=== PATIENT | male | born 1960 | race Caucasian/White ===

== ENCOUNTER → 2020-02-28 09:33 | Outpatient (BNVA) | payer OTHER, SELFPAY | PROVIDERS: PCP Nurse Practitioner Family; Referring Provider Nurse Practitioner Family; Visit Provider Hospitalist | DX: Z76.89 Persons encountering health services in other specified circumstances (principal) ==

== ENCOUNTER → 2020-03-17 10:08 | Outpatient (BNVA) | payer OTHER, SELFPAY | PROVIDERS: PCP Nurse Practitioner Family; Visit Provider Urology | DX: Z76.89 Persons encountering health services in other specified circumstances (principal) ==

== ENCOUNTER 2020-04-01 07:03 | Outpatient (REF) | payer OTHER, SELFPAY ==
[2020-04-01 07:52] LABS: Cholesterol 190 mg/dL; HDL Cholesterol 53 mg/dL; LDL Cholesterol Calculated 114 mg/dl; Triglycerides 117 mg/dL
== END 2020-04-01 07:04 | disposition home or self-care (01) ==
LOC: HO.LAB 07:03
PROVIDERS: PCP Nurse Practitioner Family; Visit Provider Nurse Practitioner Family
DX: E78.5 Hyperlipidemia, unspecified (principal)
CPT/HCPCS: 80061

== ENCOUNTER 2020-09-04 07:46 | Outpatient (REF) | payer OTHER, SELFPAY | END 2020-09-04 07:47 | disposition home or self-care (01) | LOC: HO.HMGCLDS 07:46 | PROVIDERS: PCP Nurse Practitioner Family; Visit Provider Urology | DX: R97.20 Elevated prostate specific antigen [PSA] (principal); N40.1 Benign prostatic hyperplasia with lower urinary tract symptoms; N13.8 Other obstructive and reflux uropathy; Z12.5 Encounter for screening for malignant neoplasm of prostate | CPT/HCPCS: 36415; 84153 ==

== ENCOUNTER → 2020-09-15 10:23 | Outpatient (BNVA) | payer OTHER, SELFPAY | PROVIDERS: PCP Nurse Practitioner Family; Visit Provider Urology | DX: Z13.9 Encounter for screening, unspecified (principal); N32.81 Overactive bladder ==

== ENCOUNTER 2021-01-27 06:33 | Outpatient (REF) | payer OTHER, SELFPAY ==
[2021-01-27 11:20] LABS: Appearance Urine CLEAR; Color Urine YELLOW; Glucose Urine UA NEG (NEG); Leukocyte Esterase Urine NEG (NEG); Nitrite Urine NEG (NEG); Urine Blood NEG (NEG); Urine Ketones NEG (NEG); Urine Protein NEG (NEG-TRACE)
[2021-01-27 11:34] LABS: Alanine Aminotransferase 100 U/L (0-40); Albumin Level 4.2 g/dL (3.5-5.0); Alkaline Phosphatase 101 U/L (39-117); Anion Gap 11 (12-20); Aspartate Amino Transferase 61 U/L (5-37); Bilirubin Total 0.4 mg/dL (0.0-1.0); Blood Urea Nitrogen 23 mg/dL (9-16); Carbon Dioxide 25 mmol/L (22-29); Chloride 108 mmol/L (96-108); Cholesterol 192 mg/dL; Estimated Glomerular Filt Rate > 60; Glucose Fasting 94 mg/dL (60-99); HDL Cholesterol 57 mg/dL; LDL Cholesterol Calculated 122 mg/dl; Potassium 4.3 mmol/L (3.3-5.1); Sodium 140 mmol/L (135-145); Total Protein 6.8 g/dL (6.5-8.0); Triglycerides 65 mg/dL
[2021-01-27 11:56] LABS: TSH reflex Free T4 2.53 uIU/mL (0.32-4.0)
== END 2021-01-27 06:34 | disposition home or self-care (01) ==
LOC: HO.HMGCLDS 06:33
PROVIDERS: PCP Nurse Practitioner Family; Visit Provider Nurse Practitioner Family
DX: Z00.00 Encounter for general adult medical examination without abnormal findings (principal)
CPT/HCPCS: 36415; 80053; 80061; 81003; 84443

== ENCOUNTER 2021-02-03 06:37 | Outpatient (REF) | payer OTHER, SELFPAY ==
[2021-02-05 04:27] LABS: HBS Num1 3.25 mIU/mL (0-7.99); HBc Num1 0.06 S/CO (0.00-0.79); Hepatitis B Core Antibody Nonreactive (Nonreactive); ~HepC Num1 0.21 S/CO (0.00-0.79); ~Hepatitis B Surface Antibody NONREACTIVE (Nonreactive); ~Hepatitis C Antibody Nonreactive (Nonreactive)
[2021-02-05 04:30] LABS: Hepatitis B Surface Antigen Negative (Negative)
[2021-02-07 07:48] LABS: HBsAGNum1 0.18 S/CO (0.00-0.99)
[2021-02-07 09:18] LABS: Hepatitis A Antibody IgM 0.11 Index (0-0.79); ~Hepatitis A Antibody IgM Nonreactive (Nonreactive)
== END 2021-02-03 06:38 | disposition home or self-care (01) ==
LOC: HO.HMGCLDS 06:37
PROVIDERS: PCP Nurse Practitioner Family; Visit Provider Nurse Practitioner Family
DX: R74.8 Abnormal levels of other serum enzymes (principal)
CPT/HCPCS: 36415; 86704; 86706; 86709; 86803; 87340

== ENCOUNTER 2021-02-09 08:12 | Outpatient (REF) | payer OTHER, SELFPAY ==
--- NOTE | ~2021-02-09 | US_ITS ---
EXAMINATION: US ABDOMEN COMPLETE CLINICAL INFORMATION: Abnormal levels of other serum enzymes. COMPARISON: Ultrasound abdomen complete 12/15/2015 and 09/02/2014. TECHNIQUE: Real-time imaging of the abdominal viscera. FINDINGS: PANCREAS: The partially visualized body of the pancreas has homogeneous echotexture. The rest of the pancreas is obscured by overlying gas and not well visualized. ABDOMINAL AORTA: The abdominal aorta is normal caliber. INFERIOR VENA CAVA: Visualized portions are normal. LIVER: The liver is normal in size. The liver contour is normal. Parenchymal echogenicity is normal. There are 3 anechoic cysts seen. 1. 0.8 x 0.5 x 0.9 cm 2. 0.6 x 0.4 x 0.5 cm 3. 0.4 x 0.3 x 0.4 cm There is no intrahepatic biliary duct dilatation seen. GALLBLADDER: Surgically absent. COMMON BILE DUCT: Normal in caliber measuring 0.3 cm in diameter. RIGHT KIDNEY: Normal. No hydronephrosis. No renal calculi or focal parenchymal lesions. The kidney measures 12.3 cm in maximum dimension. LEFT KIDNEY: There are scattered vascular calcifications within. No hydronephrosis. No renal calculi or focal parenchymal lesions. The kidney measures 12.6 cm in maximum dimension. SPLEEN: Normal. The spleen measures 10.4 cm in maximum dimension. FREE FLUID: None. US/US abdomen complete IMPRESSION: Multiple hepatic liver cysts. The rest of the abdominal ultrasound is unremarkable.
== END 2021-02-09 08:13 | disposition home or self-care (01) ==
LOC: HO.HMGCX 08:12
PROVIDERS: PCP Nurse Practitioner Family; Visit Provider Nurse Practitioner Family
DX: R74.8 Abnormal levels of other serum enzymes (principal)
CPT/HCPCS: 76700

== ENCOUNTER → 2021-03-22 08:43 | Outpatient (BNVA) | payer OTHER, SELFPAY | PROVIDERS: PCP Nurse Practitioner Family; Visit Provider Urology | DX: N32.81 Overactive bladder (principal); R97.20 Elevated prostate specific antigen [PSA]; R35.1 Nocturia | CPT/HCPCS: 51798 ==

== ENCOUNTER 2021-09-20 07:32 | Outpatient (REF) | payer OTHER, SELFPAY ==
[2021-09-20 12:10] LABS: Prostate Specific Antigen 3.67 ng/mL (<0.05-4.0)
== END 2021-09-20 07:33 | disposition home or self-care (01) ==
LOC: HO.HMGCLDS 07:32
PROVIDERS: PCP Nurse Practitioner Family; Visit Provider Urology
DX: Z12.5 Encounter for screening for malignant neoplasm of prostate (principal); R97.20 Elevated prostate specific antigen [PSA]
CPT/HCPCS: 36415; 84153

== ENCOUNTER 2021-09-24 09:06 | Outpatient (REF) | payer OTHER, SELFPAY ==
[2021-09-24 11:17] LABS: Appearance Urine CLEAR; Color Urine DK YELLOW; Glucose Urine UA NEG (NEG); Leukocyte Esterase Urine NEG (NEG); Nitrite Urine NEG (NEG); Specific Gravity - Urine 1.015 (1.005-1.025); Urine Blood NEG (NEG); Urine Ketones NEG (NEG); Urine Protein TRACE MG/DL (NEG-TRACE)
[2021-09-24 11:46] LABS: Amorphous Sediment Urine 3+ /LPF; RBC Urine 0 /HPF (0); WBC Urine 0 /HPF (0-4)
== END 2021-09-24 09:07 | disposition home or self-care (01) ==
LOC: HO.HMGCLDS 09:06
PROVIDERS: Visit Provider Nurse Practitioner Family
DX: R30.0 Dysuria (principal)
CPT/HCPCS: 81001; 87086

== ENCOUNTER → 2021-10-02 08:21 | Outpatient (BNVA) | payer OTHER, SELFPAY | PROVIDERS: PCP Nurse Practitioner Family; Visit Provider Urology | DX: N32.81 Overactive bladder (principal); R39.12 Poor urinary stream; R35.1 Nocturia; R97.20 Elevated prostate specific antigen [PSA] | CPT/HCPCS: 51798 ==

== ENCOUNTER 2022-01-19 07:04 | Outpatient (REF) | payer OTHER, SELFPAY ==
[2022-01-19 07:10] LABS: MANUAL DIFF FLAG NO
[2022-01-19 07:45] LABS: Basophils Percent Auto 0.8 % (0-2); Eosinophils Absolute Auto 0.1 X10*3/uL (0.0-0.4); Hematocrit 43.2 % (42.0-52.0); Hemoglobin 14.4 g/dl (14.0-18.0); Lymphocytes Absolute Auto 1.2 X10*3/uL (1.2-4.9); Lymphocytes Percent Auto 32.4 % (20-40); Mean Corpuscular HGB Conc 33.3 g/dl (31.0-36.0); Mean Corpuscular Hemoglobin 31.5 pg (27.0-33.0); Mean Corpuscular Volume 94.5 fL (80.0-98.0); Mean Platelet Volume 10.3 fL (9.4-12.4); Monocytes Absolute Auto 0.5 X10*3/uL (0.1-1.2); Monocytes Percent Auto 13.2 % (2-11); Neutrophils Absolute Auto 1.8 x10*3/uL (2.0-8.3); Neutrophils Percent Auto 51.6 % (45-73); Platelet Count 195 X10*3/uL (160-400); Red Blood Count 4.57 X10*6/uL (4.60-5.80); Red Cell Distribution Width 12.3 % (11.0-16.0); White Blood Count 3.6 X10*3/uL (4.8-10.8)
[2022-01-19 08:27] LABS: Alanine Aminotransferase 55 U/L (0-40); Albumin Level 4.3 g/dL (3.5-5.0); Alkaline Phosphatase 109 U/L (39-117); Anion Gap 14 (12-20); Aspartate Amino Transferase 39 U/L (5-37); Bilirubin Total 0.6 mg/dL (0.0-1.0); Blood Urea Nitrogen 19 mg/dL (9-16); Carbon Dioxide 27 mmol/L (22-29); Chloride 106 mmol/L (96-108); Cholesterol 171 mg/dL; Estimated Glomerular Filt Rate > 60; Glucose Fasting 95 mg/dL (60-99); HDL Cholesterol 56 mg/dL; LDL Cholesterol Calculated 108 mg/dl; Potassium 4.5 mmol/L (3.3-5.1); Sodium 142 mmol/L (135-145); Total Protein 6.9 g/dL (6.5-8.0); Triglycerides 38 mg/dL
[2022-01-19 08:50] LABS: TSH reflex Free T4 1.52 uIU/mL (0.32-4.0)
== END 2022-01-19 07:05 | disposition home or self-care (01) ==
LOC: HO.LAB 07:04
PROVIDERS: PCP Nurse Practitioner Family; Visit Provider Nurse Practitioner Family
DX: I10 Essential (primary) hypertension (principal); I42.2 Other hypertrophic cardiomyopathy; I48.91 Unspecified atrial fibrillation; Z95.810 Presence of automatic (implantable) cardiac defibrillator
CPT/HCPCS: 36415; 80053; 80061; 84443; 85025

== ENCOUNTER 2022-03-01 10:14 | Outpatient (REF) | payer OTHER, SELFPAY ==
--- NOTE | ~2022-03-01 | US_ITS ---
EXAMINATION: US ABDOMEN LIMITED CLINICAL INFORMATION: Other specified diseases of liver. Kidney cysts. COMPARISON: Ultrasound abdomen complete 02/09/2021. TECHNIQUE: Real-time imaging of the right upper quadrant abdominal viscera. FINDINGS: PANCREAS: Normal. LIVER: The liver is normal in size. The liver contour is normal. There is increased parenchymal echogenicity. There is no intrahepatic biliary duct dilatation seen. Redemonstration of 2 liver cysts, largest of which demonstrates a 3 mm hyperechoic internal focus, possibly a calcification, though no posterior shadowing is noted. This complicated cyst measures 1 x 0.6 x 0.9 cm, previously 0.8 x 0.5 x 0.9 cm. GALLBLADDER: Surgically absent. COMMON BILE DUCT: Normal in caliber measuring 0.74 cm in diameter. RIGHT KIDNEY: Normal. No hydronephrosis. No renal calculi or focal parenchymal lesions. The kidney measures 12.3 cm in maximum dimension. FREE FLUID: None. US/US abdomen limited IMPRESSION: 1. Redemonstration of 2 liver cysts, one of which demonstrates a 3 mm hyperechoic internal focus, possibly a calcification, though no posterior shadowing is noted, similar to minimally increased in size when compared to 02/09/2021. A follow-up ultrasound in 6-12 months is recommended. 2. Increased hepatic parenchymal echogenicity is nonspecific and could be seen in the setting of hepatic steatosis or hepatocellular disease. 3. Status post cholecystectomy.
[2022-03-01 11:19] LABS: MANUAL DIFF FLAG NO
[2022-03-01 11:35] LABS: Basophils Percent Auto 1.1 % (0-2); Eosinophils Absolute Auto 0.1 X10*3/uL (0.0-0.4); Eosinophils Percent Auto 2.8 % (0-4); Hemoglobin 14.7 g/dl (14.0-18.0); Lymphocytes Absolute Auto 1.4 X10*3/uL (1.2-4.9); Lymphocytes Percent Auto 39.1 % (20-40); Mean Corpuscular HGB Conc 33.4 g/dl (31.0-36.0); Mean Corpuscular Hemoglobin 31.3 pg (27.0-33.0); Mean Corpuscular Volume 93.6 fL (80.0-98.0); Mean Platelet Volume 10.7 fL (9.4-12.4); Monocytes Absolute Auto 0.4 X10*3/uL (0.1-1.2); Monocytes Percent Auto 10.8 % (2-11); Neutrophils Absolute Auto 1.7 x10*3/uL (2.0-8.3); Neutrophils Percent Auto 46.2 % (45-73); Platelet Count 188 X10*3/uL (160-400); White Blood Count 3.6 X10*3/uL (4.8-10.8)
[2022-03-01 11:51] LABS: Alanine Aminotransferase 60 U/L (0-40); Albumin Level 4.3 g/dL (3.5-5.0); Alkaline Phosphatase 114 U/L (39-117); Anion Gap 12 (12-20); Aspartate Amino Transferase 39 U/L (5-37); Bilirubin Total 0.5 mg/dL (0.0-1.0); Blood Urea Nitrogen 19 mg/dL (9-16); Carbon Dioxide 27 mmol/L (22-29); Chloride 109 mmol/L (96-108); Estimated Glomerular Filt Rate > 60; Glucose Random 95 mg/dL (60-115); Potassium 4.1 mmol/L (3.3-5.1); Sodium 144 mmol/L (135-145); Total Protein 6.8 g/dL (6.5-8.0)
== END 2022-03-01 10:15 | disposition home or self-care (01) ==
LOC: HO.HMGCX 10:14
PROVIDERS: PCP Nurse Practitioner Family; Visit Provider Nurse Practitioner Family
DX: K76.89 Other specified diseases of liver (principal); R74.8 Abnormal levels of other serum enzymes
CPT/HCPCS: 36415; 76705; 80053; 85025

== ENCOUNTER → 2022-06-21 14:23 | Outpatient (BNVA) | payer OTHER, SELFPAY | PROVIDERS: PCP Nurse Practitioner Family; Visit Provider Urology | DX: R97.20 Elevated prostate specific antigen [PSA] (principal); R35.0 Frequency of micturition; R39.12 Poor urinary stream | CPT/HCPCS: 51798 ==

== ENCOUNTER 2022-08-03 06:31 | Outpatient (REF) | payer OTHER, SELFPAY ==
[2022-08-03 12:16] LABS: MANUAL DIFF FLAG NO
[2022-08-03 12:25] LABS: Eosinophils Absolute Auto 0.1 X10*3/uL (0.0-0.4); Eosinophils Percent Auto 3.3 % (0-4); Hematocrit 43.7 % (42.0-52.0); Hemoglobin 14.5 g/dl (14.0-18.0); Lymphocytes Absolute Auto 1.1 X10*3/uL (1.2-4.9); Lymphocytes Percent Auto 36.4 % (20-40); Mean Corpuscular HGB Conc 33.2 g/dl (31.0-36.0); Mean Corpuscular Hemoglobin 31.1 pg (27.0-33.0); Mean Corpuscular Volume 93.8 fL (80.0-98.0); Mean Platelet Volume 11.1 fL (9.4-12.4); Monocytes Absolute Auto 0.4 X10*3/uL (0.1-1.2); Monocytes Percent Auto 13.9 % (2-11); Neutrophils Absolute Auto 1.4 x10*3/uL (2.0-8.3); Neutrophils Percent Auto 45.4 % (45-73); Platelet Count 180 X10*3/uL (160-400); Red Blood Count 4.66 X10*6/uL (4.60-5.80); Red Cell Distribution Width 12.7 % (11.0-16.0)
[2022-08-03 12:32] LABS: Appearance Urine Clear; Color Urine Yellow; Glucose Urine UA Negative (Negative); Leukocyte Esterase Urine Small (1+) (Negative); Nitrite Urine Negative (Negative); PH 6.5 (5.0-9.0); UMIC TRIGGER UACC YES; Urine Blood Negative (Negative); Urine Ketones Negative (Negative); Urine Protein Negative (Neg-Trace)
[2022-08-03 12:41] LABS: Alanine Aminotransferase 79 U/L (0-40); Albumin Level 3.9 g/dL (3.5-5.0); Alkaline Phosphatase 100 U/L (39-117); Anion Gap 11 (12-20); Aspartate Amino Transferase 48 U/L (5-37); Bilirubin Total 0.7 mg/dL (0.0-1.0); Blood Urea Nitrogen 18 mg/dL (9-16); Carbon Dioxide 25 mmol/L (22-29); Chloride 108 mmol/L (96-108); Cholesterol 164 mg/dL; Estimated Glomerular Filt Rate > 60; Glucose Fasting 87 mg/dL (60-99); HDL Cholesterol 51 mg/dL; LDL Cholesterol Calculated 101 mg/dl; Potassium 4.4 mmol/L (3.3-5.1); Sodium 140 mmol/L (135-145); Total Protein 6.3 g/dL (6.5-8.0); Triglycerides 63 mg/dL
[2022-08-03 12:59] LABS: TSH reflex Free T4 2.97 uIU/mL (0.32-4.0)
[2022-08-03 13:00] LABS: Bacteria Urine None Seen (None Seen); Hyaline Casts Urine 0-2 /LPF (0-2); RBC Urine 0-2 /HPF (0-2); Squamous Epithelial Cell Urine 0-2 /HPF (0-2); UACC Culture Trigger YES; WBC Urine 0-5 /HPF (0-5)
== END 2022-08-03 06:32 | disposition home or self-care (01) ==
LOC: HO.HMGCLDS 06:31
PROVIDERS: PCP Nurse Practitioner Family; Visit Provider Nurse Practitioner Family
DX: K76.89 Other specified diseases of liver (principal); K76.0 Fatty (change of) liver, not elsewhere classified; R82.90 Unspecified abnormal findings in urine; I48.91 Unspecified atrial fibrillation; I42.2 Other hypertrophic cardiomyopathy
CPT/HCPCS: 36415; 80053; 80061; 81001; 84443; 85025; 87086

== ENCOUNTER → 2022-08-30 10:19 | Outpatient (BNV) | payer OTHER, SELFPAY | PROVIDERS: Visit Provider Internal Medicine | DX: D72.819 Decreased white blood cell count, unspecified (principal) | CPT/HCPCS: 99204; 99212; 99214 ==

== ENCOUNTER 2022-11-04 08:15 | Outpatient (REF) | payer OTHER, SELFPAY | END 2022-11-04 08:16 | disposition home or self-care (01) | LOC: HO.HMGCX 08:15 | PROVIDERS: PCP Nurse Practitioner Family; Visit Provider Nurse Practitioner Family | DX: K76.89 Other specified diseases of liver (principal) | CPT/HCPCS: 76705 ==

== ENCOUNTER 2022-12-03 08:36 | Outpatient (AMB) | payer OTHER, SELFPAY ==
[2022-12-03 08:45] VITALS: BP 136/80; PULSE 69; O2SAT 97; BMI 29.5
--- NOTE | 2022-12-03 08:45 | MHC.PC.OV ---
Vital Signs 12/03/22 08:45 Height 6 ft Weight 217 lb 8 oz BMI 29.5 BP 136/80 Blood Pressure Location Lt brachial Position Sitting Pulse 69 Pulse Source Pulse Oximeter Pulse Oximetry (%) 97 Oxygen Delivery Method Room Air Intake Visit Reasons: Annual PE Allergies aripiprazole [From Abilify] Adverse Reaction (Intermediate, Verified 12/03/22 08:57) Increased agitation and depression Penicillins Adverse Reaction (Intermediate, Verified 12/03/22 08:57) Nausea and Vomiting propranolol [Propranolol] Adverse Reaction (Intermediate, Verified 12/03/22 08:57) Nausea and Vomiting shellfish derived Adverse Reaction (Intermediate, Verified 12/03/22 08:57) Vomiting duloxetine [From CYMBALTA] Adverse Reaction (Mild, Verified 12/03/22 08:57) Increased agitation mirtazapine [MIRTAZAPINE] Adverse Reaction (Mild, Verified 12/03/22 08:57) Manic symptoms prednisone Adverse Reaction (Mild, Verified 12/03/22 08:57) Anger issues risperidone [From RISPERDAL] Adverse Reaction (Mild, Verified 12/03/22 08:57) Previous bad reaction and drug interaction with Wellbutrin Medication List - Last Reconciled 12/03/22 by REEMA Ly- aspirin 81 mg PO DAILY atorvastatin 40 mg PO DAILY [cbd oil 0.5 mL PO 2XD] cholecalciferol (vitamin D3) 50 mcg PO DAILY diclofenac sodium 75 mg PO BID PRN 30 days diphenhydramine HCl (Benadryl) 25 mg PO QID PRN gabapentin 300 mg PO TID lorazepam 0.5 mg PO BID metoprolol tartrate 25 mg PO BID mirabegron ER (Myrbetriq) 50 mg PO DAILY 90 days multivitamin 1 tab PO DAILY primidone 250 mg PO TID sertraline 0 mg PO DAILY terazosin 5 mg PO BEDTIME 90 days vitamin B complex 1 tab PO DAILY Tobacco use date assessed: 12/03/22 Fall risk assessment: No Falls in past year Last assessed Fall Risk: 12/03/22 Dental Screening Dental Screen Date: 12/03/22 Did you have a dental visit in the last 12 months?: Yes Did you have a dental problem in the last 6 months where you did not have access to dental care?: No Was dental information given to patient?: Patient has dentist HPI Annual PE HPI Details Pt is here for a PE. Will order labs. Colon screen is up to date. Pt follows up with urology and cardiology. [facility], [facility] Medical History Asthma Atrial fibrillation Bladder outlet obstruction Coarse tremor Dyspnea HTN (hypertension) Hypertrophic cardiomyopathy Hypogonadism in male Burrows's neuroma of right foot [place] (nonalcoholic steatohepatitis) PAYAL on CPAP Overactive bladder Peyronie's disease PTSD (post-traumatic stress disorder) Weak urinary stream Surgical History History of appendectomy History of colonoscopy History of neck surgery Family History Father Lung disease Substance use disorder Mother Type 2 diabetes mellitus Brother Substance use disorder Other Cancer Diabetes mellitus Mental health disorder Social History Household Members: Spouse Housing: House Patient Tobacco Use Status: Never used Tobacco e-Cigarette/Vaping Use: Never Used Second Hand Smoke Exposure: No service: No Current occupational status: employed Current occupation: [employer], [place] Current occupational exposures/hazards: Yes Cognitive needs: No Hearing needs: No Vision needs: No Questionnaire Thrive Questionnaire Date Thrive assessed: 08/01/22 STU-7 AMB Questionnaire STU-7 Date STU - 7 assessed: 08/01/22 Source: Developed by Drs. Roque Schroeder, Rose Mary Hess, Nikolas Dale and colleagues, with an educational mohit from [employer]. Review of Systems Const Denies chills and Denies fever(s) Eyes Denies blurry vision ENT Denies vertigo, Denies dizziness and Denies sore throat Card Denies chest pain at rest, Denies chest pain with activity, Denies diaphoresis, Denies dyspnea and Denies dyspnea on exertion Resp Denies cough, Denies dyspnea, Denies dyspnea on exertion and Denies wheezing GI Denies abdominal pain, Denies melena, Denies hematochezia, Denies constipation, Denies diarrhea and Denies loose stools Denies hematuria Musc Denies numbness and Denies tingling Skin/Breast Denies lesions Neuro Denies vertigo, Denies dizziness, Denies numbness and Denies tingling Psych Denies anxiety, Denies depression, Denies homicidal ideation, Denies suicidal ideation and Denies other (substance abuse) Aller/Immun Denies wheezing Physical exam (Primary Care) Vital Signs: Last Vital Signs Pulse 69 12/03/22 08:45 BP 136/80 12/03/22 08:45 Pulse Ox 97 12/03/22 08:45 Oxygen Delivery Method Room Air 12/03/22 08:45 BMI result Body Mass Index 29.5 Tobacco/Smoking Status: Tobacco use Status Tobacco use date assessed 12/03/22 12/03/22 08:54 Patient Tobacco Use Status Never used Tobacco 12/03/22 08:54 e-Cigarette/Vaping Use Never Used 12/03/22 08:54 Thrive Assessment: Date of Thrive Assessment Date Thrive assessed 08/01/22 12/03/22 08:54 Const General: cooperative Nutritional Appearance: well nourished Orientation/consciousness: patient oriented x3 HENMT Head: Yes normal to inspection, Yes normocephalic and Yes atraumatic Ears: TM's normal bilaterally Eyes General: appearance normal, both eyes and all related structures Alignment and Position: alignment normal and position normal Neck Neck: Yes normal visual inspection and Yes no lymphadenopathy Thyroid: Thyroid normal Resp Effort & Inspection: normal respiratory effort Auscultation: clear to auscultation bilaterally Cardio Rate: regular rate Rhythm: regular rhythm Heart sounds: S1 normal heart sound present, S2 normal heart sound present and no murmurs GI Palpation (GI): Soft to palpation and nontender Auscultation: normal bowel sounds Male General Exam: Yes normal external exam Penis: normal penis Scrotum: scrotum normal, testes descended bilaterally and no inguinal hernias Testes: no testicular mass Skin Rashes: no rashes Neuro General: patient oriented x3, moves all extremities, no focal motor deficits and deep tendon reflexes 2+ bilaterally Romberg Test: Negative Psych Appearance: grossly normal Mental Status: mental status grossly normal Speech and movement: Normal speech and movement present Affect: normal affect Attitude: cooperative Thought process: Normal thought process present Thought content: Normal thought content present Insight: Good insight present (Psych) Judgement: Good judgement present (Psych) Assessment and Plan Assessment & Plan (1) Physical exam: Code(s): Z00.00 - Encounter for general adult medical examination without abnormal findings Plan: Labs ordered Plan The patient agreed to the use of a medical device sales for this encounter. Scribed for NATI Dejesus by [employer] Arriola medical device sales, on 12/03/2022 at 08:55 EST. Orders: Orders Comprehensive [place]. Panel Fast Today Z00.00 - Encounter for general adult medical examination without abnormal findings Lipid Panel Today Z00.00 - Encounter for general adult medical examination without abnormal findings TSH reflex Free T4 Today Z00.00 - Encounter for general adult medical examination without abnormal findings Complete Blood Count Auto Diff Today Z00.00 - Encounter for general adult medical examination without abnormal findings UA CC w/rflx Micro + Cult Today Z00.00 - Encounter for general adult medical examination without abnormal findings Coding Level of Care Code Est Pt Prev Care 40-64y(56747) Diagnoses Physical exam Z00.00
== END 2022-12-03 09:11 | disposition home or self-care (01) ==
PROVIDERS: Visit Provider Nurse Practitioner Family
DX: Z00.00 Encounter for general adult medical examination without abnormal findings (principal)
CPT/HCPCS: 99396

== ENCOUNTER 2022-12-24 08:19 | Outpatient (AMB) | payer OTHER, SELFPAY ==
--- NOTE | 2022-12-24 08:20 | MHC.OFFVIS ---
Intake Intake Visit Reasons: 6m follow up Intake Note: Patient is present for Telephone Follow Up Urology Med: Terazosin, Myrbetriq Antibiotic Allergy: Penicillins Blood Thinner: Aspirin Pharmacy: [facility] Allergies aripiprazole [From Abilify] Adverse Reaction (Intermediate, Verified 12/24/22 08:21) Increased agitation and depression Penicillins Adverse Reaction (Intermediate, Verified 12/24/22 08:21) Nausea and Vomiting propranolol [Propranolol] Adverse Reaction (Intermediate, Verified 12/24/22 08:21) Nausea and Vomiting shellfish derived Adverse Reaction (Intermediate, Verified 12/24/22 08:21) Vomiting duloxetine [From CYMBALTA] Adverse Reaction (Mild, Verified 12/24/22 08:21) Increased agitation mirtazapine [MIRTAZAPINE] Adverse Reaction (Mild, Verified 12/24/22 08:21) Manic symptoms prednisone Adverse Reaction (Mild, Verified 12/24/22 08:21) Anger issues risperidone [From RISPERDAL] Adverse Reaction (Mild, Verified 12/24/22 08:21) Previous bad reaction and drug interaction with Wellbutrin Medication List - Last Reconciled 12/24/22 by Anil Villareal MD aspirin 81 mg PO DAILY atorvastatin 40 mg PO DAILY [cbd oil 0.5 mL PO 2XD] cholecalciferol (vitamin D3) 50 mcg PO DAILY diclofenac sodium 75 mg PO BID PRN 30 days diphenhydramine HCl (Benadryl) 25 mg PO QID PRN gabapentin 300 mg PO TID lorazepam 0.5 mg PO BID metoprolol tartrate 25 mg PO BID mirabegron ER (Myrbetriq) 50 mg PO DAILY 90 days multivitamin 1 tab PO DAILY primidone 250 mg PO TID sertraline 50 mg PO QPM terazosin 5 mg PO BEDTIME 90 days vitamin B complex 1 tab PO DAILY HPI HPI Comments History of Present Illness Details Damian is a pleasant male. He is a patient Dr. Krueger. 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 Current treatment includes medication, alpha rajni - terazosin 5mg, Myrbetriq Prior treatments include 08/20 terazosin 5mg 02/20 oxybutynin with dry mouth - has memory issues baseline. Prostate Symptom Score 02/18 Moderate (9-19), Bother 3 4./ , Moderate (9-19), Bother 3. Symptoms include 02/18 incomplete emptying, urgency, weak stream 08/20 , intermittency, urgency, weak stream, nocturia (>2), and are progressing. Results from testing include cystoscopy no abnormality seen 09/19, 03/23 - filled 300cc mild trabeculation Prior Prostate Score mild. PSA 08/20 3.5 - 01/22 6.1 - 09/22 3.9, 09/23 3.7 Testing at next visit will include bladder scan. Treatment plan combination therapy. Peyronie's Disease: The patient presents for followup up evaluation for penile disorder. Primary complaint is penile curvature, Peyronie's disease. At this time he experiences partial erections sufficient for penetrative intercourse. [place] has is unaffected. Prior management includes 03/22 oral medication, vacuum protocol. Associated conditions history of penile trauma No CAD No diabetes No erectile dysfunction No hypertension No peripheral vascular disease No Natural history of Peyronie's COUNTS INCLUDE 234 BEDS AT THE [facility] Medical History Asthma Atrial fibrillation Bladder outlet obstruction Coarse tremor Dyspnea HTN (hypertension) Hypertrophic cardiomyopathy Hypogonadism in male Burrows's neuroma of right foot [place] (nonalcoholic steatohepatitis) PAYAL on CPAP Overactive bladder Peyronie's disease PTSD (post-traumatic stress disorder) Weak urinary stream Surgical History History of appendectomy History of colonoscopy History of neck surgery Family History Father Lung disease Substance use disorder Mother Type 2 diabetes mellitus Brother Substance use disorder Other Cancer Diabetes mellitus Mental health disorder Social History Household Members: Spouse Housing: House Patient Tobacco Use Status: Never used Tobacco e-Cigarette/Vaping Use: Never Used Second Hand Smoke Exposure: No service: No Current occupational status: employed Current occupation: [employer] Current occupational exposures/hazards: Yes Cognitive needs: No Hearing needs: No Vision needs: No Review of Systems Const All systems reviewed & are unremarkable except as noted in HPI and below Reports no additional complaints Resp Reports no additional complaints GI Reports no additional complaints Reports as per HPI Musc Reports no additional complaints Physical Exam Telemedicine evaluation Appropriate responses Regular breathing rate and rhythm HEENT Head: Yes normal to inspection Ears: hearing grossly normal bilaterally Eyes General: appearance normal, both eyes and all related structures Neck Neck: Yes normal visual inspection Chest Chest palpation & inspection: normal inspection of the chest Resp Effort & Inspection: normal respiratory effort and able to speak in complete sentences Assessment & Plan Assessment & Plan (1) Nocturia more than twice per night: Code(s): R35.1 - Nocturia (2) Overactive bladder: Comment: Myrbetriq Code(s): N32.81 - Overactive bladder (3) Urinary frequency: Code(s): R35.0 - Frequency of micturition Plan Six month follow-up Orders: Orders Prostate Specific Antigen 6 Months R97.20 - Elevated prostate specific antigen [PSA] Medications: Refilled terazosin 5 mg PO BEDTIME 90 caps 1RF 90 days N40.1 - Benign prostatic hyperplasia with lower urinary tract symptoms, R35.0 - Frequency of micturition mirabegron ER (Myrbetriq) 50 mg PO DAILY 90 tabs 2RF 90 days Patient Instructions: Imaging studies, laboratory and physical exam results were discussed and reviewed in detail. No major barriers to patient understanding were identified. An opportunity to ask questions regarding the treatment plan was provided. All questions were answered. The patient expressed understanding and agreement with the above treatment plan. The patient is aware they should contact our office by phone for worsening of their current condition or the appearance of new urologic symptoms. Compliance is encouraged with any medications and followup testing that is ordered. It is a privilege to participate in the urologic care of your patient. If you have any questions or concerns regarding treatment for the above conditions, or other urologic issues, please do not hesitate to contact me. The office telephone contact is [phone]. This note is constructed using voice recognition software. While every effort has been made to ensure accuracy director of investigations errors may have been included. Yours sincerely, Dr Anil Villareal MD, [facility] - Urology Providers of Expert, Compassionate Care for the Genitourinary System Telehealth Telehealth Location of provider rendering services: practice address Location of patient: address on file Patient Identification confirmed using: Name, : Yes Telehealth method: video Patient verbally consented to treatment: Yes Patient verbally consented to billing insurance company: Yes Patient informed of any privacy concerns related to visit: Yes Coding Level of Care Code Tele Est Pt Level 3 (28543) Diagnoses Nocturia more than twice per night R35.1 Overactive bladder N32.81 Urinary frequency R35.0
== END 2022-12-24 11:16 | disposition home or self-care (01) ==
LOC: HO.HUSH 08:19
PROVIDERS: PCP Nurse Practitioner Family; Visit Provider Urology
DX: R35.1 Nocturia (principal); N32.81 Overactive bladder; R35.0 Frequency of micturition
CPT/HCPCS: 99213

== ENCOUNTER → 2022-12-24 08:19 | Outpatient (BNVA) | payer OTHER, SELFPAY | PROVIDERS: PCP Nurse Practitioner Family; Visit Provider Urology ==

== ENCOUNTER 2023-05-24 06:36 | Outpatient (REF) | payer OTHER, SELFPAY ==
[2023-05-24 11:29] LABS: MANUAL DIFF FLAG NO
[2023-05-24 11:35] LABS: Appearance Urine Clear; Color Urine Dark Yellow; Glucose Urine UA Negative (Negative); Leukocyte Esterase Urine Trace (Negative); Nitrite Urine Negative (Negative); PH 6.5 (5.0-9.0); Specific Gravity - Urine 1.025 (1.005-1.025); UMIC TRIGGER UACC YES; Urine Blood Negative (Negative); Urine Ketones Negative (Negative); Urine Protein Negative (Neg-Trace)
[2023-05-24 11:38] LABS: Basophils Percent Auto 0.9 % (0-2); Eosinophils Absolute Auto 0.1 X10*3/uL (0.0-0.4); Eosinophils Percent Auto 2.8 % (0-4); Hemoglobin 13.8 g/dl (14.0-18.0); Lymphocytes Absolute Auto 1.1 X10*3/uL (1.2-4.9); Lymphocytes Percent Auto 32.9 % (20-40); Mean Corpuscular HGB Conc 33.7 g/dl (31.0-36.0); Mean Corpuscular Hemoglobin 31.5 pg (27.0-33.0); Mean Corpuscular Volume 93.6 fL (80.0-98.0); Mean Platelet Volume 10.7 fL (9.4-12.4); Monocytes Absolute Auto 0.5 X10*3/uL (0.1-1.2); Monocytes Percent Auto 15.7 % (2-11); Neutrophils Absolute Auto 1.6 x10*3/uL (2.0-8.3); Neutrophils Percent Auto 47.7 % (45-73); Platelet Count 176 X10*3/uL (160-400); Red Blood Count 4.38 X10*6/uL (4.60-5.80); Red Cell Distribution Width 12.9 % (11.0-16.0); White Blood Count 3.3 X10*3/uL (4.8-10.8)
[2023-05-24 11:40] LABS: Bacteria Urine None Seen (None Seen); Hyaline Casts Urine 0-2 /LPF (0-2); RBC Urine 0-2 /HPF (0-2); Squamous Epithelial Cell Urine 0-2 /HPF (0-2); WBC Urine 0-5 /HPF (0-5)
[2023-05-24 12:02] LABS: Alanine Aminotransferase 46 U/L (0-40); Albumin Level 3.9 g/dL (3.5-5.0); Alkaline Phosphatase 97 U/L (39-117); Anion Gap 11 (12-20); Aspartate Amino Transferase 39 U/L (5-37); Bilirubin Total 0.5 mg/dL (0.0-1.0); Blood Urea Nitrogen 19 mg/dL (9-16); Calcium 8.9 mg/dL (8.4-10.2); Carbon Dioxide 26 mmol/L (22-29); Chloride 109 mmol/L (96-108); Cholesterol 147 mg/dL (<200); Estimated Glomerular Filt Rate > 60; Glucose Fasting 91 mg/dL (60-99); HDL Cholesterol 57 mg/dL (>40); LDL Cholesterol Calculated 81 mg/dL (<100); Sodium 142 mmol/L (135-145); Total Protein 6.6 g/dL (6.5-8.0); Triglycerides 49 mg/dL (<150)
[2023-05-24 12:06] LABS: TSH reflex Free T4 1.78 uIU/mL (0.32-4.0)
== END 2023-05-24 06:37 | disposition home or self-care (01) ==
LOC: HO.HMGCLDS 06:36
PROVIDERS: PCP Nurse Practitioner Family; Visit Provider Nurse Practitioner Family
DX: Z00.00 Encounter for general adult medical examination without abnormal findings (principal)
CPT/HCPCS: 36415; 80053; 80061; 81001; 84443; 85025

== ENCOUNTER 2023-06-05 08:27 | Outpatient (AMB) | payer OTHER, SELFPAY ==
[2023-06-05 08:38] VITALS: BP 110/70; PULSE 64; O2SAT 97; BMI 29.9
--- NOTE | 2023-06-05 08:38 | MHC.PC.OV ---
Vital Signs 06/05/23 08:38 Height 6 ft Weight 220 lb 6 oz BMI 29.9 BP 110/70 Blood Pressure Location Lt brachial Position Sitting Pulse 64 Pulse Source Pulse Oximeter Pulse Oximetry (%) 97 Oxygen Delivery Method Room Air Intake Visit Reasons: 6 month follow up Allergies aripiprazole [From Abilify] Adverse Reaction (Intermediate, Verified 06/05/23 08:42) Increased agitation and depression Penicillins Adverse Reaction (Intermediate, Verified 06/05/23 08:42) Nausea and Vomiting propranolol [Propranolol] Adverse Reaction (Intermediate, Verified 06/05/23 08:42) Nausea and Vomiting shellfish derived Adverse Reaction (Intermediate, Verified 06/05/23 08:42) Vomiting duloxetine [From CYMBALTA] Adverse Reaction (Mild, Verified 06/05/23 08:42) Increased agitation mirtazapine [MIRTAZAPINE] Adverse Reaction (Mild, Verified 06/05/23 08:42) Manic symptoms prednisone Adverse Reaction (Mild, Verified 06/05/23 08:42) Anger issues risperidone [From RISPERDAL] Adverse Reaction (Mild, Verified 06/05/23 08:42) Previous bad reaction and drug interaction with Wellbutrin Medication List - Last Reconciled 06/05/23 by REEMA Ly-FABRICIO aspirin 81 mg PO DAILY atorvastatin 40 mg PO DAILY [cbd oil 0.5 mL PO 2XD] cholecalciferol (vitamin D3) 50 mcg PO DAILY diclofenac sodium 75 mg PO BID PRN diphenhydramine HCl (Benadryl) 25 mg PO QID PRN gabapentin 300 mg PO TID lorazepam 0.5 mg PO BID metoprolol tartrate 25 mg PO BID mirabegron ER (Myrbetriq) 50 mg PO DAILY 90 days multivitamin 1 tab PO DAILY primidone 250 mg PO TID sertraline 100 mg PO DAILY sertraline 50 mg PO QPM terazosin 5 mg PO BEDTIME 90 days vitamin B complex 1 tab PO DAILY Tobacco use date assessed: 06/05/23 Dental Screening Dental Screen Date: 06/05/23 Did you have a dental visit in the last 12 months?: Yes Did you have a dental problem in the last 6 months where you did not have access to dental care?: No Was dental information given to patient?: Patient has dentist HPI 6 month follow up HPI Details Pt had an abdominal US on 11/04/22 which showed mild hepatic steatosis. Again seen are 2 liver cysts, one of which demonstrates a 3 mm hyperechoic internal focus, possibly calcification, though no posterior shadowing is noted. This is similar to minimally increased in size compared to the study of 03/01/2022. A follow-up ultrasound in 6-12 months is recommended. Repeat US is scheduled for next Friday. Pt is following up with cardiology. He is going for a pacer adjustment in the near future. Gallop noted today,though paced beats noted on EKG. 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 Pt knows to go to the ER with any worsening symptoms. Dyslipidemia: On atorvastatin 40mg. Last cholesterol panel was stable. HTN: Blood pressure is stable, managed with metoprolol 25mg bid. Denies chest pain, shortness of breath, headache, blurred vision, and dizziness. [facility] Medical History Overactive bladder Bladder outlet obstruction Weak urinary stream Hypogonadism in male Hypertrophic cardiomyopathy Coarse tremor HTN (hypertension) OH (nonalcoholic steatohepatitis) Burrows's neuroma of right foot PTSD (post-traumatic stress disorder) Peyronie's disease Atrial fibrillation Asthma PAYAL on CPAP Dyspnea Surgical History History of colonoscopy History of neck surgery History of appendectomy Family History Father Lung disease Substance use disorder Mother Type 2 diabetes mellitus Brother Substance use disorder Other Cancer Diabetes mellitus Mental health disorder Social History Household Members: Spouse Housing: House Patient Tobacco Use Status: Never used Tobacco e-Cigarette/Vaping Use: Never Used Second Hand Smoke Exposure: No service: No Current occupational status: employed Current occupation: [employer] Current occupational exposures/hazards: Yes Cognitive needs: No Hearing needs: No Vision needs: No Questionnaire PHQ-9 Over the last 2 weeks, how often have you been bothered by any of the following problems? 1. Little interest or pleasure in doing things: not at all 2. Feeling down, depressed, or hopeless: not at all 3. Trouble falling or staying asleep, or sleeping too much: not at all 4. Feeling tired or having little energy: several days 5. Poor appetite or overeating: not at all 6. Feeling bad about yourself - or that you are a failure or have let yourself or your family down: several days 7. Trouble concentrating on things, such as reading the newspaper or watching television: not at all 8. Moving or speaking so slowly that other people could have noticed. Or the opposite - being so fidgety or restless that you have been moving around a lot more than usual: not at all 9. Thoughts that you would be better off or of hurting yourself in some way: not at all Total score: 2 Source: Developed by Drs. Roque Schroeder, Rose Mary Hess, Nikolas Dale and colleagues, with an educational mohit from [employer]. Thrive Questionnaire Date Thrive assessed: 06/05/23 I am a: Patient What is your living situation today?: I have a steady place to live Within the past 12 months, did the food you bought not last and you didn't have the money to get more?: Never true Within the past 12 months, did you worry whether your food would run out before you got money to buy more?: Never true Do you have trouble paying for medicines?: No Do you have trouble getting transportation to medical appointments?: No Do you have trouble paying your heating and electricity bill?: No Do you have trouble taking care of your child, family member or friend?: No Do you have trouble with day-to-day activities such as bathing, preparing meals, shopping, managing finances, etc.?: No Are you currently unemployed and looking for a job?: No Are you interested in more education?: No THRIVE Score: 0 AUDIT C Alcohol Use Questionnaire (AUDIT-C) 1. How often do you have a drink containing alcohol?: Never Total Score: 0 STU-7 AMB Questionnaire STU-7 Date STU - 7 assessed: 06/05/23 Feeling nervous, anxious, or on edge: 1 = Several days Not being able to stop or control worryin = Several days Worrying too much about different things: 1 = Several days Trouble relaxin = Several days Being so restless that it is hard to sit still: 1 = Several days Becoming easily annoyed or irritable: 0 = Not at all Feeling afraid as if something awful might happen: 0 = Not at all Total STU-7 score (0-4 normal; 5-9 mild; 10-14 moderate; 15-21 severe): 5 Source: Developed by Drs. Roque Schroeder, Rose Mary Hess, Nioklas Dale and colleagues, with an educational mohit from [employer]. Review of Systems Const Reports as per HPI Physical exam (Primary Care) Vital Signs: Last Vital Signs Pulse 64 06/05/23 08:38 BP 110/70 06/05/23 08:38 Pulse Ox 97 06/05/23 08:38 Oxygen Delivery Method Room Air 06/05/23 08:38 BMI result Body Mass Index 29.9 Tobacco/Smoking Status: Tobacco use Status Tobacco use date assessed 06/05/23 06/05/23 08:47 Patient Tobacco Use Status Never used Tobacco 06/05/23 08:38 e-Cigarette/Vaping Use Never Used 06/05/23 08:38 PHQ-9: PHQ-9 Score PHQ-9: Total score 2 06/05/23 08:52 Thrive Assessment: Date of Thrive Assessment Date Thrive assessed 06/05/23 06/05/23 08:49 Const General: cooperative Orientation/consciousness: patient oriented x3 Resp Effort & Inspection: normal respiratory effort Auscultation: clear to auscultation bilaterally Cardio Heart sounds: Gallop heart sound present and no murmurs Neuro General: patient oriented x3 Extrem Right lower extremity: no edema Left lower extremity: no edema Psych Appearance: grossly normal Mental Status: mental status grossly normal Speech and movement: Normal speech and movement present Affect: normal affect Attitude: cooperative Thought process: Normal thought process present Thought content: Normal thought content present Insight: Good insight present (Psych) Judgement: Good judgement present (Psych) Assessment and Plan Assessment & Plan (1) Liver cyst: Code(s): K76.89 - Other specified diseases of liver Plan: US is scheduled (2) Cardiac pacemaker: Code(s): Z95.0 - Presence of cardiac pacemaker Plan: Following up with cardiology (3) Cardiac defibrillator in place: Code(s): Z95.810 - Presence of automatic (implantable) cardiac defibrillator Plan: Following up with cardiology (4) HTN (hypertension): Code(s): I10 - Essential (primary) hypertension Plan: Stable Plan The patient agreed to the use of a remote medical coder for this encounter. Scribed for NATI Dejesus by Dali Arriola remote medical coder, on 06/05/2023 at 08:50 EST. Coding Level of Care Code Est Pt Level 3 (46669) Diagnoses Liver cyst K76.89 Cardiac pacemaker Z95.[address] Z95.810 HTN (hypertension) I10
== END 2023-06-05 10:46 | disposition home or self-care (01) ==
PROVIDERS: PCP Nurse Practitioner Family; Visit Provider Nurse Practitioner Family
DX: K76.89 Other specified diseases of liver (principal); Z95.0 Presence of cardiac pacemaker; Z95.810 Presence of automatic (implantable) cardiac defibrillator; I10 Essential (primary) hypertension
CPT/HCPCS: 99213

== ENCOUNTER 2023-06-13 08:16 | Outpatient (REF) | payer OTHER, SELFPAY ==
--- NOTE | ~2023-06-13 | US_ITS ---
EXAMINATION: US ABDOMEN LIMITED CLINICAL INFORMATION: Other specified diseases of liver. Liver cysts. COMPARISON: Ultrasound abdomen limited 11/04/2022. TECHNIQUE: Real-time imaging of the right upper quadrant abdominal viscera. FINDINGS: PANCREAS: Normal. LIVER: The liver is normal in size. The liver contour is normal. Parenchymal echogenicity is normal. Again noted left hepatic lobe cysts, one of which demonstrates a 3 mm hyperechoic focus, possibly a calcification. This complicated cyst measures 1.1 x 1.1 x 1.1 cm, previously 0.9 x 0.8 x 1.2 cm on 11/04/2022 and 1 x 0.6 x 0.9 cm on 03/01/2022. There is no intrahepatic biliary duct dilatation seen. GALLBLADDER: Surgically absent. COMMON BILE DUCT: Normal in caliber measuring 0.5 cm in diameter. RIGHT KIDNEY: Normal. No hydronephrosis. No renal calculi or focal parenchymal lesions. The kidney measures 13.1 cm in maximum dimension. FREE FLUID: None. US/US abdomen limited IMPRESSION: Slightly complicated left hepatic lobe cyst with a 3 mm internal hyperechoic focus, possibly a calcification is similar to minimally increased compared to 11/04/2022 and increased compared to 03/01/2022. Recommend a follow-up ultrasound in one year.
== END 2023-06-13 08:17 | disposition home or self-care (01) ==
LOC: HO.HMGCX 08:16
PROVIDERS: PCP Nurse Practitioner Family; Visit Provider Nurse Practitioner Family
DX: K76.89 Other specified diseases of liver (principal)
CPT/HCPCS: 76705

== ENCOUNTER 2023-08-09 06:31 | Outpatient (REF) | payer OTHER, SELFPAY ==
[2023-08-09 11:54] LABS: Prostate Specific Antigen 5.08 ng/mL (<0.05-4.0)
== END 2023-08-09 06:32 | disposition home or self-care (01) ==
LOC: HO.HMGCLDS 06:31
PROVIDERS: PCP Nurse Practitioner Family; Visit Provider Urology
DX: Z12.5 Encounter for screening for malignant neoplasm of prostate (principal); R97.20 Elevated prostate specific antigen [PSA]
CPT/HCPCS: 36415; 84153

== ENCOUNTER 2023-08-15 10:49 | Outpatient (AMB) | payer OTHER, SELFPAY ==
--- NOTE | 2023-08-15 11:17 | MHC.OFFVIS ---
Intake Intake Visit Reasons: 6M PSA(set)Confirmed Intake Note: Patient is Present for Follow Up Urology Medication: Myrbetriq,Terazosin Antibiotic Allergies: Penicillins Blood Thinners: Aspirin PVR: 0 Patient states that myrbetriq is currently to expensive Patient would like to try an alternative Offered Gemtesa 30 day free trail Patient would like to try advised with Dr Villareal and is okay with trial Allergies aripiprazole [From Abilify] Adverse Reaction (Intermediate, Verified 08/15/23 11:30) Increased agitation and depression Penicillins Adverse Reaction (Intermediate, Verified 08/15/23 11:30) Nausea and Vomiting propranolol [Propranolol] Adverse Reaction (Intermediate, Verified 08/15/23 11:30) Nausea and Vomiting shellfish derived Adverse Reaction (Intermediate, Verified 08/15/23 11:30) Vomiting duloxetine [From CYMBALTA] Adverse Reaction (Mild, Verified 08/15/23 11:30) Increased agitation mirtazapine [MIRTAZAPINE] Adverse Reaction (Mild, Verified 08/15/23 11:30) Manic symptoms prednisone Adverse Reaction (Mild, Verified 08/15/23 11:30) Anger issues risperidone [From RISPERDAL] Adverse Reaction (Mild, Verified 08/15/23 11:30) Previous bad reaction and drug interaction with Wellbutrin Medication List - Last Reconciled 08/15/23 by Anil Villareal MD aspirin 81 mg PO DAILY atorvastatin 40 mg PO DAILY [cbd oil 0.5 mL PO 2XD] cholecalciferol (vitamin D3) 50 mcg PO DAILY diclofenac sodium 75 mg PO BID PRN diphenhydramine HCl (Benadryl) 25 mg PO QID PRN gabapentin 300 mg PO TID lorazepam 0.5 mg PO BID metoprolol tartrate 25 mg PO BID multivitamin 1 tab PO DAILY primidone 250 mg PO TID sertraline 100 mg PO DAILY sertraline 50 mg PO QPM terazosin 5 mg PO BEDTIME 90 days vibegron 75 mg PO DAILY 30 days vitamin B complex 1 tab PO DAILY HPI HPI Comments History of Present Illness Details Damian is a pleasant male. He is a patient Dr. Krueger. He is seen for the following urologic conditions - lower urinary tract symptoms - urgency and weak stream - Peyronie's disease Combination Myrbetriq and terazosin working Urge control during the day Has insurance issues with Myrbetriq Will switch to gym Ashwini Nocturia x1 Primary issue with nocturia is inability to fall back to sleep - works third shift 2 month follow-up tele PAYAL with CPAP Lower Urinary Tract Symptoms: Continued good response to urge frequency with combination Myrbetriq and terazosin Current visit is for further evaluation of, lower urinary tract symptoms, predominate irritative symptoms. Current treatment includes medication, alpha rajni - terazosin 5mg, Myrbetriq Prior treatments include 08/20 terazosin 5mg 02/20 oxybutynin with dry mouth - has memory issues baseline. Prostate Symptom Score 02/18 Moderate (9-19), Bother 3 4./ , Moderate (9-), Bother 3. Symptoms include 02/18 incomplete emptying, urgency, weak stream 08/20 , intermittency, urgency, weak stream, nocturia (>2), and are progressing. Results from testing include cystoscopy no abnormality seen 09/19, 03/23 - filled 300cc mild trabeculation Prior Prostate Score mild. PSA 08/20 3.5 - 01/22 6.1 - 09/22 3.9, 09/23 3.7, 08/25 5.1 Testing at next visit will include bladder scan. Treatment plan combination therapy. Peyronie's Disease: The patient presents for followup up evaluation for penile disorder. Primary complaint is penile curvature, Peyronie's disease. At this time he experiences partial erections sufficient for penetrative intercourse. Maud has is unaffected. Prior management includes 03/22 oral medication, vacuum protocol. Associated conditions history of penile trauma No CAD No diabetes No erectile dysfunction No hypertension No peripheral vascular disease No Natural history of Peyronie's [facility] Medical History Overactive bladder Bladder outlet obstruction Weak urinary stream Hypogonadism in male Hypertrophic cardiomyopathy Coarse tremor HTN (hypertension) [place] (nonalcoholic steatohepatitis) Burrows's neuroma of right foot PTSD (post-traumatic stress disorder) Peyronie's disease Atrial fibrillation Asthma PAYAL on CPAP Dyspnea Surgical History History of colonoscopy History of neck surgery History of appendectomy Family History Father Lung disease Substance use disorder Mother Type 2 diabetes mellitus Brother Substance use disorder Other Cancer Diabetes mellitus Mental health disorder Social History Household Members: Spouse Housing: House Patient Tobacco Use Status: Never used Tobacco e-Cigarette/Vaping Use: Never Used Second Hand Smoke Exposure: No service: No Current occupational status: employed Current occupation: [employer] Current occupational exposures/hazards: Yes Cognitive needs: No Hearing needs: No Vision needs: No Review of Systems Const Denies chills and Denies fever(s) Card Reports no additional complaints and Denies syncope Resp Denies cough GI Denies abdominal pain and Denies heartburn Reports as per HPI and Denies change in libido Neuro Denies syncope Psych Denies change in libido Endo Denies change in libido Physical Exam Const General: cooperative, healthy appearing, comfortable and no acute distress Orientation/consciousness: patient oriented x3 HEENT Face and sinus: Yes normal facial exam Mouth: moist mucous membranes Neck Neck: Yes normal visual inspection, Yes full ROM and Yes trachea midline Chest Chest palpation & inspection: normal inspection of the chest Resp Effort & Inspection: normal respiratory effort, able to speak in complete sentences and no respiratory distress GI Inspection: Yes normal to inspection Back/Spine/Pelvis Cervical Spine: normal cervical lordosis Thoracic/Lumbar Spine: thoracic and lumbar spine normal to inspection Skin General skin exam: no rashes or lesions noted Neuro General: patient oriented x3, gait normal, tone normal and moves all extremities Extrem General: Yes normal to inspection and Yes capillary refill normal Office Procedures Post Void Residual Post Residual Void Post Void Residual (PVR): 30 [id number] Void Residual by ultrasound Assessment & Plan Assessment & Plan (1) Overactive bladder: Comment: Myrbetriq Code(s): N32.81 - Overactive bladder (2) Urinary frequency: Code(s): R35.0 - Frequency of micturition (3) Elevated PSA: Code(s): R97.20 - Elevated prostate specific antigen [PSA] Plan Two month follow-up tele Orders: Orders AMB Post Void Residual by ultrasound Today N32.81 - Overactive bladder Medications: Changed From mirabegron ER (Myrbetriq) 50 mg PO DAILY 90 days 90 tabs 2RF To vibegron 75 mg PO DAILY 30 days 30 tabs 1RF Refilled vibegron 75 mg PO DAILY 30 days 30 tabs 1RF vibegron 75 mg PO DAILY 30 days 30 tabs 1RF Patient Instructions: Imaging studies, laboratory and physical exam results were discussed and reviewed in detail. No major barriers to patient understanding were identified. An opportunity to ask questions regarding the treatment plan was provided. All questions were answered. The patient expressed understanding and agreement with the above treatment plan. The patient is aware they should contact our office by phone for worsening of their current condition or the appearance of new urologic symptoms. Compliance is encouraged with any medications and followup testing that is ordered. It is a privilege to participate in the urologic care of your patient. If you have any questions or concerns regarding treatment for the above conditions, or other urologic issues, please do not hesitate to contact me. The office telephone contact is [phone]. This note is constructed using voice recognition software. While every effort has been made to ensure accuracy weatherization technician errors may have been included. Yours sincerely, Dr Anil Villareal MD, [facility] - Urology Providers of Expert, Compassionate Care for the Genitourinary System Coding Level of Care Code Est Pt Level 4 (06841) Diagnoses Overactive bladder N32.81 Urinary frequency R35.0 Elevated PSA R97.20 CPT Codes Post Residual Void - PVR CPT Code: 12784-Zbgp Void Residual by ultrasound ([id number])
== END 2023-08-15 11:50 | disposition home or self-care (01) ==
PROVIDERS: PCP Nurse Practitioner Family; Visit Provider Urology
DX: N32.81 Overactive bladder (principal); R35.0 Frequency of micturition; R97.20 Elevated prostate specific antigen [PSA]
CPT/HCPCS: 99214

== ENCOUNTER → 2023-08-15 10:49 | Outpatient (BNVA) | payer OTHER, SELFPAY | PROVIDERS: PCP Nurse Practitioner Family; Visit Provider Urology | DX: N32.81 Overactive bladder (principal); R35.0 Frequency of micturition; R97.20 Elevated prostate specific antigen [PSA]; Z79.899 Other long term (current) drug therapy | CPT/HCPCS: 51798 ==

== ENCOUNTER 2023-08-21 09:35 | Outpatient (AMB) | payer OTHER, SELFPAY ==
--- NOTE | 2023-11-27 09:51 | MHC.OFFVISPS ---
Intake Intake Visit Reasons: depression Certified Hyperbaric Technologist Required: No Allergies aripiprazole [From Abilify] Adverse Reaction (Intermediate, Verified 10/16/23 08:35) Increased agitation and depression Penicillins Adverse Reaction (Intermediate, Verified 10/16/23 08:35) Nausea and Vomiting propranolol [Propranolol] Adverse Reaction (Intermediate, Verified 10/16/23 08:35) Nausea and Vomiting shellfish derived Adverse Reaction (Intermediate, Verified 10/16/23 08:35) Vomiting duloxetine [From CYMBALTA] Adverse Reaction (Mild, Verified 10/16/23 08:35) Increased agitation mirtazapine [MIRTAZAPINE] Adverse Reaction (Mild, Verified 10/16/23 08:35) Manic symptoms prednisone Adverse Reaction (Mild, Verified 10/16/23 08:35) Anger issues risperidone [From RISPERDAL] Adverse Reaction (Mild, Verified 10/16/23 08:35) Previous bad reaction and drug interaction with Wellbutrin Medication List - Last Reconciled 11/27/23 by Otilia Campbell APRN aspirin 81 mg PO DAILY atorvastatin 40 mg PO DAILY [cbd oil 0.5 mL PO 2XD] cholecalciferol (vitamin D3) 50 mcg PO DAILY diclofenac sodium 75 mg PO BID PRN diphenhydramine HCl (Benadryl) 25 mg PO BEDTIME PRN gabapentin 300 mg PO TID lorazepam 0.5 mg PO DAILY metoprolol tartrate 25 mg PO BID multivitamin 1 tab PO DAILY primidone 250 mg PO TID sertraline 100 mg PO DAILY sertraline 50 mg PO QPM terazosin 5 mg PO BEDTIME 90 days vibegron 75 mg PO DAILY 90 days vitamin B complex 1 tab PO DAILY HPI- Psychiatric Chief Complaint: depression Assessment and Plan Counseling and coordination of Care Details: I spent [] minutes reviewing the record, seeing the patient and documenting in the medical record. Counseling provided to the patient/caregiver as outlined below. Addressed patient/caregiver concerns regarding current medication regime including effective adherence. Addressed patient/caregiver concerns regarding diagnosis and prognosis including accuracy of diagnosis, prognosis over time, impact of diagnosis. Addressed patient/caregiver concerns regarding impact of recent stressors. [facility] Medical History Overactive bladder Bladder outlet obstruction Weak urinary stream Hypogonadism in male Hypertrophic cardiomyopathy Coarse tremor HTN (hypertension) [place] (nonalcoholic steatohepatitis) Burrows's neuroma of right foot PTSD (post-traumatic stress disorder) Peyronie's disease Atrial fibrillation Asthma PAYAL on CPAP Dyspnea Surgical History History of colonoscopy History of neck surgery History of appendectomy Family History Father Lung disease Substance use disorder Mother Type 2 diabetes mellitus Brother Substance use disorder Other Cancer Diabetes mellitus Mental health disorder Social History Household Members: Spouse Housing: House Patient Tobacco Use Status: Never used Tobacco e-Cigarette/Vaping Use: Never Used Second Hand Smoke Exposure: No service: No Current occupational status: employed Current occupation: [employer] Current occupational exposures/hazards: Yes Cognitive needs: No Hearing needs: No Vision needs: No Coding
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
== END 2023-08-21 10:03 | disposition home or self-care (01) ==
LOC: HO.HOP 09:35
PROVIDERS: PCP Nurse Practitioner Family; Visit Provider Clinical Nurse Specialist Psychiatric/Mental Health
DX: F43.10 Post-traumatic stress disorder, unspecified (principal); F33.42 Major depressive disorder, recurrent, in full remission
CPT/HCPCS: 99214

== ENCOUNTER → 2023-08-21 09:35 | Outpatient (BNVA) | payer OTHER, SELFPAY | PROVIDERS: PCP Nurse Practitioner Family; Visit Provider Clinical Nurse Specialist Psychiatric/Mental Health | DX: F43.10 Post-traumatic stress disorder, unspecified (principal); F33.42 Major depressive disorder, recurrent, in full remission; Z79.899 Other long term (current) drug therapy | CPT/HCPCS: 99212 ==

== ENCOUNTER 2023-08-28 10:12 | Outpatient (REF) | payer OTHER, SELFPAY ==
[2023-08-28 13:35] LABS: Appearance Urine Clear; Color Urine Yellow; Glucose Urine UA Negative (Negative); Leukocyte Esterase Urine Negative (Negative); Nitrite Urine Negative (Negative); PH 6.5 (5.0-9.0); Urine Blood Negative (Negative); Urine Ketones Negative (Negative); Urine Protein Negative (Neg-Trace)
[2023-08-28 13:38] LABS: Bacteria Urine None Seen (None Seen); RBC Urine 0-2 /HPF (0-2); Squamous Epithelial Cell Urine 0-2 /HPF (0-2); WBC Urine 0-5 /HPF (0-5)
== END 2023-08-28 10:13 | disposition home or self-care (01) ==
LOC: HO.HMGCLDS 10:12
PROVIDERS: PCP Nurse Practitioner Family; Visit Provider Urology
DX: R30.0 Dysuria (principal)
CPT/HCPCS: 81001; 87086

== ENCOUNTER 2023-10-16 08:29 | Outpatient (AMB) | payer OTHER, SELFPAY ==
--- NOTE | 2023-10-16 08:29 | MHC.OFFVIS ---
Intake Visit Reasons: 2M Med Review(Gemtesa) Intake Note: Patient is Present for tele visit Follow Up Medication Review, patient would like refill on [facility] Medication: Gemtesa, Terazosin Antibiotic Allergies: Penicillins Blood Thinners: Aspirin Allergies aripiprazole [From Abilify] Adverse Reaction (Intermediate, Verified 10/16/23 08:35) Increased agitation and depression Penicillins Adverse Reaction (Intermediate, Verified 10/16/23 08:35) Nausea and Vomiting propranolol [Propranolol] Adverse Reaction (Intermediate, Verified 10/16/23 08:35) Nausea and Vomiting shellfish derived Adverse Reaction (Intermediate, Verified 10/16/23 08:35) Vomiting duloxetine [From CYMBALTA] Adverse Reaction (Mild, Verified 10/16/23 08:35) Increased agitation mirtazapine [MIRTAZAPINE] Adverse Reaction (Mild, Verified 10/16/23 08:35) Manic symptoms prednisone Adverse Reaction (Mild, Verified 10/16/23 08:35) Anger issues risperidone [From RISPERDAL] Adverse Reaction (Mild, Verified 10/16/23 08:35) Previous bad reaction and drug interaction with Wellbutrin Medication List - Last Reconciled 10/16/23 by Anil Villareal MD aspirin 81 mg PO DAILY atorvastatin 40 mg PO DAILY [cbd oil 0.5 mL PO 2XD] cholecalciferol (vitamin D3) 50 mcg PO DAILY diclofenac sodium 75 mg PO BID PRN diphenhydramine HCl (Benadryl) 25 mg PO QID PRN gabapentin 300 mg PO TID lorazepam 0.5 mg PO BID metoprolol tartrate 25 mg PO BID multivitamin 1 tab PO DAILY primidone 250 mg PO TID sertraline 100 mg PO DAILY sertraline 50 mg PO QPM terazosin 5 mg PO BEDTIME 90 days vibegron 75 mg PO DAILY 30 days vitamin B complex 1 tab PO DAILY HPI Comments Details: Damian is a pleasant male. He is a patient Dr. Krueger. He is seen for the following urologic conditions - lower urinary tract symptoms - urgency and weak stream - Peyronie's disease Telemedicine Evaluation 15 min Consultation [facility] Carolyn Video attempted Urge control during the day remains stable Gemtessa stable Nocturia x1 Primary issue with nocturia is inability to fall back to sleep - works third shift PAYAL with CPAP 6m f/u office Lower Urinary Tract Symptoms: Continued good response to urge frequency with combination Myrbetriq and terazosin Current visit is for further evaluation of, lower urinary tract symptoms, predominate irritative symptoms. Current treatment includes medication, alpha rajni - terazosin 5mg, Myrbetriq Prior treatments include 08/20 terazosin 5mg 02/20 oxybutynin with dry mouth - has memory issues baseline. Prostate Symptom Score 02/18 Moderate (9-19), Bother 3 4./ , Moderate (9-), Bother 3. Symptoms include 02/18 incomplete emptying, urgency, weak stream 08/20 , intermittency, urgency, weak stream, nocturia (>2), and are progressing. Results from testing include cystoscopy no abnormality seen 09/19, 03/23 - filled 300cc mild trabeculation Prior Prostate Score mild. PSA 08/20 3.5 - 01/22 6.1 - 09/22 3.9, 09/23 3.7, 08/25 5.1 Testing at next visit will include bladder scan. Treatment plan combination therapy. Peyronie's Disease: The patient presents for followup up evaluation for penile disorder. Primary complaint is penile curvature, Peyronie's disease. At this time he experiences partial erections sufficient for penetrative intercourse. [place] has is unaffected. Prior management includes 03/22 oral medication, vacuum protocol. Associated conditions history of penile trauma No CAD No diabetes No erectile dysfunction No hypertension No peripheral vascular disease No Natural history of Peyronie's [facility] Medical History Overactive bladder Bladder outlet obstruction Weak urinary stream Hypogonadism in male Hypertrophic cardiomyopathy Coarse tremor HTN (hypertension) [place] (nonalcoholic steatohepatitis) Burrows's neuroma of right foot PTSD (post-traumatic stress disorder) Peyronie's disease Atrial fibrillation Asthma PAYAL on CPAP Dyspnea Surgical History History of colonoscopy History of neck surgery History of appendectomy Family History Father Lung disease Substance use disorder Mother Type 2 diabetes mellitus Brother Substance use disorder Other Cancer Diabetes mellitus Mental health disorder Social History Household Members: Spouse Housing: House Patient Tobacco Use Status: Never used Tobacco e-Cigarette/Vaping Use: Never Used Second Hand Smoke Exposure: No service: No Current occupational status: employed Current occupation: [employer] Current occupational exposures/hazards: Yes Cognitive needs: No Hearing needs: No Vision needs: No Review of Systems Const All systems reviewed & are unremarkable except as noted in HPI and below Reports no additional complaints Resp Reports no additional complaints GI Reports no additional complaints Reports as per HPI Musc Reports no additional complaints Physical Exam Telemedicine evaluation Appropriate responses Regular breathing rate and rhythm HEENT Head: Yes normal to inspection Ears: hearing grossly normal bilaterally Eyes General: appearance normal, both eyes and all related structures Neck Neck: Yes normal visual inspection Chest Chest palpation & inspection: normal inspection of the chest Resp Effort & Inspection: normal respiratory effort and able to speak in complete sentences Telehealth Telehealth Telehealth Platform: [employer] Location of provider rendering services: practice address Location of patient: address on file Patient Identification confirmed using: Name, : Yes Telehealth method: voice only Patient verbally consented to treatment: Yes Patient verbally consented to billing insurance company: Yes Patient informed of any privacy concerns related to visit: Yes Minutes spent on Phone/Video with Pt.: 15 Assessment & Plan Assessment & Plan (1) Weak urinary stream: Code(s): R39.12 - Poor urinary stream Category: Medical (2) Nocturia more than twice per night: Code(s): R35.1 - Nocturia Category: Medical Plan Six-month follow-up Continue Gemtessa Medications: Refilled vibegron 75 mg PO DAILY 30 days 30 tabs 1RF Patient Instructions: Imaging studies, laboratory and physical exam results were discussed and reviewed in detail. No major barriers to patient understanding were identified. An opportunity to ask questions regarding the treatment plan was provided. All questions were answered. The patient expressed understanding and agreement with the above treatment plan. The patient is aware they should contact our office by phone for worsening of their current condition or the appearance of new urologic symptoms. Compliance is encouraged with any medications and followup testing that is ordered. It is a privilege to participate in the urologic care of your patient. If you have any questions or concerns regarding treatment for the above conditions, or other urologic issues, please do not hesitate to contact me. The office telephone contact is [phone]. This note is constructed using voice recognition software. While every effort has been made to ensure accuracy meeting/event planner errors may have been included. Yours sincerely, Dr Anil Villareal MD, [facility] - Urology Providers of Expert, Compassionate Care for the Genitourinary System Coding Level of Care Code Tele Est Pt Level 3 (69874) Diagnoses Weak urinary stream R39.12 Nocturia more than twice per night R35.1
== END 2023-10-16 09:13 | disposition home or self-care (01) ==
LOC: HO.HUSH 08:29
PROVIDERS: PCP Nurse Practitioner Family; Visit Provider Urology
DX: R39.12 Poor urinary stream (principal); R35.1 Nocturia
CPT/HCPCS: 99442

== ENCOUNTER → 2023-10-16 08:29 | Outpatient (BNVA) | payer OTHER, SELFPAY | PROVIDERS: PCP Nurse Practitioner Family; Visit Provider Urology ==

== ENCOUNTER 2023-11-27 09:09 | Outpatient (AMB) | payer OTHER, SELFPAY ==
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
== END 2023-11-27 09:41 | disposition home or self-care (01) ==
LOC: HO.HOP 09:09
PROVIDERS: PCP Nurse Practitioner Family; Visit Provider Clinical Nurse Specialist Psychiatric/Mental Health
DX: F33.42 Major depressive disorder, recurrent, in full remission (principal); F43.10 Post-traumatic stress disorder, unspecified
CPT/HCPCS: 99214

== ENCOUNTER → 2023-11-27 09:09 | Outpatient (BNVA) | payer OTHER, SELFPAY | PROVIDERS: PCP Nurse Practitioner Family; Visit Provider Clinical Nurse Specialist Psychiatric/Mental Health | DX: F33.42 Major depressive disorder, recurrent, in full remission (principal); F43.10 Post-traumatic stress disorder, unspecified | CPT/HCPCS: 99212 ==

== ENCOUNTER 2024-02-07 06:30 | Outpatient (REF) | payer OTHER, SELFPAY ==
[2024-02-07 11:48] LABS: Appearance Urine Clear; Color Urine Dark Yellow; Glucose Urine UA Negative (Negative); Leukocyte Esterase Urine Negative (Negative); Nitrite Urine Negative (Negative); PH 5.5 (5.0-9.0); Specific Gravity - Urine >= 1.030 (1.005-1.025); Urine Blood Negative (Negative); Urine Ketones Negative (Negative); Urine Protein Negative (Neg-Trace)
== END 2024-02-07 06:31 | disposition home or self-care (01) ==
LOC: HO.HMGCLDS 06:30
PROVIDERS: PCP Nurse Practitioner Family; Visit Provider Nurse Practitioner Family
DX: Z00.00 Encounter for general adult medical examination without abnormal findings (principal)
CPT/HCPCS: 81003

== ENCOUNTER 2024-02-14 06:57 | Outpatient (REF) | payer OTHER, SELFPAY ==
[2024-02-14 11:08] LABS: MANUAL DIFF FLAG NO
[2024-02-14 11:11] LABS: Basophils Percent Auto 0.7 % (0-2); Eosinophils Absolute Auto 0.1 X10*3/uL (0.0-0.4); Hematocrit 42.1 % (42.0-52.0); Hemoglobin 14.1 g/dl (14.0-18.0); Imm Gran Abs Auto 0.01 X10*3/uL (0.00-0.03); Imm Gran Pct Auto 0.3 % (0.0-0.4); Lymphocytes Absolute Auto 1.2 X10*3/uL (1.2-4.9); Lymphocytes Percent Auto 39.7 % (20-40); Mean Corpuscular HGB Conc 33.5 g/dl (31.0-36.0); Mean Corpuscular Hemoglobin 31.5 pg (27.0-33.0); Mean Corpuscular Volume 94.2 fL (80.0-98.0); Mean Platelet Volume 10.6 fL (9.4-12.4); Monocytes Absolute Auto 0.4 X10*3/uL (0.1-1.2); Monocytes Percent Auto 14.3 % (2-11); Neutrophils Absolute Auto 1.3 x10*3/uL (2.0-8.3); Platelet Count 198 X10*3/uL (160-400); Red Blood Count 4.47 X10*6/uL (4.60-5.80); Red Cell Distribution Width 12.5 % (11.0-16.0); White Blood Count 3.1 X10*3/uL (4.8-10.8)
[2024-02-14 11:49] LABS: TSH reflex Free T4 1.46 uIU/mL (0.32-4.0); Vitamin D 25-OH Total 64.5 ng/mL (>30)
[2024-02-14 12:43] LABS: Alanine Aminotransferase 50 U/L (0-40); Albumin Level 4.2 g/dL (3.5-5.0); Alkaline Phosphatase 110 U/L (39-117); Anion Gap 9 (12-20); Aspartate Amino Transferase 37 U/L (5-37); Bilirubin Total 0.5 mg/dL (0.0-1.0); Blood Urea Nitrogen 23 mg/dL (9-16); Calcium 9.3 mg/dL (8.4-10.2); Carbon Dioxide 28 mmol/L (22-29); Chloride 108 mmol/L (96-108); Cholesterol 162 mg/dL (<200); Estimated Glomerular Filt Rate > 60; Glucose Fasting 100 mg/dL (60-99); HDL Cholesterol 63 mg/dL (>40); LDL Cholesterol Calculated 90 mg/dL (<100); Potassium 4.1 mmol/L (3.3-5.1); Sodium 141 mmol/L (135-145); Total Protein 6.7 g/dL (6.5-8.0); Triglycerides 46 mg/dL (<150)
== END 2024-02-14 06:58 | disposition home or self-care (01) ==
LOC: HO.HMGCLDS 06:57
PROVIDERS: PCP Nurse Practitioner Family; Visit Provider Nurse Practitioner Family
DX: I10 Essential (primary) hypertension (principal); E55.9 Vitamin D deficiency, unspecified
CPT/HCPCS: 36415; 80053; 80061; 82306; 84443; 85025

== ENCOUNTER 2024-02-18 08:09 | Outpatient (AMB) | payer OTHER, SELFPAY ==
[2024-02-18 08:14] VITALS: BP 118/64; PULSE 68; O2SAT 98; BMI 29.6
--- NOTE | 2024-02-18 08:14 | A.OFFPC_ITS ---
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 Accompanied by: Self / Same As Patient Allergies aripiprazole [From Abilify] Adverse Reaction (Intermediate, Verified 02/18/24 08:56) Increased agitation and depression Penicillins Adverse Reaction (Intermediate, Verified 02/18/24 08:56) Nausea and Vomiting propranolol [Propranolol] Adverse Reaction (Intermediate, Verified 02/18/24 08:56) Nausea and Vomiting shellfish derived Adverse Reaction (Intermediate, Verified 02/18/24 08:56) Vomiting duloxetine [From CYMBALTA] Adverse Reaction (Mild, Verified 02/18/24 08:56) Increased agitation mirtazapine [MIRTAZAPINE] Adverse Reaction (Mild, Verified 02/18/24 08:56) Manic symptoms prednisone Adverse Reaction (Mild, Verified 02/18/24 08:56) Anger issues risperidone [From RISPERDAL] Adverse Reaction (Mild, Verified 02/18/24 08:56) Previous bad reaction and drug interaction with Wellbutrin Medication List - Last Reconciled 02/18/24 by NATI Ly aspirin 81 mg PO DAILY atorvastatin 40 mg PO DAILY [cbd oil 0.5 mL PO 2XD] cholecalciferol (vitamin D3) 50 mcg PO DAILY diclofenac sodium 75 mg PO BID PRN diphenhydramine HCl (Benadryl) 25 mg PO BEDTIME PRN gabapentin 300 mg PO TID 90 days lorazepam 0.5 mg PO DAILY metoprolol tartrate 25 mg PO BID multivitamin 1 tab PO DAILY primidone 250 mg PO TID sertraline 100 mg PO DAILY sertraline 50 mg PO QPM terazosin 5 mg PO BEDTIME 90 days vibegron 75 mg PO DAILY 90 days vitamin B complex 1 tab PO DAILY Tobacco use date assessed: 06/05/23 Fall risk assessment: No Falls in past year Last assessed Fall Risk: 02/18/24 Dental Screening Dental Screen Date: 06/05/23 HPI Annual PE w/ LABS HPI Details Pt is here for a PE. Labs were already performed. Colon screen is up to date. PSA is up to date. Denies dribbling with urination, weak stream, and frequent nocturia. Pt follows up with neurology, cardiology, urology, and psychiatry. [facility] Medical History Overactive bladder Bladder outlet obstruction Weak urinary stream Hypogonadism in male Hypertrophic cardiomyopathy Coarse tremor HTN (hypertension) [place] (nonalcoholic steatohepatitis) Burrows's neuroma of right foot PTSD (post-traumatic stress disorder) Peyronie's disease Atrial fibrillation Asthma PAYAL on CPAP Dyspnea Surgical History History of colonoscopy History of neck surgery History of appendectomy Family History Father Lung disease Substance use disorder Mother Type 2 diabetes mellitus Brother Substance use disorder Other Cancer Diabetes mellitus Mental health disorder Social History Household Members: Spouse Housing: House Patient Tobacco Use Status: Never used Tobacco e-Cigarette/Vaping Use: Never Used Second Hand Smoke Exposure: No service: No Current occupational status: employed Current occupation: [employer], [place] [employer] Current occupational exposures/hazards: Yes Cognitive needs: No Hearing needs: No Vision needs: No Questionnaire PHQ-9 Over the last 2 weeks, how often have you been bothered by any of the following problems? 1. Little interest or pleasure in doing things: not at all 2. Feeling down, depressed, or hopeless: not at all 3. Trouble falling or staying asleep, or sleeping too much: not at all 4. Feeling tired or having little energy: not at all 5. Poor appetite or overeating: not at all 6. Feeling bad about yourself - or that you are a failure or have let yourself or your family down: not at all 7. Trouble concentrating on things, such as reading the newspaper or watching television: not at all 8. Moving or speaking so slowly that other people could have noticed. Or the opposite - being so fidgety or restless that you have been moving around a lot more than usual: not at all 9. Thoughts that you would be better off or of hurting yourself in some way: not at all Total score: 0 Depression Screening Interpretation: Negative Depression Screening Done: Yes 42425 - PHQ-9 Billing: Yes Source: Developed by Drs. Roque Schroeder, Rose Mary Hess, Nikolas Dale and colleagues, with an educational mohit from [employer]. Thrive Questionnaire Date Thrive assessed: 02/18/24 I am a: Patient What is your living situation today?: I have a steady place to live Within the past 12 months, did the food you bought not last and you didn't have the money to get more?: Never true Within the past 12 months, did you worry whether your food would run out before you got money to buy more?: Never true Do you have trouble paying for medicines?: No Do you have trouble getting transportation to medical appointments?: No Do you have trouble paying your heating and electricity bill?: No Do you have trouble taking care of your child, family member or friend?: No Do you have trouble with day-to-day activities such as bathing, preparing meals, shopping, managing finances, etc.?: No Are you interested in more education?: No Please select the resources that you would like help with: None Currently or been in a relationship where the following occur: No concerns reported THRIVE Score: 0 AUDIT C Alcohol Use Questionnaire (AUDIT-C) 1. How often do you have a drink containing alcohol?: Never 3. How often do you have six or more drinks on one occasion?: Never Total Score: 0 Score Reviewed/Action Taken: Yes STU-7 AMB Questionnaire STU-7 Date STU - 7 assessed: 02/18/24 Feeling nervous, anxious, or on edge: 3 = Nearly every day Not being able to stop or control worryin = More than half the days Worrying too much about different things: 2 = More than half the days Trouble relaxin = Not at all Being so restless that it is hard to sit still: 0 = Not at all Becoming easily annoyed or irritable: 0 = Not at all Feeling afraid as if something awful might happen: 0 = Not at all Total STU-7 score (0-4 normal; 5-9 mild; 10-14 moderate; 15-21 severe): 7 Source: Developed by Drs. Roque Schroeder, Rose Mary Hess, Nikolas Dale and colleagues, with an educational mohit from [employer]. STU-7 Assessment Billing STU-7 Assessment Tool: STU-7 Assessment 04908 Review of Systems Const Denies chills and Denies fever(s) Eyes Denies blurry vision ENT Denies vertigo, Denies dizziness and Denies sore throat Card Denies chest pain at rest, Denies chest pain with activity, Denies diaphoresis, Denies dyspnea and Denies dyspnea on exertion Resp Denies cough, Denies dyspnea, Denies dyspnea on exertion and Denies wheezing GI Denies abdominal pain, Denies melena, Denies hematochezia, Denies constipation, Denies diarrhea and Denies loose stools Denies hematuria Musc Denies numbness and Denies tingling Skin/Breast Denies lesions Neuro Denies vertigo, Denies dizziness, Denies numbness and Denies tingling Psych Denies anxiety, Denies depression, Denies homicidal ideation, Denies suicidal ideation and Denies other (substance abuse) Aller/Immun Denies wheezing Physical exam (Primary Care) Vital Signs: Last Vital Signs Pulse 68 02/18/24 08:14 BP 118/64 02/18/24 08:14 Pulse Ox 98 02/18/24 08:14 Oxygen Delivery Method Room Air 02/18/24 08:14 BMI result Body Mass Index 29.6 Tobacco/Smoking Status: Tobacco use Status Tobacco use date assessed 06/05/23 02/18/24 08:16 Patient Tobacco Use Status Never used Tobacco 02/18/24 08:16 e-Cigarette/Vaping Use Never Used 02/18/24 08:16 PHQ-9: PHQ-9 Score PHQ-9: Total score 0 02/18/24 08:22 Depression Screening Interpretation: Negative Thrive Assessment: Date of Thrive Assessment Date Thrive assessed 02/18/24 02/18/24 08:22 Currently or been in a relationship where the following occur: No concerns reported Const General: cooperative Nutritional Appearance: well nourished and obese Orientation/consciousness: patient oriented x3 HENMT Head: Yes normal to inspection, Yes normocephalic and Yes atraumatic Ears: TM's normal bilaterally Eyes General: appearance normal, both eyes and all related structures Alignment and Position: alignment normal and position normal Neck Neck: Yes normal visual inspection, Yes no lymphadenopathy and Yes supple Resp Effort & Inspection: normal respiratory effort Auscultation: clear to auscultation bilaterally Cardio Rate: regular rate Rhythm: regular rhythm Heart sounds: S1 normal heart sound present and S2 normal heart sound present GI Palpation (GI): Soft to palpation and nontender Auscultation: normal bowel sounds Male General Exam: Yes normal external exam Penis: normal penis Scrotum: scrotum normal, testes descended bilaterally and no inguinal hernias Testes: no testicular mass Skin Rashes: no rashes Neuro Other: tremors noted to BUE General: patient oriented x3, moves all extremities, no focal motor deficits and deep tendon reflexes 2+ bilaterally Romberg Test: Negative Psych Appearance: grossly normal Mental Status: mental status grossly normal Speech and movement: Normal speech and movement present Affect: normal affect Attitude: cooperative Thought process: Normal thought process present Thought content: Normal thought content present Insight: Good insight present (Psych) Judgement: Good judgement present (Psych) Coding Level of Care Code Est Pt Prev Care >65y(58273) Diagnoses Physical exam Z00.00 Additional Codes STU-7 Assessment Billing - STU-7 Assessment Tool: STU-7 Assessment 61291 ([id number]) Assessment & Plan Assessment & Plan (1) Physical exam: Code(s): Z00.00 - Encounter for general adult medical examination without abnormal findings Category: Medical Plan: Labs already performed Plan The patient agreed to the use of a electromedical service engineer for this encounter. Scribed for NATI Dejesus by mele Presley scribe, on 02/18/2024 at 08:35 EST.
== END 2024-02-18 08:50 | disposition home or self-care (01) ==
PROVIDERS: PCP Nurse Practitioner Family; Visit Provider Nurse Practitioner Family
DX: Z00.00 Encounter for general adult medical examination without abnormal findings (principal)

== ENCOUNTER → 2024-02-18 08:09 | Outpatient (BNVA) | payer OTHER, SELFPAY | PROVIDERS: PCP Nurse Practitioner Family; Visit Provider Nurse Practitioner Family | DX: Z00.00 Encounter for general adult medical examination without abnormal findings (principal) | CPT/HCPCS: 96127 ==

== ENCOUNTER 2024-02-19 09:01 | Outpatient (AMB) | payer OTHER, SELFPAY ==
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
== END 2024-02-19 09:28 | disposition home or self-care (01) ==
LOC: HO.HOP 09:01
PROVIDERS: PCP Nurse Practitioner Family; Visit Provider Clinical Nurse Specialist Psychiatric/Mental Health
DX: F43.10 Post-traumatic stress disorder, unspecified (principal); F33.42 Major depressive disorder, recurrent, in full remission
CPT/HCPCS: 99214

== ENCOUNTER → 2024-02-19 09:01 | Outpatient (BNVA) | payer OTHER, SELFPAY | PROVIDERS: PCP Nurse Practitioner Family; Visit Provider Clinical Nurse Specialist Psychiatric/Mental Health | DX: F43.10 Post-traumatic stress disorder, unspecified (principal); F33.42 Major depressive disorder, recurrent, in full remission | CPT/HCPCS: 99212 ==

== ENCOUNTER 2024-04-09 08:17 | Outpatient (AMB) | payer OTHER, SELFPAY ==
--- NOTE | 2024-04-09 08:35 | MHC.OFFVIS ---
Intake Visit Reasons: 6m follow up Intake Note: Patient is present for 6m F/U Urology Medication:TERAZOSIN,VIBEGRON,VITAMIN B1 Antibiotic Allergy:PENICILLIN, Blood Thinner:ASPIRIN Pile Trimmer Required: No Allergies aripiprazole [From Abilify] Adverse Reaction (Intermediate, Verified 04/09/24 08:37) Increased agitation and depression Penicillins Adverse Reaction (Intermediate, Verified 04/09/24 08:37) Nausea and Vomiting propranolol [Propranolol] Adverse Reaction (Intermediate, Verified 04/09/24 08:37) Nausea and Vomiting shellfish derived Adverse Reaction (Intermediate, Verified 04/09/24 08:37) Vomiting duloxetine [From CYMBALTA] Adverse Reaction (Mild, Verified 04/09/24 08:37) Increased agitation mirtazapine [MIRTAZAPINE] Adverse Reaction (Mild, Verified 04/09/24 08:37) Manic symptoms prednisone Adverse Reaction (Mild, Verified 04/09/24 08:37) Anger issues risperidone [From RISPERDAL] Adverse Reaction (Mild, Verified 04/09/24 08:37) Previous bad reaction and drug interaction with Wellbutrin HPI Comments Details: Damian is a pleasant male. He is a patient Dr. Krueger. He is seen for the following urologic conditions - lower urinary tract symptoms - urgency and weak stream - Peyronie's disease Six-month follow-up Urge control during the day remains stable - Gemtessa stable Discussed Botox Nocturia x1 Primary issue with nocturia is inability to fall back to sleep - works third shift PAYAL with CPAP Lower Urinary Tract Symptoms: Continued good response to urge frequency with combination Gemtessa and terazosin Current visit is for further evaluation of, lower urinary tract symptoms, predominate irritative symptoms. Current treatment includes medication, alpha rajni - terazosin 5mg, Myrbetriq Prior treatments include 08/20 terazosin 5mg 02/20 oxybutynin with dry mouth - has memory issues baseline. Prostate Symptom Score 02/18 Moderate (9-19), Bother 3 4. , Moderate (9-), Bother 3. Symptoms include 02/18 incomplete emptying, urgency, weak stream 08/20 , intermittency, urgency, weak stream, nocturia (>2), and are progressing. Results from testing include cystoscopy no abnormality seen 09/19, 03/23 - filled 300cc mild trabeculation Prior Prostate Score mild. PSA 08/20 3.5 - 01/22 6.1 - 09/22 3.9, 09/23 3.7, 08/25 5.1 Testing at next visit will include bladder scan. Treatment plan combination therapy. Peyronie's Disease: The patient presents for followup up evaluation for penile disorder. Primary complaint is penile curvature, Peyronie's disease. At this time he experiences partial erections sufficient for penetrative intercourse. [place] has is unaffected. Prior management includes 03/22 oral medication, vacuum protocol. Associated conditions history of penile trauma No CAD No diabetes No erectile dysfunction No hypertension No peripheral vascular disease No Natural history of Peyronie's [facility] Medical History Overactive bladder Bladder outlet obstruction Weak urinary stream Hypogonadism in male Hypertrophic cardiomyopathy Coarse tremor HTN (hypertension) [place] (nonalcoholic steatohepatitis) Burrows's neuroma of right foot PTSD (post-traumatic stress disorder) Peyronie's disease Atrial fibrillation Asthma PAYAL on CPAP Dyspnea Surgical History History of colonoscopy History of neck surgery History of appendectomy Family History Father Lung disease Substance use disorder Mother Type 2 diabetes mellitus Brother Substance use disorder Other Cancer Diabetes mellitus Mental health disorder Social History Household Members: Spouse Housing: House Patient Tobacco Use Status: Never used Tobacco e-Cigarette/Vaping Use: Never Used Second Hand Smoke Exposure: No service: No Current occupational status: employed Current occupation: [employer] Current occupational exposures/hazards: Yes Cognitive needs: No Hearing needs: No Vision needs: No Review of Systems Const Denies chills and Denies fever(s) Card Reports no additional complaints and Denies syncope Resp Denies cough GI Denies abdominal pain and Denies heartburn Reports as per HPI and Denies change in libido Neuro Denies syncope Psych Denies change in libido Endo Denies change in libido Physical Exam Const General: cooperative, healthy appearing, comfortable and no acute distress Orientation/consciousness: patient oriented x3 HEENT Face and sinus: Yes normal facial exam Mouth: moist mucous membranes Neck Neck: Yes normal visual inspection, Yes full ROM and Yes trachea midline Chest Chest palpation & inspection: normal inspection of the chest Resp Effort & Inspection: normal respiratory effort, able to speak in complete sentences and no respiratory distress GI Inspection: Yes normal to inspection Back/Spine/Pelvis Cervical Spine: normal cervical lordosis Thoracic/Lumbar Spine: thoracic and lumbar spine normal to inspection Skin General skin exam: no rashes or lesions noted Neuro General: patient oriented x3, gait normal, tone normal and moves all extremities Extrem General: Yes normal to inspection and Yes capillary refill normal Results AMB Urinalysis, Automated UA Leukoctes 0 Litzy/uL Last Edit by MANISHA Pinzon on 04/09/24 09:08 UA Nitrite Negative Last Edit by MANISHA Pinzon on 04/09/24 09:08 UA Urobilinogen 0.2 mg/dL Last Edit by MANISHA Pinzon on 04/09/24 09:08 UA Protein 0 mg/dL Last Edit by MANISHA Pinzon on 04/09/24 09:08 UA pH 5.5 Last Edit by MANISHA Pinzon on 04/09/24 09:08 UA Blood 0 Jeremi/uL Last Edit by MANISHA Pinzon on 04/09/24 09:08 UA Specific [place] 1.025 Last Edit by MANISHA Pinzon on 04/09/24 09:08 UA Ketone Negative Last Edit by MANISHA Pinzon on 04/09/24 09:08 UA Bilirubin 0 mg/dL Last Edit by MANISHA Pinzon on 04/09/24 09:08 UA Glucose 0 mg/dL Last Edit by MANISHA Pinzon on 04/09/24 09:08 Assessment & Plan Assessment & Plan (1) Elevated PSA: Code(s): R97.20 - Elevated prostate specific antigen [PSA] Category: Medical (2) Overactive bladder: Comment: Marcial Code(s): N32.81 - Overactive bladder Category: Medical Plan Six-month follow-up Orders: Orders AMB Urinalysis Automated Today Z13.9 - Encounter for screening, unspecified Patient Instructions: Imaging studies, laboratory and physical exam results were discussed and reviewed in detail. No major barriers to patient understanding were identified. An opportunity to ask questions regarding the treatment plan was provided. All questions were answered. The patient expressed understanding and agreement with the above treatment plan. The patient is aware they should contact our office by phone for worsening of their current condition or the appearance of new urologic symptoms. Compliance is encouraged with any medications and followup testing that is ordered. It is a privilege to participate in the urologic care of your patient. If you have any questions or concerns regarding treatment for the above conditions, or other urologic issues, please do not hesitate to contact me. The office telephone contact is [phone]. This note is constructed using voice recognition software. While every effort has been made to ensure accuracy transmission system operator errors may have been included. Yours sincerely, Dr Anil Villareal MD, [facility] Urology Providers of Expert, Compassionate Care for the Genitourinary System Coding Level of Care Code Est Pt Level 3 (17385) Diagnoses Elevated PSA R97.20 Overactive bladder N32.81
--- OUTSIDE RECORDS SUMMARY | 2024-04-14 05:24 | XMS_ITS ---
Author Organization [facility] Centersheryl Jamisonley Address [address] [facility] [place] [address] Care Team Providers Care Pmo Lead Name Role Phone Anuj Turner Primary Care Provider Unav ailNika Kaufman Unavailable [phone] Allergies Allergen (clinical drug ingredient) Drug/Non Drug Allergy documented on EMR Reaction Allergy Type Onset Date Status aripiprazole ARIPiprazole Dark Thoughts Drug Allergy Active shrimp allergenic extract Shrimp (Diagnostic) Projectile Vomiting Drug Allergy Active Penicillin Rash Diarhea Drug Allergy Act alberto propranolol Propranolol Dark Thoughts Drug Allergy Active REASON FOR VISIT PCP - 12/2022, Heel pain Medications Medication SIG (Take, Route, Frequency, Duration) Notes Start Date End Date Status Aspirin 81 MG 1 tablet Orally Once a day for 30 day(s) 11/21/2022 Active Multivitamin 11/21/2022 Active B Complex - as directed Orally 11/21/2022 Active Vitamin D 11/21/2022 Active Probiotic 11/21/2022 Active Terazosin HCl 5 MG TAKE 1 CAPSULE BY [facility] AT BEDTIME FOR 90 DAYS Oral for 90 Days Active Atorvastatin Calcium 40 MG 1 tablet Oral ly Once a day for 30 day(s) 11/21/2022 Active Zoloft 50 MG 1 tablet Orally Once a day for 30 day(s) 11/21/2022 Active Gabapentin 300 MG TAKE 1 CAPSULE BY MO [facility] 3 TIMES A DAY Oral for 30 Days Active Primidone 250 [facility] Oral for 90 Days Active Metoprolol Tartrate 25 MG TAKE 1 TABLET BY MOUTH TWICE A DAY Oral for 90 Days Active Myrbetriq 50 MG TAKE 1 TABLET BY KP TH EVERY DAY FOR 90 DAYS Oral for 90 Days Active Social History Tobacco Use: Social History Observation Description Date Details (start date - stop date) Never Smoker NA - NA Tobacco Use/Smoking Question Answer Notes Are you a: nonsmoker Additional Findings: Tobacco Non-User Current no n-smoker Alcohol Screen Question Answer Notes Did you have a drink containing alcohol in the p ast year? No Points 0 Interpretation Negative Tobacco use other than smoking: Question Answer Notes Are you an other tobacco user? No Vital Signs Height 6 ft 0 in in 01/03/2023 Weight 215 lbs 01/03/2023 BMI 29.16 kg/m2 01/03/2023 Encounters Encounter Location Date Provider Diagnosis [facility] [address] [place] [address] 01/03/2023 Nika Rodas Achilles tendinitis of left lower extremity M76.62 ; Calcaneal spur of left foot M77.32 ; Calcaneal spur of right foot M77.31 ; Pain in right ankle and joints of right foot M25.571 and Dystrophic nail L60.3 Assessments Encounter Date Diagnosis (ICD Code) Assessment Notes Treatment Notes Treatment Clinical Notes Section Notes 01/03/2023 Achilles tendinitis of left lower extremity (ICD-10 - M76.62) Patient Educated with: HEEL CORD STRETCHES.pdf (HEEL CORD STRETCHES.pdf) Patient Educated with: RICE THERAPY.pdf (RICE THERAPY.pdf) 01/03/2023 Calcaneal spur of left foot (ICD-10 - M77.32) 01/03/2023 Calcaneal spur of right foot (ICD-10 - M77.31) 01/03/2023 Pain in right ankle and joints of right foot (ICD-10 - M25.571) 01/03/2023 Dystrophic nail (ICD-10 - L60.3) Plan Of Treatment Treatment Notes Assessment Notes Achilles tendinitis of left lower extrem ity Patient Educated with: HEEL CORD STRETCHES.pdf (HEEL CORD STRETCHES.pdf) Patient Educated with: RICE THERAPY.pdf (RICE THERAPY.pdf) Pending Test Test Name Order Date X ray : Foot, left 3V 01/03/2023 X ray : Foot, right 3V 01/03/2023 Next Appt Details Follow Up: prn, Reason: Progress Notes * Damian AGUILERA:[birth year] (62 yo M)Acc No.[id number]:01/03/2023 Progress Notes Patient:?Damian Aguilera Provider:?Nika Rodas DPM :1960???Age:62 Y???Sex:Male William e:01/03/2023 Address:[address] [place], [place] [id number] Pcp:BANDAR Dejesus Subjective: * Chief Complaints: * ???PCP - 12/2022Heel pain * HPI: ???Heel pain:?Nature:?swelling tenderness.?Location:?Back of heel, LEFT.?Duration:?more than six months .?Course:?worse.?Aggrevated:?standing, walking, walking first thing in the morning/after rest.?Treatments:?rest change in shoes.? * ROS:?General/Constitutional:?Nausea?denies.?Vomiting?denies.?Hunger Thirst?denies.?Loss appetite?denies.?Chills?denies.?Fatigue?denies.?Fever?denies.?Night Sweats?denies.?Unexplained weight loss?denies.?Unexplained weight gain?denies.?HEENTM:?Dentures?denies.?Dizziness?denies.?Glasses/contacts?admits.?Retinopathy?de nies.?Blurred/double vision?denies.?TMJ?denies.?Discharge/drainage?denies.?Implants?denies.?Sore throat?denies.?Dental implants?denies.?Hard of hearing ?admits.?Difficulty chewing/swallowing/speaking?denies.?Nose bleeds?denies.?Sore mouth?denies.?Respiratory:?On Oxygen?denies.?Pneumonia/pleurisy?denies.?Bronchitis?denies.?Emphysema?denies.?C oughing?denies.?Cough blood?denies.?Shortness of breath?denies.?Wheezing?denies.?Cardiovascular:?Pacemaker?admits.?MVP?denies.?WPW?denies.?CHF?denies.?Heart attack?denies.?Septal defect?denies.?Rapid beat?denies.?Chest pain ?denies.?Atrial Fib.?admits.?Murmur/Palpitations?denies.?Gastrointestinal:?Hemorrhoids?denies.?Stomach/Abdominal pain?denies.?Dark blood stool?denies.?Irritable bowel ?denies.?Constipation?admits.?Diarrhea?admits.?Hematology:?Swelling?denies.?Clots?denies.?Varicose Veins?denies.?Bruising?denies.?Bleeding problem?denies.?Genitourinary:?Blood urine?denies.?Frequent/Painfu/urination/bladder control?admits.?Kidney stones?denies.?Infection (UTI)?denies.?Nephropathy?denies.?sex trans dis (STD)?denies.?Prostate?admits.?Musculoskeletal:?Hammertoes?denies.?Bunions?denies.?Back Pain?denies.?Muscle Cramps/ Resting?denies.?Muscle cramps / walking?denies.?Generalized aches and pains?admits.?Weakness?denies.?Integ.:?Root?denies.?Scars?denies.?Corns/calluses?denies.?Ingrown nails?denies.?Painful nails?denies.?Open Sores?denies.?Rashes?denies.?Neurologic:?Difficulty sleeping?admits.?Brain disorder?denies.?Numbness?denies.?Balance trouble?denies.?Confusion?denies.?Fainting/blackouts?denies.?Tingling?denies.?Tr emors?admits.? * Medical History:? * Surgical History:?gall bladd er appendectomy Defibrillator 2017[place] 1975 * Hospitalization/Major Diagno stic Procedure:?Denies Past Hospitalization * Family History:?Mother: dece ased, poor circulation, diagnosed with Family history of arthritis, Diabetic - NIDDM.?Father: , diagnosed with Other malignant neoplasm of unspecified site.?Siblings: diagnosed with Other malignant neoplasm of unspecified site.? * Social History:?Tobacco Use:?Tobacco Use/Smoking?Are you a:?nonsmoker ?Additional Findings: Tobacco Non-User?Current non-smoker ?Tobacco use other than smoking?Are you an other tobacco user??No ???Drugs/Alcohol:?Drugs?Have you used drugs other than those for medical reasons in the past 12 months??No ?Alcohol Screen?Did you have a drink containing alcohol in the past year??No ?Points?0 ?Interpretation?Negative ???Miscellaneous:?Caffeine: yes, 1-2 cups per day Half cafe. ?Children: yes, 2. ?no Exercise. ?Marital status: . 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 * Medications:?TakingMetoprolo l Tartrate 25 MG Tablet TAKE 1 TABLET BY MOUTH TWICE A DAY Oral Myrbetriq 50 MG Tablet Extended Release 24 Hour TAKE 1 TABLET BY MOUTH EVERY DAY FOR 90 DAYS Oral Gabapentin 300 MG Capsule TAKE 1 CAPSULE BY MOUTH 3 TIMES A DAY Oral Primidone 250 MG Tablet TAKE 1 TABLET BY MOUTH THREE TIMES A DAY Oral Atorvastatin Calcium 40 MG Tablet 1 tablet Orally Once a dayZoloft 50 MG Tablet 1 tablet Orally Once a dayTerazosin HCl 5 MG Capsule TAKE 1 CAPSULE BY MOUTH AT BEDTIME FOR 90 DAYS Oral Aspirin 81 MG Tablet Chewable 1 tablet Orally Once a dayVitamin D Multivitamin B Complex - Capsule as directed Orally Probiotic Medication List reviewed and reconciled with the patientTaking Metoprolol Tartrate 25 MG Tablet TAKE 1 TABLET BY MOUTH TWICE A DAY Oral Taking Myrbetriq 50 MG Tablet Extended Release 24 Hour TAKE 1 TABLET BY MOUTH EVERY DAY FOR 90 DAYS Oral Taking Gabapentin 300 MG Capsule TAKE 1 CAPSULE BY MOUTH 3 TIMES A DAY Oral Taking Primidone 250 MG Tablet TAKE 1 TABLET BY MOUTH THREE TIMES A DAY Oral Taking Atorvastatin Calcium 40 MG Tablet 1 tablet Orally Once a dayTaking Zoloft 50 MG Tablet 1 tablet Orally Once a dayTaking Terazosin HCl 5 MG Capsule TAKE 1 CAPSULE BY MOUTH AT BEDTIME FOR 90 DAYS Oral Taking Aspirin 81 MG Tablet Chewable 1 tablet Orally Once a dayTaking Vitamin D Taking Multivitamin Taking B Complex - Capsule as directed Orally Taking Probiotic Medication List reviewed and reconciled with the patient * Allergies:?Penicillin: Rash DiarheaShrimp (Diagnostic): Projectile VomitingPropranolol: Dark ThoughtsARIPiprazole: Dark Thoughtsyes[Allergies Verified] Objective: * Vitals:?Ht:6 ft 0 in, Wt:215 , BMI:29.16, Shoe size:11.5, Ht-cm: 182.88 cm, Wt- k.52 kg. * Examination: ???General Examination: ?GENERAL APPEARANCE:?Reveals a pleasant, alert, well-nourished, well- developed, well hydrated individual, who demonstrates proper attention to hygiene/body habitus, and is in no acute distress, Pt serves as own?historian for office visit today.?ORIENTED:?person, place, and time.?Neurological: ?SENSORY:?Neurological exam reveals intact sensorium, pain sensation normal, vibration sensation intact, pinprick sensation is normal in the lower extremities, Pt denies, anesthesia, burning, paresthesia, tingling, B/L.?DEEP TENDON REFLEXES:?Achilles, 2/4, B/L , Deferred on symptomatic extremity due to discomfort.?Vascular: ?DP PULSES:?3/4, B/L.?PT PULSES:?3/4, B/L.?CAPILLARY FILL TIME:?immediate, all digits, B/L.?SKIN TEMPERTURE GRADIENT OF THE LOWER EXTERMITIES:?warm to cool, proximal to distal, B/L.?HAIR GROWTH/TEXTURE/ELASTICITY/TURGOR:?normal, B/L.?PIGMENTATION:?normal, B/L.?EDEMA:?absent, B/L.?Dermatologic: ?SKIN FINDINGS:?Skin exam reveals normal texture, elasticity, and turgor. There are no masses. The interspaces are clear.?Orthopedic: ?MUSCLE STRENGTH:?5/5 all groups in a symmetrical fashion , B/L.?FOOT MORPHOLOGY:? Decreased Ankle joint dorsiflexion ROM, knee extended.?BUNION:? Medially prominent 1st MPJ (+) Pain on palpation RIGHT ROM 1st MPJ full,and without pain, or crepitus.?Heel Pain: ?INSPECTION:? Pain on palpation to Posterior Superior Aspect Calcaneus,Pain on palpation to Achilles tendon/bursa with inflammation and swelling present,Prominent posterior and posterior/superior heel present, LEFT foot,Neg Junior.?X-Rays: ?Views:? 3 views of Foot, LAT, LO AP B/L.?Findings:?normal bone and soft tissue density consistent for patients age and sex, increase in soft tissue contour and density at the symptomatic site, navicular/cuneiform plantar subluxation with anterior cyma line, positive retrocalcaneal exostosis, no coalitions identified positive infra-calcaneal exostosis.?Fracture:?Negative fractures identified.?Nails: ?NAILS are:? Elongated, overgrown, dystrophic, lytic, greater than 3mm thick, discolored and friable with crumbly malodorous subungual debris, with pain on palpation TA.? 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 Plan: * Treatment: 2.?Pain in right ankle and j oints of right foot?Imaging: X ray : Foot, right 3V * Imaging:? * ?Imaging: X ray : Foot, left 3V * Procedure Codes:?60381 X-RAY EXAM OF LEFT FOOT 3V, Modifiers: 26 , AC95003 X-RAY EXAM OF RIGHT FOOT 3V, Modifiers: 26 , RT * Preventive Medicine:? ??Counseling:?Discussion:?-04: Office or other outpatient visit for the evaluation and management of a new patient, which required a medically appropriate history and/or examination and MODERATE level of DECISION MAKING for: 1 OR MORE CHRONIC PROBLEM(S) THATS WORSENING, 2 STABLE CHRONIC PROBLEMS, A NEWLY DIAGNOSED PROBLEM WITH UNCERTAIN PROGNOSIS, AN ACUTE COMPLICATED INJURY WITH MULTIPLE TREATMENT OPTIONS, OR AN ACUTE PROBLEM WITH ACCOMPANYING SYSTEMIC SYMPTOMS, THAT POSE(S) A MODERATE RISK OF MORBIDITY. THIS CONDITION MAY ALSO INCLUDE RX DRUG MANAGEMENT, OR A DECISON FOR MINOR SURGERY. The visit on the day of the encounter encompassed interpreting the data and educating the patient as to the nature of their condition, treatment options available according to their individual PMH, meds, allergies, and overall health/living conditions, as well as any potential risks or complications that may occur from a failure to adhere to, and participate in, the recommended course of therapy. The discussion included a complete verbal, and/or written explanation of the examination results, any x-rays taken, the proposed diagnosis, and outline of the treatment plan. A schedule for future care needs was also explained. The patient verbalized an understanding of the instructions at this time and agreed to be an active participant in their treatment. If the patient should think of any questions or concerns after the visit, I have encouraged the patient to call the office.?Heel pain:?ACHILLES: I explained to the patient the possible etiologies of Achilles Tendonitis including foot type/shoegear/activity level/exercise routine and the risks/benefits of all the different treatment options for pain including: No treatment at all, Rest, Ice, NSAIDs(only if well tolerated after meals), New/supportive Shoegear, Strappings and Tapings, Stretching exercises, Deep Tissue Massage, Heel cups/cushions, Arch support/shoe inserts, Custom orthoses, Topical analgesics including Aspercream/Voltaren gel, Night splint/AFO Bracing for stiffness, Cast boot with crutches/cane/or walker for assisted ambulation, Physical Therapy, EPAT/ESWT, Interfil injection therapy, as well as surgical Farwell/Calcanectomy- tendon debridement surgical procedures if needed. Recommendations were made to limit barefoot walking, eliminate wearing nonsupportive shoegear (i.e. flip-flops or sandals, or a shoe with an easily bendable, foldable, or twistable sole) and wear shoegear with a good solid sole, a supportive arch, and plenty of room for an insert/orthotic if necessary. If wearing sandals was required by the patient, we recommended orthopedic sandals such as Orthoheel or Birkenstock even while in the home. If the patient wore heels in the past, we recommended they continue, but eliminate the use of flats. The advantages and disadvantages of each option were discussed and the patients' questions re: shoegear, custom vs prefabricated inserts, activity level, PO vs Topical medications (and their respective potential complications/drug interactions/side effects), and consistency in home treatment regimens for optimal success were answered to their verbally confirmed satisfaction. Literature detailing Achilles Tendonitis and the various treatment options were dispensed and reviewed.?Orthotics:?I explained to the patient the benefits of OT use. I explained that orthoses are medically necessary to decrease the foot pain through proper mechanical control, support of their foot.?P.R.I.C.E.:?The patient was counseled on the use of P.R.I.C.E. and NSAIDS (if well tolerated) to aid in the recovery from their painful condition.?Podiatric Surgery Counseling:?Surgical procedures such as Farwell vs Exostectomy with Partial calcanectomy and Achilles debridement with use of tendon reanchoring systems were discussed with the patient, including the risks and advantages as well as disadvantages to either not having, or having surgery, the potential surgical outcomes, possible complications unlimited to no improvement of syptoms/infection/excessive scaring/chronic weakness/failure of procedure/chronic pain, the use of IV/Local vs General anesthesia, and the usual post-op course which includes prolongued recuperation consisting of 2-3 months of casting non-partial weightbearing followed by extensive PT. Total return to normal activity may take a year or more. No guarentees were given. Patient questions re: how each procedure is different, different outcomes, and post-op recuperation were reviewed and the patient verbalized that all answers were clearly understood.?Stretching Exercises:?Stretching and deep tissue massage exercises for the patients injury/diagnosis were discussed and demonstrated, Handouts were also given.?X-rays:?Discussed and reviewed the X-rays with the patient. We discussed how the findings relate to the patients symptoms/complaints. Answered any and all questions..? * Follow Up:?prn * Images: * Sign off status: Completed true * Provider:?Nika Rodas DPM Date:?05/2022 Generated for Bhanu richardson/Donald/Desiree on:?04/14/2024 05:24 AM EST History and Physical Notes * HPI (History of Present Illness) Category Sub-Category Detail Notes Category Not es Heel pain Duration: more than six months Nature: swelling tenderness Location: Back of heel, LEFT Aggravated: standing, walking, w alking first thing in the morning/after rest Course: worse Treatments: rest change in shoes Examination Category Sub-Category Detail Notes Category Not es Neurological SENSORY: Neurological exa m reveals intact sensorium, pain sensation normal, vibration sensation intact, pinprick sensation is normal in the lower extremities, Pt denies, anesthesia, burning, paresthesia, tingling, B/L DEEP TENDON REFLEXES: Achilles, 2/4, B/L , Deferred on symptomatic extremity due to discomfort Dermatologic SKIN FINDINGS: Skin exam reveal s normal texture, elasticity, and turgor. There are no masses. The interspaces are clear Orthopedic FOOT MORPHOLOGY: Decreased Ankle joint dorsiflexion ROM, knee extended BUNION: Medially prominent 1 st MPJ (+) Pain on palpation RIGHT ROM 1st MPJ full,and without pain, or crepitus MUSCLE STRENGTH: 5/5 all groups in a symmetrical fashion , B/L General Examination GENERAL APPEARANCE: Reveals a pleasant, alert, well- nourished, well-developed, well hydrated individual, who demonstrates proper attention to hygiene/body habitus, and is in no acute distress, Pt serves as own historian for office visit today ORIENTED: person, place, and t tod Vascular DP PULSES(B): 3/4, B/L PT PULSES(B): 3/4, B/L CAPILLARY FILL TIME: immediate, all digi ts, B/L TEMPERTURE GRADIENT(C): warm to cool, pr oximal to distal, B/L TROPHIC CONDITION-TEXTURE/ELASTICITY/TURGOR/HAIR GROWTH(B): normal, B/L EDEMA(C): absent, B/L PIGMENTATION: normal, B/L Nails NAILS are: Elongated, overg rown, dystrophic, lytic, greater than 3mm thick, discolored and friable with crumbly malodorous subungual debris, with pain on palpation TA X-Rays - IMAGING REPORT Findings: normal b one and soft tissue density consistent for patients age and sex, increase in soft tissue contour and density at the symptomatic site, navicular/cuneiform plantar subluxation with anterior cyma line, positive retrocalcaneal exostosis, no coalitions identified positive infra-calcaneal exostosis Fracture: Negative fractures i dentified Views: 3 views of Foot, LAT , LO AP B/L Heel Pain INSPECTION: Pain on palpatio n to Posterior Superior Aspect Calcaneus, Pain on palpation to Achilles tendon/bursa with inflammation and swelling present, Prominent posterior and posterior/superior heel present, LEFT foot, Neg Junior
--- OUTSIDE RECORDS SUMMARY | 2024-04-14 05:24 | XMS_ITS ---
Author Organization [facility] Address [address] [place] [address] Care Team Providers Care Comparison Shopper Name Role Phone Anuj Turner Primary Care Provider Unav ailable Nika Rodas [phone] REASON FOR VISIT Pedag Sport Red #45 Encounters Encounter Location Date Provider Diagnosis [facility] [address] [place] [address] 01/03/2023 Nika Rodas Plan Of Treatment No Information Progress Notes * Damian AGUILERADOB:[birth year] (62 yo M)Acc No.[id number]:01/03/2023 Patient:?Damian Aguilera :1960???Age:62 Y???Sex:Male Address:[address] [place] [address] * true * Date:? Generated for Printi dylan/Donald/eTransmitting on:?04/14/2024 05:24 AM EST
--- OUTSIDE RECORDS SUMMARY | 2024-04-14 05:25 | XMS_ITS | Patient Health Record ---
Author Organization [facility] Address [address] [facility] [place] [address] Care Team Providers Care Bi Solutions Architect Name Role Phone Anuj Turner Primary Care Provider Unav Nika Thomas Unavailable [phone] Allergies Allergen (clinical drug ingredient) Drug/Non Drug Allergy documented on EMR Reaction Allergy Type Onset Date Status aripiprazole ARIPiprazole Dark Thoughts Drug Allergy Active shrimp allergenic extract Shrimp (Diagnostic) Projectile Vomiting Drug Allergy Active Penicillin Rash Diarhea Drug Allergy Act alberto propranolol Propranolol Dark Thoughts Drug Allergy Active Reason For Referral No Information Medications Medication SIG (Take, Route, Frequency, Duration) Notes Start Date End Date Status Terazosin HCl 5 MG TAKE 1 CAPSULE BY MO [facility] AT BEDTIME FOR 90 DAYS Oral for 90 Days Active Aspirin 81 MG 1 tablet Orally Once a day for 30 day(s) 11/21/2022 Active Atorvastatin Calcium 40 MG 1 tablet Oral ly Once a day for 30 day(s) 11/21/2022 Active Zoloft 50 MG 1 tablet Orally Once a day for 30 day(s) 11/21/2022 Active Multivitamin 11/21/2022 Active B Complex - as directed Orally 11/21/2022 Active Vitamin D 11/21/2022 Active Gabapentin 300 MG TAKE 1 CAPSULE BY MO [facility] 3 TIMES A DAY Oral for 30 Days Active Primidone 250 MG TAKE 1 TABLET BY KP [facility] THREE TIMES A DAY Oral for 90 Days Active Metoprolol Tartrate 25 MG TAKE 1 TABLET BY MOUTH TWICE A DAY Oral for 90 Days Active Probiotic 11/21/2022 Active Myrbetriq 50 MG TAKE 1 TABLET [...] Are you an other tobacco user? No Plan Of Treatment Pending Test Test Name Order Date X ray : Foot, left 3V 01/03/2023 X ray : Foot, right 3V 01/03/2023 Insurance Providers Payer Name Payer Address Payer Phone Subscriber Number Group Number Insured Name Patient Relationship to Insured Coverage Start Date Coverage End Date [facility] ([facility] [address] [place] [address] [phone] [id number] Damian Aguilera Self - patient is the insured Medical (General) History Medical History History ICD Code Anxiety Arthritis Back,Hip,and Knee pain Broken bones CAD (Cholesterol) covid-19 Depression Gall bladder problems Heart disease Sciatica chronic sinusitis Joint implants/screws Hypertrophic Cardiomyopathy Surgical History Surgery Date(Month/Year) gall bladder appendectomy Defibrillator 2017 [place] 1975
--- OUTSIDE RECORDS SUMMARY | 2024-04-14 05:25 | XMS_ITS ---
Author Organization [facility] Address [address] [place] [address] Care Team Providers Care Line Appliance Assembler Name Role Phone Anuj Turner Primary Care Provider Unav ailNika Kaufman Unavailable [phone] Allergies Allergen (clinical drug ingredient) Drug/Non Drug Allergy documented on EMR Reaction Allergy Type Onset Date Status aripiprazole ARIPiprazole Dark Thoughts Drug Allergy Active shrimp allergenic extract Shrimp (Diagnostic) Projectile Vomiting Drug Allergy Active Penicillin Rash Diarhea Drug Allergy Act alberto propranolol Propranolol Dark Thoughts Drug Allergy Active REASON FOR VISIT Dr Rodney Medications Medication SIG (Take, Route, Frequency, Duration) Notes Start Date End Date Status Myrbetriq 50 MG TAKE 1 TABLET BY KP TH EVERY DAY FOR 90 DAYS Oral for 90 Days Active Gabapentin 300 MG TAKE 1 CAPSULE BY MO [facility] 3 TIMES A DAY Oral for 30 Days Active Primidone 250 MG TAKE 1 TABLET BY KP TH THREE TIMES A DAY Oral for 90 Days Active Atorvastatin Calcium 40 MG 1 tablet Oral ly Once a day for 30 day(s) 11/21/2022 Active Metoprolol Tartrate 25 MG TAKE 1 TABLET BY MOUTH TWICE A DAY Oral for 90 Days Active Aspirin 81 MG 1 tablet Orally Once a day for 30 day(s) 11/21/2022 Active Vitamin D 11/21/2022 Active B Complex - as directed Orally 11/21/2022 Active Probiotic 11/21/2022 Active Multivitamin 11/21/2022 Active Zoloft 50 MG 1 tablet Orally Once a day for 30 day(s) 11/21/2022 Active Terazosin HCl 5 MG TAKE 1 CAPSULE BY MO [facility] AT BEDTIME FOR 90 DAYS Oral [...] ast year? No Points 0 Interpretation Negative Vital Signs Height 6'0 in 12/27/2022 Weight 212 lbs 12/27/2022 BMI 28.75 kg/m2 12/27/2022 Encounters Encounter Location Date [facility] [address] [place] [address] 12/27/2022 Nika Rodas Plan Of Treatment No Information Progress Notes * Damian AGUILERADOB:[birth year] (63 yo M)Acc No.[id number]:12/27/2022 Progress Notes Patient:?Damian AGUILERA Provider:?Nika Rodas DPM :1960???Age:62 Y???Sex:Male William e:12/27/2022 Address:[address] [place] [address] Pcp:BANDAR Dejesus Subjective: * Chief Complaints: * ???1. Dr Rodney. * ROS:?General/Constitutional:?Nausea?denies.?Vomiting?denies.?Hunger Thirst?denies.?Loss appetite?denies.?Chills?denies.?Fatigue?denies.?Fever?denies.?Night Sweats?denies.?Unexplained weight loss?denies.?Unexplained weight gain?denies.?HEENTM:?Dentures?denies.?Dizziness?denies.?Glasses/contacts?admits.?Retinopathy?de nies.?Blurred/double vision?denies.?TMJ?denies.?Discharge/drainage?denies.?Implants?denies.?Sore throat?denies.?Dental implants?denies.?Hard of hearing ?admits.?Difficulty chewing/swallowing/speaking?denies.?Nose bleeds?denies.?Sore mouth?denies.?Respiratory:?On Oxygen?denies.?Pneumonia/pleurisy?denies.?Bronchitis?denies.?Emphysema?denies.?C oughing?denies.?Cough blood?denies.?Shortness of breath?denies.?Wheezing?denies.?Cardiovascular:?Pacemaker?admits.?MVP?denies.?WPW?denies.?CHF?denies.?Heart attack?denies.?Septal defect?denies.?Rapid beat?denies.?Chest pain ?denies.?Atrial Fib.?admits.?Murmur/Palpitations?denies.?Gastrointestinal:?Hemorrhoids?denies.?Stomach/Abdominal pain?denies.?Dark blood stool?denies.?Irritable bowel ?denies.?Constipation?admits.?Diarrhea?admits.?Hematology:?Swelling?denies.?Clots?denies.?Varicose Veins?denies.?Bruising?denies.?Bleeding problem?denies.?Genitourinary:?Blood urine?denies.?Frequent/Painfu/urination/bladder control?admits.?Kidney stones?denies.?Infection (UTI)?denies.?Nephropathy?denies.?sex trans dis (STD)?denies.?Prostate?admits.?Musculoskeletal:?Hammertoes?denies.?Bunions?denies.?Back Pain?denies.?Muscle Cramps/ Resting?denies.?Muscle cramps / walking?denies.?Generalized aches and pains?admits.?Weakness?denies.?Integ.:?Root?denies.?Scars?denies.?Corns/calluses?denies.?Ingrown nails?denies.?Painful nails?denies.?Open Sores?denies.?Rashes?denies.?Neurologic:?Difficulty sleeping?admits.?Brain disorder?denies.?Numbness?denies.?Balance trouble?denies.?Confusion?denies.?Fainting/blackouts?denies.?Tingling?denies.?Tr emors?admits.? * Medical History:?Anxiety, Ar thritis, Back,Hip,and Knee pain, Broken bones, CAD (Cholesterol), Covid-19, Depression, Gall bladder problems, Heart disease, Sciatica, Chronic sinusitis, Joint implants/screws, Hypertrophic Cardiomyopathy. * Surgical History:?gall bladd er , appendectomy , Defibrillator 2016, Broken Neck 1974. * Family History:?Mother: dece ased, poor circulation, diagnosed with Family history of arthritis, Diabetic - NIDDM.?Father: , diagnosed with Other malignant neoplasm of unspecified site.?Siblings: diagnosed with Other malignant neoplasm of unspecified site.? * Social History:?Tobacco Use:?Tobacco Use/Smoking?Are you a:?nonsmoker ?Additional Findings: Tobacco Non-User?Current non-smoker ???Drugs/Alcohol:?Drugs?Have you used drugs other than those for medical reasons in the past 12 months??No ?Alcohol Screen?Did you have a drink containing alcohol in the past year??No ?Points?0 ?Interpretation?Negative ???Miscellaneous:?Caffeine: yes, 1-2 cups per day. ?Marital status: . 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 * Medications:?Taking Metoprol ol Tartrate 25 MG Tablet TAKE 1 TABLET BY MOUTH TWICE A DAY Oral , Taking Myrbetriq 50 MG Tablet Extended Release 24 Hour TAKE 1 TABLET BY MOUTH EVERY DAY FOR 90 DAYS Oral , Taking Gabapentin 300 MG Capsule TAKE 1 CAPSULE BY MOUTH 3 TIMES A DAY Oral , Taking Primidone 250 MG Tablet TAKE 1 TABLET BY MOUTH THREE TIMES A DAY Oral , Taking Atorvastatin Calcium 40 MG Tablet 1 tablet Orally Once a day , Taking Zoloft 50 MG Tablet 1 tablet Orally Once a day , Taking Terazosin HCl 5 MG Capsule TAKE 1 CAPSULE BY MOUTH AT BEDTIME FOR 90 DAYS Oral , Taking Aspirin 81 MG Tablet Chewable 1 tablet Orally Once a day , Taking Vitamin D , Taking Multivitamin , Taking B Complex - Capsule as directed Orally , Taking Probiotic * Allergies:?Penicillin: Rash Diarhea, Shrimp (Diagnostic): Projectile Vomiting, Propranolol: Dark Thoughts, ARIPiprazole: Dark Thoughts. Objective: * Vitals:?Ht:6'0 , Wt:212, BMI :28.75, Shoe size:11.5, Ht-cm: 182.88 cm, Wt-k.16 kg. Assessment: Plan: * Treatment: * Images: * The named appointment provid er may or may not be the originator of this progress note, and it is not deemed complete until electronically signed by the appointment provider. Sign off status: Pending * Provider:?Nika Rodas DPM Date:? Generated for Bhanu richardson/Donald/Desiree on:?04/14/2024 05:24 AM EST
== END 2024-04-09 09:22 | disposition home or self-care (01) ==
PROVIDERS: PCP Nurse Practitioner Family; Visit Provider Urology
DX: R97.20 Elevated prostate specific antigen [PSA] (principal); N32.81 Overactive bladder; Z13.9 Encounter for screening, unspecified
CPT/HCPCS: 99213

== ENCOUNTER → 2024-04-09 08:17 | Outpatient (BNVA) | payer OTHER, SELFPAY | PROVIDERS: PCP Nurse Practitioner Family; Visit Provider Urology | DX: N48.6 Induration penis plastica (principal); R39.12 Poor urinary stream; R97.20 Elevated prostate specific antigen [PSA]; N32.81 Overactive bladder; Z79.899 Other long term (current) drug therapy | CPT/HCPCS: 81003 ==

== ENCOUNTER 2024-06-11 07:59 | Outpatient (REF) | payer OTHER, SELFPAY ==
--- NOTE | ~2024-06-11 | US_ITS ---
CLINICAL HISTORY: K76.89 - Other specified diseases of liver US abdomen limited Comparison: None Findings: The visualized pancreas is normal. The aorta and inferior vena cava are normal caliber. The liver is normal in size and echotexture. In the left lobe is a circumscribed heterogeneous hypoechoic 0.6 x 0.5 x 0.4 cm lesion, possible hemangioma with peripheral echogenic areas. Are circumscribed hypoechoic left lobe 0.8 x 0.7 x 0.6 cm and right lobe 0.7 x 0.5 x 0.4 cm benign cysts, possibly incidental. There is no intrahepatic bile duct dilatation. The common duct is mm in diameter. The gallbladder is normal. There is no sonographic Younger sign. The main portal vein is antegrade. The right kidney is cm in length. No ascites. IMPRESSION: 1. No acute findings. This document has been electronically signed by: Yoandy Lemus MD on 06/12/2024 09:07:42
--- OUTSIDE RECORDS SUMMARY | 2024-06-11 08:03 | XMS_ITS | Encounter Summary ---
Author Organization [facility] Address [address] [place] [address] Care Team Providers Care Medical Record Specialist Name Role Phone MikaylalaurieAnuj cherry DOGMAN/WOMAN Primary Care Provider Encounter Details Date Type Department Care Team (Late st Contact Info) Description 05/25/2024 9:50 AM EST Ancillary Procedure [facility] Cardiology [facility] [address] [facility] [address] [place] [address] Social History Tobacco Use Types Packs/Day Years Used Date Smoking Tobacco: Never Smokeless Tobacco: Never Alcohol Use Standard Drinks/Week Comments Not Currently 0 (1 standard drink = 0.6 oz pur e alcohol) Sex and Gender Information Value Date Recorded Sex Assigned at Not on file Gender Identity Not on file Sexual Orientation Not on file documented as of this encounter Plan of Treatment Upcoming Encounters Date Type Department Care Team (Late st Contact Info) Description 08/09/2024 8:30 AM EDT Ancillary Procedure [facility] [address] [facility] [address] [place] [address] documented as of this encounter Procedures Procedure Name Priority Date/Time Associated Diagnosis Comments CARDIAC DEVICE CHECK- REMOTE- MURJ Routine 05/25/2024 9:46 AM EST documented in this encounter Results * Cardiac device check - Remote- MURJ (05/25/2024 9:46 AM EST) Date Time Interrogation Session [id number] CV DEVICE CHECK Type Interrogation Session Remote CV DEVICE CHECK Implantable Pulse Generator Electronics Technology Department Chair MDT CV DEVICE CHECK Implantable Pulse Generator Type ICD CV DEVICE CHECK Implantable Pulse Generator Model [id number] CV DEVICE CHECK Implantable Pulse Generator Serial Number [id number] CV DEVICE CHECK Implantable Pulse Generator Implant Date 20230718 CV DEVICE CHECK Battery Remaining Longevity 84.0 CV DEVICE CHECK Battery Voltage 2.970 CV D EVICE CHECK Battery FIRE PREVENTION RESEARCH ENGINEER Trigger 2.800 CV DEVICE CHECK Capacitor Charge Time 3.800 CV DEVICE CHECK Zion Statistic RV Percent Paced 99.24 CV DEVICE CHECK Atrial Tachy Statistic AT/AF Harmony Percent 0.02 CV DEVICE CHECK Lead Channel Sensing Intrinsic Amplitude 0.600 CV DEVICE CHECK Lead Channel Setting Sensing Sensitivity 0.60 CV DEVICE CHECK Lead Channel Impedance Value 342 CV DEVICE CHECK Lead Channel Pacing Threshold Amplitude 0.625 CV DEVICE CHECK Lead Channel Pacing Threshold Pulse Width 0.4 CV DEVICE CHECK Lead Channel RA Pacing Threshold Date 2024-05-14 CV DEVICE CHECK Lead Channel Setting Pacing Amplitude 1.500 CV DEVICE CHECK Lead Channel Setting Pacing Pulse Width 0.4 CV DEVICE CHECK Lead Channel Sensing Intrinsic Amplitude 7.900 CV DEVICE CHECK Lead Channel Setting Sensing Sensitivity 0.60 CV DEVICE CHECK Lead Channel Impedance Value 513 CV DEVICE CHECK Lead Channel Pacing Threshold Amplitude 2.375 CV DEVICE CHECK Lead Channel Pacing Threshold Pulse Width 0.4 CV DEVICE CHECK Lead Channel RV Pacing Threshold Date 2024-05-15 CV DEVICE CHECK Lead Channel Setting Pacing Amplitude 3.500 CV DEVICE CHECK Lead Channel Setting Pacing Pulse Width 0.4 CV DEVICE CHECK Zion Setting Mode (NBG Code) DDDR CV DEVICE CHECK Zion Setting Lower Rate Limit 60 CV DEVICE CHECK Zion Setting AT Mode Switch Rate 171 CV DEVICE CHECK Zion Setting Maximum Tracking Rate 130 CV DEVICE CHECK Zion Setting Maximum Sensor Rate 115 CV DEVICE CHECK Zion Setting PAV Delay 150 CV DEVICE CHECK Zion Setting KRISTAN Delay 130 CV DEVICE CHECK Therapy Statistic Recent Shocks Delivered 0 CV DEVICE CHECK Therapy Statistic Recent Shocks Aborted 0 CV DEVICE CHECK Therapy Statistic Recent ATP Delivered 0 CV DEVICE CHECK SVC Measured Impedance 43 CV DEVICE CHECK Zone Setting Type Category AT/AF CV DEVICE CHECK Rate 171 CV DEVICE CHECK Therapies All Rx Off CV DEVICE CHECK Zone Setting Status Monitor CV DEVICE CHECK Zone ID 2 CV DEVICE CHECK Zone Setting Type Category VF CV DEVICE CHECK Rate 200 CV DEVICE CHECK Therapies ATP During Charging, 40.0Jx6 CV DEVICE CHECK Zone Setting Status On CV DEVICE CHECK Zone ID 3 CV DEVICE CHECK Zone Setting Type Category VT CV DEVICE CHECK Zone Setting Status Off CV DEVICE CHECK Zone ID 4 CV DEVICE CHECK Zone Setting Type Category VT CV DEVICE CHECK Zone Setting Status Off CV DEVICE CHECK Zone ID 5 CV DEVICE CHECK Zone Setting Type Category VT CV DEVICE CHECK Rate 162 CV DEVICE CHECK Rate 167 CV DEVICE CHECK Zone Setting Status ENABLED CV DEVICE CHECK Zone ID 6 CV DEVICE CHECK Date of Service 2024-05-27 CV DEVICE CHECK Anatomical Region Laterality Modality Device Interroga tion 05/15/2024 12:4 0 AM EST Impressions 05/25/2024 9:43 AM EST Normal Remote: No Events * Normal Device Function * Alerts or events: None * Battery: , 7.00 yrs * Sensing, impedance and thresholds reviewed * Programmed parameters reviewed * Presenting rhythm reviewed * Heart Rate Histograms reviewed * No significant changes noted Heart Failure Diagnostic: Stable * Heart failure diagnostics assessed through the device * Status: Stable * No overt HF present Narrative Procedure Note Anuj Morgan MD - 05/25/2024 IMPRESSION: Normal Remote: No Events * Normal Device Function * Alerts or events: None * Battery: , 7.00 yrs * Sensing, impedance and thresholds reviewed * Programmed parameters reviewed * Presenting rhythm reviewed * Heart Rate Histograms reviewed * No significant changes noted Heart Failure Diagnostic: Stable * Heart failure diagnostics assessed through the device * Status: Stable * No overt HF present Anuj Morgan MD CV IMPLANTABLE CARDI AC DEVICE PROCEDURES documented in this encounter Visit Diagnoses Not on filedocumented in this encounter Care Teams Medical Record Specialist Relationship Specialty Start Date End Date Anuj Quinteros NP [address] [facility] [place] [facility] - General 09/25/21 documented as of this encounter
--- OUTSIDE RECORDS SUMMARY | 2024-06-11 08:03 | XMS_ITS ---
Author Organization [facility] Address [address] [place] [address] Care Team Providers Care Bottom Liquor Attendant Name Role Phone Anuj Turner Primary Care Provider Unav ailable Nika Rodas [phone] REASON FOR VISIT Pedag Sport Red #45 Encounters Encounter Location Date Provider Diagnosis [facility] [address] [place] [address] 01/03/2023 Nika Rodas Plan Of Treatment No Information Progress Notes * Damian AGUILERADOB:[birth year] (62 yo M)Acc No.[id number]:01/03/2023 Patient:?Damian Aguilera :1960???Age:62 Y???Sex:Male Address:[address] [place] [address] * true * Date:? Generated for Rhiannai dylan/Donald/eTransmitting on:?06/11/2024 08:02 AM EST
--- OUTSIDE RECORDS SUMMARY | 2024-06-11 08:03 | XMS_ITS ---
Author Organization [facility] Address [address] [facility] [place] [address] Care Team Providers Care Warehouse Worker 2Nd Shift Name Role Phone Anuj Turner Primary Care Provider Unav ailable Nika Rodas Unavailable [phone] Allergies Allergen (clinical drug ingredient) Drug/Non Drug Allergy documented on EMR Reaction Allergy Type Onset Date Status ARIPiprazole Dark Thoughts Drug Allergy Active Shrimp (Diagnostic) Projectile Vomiting Drug Allergy Active [...] MG TAKE 1 CAPSULE BY MO [facility] 3 TIMES A DAY Oral for [...] 5 MG TAKE 1 CAPSULE BY MO [facility] AT BEDTIME FOR 90 DAYS Oral [...] 12/27/2022 Encounters Encounter Location Date [facility] [address] [place] [address] 12/27/2022 Nika Rodas Plan Of Treatment No Information Progress Notes * Damian AGUILERADOB:[birth year] (63 yo M)Acc No.[id number]:12/27/2022 Progress Notes Patient:?Damian AGUILERA Provider:?Nika Rodas DPM :1960???Age:62 Y???Sex:Male William e:12/27/2022 Address:[address] [place], [place] [id number] Pcp:BANDAR Dejesus Subjective: * Chief Complaints: * [...] per day. ?Marital status: . 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 * Medications:?Taking Metoprol ol Tartrate 25 [...] Rodas DPM Date:? Generated for Bhanu richardson/Donald/Desiree on:?06/11/2024 08:02 AM EST
--- OUTSIDE RECORDS SUMMARY | 2024-06-11 08:03 | XMS_ITS | Patient Health Record ---
Author Organization [facility] Address [address] [facility] [place] [address] Care Team Providers Care Art Glass Setter Name Role Phone Anuj Turner Primary Care Provider Unav Nika Thomas Unavailable [phone] Allergies Allergen (clinical drug ingredient) Drug/Non Drug [...] Insured Coverage Start Date Coverage End Date [facility] ([facility]) [address] [place] [id number] [phone] [id number] Damian Aguilera Self - patient is the insured Medical (General) History Medical History History ICD Code Anxiety Arthritis Back,Hip,and Knee pain Broken bones CAD (Cholesterol) covid-19 Depression Gall bladder problems Heart disease Sciatica chronic sinusitis Joint implants/screws Hypertrophic Cardiomyopathy Surgical History Surgery Date(Month/Year) gall bladder appendectomy Defibrillator 2017 [place] 1975
--- OUTSIDE RECORDS SUMMARY | 2024-06-11 08:03 | XMS_ITS | Data Portability ---
Author Organization GARRETT Wright [employer], [address] Address [address] [place] [address] Care Team Providers Care Manager Of Organizational Development Name Role Phone [facility] Primary Care Provider Assessment No assessment recorded. Plan of Treatment Reminders Order Date Submit Date Provider Last Modified By Organization Details Last Modified Time Details Appointments None recorded. Lab None recorded. Referral None recorded. Procedures None recorded. Surgeries None recorded. Imaging XR, hand, 3 or more view 2022 023 [facility], [address] [place] [address], [address], 09:47:52 Medication Orders cephalexin 500 mg capsule 2022 023 [email or web address] [facility] #[id number], [address] [facility] , [place], [address], 19:44:33 Patient TargetsNo targets recorded. Patient Instructions Encounter Date Encounter Id Patient Instructions Last Modified By Organization Details Last Modified Time 07/18/2022 [id number] KEEP AREA CLEAN AND DRY. MAY APPLY SMALL AMOUNT OF TRIPLE ANTIBIOTIC OINTMENT TO AREA DAILY. LET AREA AIR DRY MUCH POSSIBLE. COVER AREA IF OUT IN PUBLIC. NO ANIMIALS AROUND WOUND. MAY WASH AREA WITH GENTLE ANTIBACTERIAL SOAP OR BABY SHAMPOO. SUTURES OUT INSTRUCTED. KEEP EXTREMITY ELEVATED AVOID DISHWATER, BATH TUB WATER, POOL OR CHRISTOPHER WATER. MONITOR FOR SIGNS OF INFECTION: FEVER, REDNESS, SWELLING, YELLOW DRAINAGE, RED STREAKING, INCREASED PAIN OR DECREASED MOVEMENT OF EXTREMITY. GO TO ER IMMEDIATELY. IF PRESCRIBED ANTIBIOTIC: TAKE ALL OF ANTIBIOTIC DIRECTED. MAY CHANGE DRESSING DAILY NEEDED. MAY RETURN IN 2 TO 3 DAYS FOR WOUND RECHECK NEEDED. [email or web address] Not available 07/18/2022 08:45:07 Reason for Referral None Reported. Results Created Date Observation Date Name Description Value Unit Range Abnormal Flag Note LastModifiedBy Organization Detail LastModifiedTime 07/19/19 23 07/18/2022 XR, hand, 3 or more view No observ ation record ed. [email or web address] [facility] [address] [place], [address], 07/18/2022 10:40:43 07/19/19 23 XR, hand, 3 or more view No observ ation record ed. [email or web address] [facility] [address] [place], [address], 07/18/2022 11:04:17 07/19/19 23 imagi ng/di agnos tic resul t No observ ation record ed. [email or web address] Not Available 2022 14:30:58 Result Notes None recorded. Problems Name Problem SNOMED Code Status Onset Date Resolution Date Notes Provider Name and Address Organization Details Recorded Time Hypercholestero lemia 68408165 Active 2022 VINAY LUPICA null, PA - [facility] 3 08:23:04 Hypertensive disorder 80860498 Active 2022 VINAY LUPICA null, PA - [facility] 3 08:23:30 Heart disease 50413696 Active 2022 VINAY LUPICA null, PA - [facility] 3 08:23:48 Depressive disorder 09712663 Active 2022 VINAY LUPICA null, PA - [facility] 3 08:24:50 Anxiety 42264181 Active 2022 VINAY LUPICA null, PA - [facility] 3 08:24:57 Problem Notes None recorded. Procedures Surgical History Date Name Laterality Status Provider Name and Address Organization Details Recorded Time 07/19/19 Wound Dressing completed VINAY TRINH PA - [facility] 07/18/2022 09:05:27 Pacemaker monitr digital/vis completed VINAY TRINH PA - [facility] 07/18/2022 08:24:10 colonoscopy completed VINAY TRINH PA - [facility] 07/18/2022 08:25:54 cholecystectomy completed VINAY TRINH PA - [facility] 07/18/2022 08:26:12 Appendectomy completed VINAY TRINH PA - [facility] 07/18/2022 08:26:18 operation on neck completed VINAY TRINH PA - [facility] 07/18/2022 08:26:51 Imaging Results Imaging Date Name Status LastModified by [facility] Details LastModified Time 07/18/2022 XR, hand, 3 or more view completed [email or web address] [facility] [address] [place], [address], 07/18/2022 10:40:43 07/18/2022 XR, hand, 3 or more view completed [email or web address] [facility] [address] [place], [address], 07/18/2022 11:04:17 07/18/2022 imaging/diag nostic result completed [email or web address] Information not available 07/18/2022 14:30:58 Procedure Notes None recorded. Medical Equipment None Reported. Allergies Allergen ID Allergen Name Allergen Category Reaction Reaction Severity Criticality Documentation Date Start Date Code Code System Note Provider Name and Address Organization Details Recorded Time 786631 Product containin g penicilli n and antibioti c (product) medicatio n Not available Not available Not available 07/18/2022 73662 05 SNOMED VINAY TRINH null, PA - [facility] 3 08:18:36 478335 Abilify medicatio n Not available Not available Not available 07/18/2022 29271 3 RxNorm VINAY TRINH null, PA - [facility] 3 08:18:56 509719 prednison e medicatio n Not available Not available Not available 07/18/2022 8640 RxNorm VINAY SHAWICA null, PA - [facility] 3 08:19:10 405592 Inderal medicatio n Not available Not available Not available 07/18/2022 33368 0 RxNorm GARRETT Banerjee - [facility] 3 08:20:28 Medications Name Sig Start Date Stop Date Status Note LastModified by Organization Details LastModified Time terazosin 5 mg capsule TAKE 1 CAPSULE BY MOUTH AT BEDTIME FOR 90 DAYS active Not Available Not Available No t Available atorvastati n 40 mg tablet TAKE 1 TABLET BY MOUTH EVERY DAY active Not Available Not Available No t Available azithromyci n 250 mg tablet TAKE 2 TABLETS BY MOUTH ONCE DAILY FOR 1 DAY, THEN TAKE 1 TABLET ONCE DAILY FOR 4 DAYS FOR INFECTION 07/18 completed Not Available Not Available Not Available sertraline 100 mg tablet TAKE ONE TABLET BY MOUTH DAILY IN THE MORNING (IN ADDITION TO 50 MG AT NIGHT) active Not Available Not Available No t Available primidone 250 mg tablet TAKE 1 TABLET BY MOUTH THREE TIMES A DAY active Not Available Not Available No t Available lorazepam 0.5 mg tablet TAKE 1/2 -1 TAB UP TO 3 TIMES DAILY NEEDED active Not Available Not Available No t Available cephalexin 500 mg capsule Take 1 capsule every 8 hours by oral route with meals for 7 days. 2022 active Not Available Not Available Not Avai lable gabapentin 300 mg capsule TAKE 1 CAPSULE BY MOUTH THREE TIMES A DAY active Not Available Not Available No t Available sertraline 50 mg tablet TAKE ONE TABLET IN EVENING DAILY BY MOUTH active Not Available Not Available No t Available ipratropium bromide 21 mcg (0.03 %) nasal spray INHALE 2 SPRAY NASL THREE TIMES A DAY DIRECTED active Not Available Not Available No t Available metoprolol tartrate 25 mg tablet TAKE 1 TABLET BY MOUTH TWICE A DAY active Not Available Not Available No t Available nitrofurant oin monohydrate /macrocryst als 100 mg capsule TAKE 1 CAPSULE BY MOUTH TWICE A DAY FOR 7 DAYS 07/18 completed Not Available Not Available Not Available trospium ER 60 mg capsule,ext ended release 24 hr PLEASE SEE ATTACHED FOR DETAILED DIRECTION S active Not Available Not Available No t Available Myrbetriq 50 mg tablet,exte nded release TAKE 1 TABLET BY MOUTH EVERY DAY FOR 90 DAYS active Not Available Not Available No t Available Flowflex COVID-19 Antigen Home Test kit FOLLOW INSTRUCTI ONS INCLUDED WITH THE PACKAGE. 07/18 completed Not Available Not Available Not Available Lagevrio 200 mg capsule (EUA) TAKE 4 CAPSULES BY MOUTH EVERY 12 HOURS FOR 5 DAYS, WITH OR WITHOUT FOOD 07/18 completed Not Available Not Available Not Available Vitals Date Recorded Body height Body mass index (BMI) Body weight Body temperature Oxygen saturation Oxygen saturation in Arterial blood by Pulse oximetry Heart rate Respiratory rate Systolic blood pressure Diastolic blood pressure Provider Name and Address Organization Details Last Updated DateTime 3 182.88 cm 29.7 kg/m2 02440.7 3 g 97 [degF] 96 % 96 % 61 /min 16 /min 113 mm[Hg] 66 mm[Hg] VINAY TRINH PA - [facility] 3 08:28:42 Social History Question Answer Notes LastModified by Organizat ion Details LastModified Time Tobacco Smoking Status Never Smoker VINAY myrick PA - [facility] 07/18/2022 08:25:40 What Is Your Level Of Alcohol Consumption? None [email or web address] Information not available 07/18/2022 Do You Use Any Illicit Or Recreational Drugs? No Information not available 07/18/2022 Have You Recently Traveled Abroad? No [email or web address] Information not available 07/18/2022 Do You Or Have You Ever Used Any Other Forms Of Tobacco Or Nicotine? No [email or web address] Information not available 07/18/2022 Sex: Unknown Functional Status None recorded. Mental Status None recorded. Family History Relationship Description Onset Age of this Age Resolved Age Notes LastModified by Organization Details LastModified Time Father No current problems or disability [email or web address] Not available 07/18 08:25:25 Mother No current problems or disability [email or web address] Not available 07/18 08:25:25 Medical History No medical history recorded. Immunizations Vaccine Type Date Status Note Provider Nam e and Address Organization Details Recorded Time Tdap 07/18/2022 completed Jose Saenz NP [address] [place], [address], [place] - [facility] 07/18/2022 19:44:34 Past Encounters Encounter ID Performer Location Encounter Start Date Encounter Closed Date Diagnosis/Indication Diagnosis SNOMED-CT Code Diagnosis ICD10 Code Diagnosis Note [id number] [address] [facility] [place] [address] 05/19/2018 08:07:53 05/19/2018 08:38:27 [id number] [address] [place] [address] 04/20/2017 09:19:32 04/20/2017 10:26:52 [id number] [address] [facility] [place] [address] 03/20/2022 08:41:47 03/20/2022 11:05:46 [id number] [address] [facility] [place] [address] 03/14/2019 10:47:12 03/14/2019 12:05:09 [id number] [address] [facility] [place] [address] 07/12/2016 16:42:45 07/12/2016 17:07:10 [id number] [address] [place] [address] 05/12/2018 11:46:30 05/12/2018 12:29:09 [id number] [address] [place] [address] 07/27/2021 09:05:35 07/27/2021 10:42:59 [id number] [address] [facility] [place] [address] 06/27/2018 08:06:18 06/27/2018 08:44:07 [id number] [address] [place] [address] 03/22/2018 08:06:37 03/22/2018 08:34:58 [id number] [address] [facility] [place] [address] 09/21/2021 17:53:37 09/21/2021 18:07:14 [id number] [address] [place] [address] 07/05/2016 14:08:47 07/05/2016 14:42:37 [id number] [address] [place] [address] 07/09/2021 08:10:06 07/09/2021 09:16:33 [id number] Jose Saenz NP [address] [place] [address] 07/18/2022 08:02:48 07/18/2022 09:07:41 Laceration of palm of hand 886324926 S61.421A Administra tion of tetanus vaccine 915819642 Z23 Health Concerns Section Related Observation LastModified by Organization Detai ls LastModified Time None Recorded Concern Status LastModified by Organization Details LastModified Time None Recorded Advance Directives Directive None Recorded Payers Encounter Date Sequence Insurance Name Policy Number Policy Blanco Covered Member ID Blanco Member ID Guarantor Name 07/09/2021 1 [facility] (PPO[facility] [id number] 1 Damian Aguilera [id number] Damian Aguilera 07/27/2021 1 [facility] (PPO) [id number] 1 Damian Aguilera [id number] Damian Aguilera 09/21/2021 1 [facility] (PPO) [id number] 1 Damian Aguilera [id number] Damian Aguilera 03/20/2022 1 [facility] (PP[facility]) [id number] 1 Damian Aguilera [id number] Damian Aguilera 07/18/2022 1 [facility] ([facility]) [id number] 1 Damian Aguilera [id number] Damian Aguilera Notes Date Note Type Note Provider Name and Address Organization Details Recorded Time 07/18/2022 text/html Wrist/Hand Injur y UCReported bypatient.source of patient informationPatient arrived at Urgent Care ambulatory Location:left; hand Associated Symptoms:no ecchymosis; no fever;pain;swelling;red ness;warmth Severity:mild Duration:07/16/2022 days Context:laceration Hand Dominance:left Aggravating Factors:gripping Previous InjuryNo prior injury to affected body part Previous Treatmentnone Prior Imaging:none Jose Saenz NP [address] [place], [address], PA - [facility] 07/18/2022 19:45:02
--- OUTSIDE RECORDS SUMMARY | 2024-06-11 08:03 | XMS_ITS ---
Author Organization [facility] Dickson Address [address] [facility] [place] [address] Care Team Providers Care Machine Adjuster Leader Case Trim Name Role Phone Anuj Turner Primary Care Provider Unav ailNika Kaufman Unavailable [phone] Allergies Allergen (clinical drug ingredient) Drug/Non Drug [...] HCl 5 MG TAKE 1 CAPSULE BY [facility] AT BEDTIME FOR 90 DAYS Oral for 90 Days Active Atorvastatin Calcium 40 MG 1 tablet Oral ly Once a day for 30 day(s) 11/21/2022 Active Zoloft 50 MG 1 tablet Orally Once a day for 30 day(s) 11/21/2022 Active Gabapentin 300 MG TAKE 1 CAPSULE BY [facility] 3 TIMES A DAY Oral for 30 Days Active Primidone 250 MG [facility] Oral [...] 01/03/2023 Encounters Encounter Location Date Provider Diagnosis [facility] [address] [place] [address] 01/03/2023 Nika Rodas Achilles tendinitis of left [...] Notes * Damian AGUILERA:[birth year] (62 yo M)Acc No.[id number]:01/03/2023 Progress Notes Patient:?Damian Aguilera Provider:?Nika Rodas DPM :1960???Age:62 Y???Sex:Male William e:01/03/2023 Address:[address] [place], [place] [id number] Pcp:BANDAR Dejesus Subjective: * Chief Complaints: * [...] ?no Exercise. ?Marital status: . 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 * Medications:?TakingMetoprolo l Tartrate 25 MG [...] posterior and posterior/superior heel present, LEFT foot,Neg Barco.?X-Rays: ?Views:? 3 views of Foot, LAT, LO [...] ray : Foot, left 3V * Procedure Codes:?08053 X-RAY EXAM OF LEFT FOOT 3V, Modifiers: 26 , [id number] X-RAY EXAM OF RIGHT FOOT 3V, Modifiers: [...] Interfil injection therapy, as well as surgical Diboll/Calcanectomy- tendon debridement surgical procedures if needed. Recommendations [...] painful condition.?Podiatric Surgery Counseling:?Surgical procedures such as Diboll vs Exostectomy with Partial calcanectomy and Achilles [...] Rodas DPM Date:?05/2022 Generated for Bhanu richardson/Donald/Desiree on:?06/11/2024 08:03 AM EST History and Physical Notes * [...] person, place, and t tod Vascular DP PULSES (B): 3/4, B/L PT PULSES (B): 3/4, B/L CAPILLARY FILL TIME: immediate, all digi ts, B/L TEMPERTURE GRADIENT (C): warm to cool, p roximal to distal, B/L TROPHIC CONDITION-TEXTURE/ELASTICITY/TURGOR/HAIR GROWTH (B): normal, B/L EDEMA (C): absent, B/L PIGMENTATION: normal, B/L Nails NAILS [...] and posterior/superior heel present, LEFT foot, Neg Barco
--- OUTSIDE RECORDS SUMMARY | 2024-06-11 08:03 | XMS_ITS | Clinical Summary ---
Author Organization [facility] Address [address] [place] [address] Care Team Providers Care Retort Pre Cooker Name Role Phone Anuj Quinteros NP Primary Care Provider Allergies Active Allergy Reactions Criticality Noted Date Comments Aripiprazole Medium 11/20/2021 Agitation and depression Duloxetine Medium 11/20/2021 Increased agitation Mirtazapine Medium 11/20/2021 Manic episodes Penicillins Nausea And Vomiting Medium 11/20/2021 Prednisone Medium 11/20/2021 Anger issues Propranolol Nausea And Vomiting Medium 11/20/2021 Risperidone Medium 11/20/2021 Shellfish Containing Products Nausea And Vomiting Medium 11/20/2021 Medications Medication Sig Dispensed Refills Start Date End Date Status diphenhydrAMINE (BENADRYL) 25 mg tablet Take 1 Tablet by mouth at bedtime. Active terazosin (HYTRIN) 5 mg capsule Take 1 Capsule by mouth at bedtime. Active aspirin 81 mg EC tablet Take 81 mg by mouth daily. Active atorvastatin (LIPITOR) 40 mg tablet Take 40 mg by mouth daily. Active cholecalciferol (VITAMIN D-3) 50 mcg (2,000 unit) tablet Take 1 Tablet by mouth daily. Active gabapentin (NEURONTIN) 300 mg capsule Take 300 mg by mouth 3 times daily. Active LORazepam (ATIVAN) 0.5 mg tablet Take 0.5 mg by mouth every 6 hours as needed. Active mirabegron (MYRBETRIQ) 50 mg tablet extended release 24 hr 24 hr tablet Take 1 Tablet by mouth daily. Active primidone (MYSOLINE) 250 mg tablet Take 250 mg by mouth 3 times daily. Active VITAMIN B COMPLEX ORAL Take 1 Capsule by mouth daily. Active sertraline (ZOLOFT) 50 mg tablet Take by mouth. 2 tabs in the morning & 1 tab in the evening Active UNABLE TO FIND MISC NATURAL PRODUCTS (T-RELIEF CBD+13) SL TAB Oil - 3 times daily Active metoprolol tartrate (LOPRESSOR) 25 mg tablet TAKE 1 TABLET BY MOUTH TWICE A DAY 180 tablet 06/03/2024 Active metoprolol tartrate (LOPRESSOR) 25 mg tablet TAKE 1 TABLET BY MOUTH TWICE A DAY 12/02/2023 06/03/2024 Discontinued Active Problems Problem Noted Date Diagnosed Date Arm swelling 11/23/2021 Overview (04/14/2024): Last Assessment & Plan: His arm swelling has been stable. He did have a upper extremity ultrasound done which showed no evidence of thrombosis or obstruction. We will continue to monitor. Shortness of breath 11/23/2021 Overview (04/14/2024): Last Assessment & Plan: He states that his breathing has improved. He is not bothered by it at this time. He will continue to monitor and will let us know if this worsens. If it does we will do a stress test. We did discuss that his echocardiogram showed normal function. He has had no arrhythmias on his device interrogation to explain this either. Again will monitor and if this worsens he will call let us know and we will do a stress test. This will be a chemical stress test due to his pacing. Atrial fibrillation 11/20/2021 Overview (04/14/2024): Last Assessment & Plan: Patient has not had any further issues with atrial fibrillation documented on device monitoring. His [id number] score is 1 for hypertension. He continues on aspirin only. We will continue to monitor atrial fibrillation burden via his ICD monitoring. Given that he has turned 63 today if he were to have any increased atrial fibrillation burden we may consider increasing his anticoagulation as his [id number] score will be increasing with age. He has not had any episodes of documented atrial fibrillation we will hold off on this at this time. Cardiac pacemaker 11/20/2021 Overview (04/14/2024): Last Assessment & Plan: His pacemaker has been stable. We will continue to monitor this remotely and in our office. He has had no ICD firings. HTN (hypertension) 11/20/2021 Overview (04/14/2024): Last Assessment & Plan: Patient's blood pressure today 120/78. This is adequately controlled and he will continue on his present dose of metoprolol as prescribed. Hypertrophic cardiomyopathy 11/20/2021 Overview (04/14/2024): Last Assessment & Plan: Patient has history of hypertrophic cardiomyopathy. Last echocardiogram from 03/2023 outlined in detailed above. LVEF 50 to 55%. Patient denies any clinical symptoms of heart failure and he appears euvolemic on physical examination. He has no episodes of syncope, presyncope, shortness of breath or exertional dyspnea. I will make no changes to his medical therapies at this time. Continue with metoprolol 25 mg twice daily. Encounters Date Type Department Care Team Description 05/25/2024 9:50 AM EST Ancillary Procedure [facility] [address] [facility] [address] [place] [address] from Last 3 Months Surgical History Surgery Date Site/Laterality Comments APPENDECTOMY PROCEDURE: HISTORICAL APPENDECTOMY COLONOSCOPY PROCEDURE: HISTORICAL COLONOSCOPY NECK SURGERY PROCEDURE: HISTORICAL NECK SURGERY Medical History Medical History Date Comments Asthma DX:Asthma Bladder outlet obstruction DX:Bl adder outlet obstruction Coarse tremor DX:Coarse tremor Dyspnea DX:Dyspnea Hypogonadism in male DX:Hypogona dism in male Burrows's neuroma of right foot D X:Burrows's neuroma of right foot OH (nonalcoholic steatohepatitis) DX:OH (nonalcoholic steatohepatitis) PAYAL on CPAP DX:PAYAL on CPAP Overactive bladder DX:Overactive bladder Peyronie's disease DX:Peyronie's disease PTSD (post-traumatic stress disorder) DX:PTSD (post-traumatic stress disorder) Weak urinary stream DX:Weak urin chauncey stream Burning with urination DX:Burnin g with urination Family History Medical History Relation Name Comments Other: substance use disorder Brother Lung disease Father Other: Substance use disorder Father Diabetes Mother mellitus type 2 Diabetes Other Mental illness Other Other cancer Other Relation Name Status Comments Brother Father Mother Other Social History Tobacco Use Types Packs/Day Years Used Date Smoking Tobacco: Never Smokeless Tobacco: Never Alcohol Use Standard Drinks/Week Comments Not Currently 0 (1 standard drink = 0.6 oz pur e alcohol) Sex and Gender Information Value Date Recorded Sex Assigned at Not on file Gender Identity Not on file Sexual Orientation Not on file Obstetrics History Last Filed Vital Signs Vital Sign Reading Time Taken Comments Blood Pressure 120/78 2023 8:54 AM EST Sit ting R Arm Pulse 72 2023 8:54 AM EST Temperature - - Respiratory Rate - - Oxygen Saturation - - Inhaled Oxygen Concentration - - Weight 98 kg (216 lb) 2023 8:54 AM EST Height 182.9 cm (6') 2023 8:54 AM EST Body Mass Index 29.29 2023 8:54 AM EST Plan of Treatment Upcoming Encounters Date Type Department Care Team (Late st Contact Info) Description 08/09/2024 8:30 AM EDT Ancillary Procedure [facility] [address] [facility] [address] [place] [address] Health Maintenance Due Date Last Done Comments Zoster Vaccines (1 of 2) 2008 Cholesterol Screening (Lipid Panel) 04/14/2022 Colorectal Cancer Screening: Colonoscopy 04/14/2022 Depression Screening 04/14/2022 Hepatitis C Screening 04/14/2022 Hypertension/CHF/CAD Annual BMP Blood Test 04/14/2022 Social Influencers of Health Screening 04/14/2022 Falls Risk Assessment 2023 DTaP,Tdap,and Td Vaccines (2 - Td or Tdap) 07/18/2032 07/18/2022 Pneumococcal Vaccine: 65+ Years Completed 01/29/2022, 03/29/2019 Pneumococcal Vaccine: Pediatrics (0 to 5 Years) and At-Risk Patients (6 to 64 Years) Aged Out 01/29/2022, 03/29/2019 No longer eligibl e based on patient's age to complete this topic COVID-19 Vaccine Completed 01/16/2024, , 02/22/2022, Additional history exists Influenza Vaccine Completed 01/16/2024, , 01/29/2022, Additional history exists RSV Immunization Patients 60+ Years Old Completed 02/20/2024 HIB Vaccines Aged Out No longer eligi ble based on patient's age to complete this topic HPV Vaccines Aged Out No longer eligi ble based on patient's age to complete this topic Hepatitis A Vaccines Aged Out No long er eligible based on patient's age to complete this topic Hepatitis B Vaccines Aged Out No long er eligible based on patient's age to complete this topic IPV Vaccines Aged Out No longer eligi ble based on patient's age to complete this topic MMR Vaccines Aged Out No longer eligi ble based on patient's age to complete this topic Meningococcal ACWY Vaccine Aged Out N o longer eligible based on patient's age to complete this topic RSV Immunization Patients Under 20 months Aged Out No longer eligible based on patient's age to complete this topic Varicella Vaccines Aged Out No longer eligible based on patient's age to complete this topic Medical Devices Implanted Type Area Inventory Assistant Device Identifier Shelf Expiration Date Model / Serial / Lot Medt-Card [id number] Implanted:07/03 (Quantity not on file) Cardiac ICD [employer] - CARDIAC RHYTH-CRDM [id number] / [id number] / Procedures Procedure Name Priority Date/Time Associated Diagnosis Comments CARDIAC DEVICE CHECK- REMOTE- MURJ Routine 05/25/2024 9:46 AM EST from Last 3 Months Results * Cardiac device check - Remote- MURJ (05/25/2024 9:46 AM EST) Date Time Interrogation Session [id number] CV DEVICE CHECK Type Interrogation Session Remote CV DEVICE CHECK Implantable Pulse Generator Inventory Assistant MDT CV DEVICE CHECK Implantable Pulse Generator Type ICD CV DEVICE CHECK Implantable Pulse Generator Model [id number] CV DEVICE CHECK Implantable Pulse Generator Serial Number [id number] CV DEVICE CHECK Implantable Pulse Generator Implant Date 20230718 CV DEVICE CHECK Battery Remaining Longevity 84.0 CV DEVICE CHECK Battery Voltage 2.970 CV D EVICE CHECK Battery CORRECTION WORKER Trigger 2.800 CV DEVICE CHECK Capacitor Charge Time 3.800 CV DEVICE CHECK Zion Statistic RV Percent Paced 99.24 CV DEVICE CHECK Atrial Tachy Statistic AT/AF [place] Percent 0.02 CV DEVICE CHECK Lead Channel [...] MD CV IMPLANTABLE CARDI AC DEVICE PROCEDURES from Last 3 Months Care Teams Retort Pre Cooker Relationship Specialty Start Date End Date Anuj Quinteros, DEVIN [address] [place] PCP - General 09/25/21
== END 2024-06-11 08:00 | disposition home or self-care (01) ==
LOC: HO.HMGCX 07:59
PROVIDERS: PCP Nurse Practitioner Family; Visit Provider Nurse Practitioner Family
DX: K76.89 Other specified diseases of liver (principal)
CPT/HCPCS: 76705

== ENCOUNTER → 2024-06-11 08:12 | Outpatient (BNV) | payer OTHER, SELFPAY | PROVIDERS: PCP Nurse Practitioner Family; Visit Provider Specialist | DX: K76.89 Other specified diseases of liver (principal) | CPT/HCPCS: 76705 ==

== ENCOUNTER 2024-06-17 09:54 | Outpatient (AMB) | payer OTHER, SELFPAY ==
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
--- OUTSIDE RECORDS SUMMARY | 2024-06-17 10:31 | XMS_ITS ---
Author Organization [facility] Address [address] [place] [address] Care Team Providers Care Special Education Superintendent Name Role Phone Anuj Turner Primary Care Provider Unav ailNika Kaufman Unavailable [phone] Allergies Allergen (clinical drug ingredient) Drug/Non Drug [...] 300 MG TAKE 1 CAPSULE BY MO [facility] 3 TIMES A DAY Oral for 30 [...] 5 MG TAKE 1 CAPSULE BY MO [facility] AT BEDTIME FOR 90 DAYS Oral for [...] 12/27/2022 Encounters Encounter Location Date [facility] [address] [place] [address] 12/27/2022 Nika Rodas Plan Of Treatment No Information Progress Notes * Dmaian AGUILERADOB:[birth year] (63 yo M)Acc No.[id number]:12/27/2022 Progress Notes Patient:?Damian AGUILERA Provider:?Nika Rodas DPM :1960???Age:62 Y???Sex:Male William e:12/27/2022 Address:[address] [place] [address] Pcp:BANDAR Dejesus Subjective: * Chief Complaints: * [...] per day. ?Marital status: . 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 * Medications:?Taking Metoprol ol Tartrate 25 [...] Rodas DPM Date:? Generated for Bhanu richardson/Donald/Desiree on:?06/17/2024 10:30 AM EST
--- OUTSIDE RECORDS SUMMARY | 2024-06-17 10:32 | XMS_ITS | Patient Health Record ---
Author Organization [facility] Address [address] [facility] [place] [address] Care Team Providers Care Pot Sander Name Role Phone Anuj Turner Primary Care Provider Unav Nika Thomas Unavailable [phone] Allergies Allergen (clinical drug ingredient) Drug/Non Drug [...] Insured Coverage Start Date Coverage End Date [facility] [address] [place] [id number] Damian Aguilera Self - patient is the insured Medical (General) History Medical History History ICD Code Anxiety Arthritis Back,Hip,and Knee pain Broken bones CAD (Cholesterol) covid-19 Depression Gall bladder problems Heart disease Sciatica chronic sinusitis Joint implants/screws Hypertrophic Cardiomyopathy Surgical History Surgery Date(Month/Year) gall bladder appendectomy Defibrillator 2017 [place] 1975
--- OUTSIDE RECORDS SUMMARY | 2024-06-17 10:32 | XMS_ITS ---
Author Organization [facility] Address [address] [place] [address] Care Team Providers Care Heading Matcher And Assembler Name Role Phone Anuj Turner Primary Care Provider Unav ailable Nika Rodas [phone] REASON FOR VISIT Pedag Sport Red #45 Encounters Encounter Location Date Provider Diagnosis [facility] [address] [place] [address] 01/03/2023 Nika Rodas Plan Of Treatment No Information Progress Notes * Damian AGUILERADOB:[birth year] (62 yo M)Acc No.[id number]:01/03/2023 Patient:?Damian Aguilera :1960???Age:62 Y???Sex:Male Address:[address] [place] [id number] * true * Date:? Generated for Printi dylan/Donald/eTransmitting on:?06/17/2024 10:32 AM EST
--- OUTSIDE RECORDS SUMMARY | 2024-06-17 10:32 | XMS_ITS | Clinical Summary ---
Author Organization [facility] Address [address] [place] [address] Care Team Providers Care Form Drafter Name Role Phone Anuj Quinteros NP Primary Care Provider Allergies Active Allergy Reactions Criticality Noted Date Comments Aripiprazole Medium 11/20/2021 Agitation and depression Duloxetine Medium 11/20/2021 Increased agitation Mirtazapine Medium 11/20/2021 Manic episodes Penicillins Nausea And Vomiting Medium 11/20/2021 Prednisone Medium 11/20/2021 Anger issues Propranolol Nausea And Vomiting Medium 11/20/2021 Risperidone Medium 11/20/2021 Shellfish Containing Products Nausea And Vomiting Medium 11/20/2021 Medications diphenhydrAMIN E (BENADRYL) 25 mg tablet Take 1 Tablet by mouth at bedtime. Active terazosin (HYTRIN) 5 mg capsule Take 1 Capsule by mouth at bedtime. Active aspirin 81 mg EC tablet Take 81 mg by mouth daily. Active atorvastatin (LIPITOR) 40 mg tablet Take 40 mg by mouth daily. Active cholecalcifero l (VITAMIN D-3) 50 mcg (2,000 unit) tablet [...] BY MOUTH TWICE A DAY 180 tablet 5 Active metoprolol tartrate (LOPRESSOR) 25 mg tablet TAKE 1 TABLET BY MOUTH TWICE A DAY 4 025 Discontinued Active Problems Problem Noted Date Diagnosed [...] atrial fibrillation documented on device monitoring. His [id number] score is 1 for hypertension. He continues on aspirin only. We will continue to monitor atrial fibrillation burden via his ICD monitoring. Given that he has turned 63 today if he were to have any increased atrial fibrillation burden we may consider increasing his anticoagulation as his [id number] score will be increasing with age. He [...] Description 05/25/2024 9:50 AM EST Ancillary Procedure [facility] [address] [facility] [address] [place] [address] from Last 3 Months Surgical History Surgery [...] Recorded Sex Assigned at Not on file Legal Sex Male 2:01 PM EST Gender Identity Not on file Sexual Orientation [...] Description 08/09/2024 8:30 AM EDT Ancillary Procedure [facility] [address] [facility] [address] [place] [address] Health Maintenance Due Date Last Done Comments Zoster Vaccines (1 of 2) 2008 Cholesterol Screening (Lipid Panel) 04/14/2022 Colorectal Cancer Screening: Colonoscopy 04/14/2022 Depression Screening 04/14/2022 Hepatitis C Screening 04/14/2022 Hypertension/CHF/CAD Annual BMP Blood Test 04/14/2022 Social Influencers of Health Screening 04/14/2022 Falls Risk Assessment 2023 DTaP,Tdap,and Td Vaccines (2 - Td or Tdap) 07/18/2032 07/18/2022 Pneumococcal Vaccine: 50+ Years Completed 01/29/2022, 03/29/2019 Pneumococcal Vaccine: Pediatrics [...] patient's age to complete this topic Meningococcal B Vacine Aged Out No lo nger eligible based on patient's age to complete this topic RSV Immunization Patients Under 20 months Aged Out No longer eligible based on patient's age to complete this topic Varicella Vaccines Aged Out No longer eligible based on patient's age to complete this topic Medical Devices Implanted Type Area Sole Cementer Device Identifier Shelf Expiration Date Model / Serial / Lot Medt-Card [id number] Implanted:07/03 (Quantity not on file) Cardiac ICD MED[employer] - CARDIAC RHYTH-CRDM [id number] / [id number] / Procedures Procedure Name Priority Date/Time Associated Diagnosis Comments CARDIAC DEVICE CHECK- REMOTE- MURJ Routine 05/25/2024 9:46 AM EST from Last 3 Months Results * Cardiac device check - Remote- MURJ (05/25/2024 9:46 AM EST) Date Time Interrogation Session [id number] CV DEVICE CHECK Type Interrogation Session Remote CV DEVICE CHECK Implantable Pulse Generator Sole Cementer MDT CV DEVICE CHECK Implantable Pulse Generator Type ICD CV DEVICE CHECK Implantable Pulse Generator Model [id number] CV DEVICE CHECK Implantable Pulse Generator Serial Number [id number] CV DEVICE CHECK Implantable Pulse Generator Implant Date 20230718 CV DEVICE CHECK Battery Remaining Longevity 84.0 CV DEVICE CHECK Battery Voltage 2.970 CV D EVICE CHECK Battery VETERINARY BACTERIOLOGIST Trigger 2.800 CV DEVICE CHECK Capacitor Charge Time 3.800 CV DEVICE CHECK Zion Statistic RV Percent Paced 99.24 CV DEVICE CHECK Atrial Tachy Statistic AT/AF [place] Percent 0.02 CV DEVICE CHECK Lead Channel [...] HF present Anuj Morgan MD CV IMPLANTABLE CARDIAC DEVICE PROCEDURES Final Result from Last 3 Months Insurance MEDICARE [facility] Care Teams Form Drafter Relationship Specialty Start Date End Date Anuj Quinteros NP [address] [place], [place] PCP - General 09/25/21
--- OUTSIDE RECORDS SUMMARY | 2024-06-17 10:32 | XMS_ITS ---
Author Organization [facility] Address [address] [place] [address] Care Team Providers Care Meal Attendant Name Role Phone Anuj Turner Primary Care Provider Unav ailNika Kaufman Unavailable [phone] Allergies Allergen (clinical drug ingredient) Drug/Non Drug [...] HCl 5 MG TAKE 1 CAPSULE BY [facility] AT BEDTIME FOR 90 DAYS Oral for 90 Days Active Atorvastatin Calcium 40 MG 1 tablet Oral ly Once a day for 30 day(s) 11/21/2022 Active Zoloft 50 MG 1 tablet Orally Once a day for 30 day(s) 11/21/2022 Active Gabapentin 300 MG TAKE 1 CAPSULE BY [facility] 3 TIMES A DAY Oral for 30 Days Active Primidone 250 MG [facility] Oral for 90 [...] 01/03/2023 Encounters Encounter Location Date Provider Diagnosis [facility] [address] [place] [address] 01/03/2023 Nika Rodas Achilles tendinitis of left [...] Notes * Damian AGUILERA:[birth year] (62 yo M)Acc No.[id number]:01/03/2023 Progress Notes Patient:?Damian Aguilera Provider:?Nika Rodas DPM :1960???Age:62 Y???Sex:Male William e:01/03/2023 Address:[address] [place], [place] [id number] Pcp:BANDAR Dejesus Subjective: * Chief Complaints: * [...] ?no Exercise. ?Marital status: . 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 * Medications:?TakingMetoprolo l Tartrate 25 MG [...] posterior and posterior/superior heel present, LEFT foot,Neg [place].?X-Rays: ?Views:? 3 views of Foot, LAT, LO [...] ray : Foot, left 3V * Procedure Codes:?58475 X-RAY EXAM OF LEFT FOOT 3V, Modifiers: 26 , [id number] X-RAY EXAM OF RIGHT FOOT 3V, Modifiers: [...] Interfil injection therapy, as well as surgical [place]/Calcanectomy- tendon debridement surgical procedures if needed. Recommendations [...] painful condition.?Podiatric Surgery Counseling:?Surgical procedures such as [place] vs Exostectomy with Partial calcanectomy and Achilles [...] Rodas DPM Date:?05/2022 Generated for Bhanu richardson/Donald/Desiree on:?06/17/2024 10:32 AM EST History and Physical Notes * [...] and posterior/superior heel present, LEFT foot, Neg [place]
--- OUTSIDE RECORDS SUMMARY | 2024-06-17 10:32 | XMS_ITS | Encounter Summary ---
Author Organization [facility] Address [address] [place] [address] Care Team Providers Care Controller Operations And Hr Manager Name Role Phone MikaylalaurieAnuj cherry PLANER TAILER Primary Care Provider Encounter Details Date Type Department Care Team (Late st Contact Info) Description 05/25/2024 9:50 AM EST Ancillary Procedure [facility] [address] [facility] [address] [place] [address] Social History Tobacco Use Types Packs/Day Years [...] Description 08/09/2024 8:30 AM EDT Ancillary Procedure [facility] [address] [facility] [address] [place] [address] documented as of this encounter Procedures Procedure Name Priority Date/Time Associated Diagnosis Comments CARDIAC DEVICE CHECK- REMOTE- MURJ Routine 05/25/2024 9:46 AM EST documented in this encounter Results * Cardiac device check - Remote- MURJ (05/25/2024 9:46 AM EST) Date Time Interrogation Session [id number] CV DEVICE CHECK Type Interrogation Session Remote CV DEVICE CHECK Implantable Pulse Generator Electronic Organ Technician MDT CV DEVICE CHECK Implantable Pulse Generator Type ICD CV DEVICE CHECK Implantable Pulse Generator Model [id number] CV DEVICE CHECK Implantable Pulse Generator Serial Number [id number] CV DEVICE CHECK Implantable Pulse Generator Implant Date 20230718 CV DEVICE CHECK Battery Remaining Longevity 84.0 CV DEVICE CHECK Battery Voltage 2.970 CV D EVICE CHECK Battery AGRICULTURAL SALES REPRESENTATIVE Trigger 2.800 CV DEVICE CHECK Capacitor Charge Time 3.800 CV DEVICE CHECK [place] Statistic RV Percent Paced 99.24 CV DEVICE CHECK Atrial Tachy Statistic AT/AF [place] Percent 0.02 CV DEVICE CHECK Lead Channel [...] CV IMPLANTABLE CARDIAC DEVICE PROCEDURES Final Result documented in this encounter Visit Diagnoses Not on filedocumented in this encounter Care Teams Controller Operations And Hr Manager Relationship Specialty Start Date End Date Anuj Quinteros NP [address] [facility] PCP - General 09/25/21 documented as of this encounter
== END 2024-06-17 09:56 | disposition home or self-care (01) ==
LOC: HO.HOP 09:54
PROVIDERS: PCP Nurse Practitioner Family; Visit Provider Clinical Nurse Specialist Psychiatric/Mental Health
DX: F33.42 Major depressive disorder, recurrent, in full remission (principal); F43.11 Post-traumatic stress disorder, acute; F41.1 Generalized anxiety disorder; F41.0 Panic disorder [episodic paroxysmal anxiety]
CPT/HCPCS: 98013

== ENCOUNTER → 2024-06-17 09:54 | Outpatient (BNVA) | payer OTHER, SELFPAY | PROVIDERS: PCP Nurse Practitioner Family; Visit Provider Clinical Nurse Specialist Psychiatric/Mental Health ==

== ENCOUNTER 2024-08-19 09:26 | Outpatient (AMB) | payer OTHER, SELFPAY ==
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
--- OUTSIDE RECORDS SUMMARY | 2024-08-19 10:44 | XMS_ITS | Data Portability ---
Author Organization [facility] [employer], [address] Address [address] [place] [address] Care Team Providers Care Ambulette Driver Name Role Phone [facility] Primary Care Provider Assessment No assessment recorded. Plan of Treatment Reminders Order Date Submit Date Provider Last Modified By Organization Details Last Modified Time Details Appointments None recorded. Lab None recorded. Referral None recorded. Procedures None recorded. Surgeries None recorded. Imaging XR, hand, 3 or more view 2022 023 [facility], [address] [place] [address], [address], 09:47:52 Medication Orders cephalexin 500 mg capsule 2022 023 [email or web address] [facility][id number], [address] [facility] , [place], [address], 19:44:33 Patient TargetsNo targets recorded. Patient Instructions Encounter Date Encounter Id Patient Instructions Last Modified By Organization Details Last Modified Time 07/18/2022 [id number] KEEP AREA CLEAN AND DRY. MAY APPLY [...] ed. [email or web address] [facility] [address] [place], [address], 07/18/2022 10:40:43 07/19/19 23 XR, hand, 3 or more view No observ ation record ed. [email or web address] [facility] [address] [place], [address], 07/18/2022 11:04:17 07/19/19 23 imagi ng/di agnos tic resul t No observ ation record ed. [email or web address] Not Available 2022 14:30:58 Result Notes None recorded. Problems Name Problem SNOMED Code Status Onset Date Resolution Date Notes Provider Name and Address Organization Details Recorded Time Hypercholestero lemia 28185453 Active 2022 VINAY LUPICA null, [place] - [facility] 3 08:23:04 Hypertensive disorder 98907782 Active 2022 VINAY LUPICA null, PA - [facility] 3 08:23:30 Heart disease 03369028 Active 2022 VINAY LUPICA null, PA - [facility] 3 08:23:48 Depressive disorder 13351107 Active 2022 VINAY LUPICA null, PA - [facility] 3 08:24:50 Anxiety 94346145 Active 2022 VINAY LUPICA null, PA - [...] Imaging Date Name Status LastModified by Organ [facility] Details LastModified Time 07/18/2022 XR, hand, 3 or more view completed [email or web address] [facility] [address] [place], [address], 07/18/2022 10:40:43 07/18/2022 XR, hand, 3 or more view completed [email or web address] [facility] [address] [place], [address], 07/18/2022 11:04:17 07/18/2022 imaging/diag nostic result completed [email or web address] Information not available 07/18/2022 14:30:58 Procedure Notes None recorded. Medical Equipment None Reported. Allergies Allergen ID Allergen Name Allergen Category Reaction Reaction Severity Criticality Documentation Date Start Date Code Code System Note Provider Name and Address Organization Details Recorded Time 552722 Product containin g penicilli n (product) medicatio n Not available Not available Not available 07/18/2022 40650 8001 SNOMED VINAY SHAWICA null, PA - [facility] 3 08:18:36 346417 Abilify medicatio n Not available Not available Not available 07/18/2022 37051 3 RxNorm VINAY LUPICA null, PA - [facility] 3 08:18:56 493300 prednison e medicatio n Not available Not available Not available 07/18/2022 8640 RxNorm VINAY LUPICA null, PA - [facility] 3 08:19:10 399310 Inderal medicatio n Not available Not available Not available 07/18/2022 43042 0 RxNorm GARRETT Banerjee - [facility] [...] Updated DateTime 3 182.88 cm 29.7 kg/m2 62185.7 3 g 97 [degF] 96 % 96 % 61 /min 16 /min 113 mm[Hg] 66 mm[Hg] VINAY TRINH PA - [facility] 08:28:42 Social History Question Answer Notes LastModified by Organizat ion Details LastModified Time Tobacco Smoking Status Never Smoker VINAY myrick PA - [facility] 07/18/2022 08:25:40 What Is Your Level Of Alcohol Consumption? None [email or web address] Information not available 07/18/2022 Do You Use Any Illicit Or Recreational Drugs? No [email or web address] Information not available 07/18/2022 Have You Recently Traveled Abroad? No Information not available 07/18/2022 Do You Or Have You Ever Used Any Other Forms Of Tobacco Or Nicotine? No [email or web address] Information not available 07/18/2022 Sex: Unknown Functional Status None recorded. Mental Status None recorded. Family History Relationship Description Onset Age of this Age Resolved Age Notes LastModified by Organization Details LastModified Time Father No current problems or disability Not available 07/18 08:25:25 Mother No current problems or disability [email or web address] Not available 07/18 08:25:25 Medical History No medical history recorded. Immunizations Vaccine Type Date Status Note Provider Nam e and Address Organization Details Recorded Time Tdap 07/18/2022 completed Jsoe Saenz NP [address] [place], [address], [place] - [facility] 07/18/2022 19:44:34 Past Encounters Encounter ID Performer Location Encounter Start Date Encounter Closed Date Diagnosis/Indication Diagnosis SNOMED-CT Code Diagnosis ICD10 Code Diagnosis Note [id number] [address] [place] [address] 05/19/2018 08:07:53 05/19/2018 08:38:27 [id number] [address] [place] [address] 04/20/2017 09:19:32 04/20/2017 10:26:52 [id number] [address] [facility] [place] [address] 03/20/2022 08:41:47 03/20/2022 11:05:46 [id number] [address] [facility] [place] [address] 03/14/2019 10:47:12 03/14/2019 12:05:09 [id number] [address] [facility] [place] [address] 07/12/2016 16:42:45 07/12/2016 17:07:10 [id number] [address] [facility] [place] [address] 05/12/2018 11:46:30 05/12/2018 12:29:09 [id number] [address] [facility] [place] [address] 07/27/2021 09:05:35 07/27/2021 10:42:59 [id number] [address] [facility] [place] [address] 06/27/2018 08:06:18 06/27/2018 08:44:07 [id number] [address] [facility] [place] [address] 03/22/2018 08:06:37 03/22/2018 08:34:58 [id number] [address] [facility] [place] [address] 09/21/2021 17:53:37 09/21/2021 18:07:14 [id number] [address] [place] [address] 07/05/2016 14:08:47 07/05/2016 14:42:37 [id number] [address] [place] [address] 07/09/2021 08:10:06 07/09/2021 09:16:33 [id number] Jose Saenz NP [address] [place] [address] 07/18/2022 08:02:48 07/18/2022 09:07:41 Laceration of palm of hand 157408013 S61.421A Administra tion of tetanus vaccine 637900591 Z23 Health Concerns Section Related Observation LastModified by Organization Detai ls LastModified Time None Recorded Concern Status LastModified by Organization Details LastModified Time None Recorded Advance Directives Directive None Recorded Payers Encounter Date Sequence Insurance Name Policy Number Policy Blanco Covered Member ID Blanco Member ID Guarantor Name 07/09/2021 1 [facility] [id number] 1 Damian Aguilera [id number] Damian Aguilera 07/27/2021 1 REPLACED BY [facility] (PPO) [id number] 1 Damian Aguilera [id number] Damian Aguilera 09/21/2021 1 [facility]PPO[facility] [id number] 1 Damian Aguilera [id number] Damian Aguilera 03/20/2022 1 REPLACED BY [facility] (PPO) [id number] 1 Damian Aguilera [id number] Damian Aguilera 07/18/2022 1 REPLACED BY [facility] (PPO) [id number] 1 Damian Aguilera [id number] Damian Aguilera Notes Date Note Type Note [...] Saenz NP [address] [place], [address], [place] - [facility] 07/18/2022 19:45:02
--- OUTSIDE RECORDS SUMMARY | 2024-08-19 10:44 | XMS_ITS | Encounter Summary ---
Author Organization [facility] Address [address] [place] [address] Care Team Providers Care Retail Cosmetics Sales Counter Manager Name Role Phone Anuj Quinteros INORGANIC CHEMISTRY TEACHER Primary Care Provider Encounter Details Date Type Department Care Team (Late st Contact Info) Description 08/17/2024 2:30 PM EDT Ancillary Procedure [facility] [address] [place] [phone] Arrived Social History Tobacco Use Types Packs/Day Years [...] Encounters Date Type Department Care Team (Late Contact Info) Description 01/28/2025 8:40 AM EDT Office Visit [facility] [address] [place] [address] Tari Engel NP [address] [place] [address] 08/09/2025 8:30 AM EDT Ancillary Procedure [facility] [address] [place] [address] documented as of this encounter Procedures Procedure Name Priority Date/Time Associated Diagnosis Comments CARDIAC DEVICE CHECK- REMOTE- MURJ Routine 08/17/2024 2:25 PM EDT documented in this encounter Results * Cardiac device check - Remote- MURJ (08/17/2024 2:25 PM EDT) Date Time Interrogation Session [id number] CV DEVICE CHECK Type Interrogation Session Remote CV DEVICE CHECK Implantable Pulse Generator Power Mule Operator MDT CV DEVICE CHECK Implantable Pulse Generator Type ICD CV DEVICE CHECK Implantable Pulse Generator Model [id number] CV DEVICE CHECK Implantable Pulse Generator Serial Number [id number] CV DEVICE CHECK Implantable Pulse Generator Implant Date 20230718 CV DEVICE CHECK Battery Remaining Longevity 31.0 CV DEVICE CHECK Battery Voltage 2.950 CV D EVICE CHECK Battery INSPECTING MACHINE ADJUSTER Trigger 2.800 CV DEVICE CHECK Capacitor Charge Time 3.800 CV DEVICE CHECK Zion Statistic RA Percent Paced 98.45 CV DEVICE CHECK Zion Statistic RV Percent Paced 99.18 CV DEVICE CHECK Atrial Tachy Statistic AT/AF [place] Percent 0.01 CV DEVICE CHECK Lead Channel Sensing Intrinsic Amplitude 1.800 CV DEVICE CHECK Lead Channel Setting Sensing Sensitivity 0.60 CV DEVICE CHECK Lead Channel Impedance Value 342 CV DEVICE CHECK Lead Channel Pacing Threshold Amplitude 0.625 CV DEVICE CHECK Lead Channel Pacing Threshold Pulse Width 0.4 CV DEVICE CHECK Lead Channel RA Pacing Threshold Date 2024-08-13 CV DEVICE CHECK Lead Channel Setting Pacing Amplitude 1.500 CV DEVICE CHECK Lead Channel Setting Pacing Pulse Width 0.4 CV DEVICE CHECK Lead Channel Sensing Intrinsic Amplitude 7.100 CV DEVICE CHECK Lead Channel Setting Sensing Sensitivity 0.60 CV DEVICE CHECK Lead Channel Impedance Value 475 CV DEVICE CHECK Lead Channel Pacing Threshold Amplitude 2.500 CV DEVICE CHECK Lead Channel Pacing Threshold Pulse Width 0.4 CV DEVICE CHECK Lead Channel RV Pacing Threshold Date 2024-08-12 CV DEVICE CHECK Lead Channel Setting Pacing Amplitude 5.000 CV DEVICE CHECK Lead Channel Setting Pacing Pulse Width 1.0 CV DEVICE CHECK Zion Setting Mode (NBG [...] 0 CV DEVICE CHECK SVC Measured Impedance 44 CV DEVICE CHECK Zone Setting Type Category [...] 6 CV DEVICE CHECK Date of Service 2024-08-26 CV DEVICE CHECK Anatomical Region Laterality Modality Device Interroga tion 08/13/2024 11:5 7 PM EDT Impressions 08/17/2024 10:44 AM EDT Normal Remote: No Events * Normal Device Function * Alerts or events: None * Battery: , 2.58 yrs * Sensing, impedance and thresholds reviewed * Programmed parameters reviewed * Presenting rhythm reviewed * Heart Rate Histograms reviewed * No significant changes noted Heart Failure Diagnostic: Stable * Heart failure diagnostics assessed through the device * Status: Stable * No overt HF present Narrative Procedure Note Anuj Morgan MD - 08/17/2024 IMPRESSION: Normal Remote: No Events * Normal Device Function * Alerts or events: None * Battery: , 2.58 yrs * Sensing, impedance and thresholds reviewed [...] on filedocumented in this encounter Care Teams Retail Cosmetics Sales Counter Manager Relationship Specialty Start Date End Date Anuj Quinteros NP [address] [facility] [place] PCP - General 09/25/21 documented as of this encounter
--- OUTSIDE RECORDS SUMMARY | 2024-08-19 10:44 | XMS_ITS | Patient Health Record ---
Author Organization [facility] Address [address] [facility] [place] [address] Care Team Providers Care Bench Lay Out Technician Name Role Phone Anuj Turner Primary Care Provider Unav Nika Thomas Unavailable [phone] Allergies Allergen (clinical drug ingredient) Drug/Non Drug [...] Insured Coverage Start Date Coverage End Date [facility]) [address] [place] [id number] [phone] [id number] Damian Aguilera Self - patient is the insured Medical (General) History Medical History History ICD Code Anxiety Arthritis Back,Hip,and Knee pain Broken bones CAD (Cholesterol) covid-19 Depression Gall bladder problems Heart disease Sciatica chronic sinusitis Joint implants/screws Hypertrophic Cardiomyopathy Surgical History Surgery Date(Month/Year) gall bladder appendectomy Defibrillator 2017 [place] 1975
--- OUTSIDE RECORDS SUMMARY | 2024-08-19 10:44 | XMS_ITS | Clinical Summary ---
Author Organization [address] [place] [address] [place] [phone] Phone Care Team Providers Care Windows Support Engineer Name Role Phone Anuj Quinteros NP Primary Care Provider Allergies Active Allergy Reactions Criticality Noted Date Comments Aripiprazole Medium 11/20/2021 Agitation and depression Duloxetine Medium 11/20/2021 Increased agitation Mirtazapine Medium 11/20/2021 Manic episodes Penicillins Nausea And Vomiting Medium 11/20/2021 Prednisone Medium 11/20/2021 Anger issues Propranolol Nausea And Vomiting Medium 11/20/2021 Risperidone Medium 11/20/2021 Shellfish Containing Products Nausea And Vomiting Medium 11/20/2021 Medications diphenhydrAMINE (BENADRYL) 25 mg tablet Take 1 [...] TWICE A DAY 180 tablet 06/03/2024 Active Active Problems Problem Noted Date Diagnosed Date [...] test due to his pacing. Atrial fibrillation (CMS/HCC V24, CMS/HCC V28) 0 11/20/2021 Overview (04/14/2024): Last Assessment & Plan: Patient has not had any further issues with atrial fibrillation documented on device monitoring. His [id number]-OQGj score is 1 for hypertension. He continues on aspirin only. We will continue to monitor atrial fibrillation burden via his ICD monitoring. Given that he has turned 63 today if he were to have any increased atrial fibrillation burden we may consider increasing his anticoagulation as his ZIR4ZG1-THYx score will be increasing with age. He [...] dose of metoprolol as prescribed. Hypertrophic cardiomyopathy (CMS/HCC V24, CMS/HC C V28) 11/20/2021 Overview (04/14/2024): Last Assessment & Plan: [...] Encounters Date Type Department Care Team Description 08/17/2024 2:30 PM EDT Ancillary Procedure [facility] Cardiology [facility] [address] [place] [address] Arrived 08/09/2024 8:30 AM EDT Ancillary Procedure [facility] [address] [place] [address] Encounter for adjustment or management of cardiac device 08/06/2024 4:45 PM EDT Ancillary Procedure [facility] [address] [place] [address] 05/25/2024 9:50 AM EST Ancillary Procedure [facility] [address] [place] [address] from Last 3 Months Surgical History Surgery Date Site/Laterality Comments APPENDECTOMY PROCEDURE: HISTORICAL APPENDECTOMY COLONOSCOPY PROCEDURE: HISTORICAL COLONOSCOPY NECK SURGERY PROCEDURE: HISTORICAL NECK SURGERY Medical History Medical History Date Comments Asthma DX:Asthma Bladder outlet obstruction DX:Bl adder outlet obstruction Coarse tremor DX:Coarse tremor Dyspnea DX:Dyspnea Hypogonadism in male DX:Hypogona dism in male Burrows's neuroma of right foot D X:Brurows's neuroma of right foot [place] (nonalcoholic steatohepatitis) [...] Care Team (Late st Contact Info) Description 01/28/2025 8:40 AM EDT Office Visit [facility] [address] [place] [address] Tari Engel NP [address] [place] [address] [address] [place] [address] 08/09/2025 8:30 AM EDT Ancillary Procedure [facility] [address] [facility] [address] [place] [address] Health Maintenance Due Date Last Done Comments Zoster Vaccines (1 of 2) 2008 Abdominal Aortic Aneurysm (AAA) Screen 04/14/2022 Cholesterol Screening (Lipid Panel) 04/14/2022 Colorectal Cancer Screening: Colonoscopy 04/14/2022 Depression Screening 04/14/2022 Hepatitis C Screening 04/14/2022 Hypertension/CHF/CAD Annual BMP Blood Test 04/14/2022 Social Influencers of Health Screening 04/14/2022 Falls Risk Assessment 2023 COVID-19 Vaccine ( season) 2024 01/16/2024, 01/24/2023, 02/22/2022, Additional history exists DTaP,Tdap,and Td Vaccines (2 - Td or Tdap) 07/18/2032 07/18/2022 Pneumococcal Vaccine: 50+ Years Completed 01/29/2022, 03/29/2019 Influenza Vaccine Completed 01/16/2024, , 01/29/2022, Additional history exists RSV Immunization Adult Patients Completed 02/20/2024 HIB Vaccines Aged Out No [...] age to complete this topic Meningococcal B Vaccine Aged Out No l onger eligible based on patient's age to complete this topic RSV Immunization Patients Under 20 months Aged Out No longer eligible based on patient's age to complete this topic Varicella Vaccines Aged Out No longer eligible based on patient's age to complete this topic Medical Devices Implanted Type Area Director Of Dietary Device Identifier Shelf Expiration Date Model / Serial / Lot Medt-Card [id number] Implanted:07/03 (Quantity not on file) Cardiac ICD [employer] - CARDIAC RHYTH-CRDM [id number] / [id number] / Medt-Card [place] Xt [id number] Implanted:07/03 (Quantity not on file) Cardiac ICD [employer] - CARDIAC RHYTH-CRDM [place] XT [id number] / [id number] / Procedures Procedure Name Priority Date/Time Associated Diagnosis Comments CARDIAC DEVICE CHECK- REMOTE- MURJ Routine 08/17/2024 2:25 PM EDT CARDIAC DEVICE CHECK- IN CLINIC- MURJ Routine 08/09/2024 8:41 AM EDT Encounter for adjustment or management of cardiac device CARDIAC DEVICE CHECK- REMOTE- MURJ Routine 08/06/2024 4:42 PM EDT CARDIAC DEVICE CHECK- REMOTE- MURJ Routine 05/25/2024 9:46 AM EST from Last 3 Months Results * Cardiac device check - Remote- MURJ (08/17/2024 2:25 PM EDT) Only the most recent of3 resultswithin the time period is included. Date Time Interrogation Session [id number] CV DEVICE CHECK Type Interrogation Session Remote CV DEVICE CHECK Implantable Pulse Generator Director Of Dietary MDT CV DEVICE CHECK Implantable Pulse Generator Type ICD CV DEVICE CHECK Implantable Pulse Generator Model [id number] CV DEVICE CHECK Implantable Pulse Generator Serial Number [id number] CV DEVICE CHECK Implantable Pulse Generator Implant Date 20230718 CV DEVICE CHECK Battery Remaining Longevity 31.0 CV DEVICE CHECK Battery Voltage 2.950 CV D EVICE CHECK Battery PRESS TENDER LONG GOODS Trigger 2.800 CV DEVICE CHECK Capacitor Charge Time 3.800 CV DEVICE CHECK Zion Statistic RA Percent Paced 98.45 CV DEVICE CHECK Zion Statistic RV Percent Paced 99.18 CV DEVICE CHECK Atrial Tachy Statistic AT/AF [place] Percent 0.01 CV DEVICE CHECK Lead Channel [...] Stable * No overt HF present Anuj Mrogan MD CV IMPLANTABLE CARDIAC DEVICE PROCEDURES Final Result * CARDIAC DEVICE CHECK- [place] [facility] [facility] [place] (08/09/2024 8:41 AM EDT) Date Time Interrogation Session [id number] CV DEVICE CHECK Implantable Pulse Generator Director Of Dietary MDT CV DEVICE CHECK Implantable Pulse Generator Type ICD CV DEVICE CHECK Implantable Pulse Generator Model [place] XT [id number] CV DEVICE CHECK Implantable Pulse Generator Serial Number [id number] CV DEVICE CHECK Implantable Pulse Generator Implant Date 20230718 CV DEVICE CHECK Battery Voltage 2.950 CV D EVICE CHECK Battery PRESS TENDER LONG GOODS Trigger 2.800 CV DEVICE CHECK Battery Status Middle of Service CV DEVICE CHECK Capacitor Charge Time 3.800 CV DEVICE CHECK Zion Statistic RA Percent Paced 97.92 CV DEVICE CHECK Zion Statistic RV Percent Paced 99.09 CV DEVICE CHECK Atrial Tachy Statistic AT/AF [place] Percent 0.03 CV DEVICE CHECK Lead Channel Sensing Intrinsic Amplitude 1.800 CV DEVICE CHECK Lead Channel Setting Sensing Sensitivity 0.60 CV DEVICE CHECK Lead Channel Impedance Value 342 CV DEVICE CHECK Lead Channel Pacing Threshold Amplitude 0.630 CV DEVICE CHECK Lead Channel Pacing Threshold Pulse Width 0.4 CV DEVICE CHECK Lead Channel RA Pacing Threshold Date 2024-08-08 CV DEVICE CHECK Lead Channel Setting Pacing Amplitude 1.500 CV DEVICE CHECK Lead Channel Setting Pacing Pulse Width 0.4 CV DEVICE CHECK Lead Channel Sensing Intrinsic Amplitude 7.900 CV DEVICE CHECK Lead Channel Setting Sensing Sensitivity 0.60 CV DEVICE CHECK Lead Channel Impedance Value 494 CV DEVICE CHECK Lead Channel Pacing Threshold Amplitude 2.380 CV DEVICE CHECK Lead Channel Pacing Threshold Pulse Width 0.4 CV DEVICE CHECK Lead Channel RV Pacing Threshold Date 2024-08-09 CV DEVICE CHECK Lead Channel Setting Pacing [...] Recent ATP Delivered 0 CV DEVICE CHECK RV HV Impedance 43 CV D EVICE CHECK SVC Measured Impedance 59 CV DEVICE CHECK Zone Setting Type Category VF CV DEVICE CHECK Rate 200 CV DEVICE CHECK Therapies Burst, 40J, 40J, 40J, 40J, 40J, 40J CV DEVICE CHECK Zone Setting Status On CV DEVICE CHECK Zone ID 0 CV DEVICE CHECK Zone Setting Type Category FVT CV DEVICE CHECK Zone Setting Status Off CV DEVICE CHECK Zone ID 1 CV DEVICE CHECK Zone Setting Type Category VT CV DEVICE CHECK Zone Setting Status Off CV DEVICE CHECK Zone ID 2 CV DEVICE CHECK Zone Setting Type Category VT Monitor CV DEVICE CHECK Rate 162 CV DEVICE CHECK Zone Setting Status Monitor CV DEVICE CHECK Zone ID 3 CV DEVICE CHECK Date of Service 2024-08-09 CV DEVICE CHECK Anatomical Region Laterality Modality Device Interroga tion 08/09/2024 Impressions 08/10/2024 2:31 PM EDT Normal In-Office: No Events * Normal Device Function * Alerts or events: None * Battery: OK, 4.92 yrs * Sensing, impedance and thresholds reviewed and tested * Presenting Rhythm: AP-BLEACHER KRAFT PULP 70s * Underlying Rhythm: -VS 40s * Heart Rate Histograms reviewed * Pacing and Detection Parameters were evaluated Heart Failure Diagnostic: Stable * Heart failure diagnostics assessed through the device * Status: Stable * No overt HF present Narrative Procedure Note Anuj Morgan MD - 08/10/2024 IMPRESSION: Normal In-Office: No Events * Normal Device Function * Alerts or events: None * Battery: OK, 4.92 yrs * Sensing, impedance and thresholds reviewed and tested * Presenting Rhythm: AP-BLEACHER KRAFT PULP 70s * Underlying Rhythm: -VS 40s * Heart Rate Histograms reviewed * Pacing and Detection Parameters were evaluated Heart Failure Diagnostic: Stable * Heart failure diagnostics assessed through the device * Status: Stable * No overt HF present us Order Referral Cardiovascular CV IMPLANTABLE CAR DIAC DEVICE PROCEDURES Final Result from Last [address] [place] [id number] MEDICARE [facility] Care Teams Windows Support Engineer Relationship Specialty Start Date End Date Anuj Quinteros NP [address] PCP - General 09/25/21
== END 2024-08-19 09:29 | disposition home or self-care (01) ==
LOC: HO.HOP 09:26
PROVIDERS: PCP Nurse Practitioner Family; Visit Provider Clinical Nurse Specialist Psychiatric/Mental Health
DX: F41.1 Generalized anxiety disorder (principal); F41.0 Panic disorder [episodic paroxysmal anxiety]; F43.10 Post-traumatic stress disorder, unspecified; F33.42 Major depressive disorder, recurrent, in full remission
CPT/HCPCS: 99214

== ENCOUNTER → 2024-08-19 09:26 | Outpatient (BNVA) | payer OTHER, SELFPAY | PROVIDERS: PCP Nurse Practitioner Family; Visit Provider Clinical Nurse Specialist Psychiatric/Mental Health | DX: F43.10 Post-traumatic stress disorder, unspecified (principal); F41.1 Generalized anxiety disorder; F41.0 Panic disorder [episodic paroxysmal anxiety]; F33.42 Major depressive disorder, recurrent, in full remission; Z71.89 Other specified counseling | CPT/HCPCS: 99212 ==

== ENCOUNTER 2024-08-24 07:39 | Outpatient (AMB) | payer OTHER, SELFPAY ==
--- OUTSIDE RECORDS SUMMARY | 2024-08-24 07:42 | XMS_ITS | Clinical Summary ---
Author Organization [address] [place] [address] [place] [phone] Phone Care Team Providers Care Principal Associate Name Role Phone Anuj Quinteros NP Primary Care Provider [phone] Allergies Active Allergy Reactions Criticality Noted Date [...] atrial fibrillation documented on device monitoring. His FLG0YS1-DTMj score is 1 for hypertension. He continues on aspirin only. We will continue to monitor atrial fibrillation burden via his ICD monitoring. Given that he has turned 63 today if he were to have any increased atrial fibrillation burden we may consider increasing his anticoagulation as his XKZ1BY6-RKAi score will be increasing with age. He [...] Description 08/17/2024 2:30 PM EDT Ancillary Procedure [facility] [address] [place] [address] 08/09/2024 8:30 AM EDT Ancillary Procedure [facility] [address] [place] [address] Encounter for adjustment or management of cardiac device 08/06/2024 4:45 PM EDT Ancillary Procedure [facility] [address] [place] [address] from Last 3 Months Surgical History Surgery [...] Description 01/28/2025 8:40 AM EDT Office Visit [facility] - [facility] [address] [facility] [address] [place] [phone] Tari Engel NP [address] [place] [address] 08/09/2025 8:30 AM EDT Ancillary Procedure [facility] [address] [place] [address] Health Maintenance Due Date Last Done Comments [...] this topic Medical Devices Implanted Type Area Cone Examiner Device Identifier Shelf Expiration Date Model / Serial / Lot Medt-Card [id number] Implanted:07/03 (Quantity not on file) Cardiac ICD [employer] - CARDIAC RHYTH-CRDM [id number] / [id number] / Medt-Card [place] Xt [id number] Implanted:07/03 (Quantity not on file) Cardiac ICD [employer] - CARDIAC RHYTH-CRDM [place] XT [id number] / [id number] / Procedures Procedure Name Priority Date/Time Associated Diagnosis Comments CARDIAC DEVICE CHECK- REMOTE- MURJ Routine 08/17/2024 2:25 PM EDT CARDIAC DEVICE CHECK- IN CLINIC- MURJ Routine 08/09/2024 8:41 AM EDT Encounter for adjustment or management of cardiac device CARDIAC DEVICE CHECK- REMOTE- MURJ Routine 08/06/2024 4:42 PM EDT from Last 3 Months Results * Cardiac device check - Remote- MURJ (08/17/2024 2:25 PM EDT) Only the most recent of2 resultswithin the time period is included. Date Time Interrogation Session [id number] CV DEVICE CHECK Type Interrogation Session Remote CV DEVICE CHECK Implantable Pulse Generator Cone Examiner MDT CV DEVICE CHECK Implantable Pulse Generator Type ICD CV DEVICE CHECK Implantable Pulse Generator Model [id number] CV DEVICE CHECK Implantable Pulse Generator Serial Number [id number] CV DEVICE CHECK Implantable Pulse Generator Implant Date 20230718 CV DEVICE CHECK Battery Remaining Longevity 31.0 CV DEVICE CHECK Battery Voltage 2.950 CV D EVICE CHECK Battery LATIN PROFESSOR Trigger 2.800 CV DEVICE CHECK Capacitor Charge Time 3.800 CV DEVICE CHECK Zion Statistic RA Percent Paced 98.45 CV DEVICE CHECK Zion Statistic RV Percent Paced 99.18 CV DEVICE CHECK Atrial Tachy Statistic AT/AF [place] Percent 0.01 CV DEVICE CHECK Lead Channel [...] Result * CARDIAC DEVICE CHECK- [facility] (08/09/2024 8:41 AM EDT) Date Time Interrogation Session [id number] CV DEVICE CHECK Implantable Pulse Generator Cone Examiner MDT CV DEVICE CHECK Implantable Pulse Generator Type ICD CV DEVICE CHECK Implantable Pulse Generator Model [place] XT DR [id number] CV DEVICE CHECK Implantable Pulse Generator Serial Number [id number] CV DEVICE CHECK Implantable Pulse Generator Implant Date 20230718 CV DEVICE CHECK Battery Voltage 2.950 CV D EVICE CHECK Battery LATIN PROFESSOR Trigger 2.800 CV DEVICE CHECK Battery Status Middle of Service CV DEVICE CHECK Capacitor Charge Time 3.800 CV DEVICE CHECK Zion Statistic RA Percent Paced 97.92 CV DEVICE CHECK Zion Statistic RV Percent Paced 99.09 CV DEVICE CHECK Atrial Tachy Statistic AT/AF [place] Percent 0.03 CV DEVICE CHECK Lead Channel [...] thresholds reviewed and tested * Presenting Rhythm: AP-MANAGER LAN 70s * Underlying Rhythm: -VS 40s * [...] thresholds reviewed and tested * Presenting Rhythm: AP-MANAGER LAN 70s * Underlying Rhythm: -VS 40s * Heart Rate Histograms reviewed * Pacing and Detection Parameters were evaluated Heart Failure Diagnostic: Stable * Heart failure diagnostics assessed through the device * Status: Stable * No overt HF present us Order Referral Cardiovascular CV IMPLANTABLE CAR DIAC DEVICE PROCEDURES Final Result from Last [address] [facility] Care Teams Principal Associate Relationship Specialty Start Date End Date Anuj Quinteros NP [address] [place], [place] PCP - General 09/25/21
--- OUTSIDE RECORDS SUMMARY | 2024-08-24 07:42 | XMS_ITS | Data Portability ---
Author Organization [facility], [address] Address [address] [place] [address] Care Team Providers Care Grape Grower Name Role Phone [facility] Primary Care Provider Assessment No assessment recorded. Plan of Treatment Reminders Order Date Submit Date Provider Last Modified By Organization Details Last Modified Time Details Appointments None recorded. Lab None recorded. Referral None recorded. Procedures None recorded. Surgeries None recorded. Imaging XR, hand, 3 or more view 2022 023 [facility], [address] [place] [address], [address], 09:47:52 Medication Orders cephalexin 500 mg capsule 2022 023 [email or web address] [facility] #[id number], [address] [facility] , [place], [address], 19:44:33 Patient TargetsNo targets recorded. Patient Instructions Encounter Date Encounter Id Patient Instructions Last Modified By Organization Details Last Modified Time 07/18/2022 [id number] KEEP AREA CLEAN AND DRY. MAY APPLY [...] ed. [email or web address] [facility] [address] [place], [address], 07/18/2022 10:40:43 07/19/19 23 XR, hand, 3 or more view No observ ation record ed. [email or web address] [facility] [address] [place], [address], 07/18/2022 11:04:17 07/19/19 23 imagi ng/di agnos tic resul t No observ ation record ed. [email or web address] Not Available 2022 14:30:58 Result Notes None recorded. Problems Name Problem SNOMED Code Status Onset Date Resolution Date Notes Provider Name and Address Organization Details Recorded Time Hypercholestero lemia 75767398 Active 2022 VINAY LUPICA null, [place] - [facility] 3 08:23:04 Hypertensive disorder 13688185 Active 2022 VINAY LUPICA null, PA - [facility] 3 08:23:30 Heart disease 66830920 Active 2022 VINAY LUPICA null, PA - [facility] 3 08:23:48 Depressive disorder 62123144 Active 2022 VINAY LUPICA null, PA - [facility] 3 08:24:50 Anxiety 27382092 Active 2022 VINAY LUPICA null, PA - [...] Imaging Date Name Status LastModified by Organ [facility] Details LastModified Time 07/18/2022 XR, hand, 3 or more view completed [email or web address] [facility] [address] [place], [address], 07/18/2022 10:40:43 07/18/2022 XR, hand, 3 or more view completed [email or web address] [facility] [address] [place], [address], 07/18/2022 11:04:17 07/18/2022 imaging/diag nostic result completed Information not available 07/18/2022 14:30:58 Procedure Notes None recorded. Medical Equipment None Reported. Allergies Allergen ID Allergen Name Allergen Category Reaction Reaction Severity Criticality Documentation Date Start Date Code Code System Note Provider Name and Address Organization Details Recorded Time 166148 Product containin g penicilli n (product) medicatio n Not available Not available Not available 07/18/2022 15490 8001 SNOMED VINAY SHAWICA null, PA - [facility] 3 08:18:36 159664 Abilify medicatio n Not available Not available Not available 07/18/2022 47550 3 RxNorm VINAY LUPICA null, PA - [facility] 3 08:18:56 135374 prednison e medicatio n Not available Not available Not available 07/18/2022 8640 RxNorm VINAY LUPICA null, PA - [facility] 3 08:19:10 592889 Inderal medicatio n Not available Not available Not available 07/18/2022 97590 0 RxNorm GARRETT Banerjee - [facility] [...] Updated DateTime 3 182.88 cm 29.7 kg/m2 96928.7 3 g 97 [degF] 96 % 96 % 61 /min 16 /min 113 mm[Hg] 66 mm[Hg] VINAY TRINH PA - [facility] 08:28:42 Social History Question Answer Notes LastModified by Organizat ion Details LastModified Time Tobacco Smoking Status Never Smoker VINAY myrick PA - [facility] 07/18/2022 08:25:40 What Is Your Level Of Alcohol Consumption? None [email or web address] Information not available 07/18/2022 Do You Use Any Illicit Or Recreational Drugs? No [email or web address] Information not available 07/18/2022 Have You Recently Traveled Abroad? No [email or web address] Information not available 07/18/2022 Do You Or Have You Ever Used Any Other Forms Of Tobacco Or Nicotine? No Information not available 07/18/2022 Sex: Unknown Functional Status None recorded. Mental Status None recorded. Family History Relationship Description Onset Age of this Age Resolved Age Notes LastModified by Organization Details LastModified Time Father No current problems or disability [email or web address] Not available 07/18 08:25:25 Mother No current problems or disability [email or web address] Not available 07/18 08:25:25 Medical History No medical history recorded. Immunizations Vaccine Type Date Status Note Provider Nam e and Address Organization Details Recorded Time Tdap 07/18/2022 completed Jose Saenz NP [address] [place], [address], [place] - [facility] 07/18/2022 19:44:34 Past Encounters Encounter ID Performer Location Encounter Start Date Encounter Closed Date Diagnosis/Indication Diagnosis SNOMED-CT Code Diagnosis ICD10 Code Diagnosis Note [id number] [address] [place] [address] 05/19/2018 08:07:53 05/19/2018 08:38:27 [id number] [address] [place] [address] 04/20/2017 09:19:32 04/20/2017 10:26:52 [id number] [address] [facility] [place] [address] 03/20/2022 08:41:47 03/20/2022 11:05:46 [id number] [address] [facility] [place] [address] 03/14/2019 10:47:12 03/14/2019 12:05:09 [id number] [address] [facility] [place] [address] 07/12/2016 16:42:45 07/12/2016 17:07:10 [id number] [address] [facility] [place] [address] 05/12/2018 11:46:30 05/12/2018 12:29:09 [id number] [address] [facility] [place] [address] 07/27/2021 09:05:35 07/27/2021 10:42:59 [id number] [address] [facility] [place] [address] 06/27/2018 08:06:18 06/27/2018 08:44:07 [id number] [address] [facility] [place] [address] 03/22/2018 08:06:37 03/22/2018 08:34:58 [id number] [address] [facility] [place] [address] 09/21/2021 17:53:37 09/21/2021 18:07:14 [id number] [address] [place] [address] 07/05/2016 14:08:47 07/05/2016 14:42:37 [id number] [address] [place] [address] 07/09/2021 08:10:06 07/09/2021 09:16:33 [id number] Jose Saenz NP [address] [place] [address] 07/18/2022 08:02:48 07/18/2022 09:07:41 Laceration of palm of hand 643107797 S61.421A Administra tion of tetanus vaccine 747558967 Z23 Health Concerns Section Related Observation LastModified by Organization Detai ls LastModified Time None Recorded Concern Status LastModified by Organization Details LastModified Time None Recorded Advance Directives Directive None Recorded Payers Encounter Date Sequence Insurance Name Policy Number Policy Blanco Covered Member ID Blanco Member ID Guarantor Name 07/09/2021 1 [facility]PP[facility] [id number] 1 Damian Aguilera [id number] Damian Aguilera 07/27/2021 1 [facility] (PPO) [id number] 1 Damian Aguilera [id number] Damian Aguilera 09/21/2021 1 [facility] (PPO) [id number] 1 Damian Aguilera [id number] Damian Aguilera 03/20/2022 1 [facility] (PPO) [id number] 1 Damian Aguilera [id number] Damian Aguilera 07/18/2022 1 [facility] (PPO[facility] [id number] 1 Damian Aguilera [id number] Damian Aguilera Notes Date Note Type Note [...] Saenz NP [address] [place], [address], [place] - [facility] 07/18/2022 19:45:02
--- OUTSIDE RECORDS SUMMARY | 2024-08-24 07:43 | XMS_ITS | Patient Health Record ---
Author Organization [facility] Address [address] [place] [address] Care Team Providers Care Laboratory Technical Specialist Name Role Phone Anuj Turner Primary Care Provider Unav Nika Thomas Unavailable [phone] Allergies Allergen (clinical drug ingredient) Drug/Non Drug [...] Insured Coverage Start Date Coverage End Date [facility] ([facility] [address] [place] [address] [phone] [id number] Damian Aguilera Self - patient is the insured Medical (General) History Medical History History ICD Code Anxiety Arthritis Back,Hip,and Knee pain Broken bones CAD (Cholesterol) covid-19 Depression Gall bladder problems Heart disease Sciatica chronic sinusitis Joint implants/screws Hypertrophic Cardiomyopathy Surgical History Surgery Date(Month/Year) gall bladder appendectomy Defibrillator 2017 [place] 1975
[2024-08-24 07:48] VITALS: BP 110/60; PULSE 67; RESP 16; TEMP 36.7; O2SAT 98; BMI 29.6
--- NOTE | 2024-08-24 07:48 | A.OFFPC_ITS ---
Vital Signs 08/24/24 07:48 Height 6 ft Weight 218 lb BMI 29.6 BP 110/60 Blood Pressure Location Rt brachial Position Sitting Respiration 16 Pulse 67 Pulse Source Pulse Oximeter Temp 98.0 F Temp Source Oral Pulse Oximetry (%) 98 Oxygen Delivery Method Room Air Intake Visit Reasons: 6 months f/up Intake Note: Pt is here today for his 6mo. f/u Allergies aripiprazole [From Abilify] Adverse Reaction (Intermediate, Verified 08/24/24 08:22) Increased agitation and depression Penicillins Adverse Reaction (Intermediate, Verified 08/24/24 08:22) Nausea and Vomiting propranolol [Propranolol] Adverse Reaction (Intermediate, Verified 08/24/24 08:22) Nausea and Vomiting shellfish derived Adverse Reaction (Intermediate, Verified 08/24/24 08:22) Vomiting duloxetine [From CYMBALTA] Adverse Reaction (Mild, Verified 08/24/24 08:22) Increased agitation mirtazapine [MIRTAZAPINE] Adverse Reaction (Mild, Verified 08/24/24 08:22) Manic symptoms prednisone Adverse Reaction (Mild, Verified 08/24/24 08:22) Anger issues risperidone [From RISPERDAL] Adverse Reaction (Mild, Verified 08/24/24 08:22) Previous bad reaction and drug interaction with Wellbutrin Medication List - Last Reconciled 08/24/24 by REEMA Ly- aspirin 81 mg PO DAILY atorvastatin 40 mg PO DAILY [cbd oil 0.5 mL PO 2XD] cholecalciferol (vitamin D3) 50 mcg PO DAILY diphenhydramine HCl (Benadryl) 25 mg PO BEDTIME PRN gabapentin 300 mg PO TID 90 days lorazepam 0.5 mg orally take 1-2 tablets daily prn; metoprolol tartrate 25 mg PO BID mirabegron ER (Myrbetriq) 50 mg PO DAILY multivitamin 1 tab PO DAILY primidone 250 mg PO TID sertraline 100 mg PO DAILY sertraline 50 mg PO QPM terazosin 5 mg PO BEDTIME 90 days vitamin B complex 1 tab PO DAILY Tobacco use date assessed: 08/24/24 Fall risk assessment: No Falls in past year Last assessed Fall Risk: 08/24/24 Dental Screening Dental Screen Date: 08/24/24 Did you have a dental visit in the last 12 months?: Yes Did you have a dental problem in the last 6 months where you did not have access to dental care?: No Was dental information given to patient?: Patient has [facility] Medical History Overactive bladder Bladder outlet obstruction Weak urinary stream Hypogonadism in male Hypertrophic cardiomyopathy Coarse tremor HTN (hypertension) OH (nonalcoholic steatohepatitis) Burrows's neuroma of right foot PTSD (post-traumatic stress disorder) Peyronie's disease Atrial fibrillation Asthma PAYAL on CPAP Dyspnea Surgical History History of colonoscopy History of neck surgery History of appendectomy Family History Father Lung disease Substance use disorder Mother Type 2 diabetes mellitus Brother Substance use disorder Other Cancer Diabetes mellitus Mental health disorder Social History Household Members: Spouse Housing: House Patient Tobacco Use Status: Never used Tobacco e-Cigarette/Vaping Use: Never Used Second Hand Smoke Exposure: No service: No Current occupational status: employed Current occupation: [employer] Current occupational exposures/hazards: Yes Cognitive needs: No Hearing needs: No Vision needs: No Questionnaire PHQ-9 Over the last 2 weeks, how often have you been bothered by any of the following problems? 1. Little interest or pleasure in doing things: not at all 2. Feeling down, depressed, or hopeless: not at all 3. Trouble falling or staying asleep, or sleeping too much: not at all 4. Feeling tired or having little energy: not at all 5. Poor appetite or overeating: not at all 6. Feeling bad about yourself - or that you are a failure or have let yourself or your family down: not at all 7. Trouble concentrating on things, such as reading the newspaper or watching television: not at all 8. Moving or speaking so slowly that other people could have noticed. Or the opposite - being so fidgety or restless that you have been moving around a lot more than usual: not at all 9. Thoughts that you would be better off or of hurting yourself in some way : not at all Total score: 0 Depression Screening Interpretation: Negative Depression Screening Done: Yes 27231 - PHQ-9 Billing: Yes Source: Developed by Drs. Roque Schroeder, Rose Mary Hess, Nikolas Dale and colleagues, with an educational mohit from [employer]. Thrive Questionnaire Date Thrive assessed: 08/24/24 I am a: Patient What is your living situation today?: I have a steady place to live Within the past 12 months, did the food you bought not last and you didn't have the money to get more?: Never true Within the past 12 months, did you worry whether your food would run out before you got money to buy more?: Never true Do you have trouble paying for medicines?: No Do you have trouble getting transportation to medical appointments?: No Do you have trouble paying your heating and electricity bill?: No Do you have trouble taking care of your child, family member or friend?: No Do you have trouble with day-to-day activities such as bathing, preparing meals, shopping, managing finances, etc.?: No Are you currently unemployed and looking for a job?: No Are you interested in more education?: No THRIVE Score: 0 STU-7 AMB Questionnaire STU-7 Date STU - 7 assessed: 02/18/24 Source: Developed by Drs. Roque Schroeder, Rose Mary Hess, Nikolas Dale and colleagues, with an educational mohit from [employer]. Physical exam (Primary Care) Vital Signs: Last Vital Signs Temp 98.0 F 08/24/24 07:48 Pulse 67 08/24/24 07:48 Resp 16 08/24/24 07:48 BP 110/60 08/24/24 07:48 Pulse Ox 98 08/24/24 07:48 Oxygen Delivery Method Room Air 08/24/24 07:48 BMI result Body Mass Index 29.6 Tobacco/Smoking Status: Tobacco use Status Tobacco use date assessed 08/24/24 08/24/24 07:58 Patient Tobacco Use Status Never used Tobacco 08/24/24 07:58 e-Cigarette/Vaping Use Never Used 08/24/24 07:58 PHQ-9: PHQ-9 Score PHQ-9: Total score 0 08/24/24 07:58 Depression Screening Interpretation: Negative Thrive Assessment: Date of Thrive Assessment Date Thrive assessed 08/24/24 08/24/24 07:58 Coding Level of Care Code Est Pt Level 3 (14734) Diagnoses HTN (hypertension) I10 Elevated PSA R97.20 Additional Codes PHQ-9 - 47443 - PHQ-9 Billing: Yes ([id number]) Assessment & Plan Assessment & Plan (1) HTN (hypertension): Code(s): I10 - Essential (primary) hypertension Category: Medical (2) Elevated PSA: Code(s): R97.20 - Elevated prostate specific antigen [PSA] Category: Medical Plan . Orders: Orders Complete Blood Count Auto Diff Today R97.20 - Elevated prostate specific antigen [PSA] Comprehensive [place]. Panel Fast Today R97.20 - Elevated prostate specific antigen [PSA] TSH reflex Free T4 Today R97.20 - Elevated prostate specific antigen [PSA] UA CC w/rflx Micro + Cult Today R97.20 - Elevated prostate specific antigen [PSA] Prostate Specific Antigen Scr Today R97.20 - Elevated prostate specific antigen [PSA] Lipid Panel Today R97.20 - Elevated prostate specific antigen [PSA]
== END 2024-08-24 08:24 | disposition home or self-care (01) ==
LOC: HO.HMCC 07:40
PROVIDERS: PCP Nurse Practitioner Family; Visit Provider Nurse Practitioner Family
DX: I10 Essential (primary) hypertension (principal); R97.20 Elevated prostate specific antigen [PSA]

== ENCOUNTER → 2024-08-24 07:39 | Outpatient (BNVA) | payer OTHER, SELFPAY | PROVIDERS: PCP Nurse Practitioner Family; Visit Provider Nurse Practitioner Family | DX: I10 Essential (primary) hypertension (principal); R97.20 Elevated prostate specific antigen [PSA] | CPT/HCPCS: 96127 ==

== ENCOUNTER 2024-08-28 06:31 | Outpatient (REF) | payer OTHER, SELFPAY ==
[2024-08-28 11:11] LABS: MANUAL DIFF FLAG NO
[2024-08-28 11:23] LABS: Appearance Urine Turbid; Color Urine Dark Yellow; Glucose Urine UA Negative (Negative); Leukocyte Esterase Urine Moderate (2+) (Negative); Nitrite Urine Negative (Negative); Specific Gravity - Urine >= 1.030 (1.005-1.025); UMIC TRIGGER UACC YES; Urine Blood Negative (Negative); Urine Ketones Trace mg/dL (Negative); Urine Protein Trace mg/dL (Neg-Trace)
[2024-08-28 11:27] LABS: Basophils Percent Auto 0.9 % (0-2); Eosinophils Absolute Auto 0.1 X10*3/uL (0.0-0.4); Eosinophils Percent Auto 1.5 % (0-4); Hematocrit 39.5 % (42.0-52.0); Hemoglobin 13.2 g/dl (14.0-18.0); Lymphocytes Absolute Auto 1.1 X10*3/uL (1.2-4.9); Lymphocytes Percent Auto 32.7 % (20-40); Mean Corpuscular HGB Conc 33.4 g/dl (31.0-36.0); Mean Corpuscular Hemoglobin 31.3 pg (27.0-33.0); Mean Corpuscular Volume 93.6 fL (80.0-98.0); Mean Platelet Volume 11.1 fL (9.4-12.4); Monocytes Absolute Auto 0.5 X10*3/uL (0.1-1.2); Monocytes Percent Auto 15.7 % (2-11); Neutrophils Absolute Auto 1.6 x10*3/uL (2.0-8.3); Neutrophils Percent Auto 49.2 % (45-73); Platelet Count 171 X10*3/uL (160-400); Red Blood Count 4.22 X10*6/uL (4.60-5.80); White Blood Count 3.2 X10*3/uL (4.8-10.8)
[2024-08-28 11:45] LABS: Bacteria Urine None Seen (None Seen); Calcium Oxalate Crystals Urine Present; Hyaline Casts Urine 0-2 /LPF (0-2); RBC Urine 0-2 /HPF (0-2); Squamous Epithelial Cell Urine 0-2 /HPF (0-2); UACC Culture Trigger YES
[2024-08-28 12:36] LABS: Alanine Aminotransferase 61 U/L (0-40); Alkaline Phosphatase 104 U/L (39-117); Anion Gap 9 (12-20); Aspartate Amino Transferase 46 U/L (5-37); Bilirubin Total 0.4 mg/dL (0.0-1.0); Blood Urea Nitrogen 21 mg/dL (9-16); Calcium 8.6 mg/dL (8.4-10.2); Carbon Dioxide 26 mmol/L (22-29); Chloride 106 mmol/L (96-108); Cholesterol 157 mg/dL (<200); Estimated Glomerular Filt Rate > 60; Glucose Fasting 89 mg/dL (60-99); HDL Cholesterol 60 mg/dL (>40); LDL Cholesterol Calculated 86 mg/dL (<100); Potassium 3.8 mmol/L (3.3-5.1); Sodium 137 mmol/L (135-145); Total Protein 6.5 g/dL (6.5-8.0); Triglycerides 56 mg/dL (<150)
[2024-08-28 12:39] LABS: TSH reflex Free T4 1.72 uIU/mL (0.32-4.0)
== END 2024-08-28 06:32 | disposition home or self-care (01) ==
LOC: HO.HMGCLDS 06:31
PROVIDERS: PCP Nurse Practitioner Family; Visit Provider Nurse Practitioner Family
DX: R97.20 Elevated prostate specific antigen [PSA] (principal); Z12.5 Encounter for screening for malignant neoplasm of prostate; R82.90 Unspecified abnormal findings in urine
CPT/HCPCS: 36415; 80053; 80061; 81001; 84153; 84443; 85025; 87086

== ENCOUNTER 2024-10-08 08:41 | Outpatient (AMB) | payer OTHER, SELFPAY ==
--- NOTE | 2024-10-08 08:44 | A.OFFVIS_ITS ---
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 Allergies aripiprazole [From Abilify] Adverse Reaction (Intermediate, Verified 10/08/24 08:50) Increased agitation and depression Penicillins Adverse Reaction (Intermediate, Verified 10/08/24 08:50) Nausea and Vomiting propranolol [Propranolol] Adverse Reaction (Intermediate, Verified 10/08/24 08:50) Nausea and Vomiting shellfish derived Adverse Reaction (Intermediate, Verified 10/08/24 08:50) Vomiting duloxetine [From CYMBALTA] Adverse Reaction (Mild, Verified 10/08/24 08:50) Increased agitation mirtazapine [MIRTAZAPINE] Adverse Reaction (Mild, Verified 10/08/24 08:50) Manic symptoms prednisone Adverse Reaction (Mild, Verified 10/08/24 08:50) Anger issues risperidone [From RISPERDAL] Adverse Reaction (Mild, Verified 10/08/24 08:50) Previous bad reaction and drug interaction with Wellbutrin HPI Comments Details: Damian is a pleasant male. He is a patient Dr. Krueger. He is seen for the following urologic conditions - lower urinary tract symptoms - urgency and weak stream - Peyronie's disease Six-month follow-up PSA remains stable 5.1 PVR 45 Urge control during the day remains stable - Myrbetriq stable Completed reading bladder matters. Understands bladder triggers. Much of this occurs secondary to his TBI Nocturia x1 Primary issue with nocturia is inability to fall back to sleep - works third joyce ft PAYAL with CPAP - Nocturnal urinary frequency - Positive response to Mirabegron (Mirbetric) for bladder management - Stable urinary symptoms since - pandemic adjustments - Lifestyle modifications to avoid bladder irritants such as coffee, chocolate, spicy foods, and soda - Adequate hydration noted with alternating Propel and water intake Lower Urinary Tract Symptoms: Continued good response to urge frequency with combination Gemtessa and terazosin Current visit is for further evaluation of, lower urinary tract symptoms, predominate irritative symptoms. Current treatment includes medication, alpha rajni - terazosin 5mg, Myrbetriq Prior treatments include 08/20 terazosin 5mg 02/20 oxybutynin with dry mouth - has memory issues baseline. Prostate Symptom Score 02/18 Moderate (9-19), Bother 3 4./ , Moderate (9-), Bother 3. Symptoms include 02/18 incomplete emptying, urgency, weak stream 08/20 , intermittency, urgency, weak stream, nocturia (>2), and are progressing. Results from testing include cystoscopy no abnormality seen 09/19, 03/23 - filled 300cc mild trabeculation Prior Prostate Score mild. PSA 08/20 3.5 - 01/22 6.1 - 09/22 3.9, 09/23 3.7, 08/25 5.1, 08/27 5.1 Testing at next visit will include bladder scan. Treatment plan combination therapy. Peyronie's Disease: The patient presents for followup up evaluation for penile disorder. Primary complaint is penile curvature, Peyronie's disease. At this time he experiences partial erections sufficient for penetrative intercourse. Thorofare has is unaffected. Prior management includes 03/22 oral medication, vacuum protocol. Associated conditions history of penile trauma No CAD No diabetes No erectile dysfunction No hypertension No peripheral vascular disease No Natural history of Peyronie's [facility] Medical History Overactive bladder Bladder outlet obstruction Weak urinary stream Hypogonadism in male Hypertrophic cardiomyopathy Coarse tremor HTN (hypertension) [place] (nonalcoholic steatohepatitis) Burrows's neuroma of right foot PTSD (post-traumatic stress disorder) Peyronie's disease Atrial fibrillation Asthma PAYAL on CPAP Dyspnea Surgical History History of colonoscopy History of neck surgery History of appendectomy Family History Father Lung disease Substance use disorder Mother Type 2 diabetes mellitus Brother Substance use disorder Other Cancer Diabetes mellitus Mental health disorder Social History Household Members: Spouse Housing: House Patient Tobacco Use Status: Never used Tobacco e-Cigarette/Vaping Use: Never Used Second Hand Smoke Exposure: No service: No Current occupational status: employed 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 Current occupational exposures/hazards: Yes Cognitive needs: No Hearing needs: No Vision needs: No Review of Systems Const Denies chills and Denies fever(s) Card Reports no additional complaints and Denies syncope Resp Denies cough GI Denies abdominal pain and Denies heartburn Reports as per HPI and Denies change in libido Neuro Denies syncope Psych Denies change in libido Endo Denies change in libido Physical Exam Const General: cooperative, healthy appearing, comfortable and no acute distress Orientation/consciousness: patient oriented x3 HEENT Face and sinus: Yes normal facial exam Mouth: moist mucous membranes Neck Neck: Yes normal visual inspection, Yes full ROM and Yes trachea midline Chest Chest palpation & inspection: normal inspection of the chest Resp Effort & Inspection: normal respiratory effort, able to speak in complete sentences and no respiratory distress GI Inspection: Yes normal to inspection Back/Spine/Pelvis Cervical Spine: normal cervical lordosis Thoracic/Lumbar Spine: thoracic and lumbar spine normal to inspection Skin General skin exam: no rashes or lesions noted Neuro General: patient oriented x3, gait normal, tone normal and moves all extremities Extrem General: Yes normal to inspection and Yes capillary refill normal Assessment & Plan Assessment & Plan (1) Elevated PSA: Code(s): R97.20 - Elevated prostate specific antigen [PSA] Category: Medical (2) Overactive bladder: Comment: Myrbetriq Code(s): N32.81 - Overactive bladder Category: Medical (3) Nocturia more than twice per night: Code(s): R35.1 - Nocturia Category: Medical Plan Urinary Symptoms Review - Bladder urgency and frequency 1. Lower Urinary Tract Symptoms Luts Continue Terazepam 5 mg and Mirabegron 50 mg. Monitor symptom response. Encourage lifestyle changes and bladder retraining. 2. Peyronie's Disease Monitor. No acute intervention needed. 3. Elevated Prostate-Specific Antigen Psa Stable at 5.1. Continued monitoring advised. Discussion Notes During the consultation, I discussed the management plans for the patient's lower urinary tract symptoms, including the continuation of Terazepam and Mirabe gron. We reviewed successful lifestyle modifications and strategies for bladder retraining to enhance symptom control. Regarding Peyronie's disease, the current approach is observational given the stability of symptoms. The elevated PSA at 5.1 remains a point of regular monitoring; I assured the patient of its stability when compared to historical levels, negating the need for immediate invasive procedures. We conversed about the importance of dietary adjustments to mitigate bladder irritants. No new diagnostic studies or procedures are needed at this time. Patient Instructions - Continue taking Terazepam 5 mg and Mirabegron 50 mg as prescribed. - Avoid bladder irritants such as coffee, chocolate, spicy foods, and soda. - Maintain hydration by alternating Propel with water. - Follow the bladder retraining program and extend the duration between urination. - Report any significant changes in symptoms or if they worsen. - Keep track of PSA levels through regular check-ups. Medications: Changed From mirabegron ER (Myrbetriq) 50 mg PO DAILY To mirabegron ER (Myrbetriq) 50 mg PO DAILY 90 days 90 tabs 1RF Refilled terazosin 5 mg PO BEDTIME 90 days 90 caps 1RF N40.1 - Benign prostatic hyperplasia with lower urinary tract symptoms, R35.0 - Frequency of micturition Patient Instructions: This note is constructed using voice recognition software. While every effort has been made to ensure accuracy process manager errors may have been included. Imaging studies, laboratory and physical exam results were discussed and reviewed in detail. No major barriers to patient understanding were identified. An opportunity to ask questions regarding the treatment plan was provided. All questions were answered. The patient expressed understanding and agreement with the above treatment plan. The patient is aware they should contact our office by phone for worsening of their current condition or the appearance of new urologic symptoms. Compliance is encouraged with any medications and followup testing that is ordered. It is a privilege to participate in the urologic care of your patient. If you have any questions or concerns regarding treatment for the above conditions, or other urologic issues, please do not hesitate to contact me. The office telephone contact is [phone]. Sincerely, Dr Anil Villareal MD, [facility] - Urology Compassionate Specialist Care for the Genitourinary System Coding Level of Care Code Est Pt Level 3 (37625) Complex EM visit Add On G2211 Diagnoses Elevated PSA R97.20 Overactive bladder N32.81 Nocturia more than twice per night R35.1
--- OUTSIDE RECORDS SUMMARY | 2024-10-08 08:54 | XMS_ITS | Clinical Summary ---
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 His [id number] score is 1 for hypertension. He continues on aspirin only. We will continue to monitor atrial fibrillation burden via his ICD monitoring. Given that he has turned 63 today if he were to have any increased atrial fibrillation burden we may consider increasing his anticoagulation as his [id number] score will be increasing with age. He [...] Description 08/17/2024 2:30 PM EDT Ancillary Procedure [facility] Cardiology [facility] [address] [place] [address] 08/09/2024 8:30 AM EDT Ancillary Procedure [facility] Cardiology [facility] [address] [place] [address] Encounter for adjustment or management of cardiac device 08/06/2024 4:45 PM EDT Ancillary Procedure [facility] Cardiology [facility] [address] [place] [address] from Last 3 Months Surgical History Surgery [...] Description 01/28/2025 8:40 AM EDT Office Visit [facility] [address] [place] [address] Tari Engel NP [facility] [address] [place] [address] 08/09/2025 8:30 AM EDT Ancillary Procedure [facility] Cardiology [facility] - [facility] [address] [facility] [address] [place] [id number] Health Maintenance Due Date Last Done Comments [...] this topic Medical Devices Implanted Type Area Dock Pumper Device Identifier Shelf Expiration Date Model / Serial / Lot Medt-Card [id number] Implanted:07/03 (Quantity not on file) Cardiac ICD [employer] - CARDIAC RHYTH-[facility] [id number] / [id number] / Medt-Card Kelly Xt [id number] Implanted:07/03 (Quantity not on file) Cardiac ICD [employer] - CARDIAC RHYTH-CRDM [place] XT [id number] / [id number] / Procedures Procedure Name Priority Date/Time Associated [...] period is included. Date Time Interrogation Session [id number] CV DEVICE CHECK Type Interrogation Session Remote CV DEVICE CHECK Implantable Pulse Generator Dock Pumper MDT CV DEVICE CHECK Implantable Pulse Generator Type ICD CV DEVICE CHECK Implantable Pulse Generator Model [id number] CV DEVICE CHECK Implantable Pulse Generator Serial Number [id number] CV DEVICE CHECK Implantable Pulse Generator Implant Date 20230718 CV DEVICE CHECK Battery Remaining Longevity 31.0 CV DEVICE CHECK Battery Voltage 2.950 CV D EVICE CHECK Battery EMERGENCY RESPONSE TECHNICIAN Trigger 2.800 CV DEVICE CHECK Capacitor Charge Time 3.800 CV DEVICE CHECK Zion Statistic RA Percent Paced 98.45 CV DEVICE CHECK Zion Statistic RV Percent Paced 99.18 CV DEVICE CHECK Atrial Tachy Statistic AT/AF [place] Percent 0.01 CV DEVICE CHECK Lead Channel [...] Result * CARDIAC DEVICE CHECK- [place] [facility] [facility] [place]08/09/2024 8:41 AM EDT) Date Time Interrogation Session [id number] CV DEVICE CHECK Implantable Pulse Generator Dock Pumper MDT CV DEVICE CHECK Implantable Pulse Generator Type ICD CV DEVICE CHECK Implantable Pulse Generator Model Kelly XT DR [id number] CV DEVICE CHECK Implantable Pulse Generator Serial Number [id number] CV DEVICE CHECK Implantable Pulse Generator Implant Date 20230718 CV DEVICE CHECK Battery Voltage 2.950 CV D EVICE CHECK Battery EMERGENCY RESPONSE TECHNICIAN Trigger 2.800 CV DEVICE CHECK Battery Status Middle of Service CV DEVICE CHECK Capacitor Charge Time 3.800 CV DEVICE CHECK Zion Statistic RA Percent Paced 97.92 CV DEVICE CHECK Zion Statistic RV Percent Paced 99.09 CV DEVICE CHECK Atrial Tachy Statistic AT/AF [place] Percent 0.03 CV DEVICE CHECK Lead Channel [...] thresholds reviewed and tested * Presenting Rhythm: AP-HEEL SLUGGER 70s * Underlying Rhythm: -VS 40s * [...] thresholds reviewed and tested * Presenting Rhythm: AP-HEEL SLUGGER 70s * Underlying Rhythm: -VS 40s * Heart Rate Histograms reviewed * Pacing and Detection Parameters were evaluated Heart Failure Diagnostic: Stable * Heart failure diagnostics assessed through the device * Status: Stable * No overt HF present us Order Referral Cardiovascular CV IMPLANTABLE CAR DIAC DEVICE PROCEDURES Final Result from Last 3 Months Insurance [id number] MEDICARE [facility] Care Teams Still Operator Gin Relationship Specialty Start Date End Date Anuj Quinteros NP [address] [facility] ELIU Collado PCP - General 09/25/21
== END 2024-10-08 09:13 | disposition home or self-care (01) ==
LOC: HO.HUSH 08:41
PROVIDERS: PCP Nurse Practitioner Family; Visit Provider Urology
DX: R97.20 Elevated prostate specific antigen [PSA] (principal); N32.81 Overactive bladder; R35.1 Nocturia; Z13.9 Encounter for screening, unspecified
CPT/HCPCS: 99213

== ENCOUNTER → 2024-10-08 08:41 | Outpatient (BNVA) | payer OTHER, SELFPAY | PROVIDERS: PCP Nurse Practitioner Family; Visit Provider Urology | DX: N40.1 Benign prostatic hyperplasia with lower urinary tract symptoms (principal); N13.8 Other obstructive and reflux uropathy; N48.6 Induration penis plastica; R97.20 Elevated prostate specific antigen [PSA]; N32.81 Overactive bladder; R35.1 Nocturia; E29.1 Testicular hypofunction | CPT/HCPCS: 81003 ==

== ENCOUNTER 2024-10-13 10:36 | Outpatient (AMB) | payer OTHER, SELFPAY ==
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
== END 2024-10-13 13:12 | disposition home or self-care (01) ==
LOC: HO.HOP 10:36
PROVIDERS: PCP Nurse Practitioner Family; Visit Provider Clinical Nurse Specialist Psychiatric/Mental Health, Adult
DX: F41.1 Generalized anxiety disorder (principal); F41.0 Panic disorder [episodic paroxysmal anxiety]; F43.10 Post-traumatic stress disorder, unspecified; F33.9 Major depressive disorder, recurrent, unspecified
CPT/HCPCS: 99214

== ENCOUNTER → 2024-10-13 10:36 | Outpatient (BNVA) | payer OTHER, SELFPAY | PROVIDERS: PCP Nurse Practitioner Family; Visit Provider Clinical Nurse Specialist Psychiatric/Mental Health, Adult ==

== ENCOUNTER 2024-10-13 12:16 | Inpatient (IN) | payer OTHER, SELFPAY ==
--- NOTE | 2024-10-13 | ECG_ITS ---
Test Reason : PACEMAKER/ CLEARANCE Blood Pressure : */* mmHG Vent. Rate : 69 BPM Atrial Rate : 71 BPM P-R Int : 146 ms QRS Dur : 190 ms QT Int : 464 ms P-R-T Axes : * -86 86 degrees QTcB Int : 497 ms AV dual-paced rhythm with Premature ventricular complexes Abnormal ECG When compared with ECG of 31-Mar-2019 16:00, AV dual-paced rhythm has replaced Sinus rhythm Referred By: Itz Asher Electronically Signed By: RIVKA ALATORRE MD
[2024-10-13 12:58] VITALS: BP 128/78; PULSE 76; RESP 17; TEMP 37; O2SAT 97; BMI 29.0
[2024-10-13 14:54] LABS: MANUAL DIFF FLAG NO
[2024-10-13 14:59] LABS: Appearance Urine Clear; Basophils Percent Auto 0.9 % (0-2); Color Urine Yellow; Eosinophils Percent Auto 0.6 % (0-4); Glucose Urine UA Negative (Negative); Hematocrit 42.1 % (42.0-52.0); Hemoglobin 14.5 g/dl (14.0-18.0); Imm Gran Abs Auto 0.01 X10*3/uL (0.00-0.03); Imm Gran Pct Auto 0.2 % (0.0-0.4); Leukocyte Esterase Urine Small (1+) (Negative); Lymphocytes Absolute Auto 1.3 X10*3/uL (1.2-4.9); Lymphocytes Percent Auto 27.3 % (20-40); Mean Corpuscular HGB Conc 34.4 g/dl (31.0-36.0); Mean Corpuscular Hemoglobin 31.5 pg (27.0-33.0); Mean Corpuscular Volume 91.5 fL (80.0-98.0); Mean Platelet Volume 10.1 fL (9.4-12.4); Monocytes Absolute Auto 0.5 X10*3/uL (0.1-1.2); Monocytes Percent Auto 11.2 % (2-11); Neutrophils Absolute Auto 2.8 x10*3/uL (2.0-8.3); Neutrophils Percent Auto 59.8 % (45-73); Nitrite Urine Negative (Negative); Platelet Count 183 X10*3/uL (160-400); Red Cell Distribution Width 12.5 % (11.0-16.0); Specific Gravity - Urine 1.015 (1.005-1.025); UMIC TRIGGER UA YES; Urine Blood Negative (Negative); Urine Ketones Negative (Negative); Urine Protein Negative (Neg-Trace); White Blood Count 4.7 X10*3/uL (4.8-10.8)
[2024-10-13 15:06] LABS: Bacteria Urine None Seen (None Seen); Hyaline Casts Urine 0-2 /LPF (0-2); RBC Urine 0-2 /HPF (0-2); Squamous Epithelial Cell Urine 0-2 /HPF (0-2); WBC Urine 0-5 /HPF (0-5)
[2024-10-13 15:14] LABS: Anion Gap 11 (12-20); Blood Urea Nitrogen 17 mg/dL (9-16); Calcium 9.5 mg/dL (8.4-10.2); Carbon Dioxide 27 mmol/L (22-29); Chloride 105 mmol/L (96-108); Creatinine Clr Calc Pharmacy 91.4; Estimated Glomerular Filt Rate > 60; Glucose Random 159 mg/dL (60-115); Potassium 3.8 mmol/L (3.3-5.1); Sodium 139 mmol/L (135-145)
[2024-10-13 15:15] LABS: Ethanol < 10 mg/dL
[2024-10-13 15:21] LABS: Amphetamine Screen Urine Not Detected (Not Detect); Barbiturates, Urine POSITIVE (Not Detect); Benzodiazepines Screen Urine Not Detected (Not Detect); Buprenorphine Scr Not Detected (Not Detect); Cannabinoid Screen Urine Not Detected (Not Detect); Cocaine Screen Urine Not Detected (Not Detect); Fentanyl, urine Not Detected (Not Detect); Methadone Screen, Urine Not Detected (Not Detect); Opiate Screen Urine Not Detected (Not Detect); Oxycodone Screen Urine Not Detected (Not Detect); Phencyclidine Screen Urine Not Detected (Not Detect)
[2024-10-13 16:28] LABS: Acetaminophen LAB < 3 mcg/mL (<30); Salicylate < 5.0 mg/dL (15-30)
--- NOTE | 2024-10-13 19:29 | ED.PSYCH ---
HPI - Psych General Chief Complaint: Psychiatric Symptoms Stated Complaint: Sec 12 Time Seen by Provider: 10/13/24 13:22 History of Present Illness HPI Narrative: Patient is a 64-year-old male presented today having suicidal thoughts. Patient was at his appointment he ran out into the parking lot where security was able to talk to him. In deescalated. He told his that he is done with life. He has no specific plan on how to kill himself. He was sent in for further evaluation. Related Data Home Medications ?Medication ?Instructions ?Recorded ?Confirmed aspirin 81 mg tablet,delayed 81 mg PO DAILY 02/28/20 10/13/24 release cholecalciferol (vitamin D3) 50 50 mcg PO DAILY 07/04/20 10/13/24 mcg (2,000 unit) capsule multivitamin 1 tab PO DAILY 07/04/20 10/13/24 vitamin B complex 1 tab PO DAILY 07/04/20 10/13/24 metoprolol tartrate 25 mg tablet 25 mg PO BID 02/21/21 10/13/24 primidone 250 mg tablet 250 mg PO TID 08/01/22 10/13/24 cbd oil 0.5 ml PO 2XD 12/03/22 10/13/24 diphenhydramine HCl 25 mg capsule 25 mg PO BEDTIME PRN unknwon 11/27/23 10/13/24 (Benadryl) Probiotic 1 cap PO DAILY 10/13/24 10/13/24 Vitamin D3 10/13/24 vibegron 75 mg tablet (Gemtesa) 75 mg PO DAILY 10/13/24 10/13/24 Previous Rx's ?Medication ?Instructions ?Recorded atorvastatin 40 mg tablet 40 mg PO DAILY #90 tabs 08/09/24 gabapentin 300 mg capsule 300 mg PO TID 90 days #270 caps 08/19/24 sertraline 100 mg tablet 100 mg PO DAILY #90 tabs 08/19/24 sertraline 50 mg tablet 50 mg PO QPM #90 tabs 08/19/24 lorazepam 0.5 mg tablet 0.5 mg PO .COMPLEX anxiety #60 tabs 09/07/24 mirabegron 50 mg tablet,extended 50 mg PO DAILY 90 days #90 tabs 10/08/24 release 24 hr (Myrbetriq) terazosin 5 mg capsule 5 mg PO BEDTIME 90 days #90 caps 10/08/24 Allergies Allergy/AdvReac Type Severity Reaction Status Date / Time aripiprazole [From Abilify] AdvReac Intermediate Increased Verified 10/13/24 13:28 agitation and depression Penicillins AdvReac Intermediate Nausea and Verified 10/13/24 13:28 Vomiting propranolol [Propranolol] AdvReac Intermediate Nausea and Verified 10/13/24 13:28 Vomiting shellfish derived AdvReac Intermediate Vomiting Verified 10/13/24 13:28 duloxetine [From CYMBALTA] AdvReac Mild Increased Verified 10/13/24 13:28 agitation mirtazapine [MIRTAZAPINE] AdvReac Mild Manic Verified 10/13/24 13:28 symptoms prednisone AdvReac Mild Anger Verified 10/13/24 13:28 issues risperidone [From RISPERDAL] AdvReac Mild Previous Verified 10/13/24 13:28 bad reaction and drug interaction with Wellbutrin Review of Systems Review of Systems: Positive suicidal thoughts no specific plan Yes all other systems are reviewed and are negative PMFSH Past Medical History Attestation statement: The following information was validated with the patient. Medical History Overactive bladder Bladder outlet obstruction Weak urinary stream Hypogonadism in male Hypertrophic cardiomyopathy Coarse tremor HTN (hypertension) OH (nonalcoholic steatohepatitis) Burrows's neuroma of right foot PTSD (post-traumatic stress disorder) Peyronie's disease Atrial fibrillation Asthma PAYAL on CPAP Dyspnea Surgical History History of colonoscopy History of neck surgery History of appendectomy Family History Family History Father Lung disease Substance use disorder Mother Type 2 diabetes mellitus Brother Substance use disorder Other Cancer Diabetes mellitus Mental health disorder Social History Social History Household Members: Spouse Housing: House Patient Tobacco Use Status: Never used Tobacco Smoked in Last 30 Days: No e-Cigarette/Vaping Use: Never Used Second Hand Smoke Exposure: No Use of substances other than those prescribed or required for medical reasons: No Advance Directives: No Advance Directives Information Provided: No Do you have a plan to hurt others: No Plan service: No Current occupational status: employed Current occupation: [employer] Current occupational exposures/hazards: Yes Cognitive needs: No Hearing needs: No Vision needs: No Physical Exam Vital Signs: Vital Signs: Last Vital Signs Temp 98.6 F 10/13/24 12:58 Pulse 76 10/13/24 12:58 Resp 17 10/13/24 12:58 BP 128/78 10/13/24 12:58 Pulse Ox 97 10/13/24 12:58 O2 Del Method Room Air 10/13/24 12:58 BMI result Body Mass Index 29.0 Appearance: Alert. Oriented X3. No acute distress. Eyes: Pupils equal, round and reactive to light. ENT: Pharynx normal. Neck: Normal inspection. Neck supple. No lymph nodes noted. No crepitus CVS: Normal heart rate and rhythm. Pulses normal. Normal S1 and S2 Respiratory: No respiratory distress. Breath sounds normal. No Wheezing. No rales Abdomen: Soft and nontender. No rigidity. No distention. good BS x4 Skin: Skin warm and dry. Normal skin color. Normal skin turgor. Extremities: No lower extremity edema. Neurovascular intact to all extremities. No Lacerations. No Rash Neuro: Oriented X 3. No motor deficit. No sensory deficit. Moving all extermities. No slurred speech. Cranial nerves grossly intact Medical Decision Making Medical Decision Making MDM Narrative: Positive suicidal ideation with specific threats of wanting to end his life. Crisis team evaluated the patient. Will admit patient for further evaluation further monitoring Differential Diagnosis Differential Diagnoses: The differential diagnosis associated with the presentation includes Suicidal ideation Admission/Observation Consideration of admission/observation: Escalation of care including admission/observation considered Will require admission Consult Healthcare Provider Management of the patient was discussed with: Technology Applications Consultant (Care team) Lab Data [facility] Lab Attestation statement: I reviewed the patient's lab results. 10/13/24 14:34 10/13/24 14:49 Labs: Lab Results 10/13/24 10/13/24 Range/Units 14:34 14:49 WBC 4.7 L (4.8-10.8) X10*3/uL RBC 4.60 (4.60-5.80) X10*6/uL Hgb 14.5 (14.0-18.0) g/dl Hct 42.1 (42.0-52.0) % MCV 91.5 (80.0-98.0) fL MCH 31.5 (27.0-33.0) pg MCHC 34.4 (31.0-36.0) g/dl RDW 12.5 (11.0-16.0) % Plt Count 183 (160-400) X10*3/uL MPV 10.1 (9.4-12.4) fL Immature Gran % (Auto) 0.2 (0.0-0.4) % Neut % (Auto) 59.8 (45-73) % Lymph % (Auto) 27.3 (20-40) % [place] % (Auto) 11.2 H (2-11) % Eos % (Auto) 0.6 (0-4) % Baso % (Auto) 0.9 (0-2) % Lymph # (Auto) 1.3 (1.2-4.9) X10*3/uL [place] # (Auto) 0.5 (0.1-1.2) X10*3/uL Eos # (Auto) 0.0 (0.0-0.4) X10*3/uL Baso # (Auto) 0.0 (0.0-0.2) X10*3/uL Abs Immat Gran (auto) 0.01 (0.00-0.03) X10*3/uL Absolute Neuts (auto) 2.8 (2.0-8.3) x10*3/uL Absolute Nucleated RBC 0.000 (0.0-0.012) X10*3/uL Nucleated RBC % (auto) 0.0 (0.0-0.2) /100WBC Sodium 139 (135-145) mmol/L Potassium 3.8 (3.3-5.1) mmol/L Chloride 105 (96-108) mmol/L Carbon Dioxide 27 (22-29) mmol/L Anion Gap 11 L (12-20) BUN 17 H (9-16) mg/dL Creatinine 0.96 (0.5-1.4) mg/dL Estim Creat Clear Calc 91.4 Estimated GFR > 60 Random Glucose 159 H (60-115) mg/dL Calcium 9.5 D (8.4-10.2) mg/dL Urine Color Yellow Urine Appearance Clear Urine pH 6.0 (5.0-9.0) Ur Specific Velma 1.015 (1.005-1.025) Urine Protein Negative (Neg-Trace) mg/dL Urine Glucose (UA) Negative (Negative) mg/dL Urine Ketones Negative (Negative) mg/dL Urine Blood Negative (Negative) Urine Nitrite Negative (Negative) Ur Leukocyte Esterase Small (1+) H (Negative) Urine RBC 0-2 (0-2) /HPF Urine WBC 0-5 (0-5) /HPF Ur Squamous Epith Cells 0-2 (0-2) /HPF Urine Bacteria None Seen (None Seen) Hyaline Casts 0-2 (0-2) /LPF Salicylates < 5.0 L (15-30) mg/dL Urine Opiates Screen Not Detected (Not Detect) Ur Buprenorphine Scrn Not Detected (Not Detect) ng/mL Ur Oxycodone Screen Not Detected (Not Detect) ng/mL Urine Methadone Screen Not Detected (Not Detect) ng/mL Urine Fentanyl Screen Not Detected (Not Detect) Acetaminophen < 3 (<30) mcg/mL Ur Barbiturates Screen POSITIVE H (Not Detect) Ur Phencyclidine Scrn Not Detected (Not Detect) Ur Amphetamines Screen Not Detected (Not Detect) U Benzodiazepines Scrn Not Detected (Not Detect) Urine Cocaine Screen Not Detected (Not Detect) U Marijuana (THC) Screen Not Detected (Not Detect) Ethyl Alcohol < 10 mg/dL Discharge Plan Discharge Clinical Impression: Suicidal ideation Patient Disposition: Admitted As Inpatient Interventions: [place]-Suicide Risk Severity Scale Last Done: 10/13/24 18:00
[2024-10-13 20:00] VITALS: BP 130/78; PULSE 75; RESP 16; TEMP 36.6; O2SAT 96
[2024-10-13] MEDS: Gabapentin 300 MG CAPSULE PO (20:49)
[2024-10-13] MEDS: Sertraline HCL 50 MG TABLET PO (20:49)
[2024-10-13 20:50] VITALS: BP 108/59; PULSE 66
[2024-10-13] MEDS: Doxazosin Mesylate 2 MG TABLET 5 MG PO (20:50)
[2024-10-13] MEDS: Metoprolol Tartrate 25 MG TABLET PO (20:50)
[2024-10-13] MEDS: diphenhydrAMINE HCL 25 MG CAPSULE PO (22:29)
[2024-10-13] MEDS: Primidone 50 MG TABLET 250 MG PO (22:29)
[2024-10-13 23:36] VITALS: PULSE 77; RESP 18; O2SAT 96
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
[2024-10-14 07:00] VITALS: BMI 28.6
[2024-10-14] MEDS: Primidone 50 MG TABLET 250 MG PO ×3 (08:28→21:18)
[2024-10-14] MEDS: Gabapentin 300 MG CAPSULE PO ×3 (08:29→21:14)
[2024-10-14] MEDS: Atorvastatin Calcium 40 MG TABLET PO (08:29)
[2024-10-14] MEDS: Aspirin Enteric Coated 81 MG TABLET.DR PO (08:29)
[2024-10-14] MEDS: Multivitamin TABLET 1 TAB PO (08:29)
[2024-10-14] MEDS: Metoprolol Tartrate 25 MG TABLET PO (08:29)
[2024-10-14] MEDS: Sertraline HCL 100 MG TABLET PO (08:29)
[2024-10-14 08:30] VITALS: BP 110/63; PULSE 78; RESP 18; TEMP 36.5; O2SAT 96
[2024-10-14] MEDS: Acetaminophen 325 MG TABLET 650 MG PO ×2 (08:32→15:52)
[2024-10-14 08:42] LABS: Estimated Average Glucose 120 mg/dL; Hemoglobin A1c % 5.8 % (<6.0)
[2024-10-14 08:56] LABS: Cholesterol 188 mg/dL (<200); HDL Cholesterol 65 mg/dL (>40); LDL Cholesterol Calculated 110 mg/dL (<100); Magnesium 2.1 mg/dL (1.6-2.6); Triglycerides 65 mg/dL (<150)
[2024-10-14 09:14] LABS: Free T4 (Free Thyroxine) 0.95 ng/dL (0.71-1.85); Thyroid Stimulating Hormone 2.55 uIU/mL (0.32-4.0)
[2024-10-14 09:22] LABS: Folate 13.1 ng/mL (> or = 4.0); Vitamin B12 690 pg/mL (200-900)
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
[2024-10-14 20:00] VITALS: BP 103/61; PULSE 60; RESP 16; TEMP 36.9; O2SAT 96
[2024-10-14 21:17] VITALS: BP 103/61
[2024-10-14 21:18] VITALS: BP 103/61; PULSE 60
[2024-10-14] MEDS: Sertraline HCL 50 MG TABLET PO (21:18)
[2024-10-15 08:12] VITALS: BP 113/63; PULSE 71; TEMP 36.8; O2SAT 98
[2024-10-15] MEDS: OLANZapine 2.5 MG TABLET PO ×2 (09:15→20:39)
[2024-10-15] MEDS: Atorvastatin Calcium 40 MG TABLET PO (09:15)
[2024-10-15 09:16] VITALS: BP 116/70; PULSE 68
[2024-10-15] MEDS: Metoprolol Tartrate 25 MG TABLET PO ×2 (09:16→20:39)
[2024-10-15] MEDS: Gabapentin 300 MG CAPSULE PO ×3 (09:16→20:35)
[2024-10-15] MEDS: Multivitamin TABLET 1 TAB PO (09:16)
[2024-10-15] MEDS: Aspirin Enteric Coated 81 MG TABLET.DR PO (09:16)
[2024-10-15] MEDS: Sertraline HCL 100 MG TABLET PO (09:17)
[2024-10-15] MEDS: Primidone 50 MG TABLET 250 MG PO ×3 (09:17→20:38)
--- NOTE | 2024-10-15 09:36 | HO.PSYCHPN ---
Subjective Subjective Date of Service: 10/15/24 Reason For Visit: Sec 12 Subjective Notes: Conditional Voluntary Healthcare Proxy: No Guardianship: No Medical Problems Affecting Mental Status: No Interim History: Pt reports I am OK He is attending groups, participating in [employer] and with his peers. Today, he met with cardiology and hospitalist to prepare for clearance for ECT This afternoon he is having an ECHO Olanzapine 2.5 mg bid trial was started this a.m. Medication Compliance: Yes Side effects from medications: No Attending Groups: Yes Review of Systems Acute medical concerns: No Medical Review of Systems: unchanged Review of Systems Review of Systems denied today Mental Status Exam Mental Status Exam Patient Appearance: Appropriate Patient Orientation: Person, Place, Time and Situation Level of Consciousness: Alert Patient Behavior: Talkative, Cooperative, Distractible and Good Eye Contact Mood Description: Depressed Affect Description: Flat Patient Cognition Impaired: No Ability to Follow Directions: Good Speech Pattern: Spontaneous Speech Memory Description: Intact Hallucinations: None Delusions: Not Present Perceptual Disturbances: Depersonalization and Derealization Thought Process: Rumination Thought Content: positive for Suicidal Ideation (denied) Depressive Symptoms: Increased Anxiety, Increased Irritability, Hopelessness, Unhappiness and Thoughts of /Suicide (denies) Judgement: Fair Diagnostics Vital Signs (24Hr): Vital Signs - 24 hr 10/14/24 20:00 10/14/24 21:17 10/14/24 21:18 Temperature 98.4 F Pulse Rate 60 60 Respiratory Rate 16 Blood Pressure 103/61 103/61 103/61 Pulse Oximetry 96 Oxygen Delivery Method Room Air 10/15/24 08:12 10/15/24 09:16 Temperature 98.2 F Pulse Rate 71 68 Respiratory Rate Blood Pressure 113/63 116/70 Pulse Oximetry 98 Oxygen Delivery Method Room Air BMI result Body Mass Index 28.6 Labs 10/13/24 14:34 10/13/24 14:49 Labs: Laboratory Results - last 48 hr 10/13/24 10/13/24 10/14/24 14:34 14:49 08:18 WBC 4.7 L RBC 4.60 Hgb 14.5 Hct 42.1 MCV 91.5 MCH 31.5 MCHC 34.4 RDW 12.5 Plt Count 183 MPV 10.1 Immature Gran % (Auto) 0.2 Neut % (Auto) 59.8 Lymph % (Auto) 27.3 [place] % (Auto) 11.2 H Eos % (Auto) 0.6 Baso % (Auto) 0.9 Lymph # (Auto) 1.3 [place] # (Auto) 0.5 Eos # (Auto) 0.0 Baso # (Auto) 0.0 Abs Immat Gran (auto) 0.01 Absolute Neuts (auto) 2.8 Absolute Nucleated RBC 0.000 Nucleated RBC % (auto) 0.0 Sodium 139 Potassium 3.8 Chloride 105 Carbon Dioxide 27 Anion Gap 11 L BUN 17 H Creatinine 0.96 Estim Creat Clear Calc 91.4 Estimated GFR > 60 Random Glucose 159 H Estimat Average Glucose 120 Hemoglobin A1c % 5.8 Calcium 9.5 D Magnesium 2.1 Triglycerides 65 Cholesterol 188 LDL Cholesterol, Calc 110 H HDL Cholesterol 65 Vitamin B12 690 Folate 13.1 TSH 2.55 Free T4 0.95 Urine Color Yellow Urine Appearance Clear Urine pH 6.0 Ur Specific [place] 1.015 Urine Protein Negative Urine Glucose (UA) Negative Urine Ketones Negative Urine Blood Negative Urine Nitrite Negative Ur Leukocyte Esterase Small (1+) H Urine RBC 0-2 Urine WBC 0-5 Ur Squamous Epith Cells 0-2 Urine Bacteria None Seen Hyaline Casts 0-2 Salicylates < 5.0 L Urine Opiates Screen Not Detected Ur Buprenorphine Scrn Not Detected Ur Oxycodone Screen Not Detected Urine Methadone Screen Not Detected Urine Fentanyl Screen Not Detected Acetaminophen < 3 Ur Barbiturates Screen POSITIVE H Ur Phencyclidine Scrn Not Detected Ur Amphetamines Screen Not Detected U Benzodiazepines Scrn Not Detected Urine Cocaine Screen Not Detected U Marijuana (THC) Screen Not Detected Ethyl Alcohol < 10 Medications Medications Current Medications Acetaminophen (Acetaminophen 325 Mg Tablet) 650 mg PO Q6H PRN PRN Reason: Headache/Pain, Scale 1-10 Last Admin: 10/14/24 15:52 Dose: 650 mg Al Hydroxide/Mg Hydroxide (Magnesium Hydrox/Alum Hydrox 30 Ml Oral.Susp) 30 ml PO Q6H PRN PRN Reason: Heartburn/Nausea Aspirin (Aspirin Enteric Coated 81 Mg Tablet.) 81 mg PO DAILY [facility] Last Admin: 10/15/24 09:16 Dose: 81 mg Atorvastatin Calcium (Atorvastatin Calcium 40 Mg Tablet) 40 mg PO DAILY [facility] Last Admin: 10/15/24 09:15 Dose: 40 mg Diphenhydramine HCl (Diphenhydramine Hcl 25 Mg Capsule) 25 mg PO BEDTIME PRN PRN Reason: unknown Last Admin: 10/13/24 22:29 Dose: 25 mg Doxazosin Mesylate (Doxazosin Mesylate 2 Mg Tablet) 5 mg PO BEDTIME [facility] Last Admin: 10/14/24 21:17 Dose: Not Given Gabapentin (Gabapentin 300 Mg Capsule) 300 mg PO TID [facility] Last Admin: 10/15/24 09:16 Dose: 300 mg Hydroxyzine HCl (Hydroxyzine Hcl 25 Mg Tablet) 25 mg PO Q6H PRN PRN Reason: mild anxiety Lorazepam (Lorazepam 0.5 Mg Tablet) 0.5 mg PO DAILY PRN PRN Reason: Anxiety Magnesium Hydroxide (Milk Of Magnesia 30 Ml Oral.Susp) 30 ml PO DAILY PRN PRN Reason: Constipation Metoprolol Tartrate (Metoprolol Tartrate 25 Mg Tablet) 25 mg PO BID [facility]; Protocol Last Admin: 10/15/24 09:16 Dose: 25 mg Multivitamins/Vitamin C (Multivitamin Tablet) 1 tab PO DAILY [facility] Last Admin: 10/15/24 09:16 Dose: 1 tab Nicotine Polacrilex (Nicotine Polacrilex 2 Mg Gum) 4 mg BUCCAL Q2H PRN PRN Reason: Nicotine Cravings Non-Formulary Medication (Vibegron [Gemtesa]) 75 mg PO DAILY [facility] Olanzapine (Olanzapine 2.5 Mg Tablet) 2.5 mg PO BID [facility] Last Admin: 10/15/24 09:15 Dose: 2.5 mg Primidone (Primidone 50 Mg Tablet) 250 mg PO TID [facility] Last Admin: 10/15/24 09:17 Dose: 250 mg Sertraline HCl (Sertraline Hcl 100 Mg Tablet) 100 mg PO DAILY [facility] Last Admin: 10/15/24 09:17 Dose: 100 mg Sertraline HCl (Sertraline Hcl 50 Mg Tablet) 50 mg PO BEDTIME [facility] Last Admin: 10/14/24 21:18 Dose: 50 mg Trazodone HCl (Trazodone Hcl 50 Mg Tablet) 50 mg PO BEDTIME MRX1 PRN PRN Reason: Insomnia Allergies Allergies Allergy/AdvReac Type Severity Reaction Status Date / Time aripiprazole [From [facility]] AdvReac Intermediate Increased Verified 10/13/24 13:28 agitation and depression Penicillins AdvReac Intermediate Nausea and Verified 10/13/24 13:28 Vomiting propranolol [Propranolol] AdvReac Intermediate Nausea and Verified 10/13/24 13:28 Vomiting shellfish derived AdvReac Intermediate Vomiting Verified 10/13/24 13:28 duloxetine [From CYMBALTA] AdvReac Mild Increased Verified 10/13/24 13:28 agitation mirtazapine [MIRTAZAPINE] AdvReac Mild Manic Verified 10/13/24 13:28 symptoms prednisone AdvReac Mild Anger Verified 10/13/24 13:28 issues risperidone [From [facility]ISPERDAL] AdvReac Mild Previous Verified 10/13/24 13:28 bad reaction and drug interaction with Wellbutrin Assessment & Plan Assessment & Plan (1) PTSD (post-traumatic stress disorder): Status: Acute Code(s): F43.10 - Post-traumatic stress disorder, unspecified (2) Suicidal ideation: Status: Acute Code(s): R45.851 - Suicidal ideations (3) Recurrent major depression: Status: Acute Code(s): F33.9 - Major depressive disorder, recurrent, unspecified (4) Generalized anxiety disorder with panic attacks: Status: Acute Code(s): F41.1 - Generalized anxiety disorder; F41.0 - Panic disorder [episodic paroxysmal anxiety] Plan Olanzapine 2.5 mg bid initiated Echo today to prepare for ECT clearance Pt attending milieu groups, interacting with his peers Continue tx. Patient educated on: medication risk/benefits and therapeutic strategies Informed Consent: understands Reason for continued inpatient stay Substantial Risk for: rapid decompensation Time Spent With Patient Time: Total time managing care of this patient today ____ minutes.
--- NOTE | 2024-10-15 12:25 | HO.ECTCONS_ITS ---
History of Present Illness Data of Consult Service Date: 10/15/24 Primary Care Provider: Anuj Quinteros, [facility]- HPI Reason for consult: ECT consult 64 year old male with PMH Overactive bladder, Hypertrophic cardiomyopathy, tremors, hypertension, Garcia, PTSD, AFib, asthma, PAYAL on CPAP, major depressive disorder. He is admitted here for treatment of depression and suicide ideations. Patient presented to an outside visit for increased depression, was unable to contract for safety and abruptly left the meeting which prompted a search for him, he was located by security and is in agreement with inpatient treatment. Patient is seen for ECT evaluation. Patient is blood work prior to admit was unremarkable including an unremarkable CBC, BMP, TSH, B12, Folate and Magnesium levels. Acceptable LIPID panel and A1c 5.8. Patient had a dual- chamber ICD placement by Dr. Reddy in March 2011 after a syncopal episode and NSVT on monitor. He had a generator change performed July 2016 and his last annual device check is noted November 2022 with no alerts or arrhythmias noted. Patient has a scheduled cardiology appointment coming up in January. He offers no cardiac complaints today. He has PAYAL on CPAP. He is also being followed by Dr. Villareal for an elevated PSA. 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 Patient has no history of brain injuries, no history of seizure disorders. BP is well controlled. Review of Systems 2 Review of Systems: Denies any shortness of breath, chest pain, dizziness, lightheadedness, abdominal pain or discomfort, nausea vomiting or diarrhea PMFSH Medical History Overactive bladder Bladder outlet obstruction Weak urinary stream Hypogonadism in male Hypertrophic cardiomyopathy Coarse tremor HTN (hypertension) GARCIA (nonalcoholic steatohepatitis) Burrows's neuroma of right foot PTSD (post-traumatic stress disorder) Peyronie's disease Atrial fibrillation Asthma PAYAL on CPAP Dyspnea Family History Father Lung disease Substance use disorder Mother Type 2 diabetes mellitus Brother Substance use disorder Other Cancer Diabetes mellitus Mental health disorder Surgical History History of colonoscopy History of neck surgery History of appendectomy Social History Household Members: Spouse Housing: House Patient Tobacco Use Status: Never used Tobacco Smoked in Last 30 Days: No e-Cigarette/Vaping Use: Never Used Patient Interested in Nicotine Replacement: No Second Hand Smoke Exposure: Yes (Father was a heavy smoker) Use of substances other than those prescribed or required for medical reasons: No Currently Displaying Signs/Symptoms of Drug Intoxication Withdrawal: No Have you been hit, kicked, punched, or otherwise hurt by someone within the past year? If so, by whom?: No Do you feel safe in your current relationship?: Yes Is there a partner from a previous relationship who is making you feel unsafe now?: No Are you made to feel afraid or neglected: No Advance Directives: No Advance Directives Information Provided: No Do you have thoughts of harming others: None Do you have a plan to hurt others: No Plan Recently lost weight without trying: No Eating poorly because of decreased appetite: No Nutrition Risks: No Nutritional Risk Poor oral hygiene: No service: No Current occupational status: employed Current occupation: [employer] Current occupational exposures/hazards: Yes Sexual orientation: Straight/Heterosexual Cognitive needs: No Hearing needs: No Vision needs: No Meds Allergies Allergy/AdvReac Type Severity Reaction Status Date / Time aripiprazole [From [facility]] AdvReac Intermediate Increased Verified 10/13/24 13:28 agitation and depression Penicillins AdvReac Intermediate Nausea and Verified 10/13/24 13:28 Vomiting propranolol [Propranolol] AdvReac Intermediate Nausea and Verified 10/13/24 13:28 Vomiting shellfish derived AdvReac Intermediate Vomiting Verified 10/13/24 13:28 duloxetine [From CYMBALTA] AdvReac Mild Increased Verified 10/13/24 13:28 agitation mirtazapine [MIRTAZAPINE] AdvReac Mild Manic Verified 10/13/24 13:28 symptoms prednisone AdvReac Mild Anger Verified 10/13/24 13:28 issues risperidone [From RISPERDAL] AdvReac Mild Previous Verified 10/13/24 13:28 bad reaction and drug interaction with Wellbutrin Active Medications: Current Medications Acetaminophen (Acetaminophen 325 Mg Tablet) 650 mg PO Q6H PRN PRN Reason: Headache/Pain, Scale 1-10 Last Admin: 10/14/24 15:52 Dose: 650 mg Al Hydroxide/Mg Hydroxide (Magnesium Hydrox/Alum Hydrox 30 Ml Oral.Susp) 30 ml PO Q6H PRN PRN Reason: Heartburn/Nausea Aspirin (Aspirin Enteric Coated 81 Mg Tablet.Dr) 81 mg PO DAILY [facility] Last Admin: 10/15/24 09:16 Dose: 81 mg Atorvastatin Calcium (Atorvastatin Calcium 40 Mg Tablet) 40 mg PO DAILY [facility] Last Admin: 10/15/24 09:15 Dose: 40 mg Diphenhydramine HCl (Diphenhydramine Hcl 25 Mg Capsule) 25 mg PO BEDTIME PRN PRN Reason: unknown Last Admin: 10/13/24 22:29 Dose: 25 mg Doxazosin Mesylate (Doxazosin Mesylate 2 Mg Tablet) 5 mg PO BEDTIME [facility] Last Admin: 10/14/24 21:17 Dose: Not Given Gabapentin (Gabapentin 300 Mg Capsule) 300 mg PO TID [facility] Last Admin: 10/15/24 09:16 Dose: 300 mg Hydroxyzine HCl (Hydroxyzine Hcl 25 Mg Tablet) 25 mg PO Q6H PRN PRN Reason: mild anxiety Lorazepam (Lorazepam 0.5 Mg Tablet) 0.5 mg PO DAILY PRN PRN Reason: Anxiety Magnesium Hydroxide (Milk Of Magnesia 30 Ml Oral.Susp) 30 ml PO DAILY PRN PRN Reason: Constipation Metoprolol Tartrate (Metoprolol Tartrate 25 Mg Tablet) 25 mg PO BID [facility]; Protocol Last Admin: 10/15/24 09:16 Dose: 25 mg Multivitamins/Vitamin C (Multivitamin Tablet) 1 tab PO DAILY [facility] Last Admin: 10/15/24 09:16 Dose: 1 tab Nicotine Polacrilex (Nicotine Polacrilex 2 Mg Gum) 4 mg BUCCAL Q2H PRN PRN Reason: Nicotine Cravings Non-Formulary Medication (Vibegron [Gemtesa]) 75 mg PO DAILY [facility] Olanzapine (Olanzapine 2.5 Mg Tablet) 2.5 mg PO BID [facility] Last Admin: 10/15/24 09:15 Dose: 2.5 mg Primidone (Primidone 50 Mg Tablet) 250 mg PO TID [facility] Last Admin: 10/15/24 09:17 Dose: 250 mg Sertraline HCl (Sertraline Hcl 100 Mg Tablet) 100 mg PO DAILY [facility] Last Admin: 10/15/24 09:17 Dose: 100 mg Sertraline HCl (Sertraline Hcl 50 Mg Tablet) 50 mg PO BEDTIME [facility] Last Admin: 10/14/24 21:18 Dose: 50 mg Trazodone HCl (Trazodone Hcl 50 Mg Tablet) 50 mg PO BEDTIME MRX1 PRN PRN Reason: Insomnia Home Medications ?Medication ?Instructions ?Recorded ?Confirmed ?Last Taken ?Type aspirin 81 mg tablet,delayed 81 mg PO DAILY 02/28/20 10/13/24 Unknown History release cholecalciferol (vitamin D3) 50 50 mcg PO DAILY 07/04/20 10/13/24 Unknown History mcg (2,000 unit) capsule multivitamin 1 tab PO DAILY 07/04/20 10/13/24 Unknown History vitamin B complex 1 tab PO DAILY 07/04/20 10/13/24 Unknown History metoprolol tartrate 25 mg tablet 25 mg PO BID 02/21/21 10/13/24 Unknown History primidone 250 mg tablet 250 mg PO TID 08/01/22 10/13/24 Unknown History diphenhydramine HCl 25 mg capsule 25 mg PO BEDTIME PRN unknwon 11/27/23 10/13/24 Unknown History (Benadryl) Probiotic 1 cap PO DAILY 10/13/24 10/13/24 Unknown History lorazepam 0.5 mg tablet 0.5 - 1 mg PO DAILY PRN anxiety 10/13/24 10/13/24 Unknown History mirabegron 50 mg tablet,extended 50 mg PO DAILY 10/13/24 10/13/24 Unknown History release 24 hr sertraline 100 mg tablet 100 mg PO DAILY 10/13/24 10/13/24 Unknown History vibegron 75 mg tablet (Gemtesa) 75 mg PO DAILY 10/13/24 10/13/24 Unknown History Physical Exam 2 Vital Signs and Narrative: Vital Signs: Last Vital Signs Temp 98.2 F 10/15/24 08:12 Pulse 68 10/15/24 09:16 Resp 16 10/14/24 20:00 BP 116/70 10/15/24 09:16 Pulse Ox 98 10/15/24 08:12 O2 Del Method Room Air 10/15/24 08:12 BMI result Body Mass Index 28.6 CONST: Alert and oriented, in NAD. Well nourished HEENT: Normocephalic, atraumatic, MMM, Eyes clear, Neck supple RESP: Lungs clear, RRR even and regular HEART:,RRR, S1, S2. No murmur, no edema GI:Abdomen Soft NT, ND. + BS times four :Deferred SKIN: Warm dry and intact, no visible lesions or rashes NEURO:CN II-XII Intact bilaterally, Sensation intact. Speech clear PSYCH: Normal affect Results Labs 10/13/24 14:34 10/13/24 14:49 Assessment and Plan (1) Cardiac defibrillator in place: Status: Acute (2) Atrial fibrillation: Status: Acute Plan ECT risk stratification. Patient has never had ECT treatments RCRI 0 points, Cardiology consult-See notes Patient denies any past problems with anesthesia. EKG shows Dual paced rhythm with PVC's . Per cardiology Device working well- Recommend Magnet over the device during procedure. Cardiac monitoring during procedure. Based on stated PMH, HPI, and physical exam, there are no There are no obvious contraindications to the planned procedure. Thank you for allowing me to participate in the care of this patient. Signing off at this time. Please reconsult of any acute concerns or issues arise
--- NOTE | 2024-10-15 13:00 | CA_ITS ---
Transthoracic Echocardiogram Patient (Last, First, Middle): Damian Aguilera J Gender: Male Date of : 1960 Age: 64 Procedure Date: 10/15/2024 Procedure Type: Transthoracic Echocardiogram Location: M5 Height: 182.88 cm Weight: 95.26 kg BSA: 2.18 m2 Heart Rate: bpm BP: 116 / 70 mmHg Genetic Coordinator: TO Referring MD: Leela Lima APRN Lifestyle Consultant: Deven Buchanan MD Symptoms: ect clearance Study Quality: Fair/Contrast ECG Rhythm: AV paced rhythm Conclusions: - 1. Low normal LV ejection fraction 50-55% with impaired relaxation filling pattern 2. Mild aortic regurgitation 3. Mildly dilated ascending aorta at 4.2 cm 4. Normal RV systolic pressure 5. No pericardial effusion Findings Procedure Information Contrast agent, definity, is being given per protocol without apparent complications. Left Ventricle Normal left ventricular cavity size. There is normal left ventricular wall thickness. The left ventricular systolic function is low normal. The visually estimated ejection fraction is between 50-55%. There is paradoxical septal motion consistent with a right ventricular pacemaker. Spectral Doppler is indicative of an impaired relaxation filling pattern. E/E prime ratio is between 8 and 15 consistent with indeterminate filling pressures. Right Ventricle Normal right ventricular cavity size and systolic function. There is a pacemaker wire seen in the right ventricle. Atria The left atrium is normal in size. Interatrial shunt cannot be excluded. The right atrium is normal in size. A pacemaker wire is identified in the right atrium. Aortic Valve Normal aortic valve structure and function. There is no aortic valve stenosis. There is mild aortic valve regurgitation. Mitral Valve Normal mitral valve structure and function. There is trace mitral valve regurgitation. There is no mitral valve stenosis. Pulmonic Valve The pulmonic valve is likely normal. Tricuspid Valve Normal tricuspid valve structure. There is trace tricuspid valve regurgitation. The right ventricular systolic pressure is normal. The right ventricular systolic pressure is 19 mmHg. Normal right atrial pressure. There is no evidence of pulmonary hypertension. Great Vessels The pulmonary artery was not well visualized. There is mild dilatation of the ascending aorta measuring 4.20 cm. Small plaque is seen in the sino tubular ridge. Venous The inferior vena cava is normal in size and collapses greater than 50% with inspiration. Pericardium/Pleural There is no evidence of pericardial effusion. Prior Study Comparison Changes noted compared to prior study dated: 07/02/2018. LV systolic function has marginally reduced Measurements 2D Linear Measurements IVSd: 1.01 0.6-0.9/0.6-1.0 cm LVIDd: 5.56 3.9-5.3/4.2-5.9 cm LVIDd Index: 2.55 2.4-3.2/2.2-3.1 cm/m2 LVIDs: 4.11 2.0-3.6 cm LVPWd: 0.77 0.7-1.1 cm LA Diam: 3.40 2.7-3.8/3.0-4.0 cm LAIDs Index: 1.56 1.5-2.3 cm/m2 LV Mass: 232.68 67-162/88-224 g LV Mass Index: 106.73 43-95/49-115 g/m2 LVOT Diam: 2.50 3.0+(-)1.3 cm Mitral Valve MV Pk E: 0.66 MV PK A: 0.53 MV Decel Time: 244.00 E/A: 1.20 E'Lateral: 6.64 E'Medial: 6.20 E/E' Med: 10.60 E/E' Lat: 9.90 PHT: 71.00 MVA PHT: 3.10 Decel [place]: 2.69 Aortic Valve AoV Pk Simone: 1.33 AoV Mn Simone: 1.00 AoV VTI: 0.29 AoV Pk Grad: 7.00 Aov Mn Grad: 4.00 ANN-MARIE Cont.VTI: 4.66 LVOT LVOT Pk Simone: 1.31 LVOT Mn Simone: 0.93 LVOT VTI: 0.28 LVOT Pk Grad: 7.00 LVOT Mn Grad: 4.00 LVOT Diam: 2.50 LVOT Area: 4.91 Diastolic Function MV Pk E: 0.66 MV Pk A: 0.53 E/A: 1.20 E'Medial: 6.20 E/E' Med: 10.60 E' Laterial: 6.64 E/E' Lat: 9.90 Right Ventricle TAPSE (mm): 25.90 TVS' Simone: 11.30 Tricuspid Valve TR Pk Simone: 2.03 TR Pk Grad: 16.00 RA Press: 3.00 RVSP: 19.00 Great Vessels Aorta Sinus of Valsalva: 4.19 2.0-3.5 cm Ao Asc: 4.20 2.1-3.4 cm Updated in Other Vendor System with Status of Final Deven Buchanan MD electronically signed on 10/15/2024 5:12:43 PM with status of Final
--- NOTE | 2024-10-15 13:10 | PM.EVENT ---
Documented by User: Leela Lima APRN 10/15/24 15:32 Event Note Date of Service: 10/15/24 Event Note: Pt seen by Dr. Buchanan who recommends cardiac echo which is ordered. If pt's echo is unchanged he is optimized for the ECT. However, he will need his device to be reprogrammed prior to ECT Time Spent With Patient Time: Total time managing care of this patient today ____ minutes. Documented by User: Tyler Kelley MD 10/18/24 13:23 Event Note Date of Service: 10/18/24
--- NOTE | 2024-10-15 15:58 | P.CONCA_ITS ---
History of Present Illness History of Present Illness Date of Service: 10/15/24 Requesting physician: Tyler Kelley Consult reason: pre-op evaluation Chief complaint: Sec 12 Narrative: I was consulted to see Damian in cardiology consultation today for pre ECT evaluation. Patient is admitted for suicide ideation and considered to undergo ECT. Patient has prior history of reported hypertrophic cardiomyopathy although there was no obstructive physiology as noted by prior echo reports, dual-chamber Medtronic ICD placement, implanted 1st time in 2010 for syncope and noted nonsustained ventricular tachycardia. At that time he had undergone cardiac catheterization which had shown no significant coronary artery disease. Patient has had 2 pulse generator change, last when he said about a year ago. He follows with outside cardiology group, [facility] and says that he has had routine device checks last checked this spring. He said the device function was adequate as per him. He has never had recurrent syncopal event or ICD discharge. He has no history of heart failure. 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 He said he can also walk unlimited amount without any symptoms exertional chest pain or shortness of breath. He has been admitted for the behavioral issues and plan for ECT. Cardiology consult was sought because of his prior cardiac history. His EKG shows AV dual paced rhythm. Review of Systems 2 Constitutional: Constitutional: Reports no additional constitutional complaints Eyes: Eyes: Reports no additional eye complaints Cardiovascular: Cardiovascular: Reports no additional cardiovascular complaints Respiratory: Respiratory: Reports no additional respiratory complaints Gastrointestinal: Gastrointestinal: Reports no additional gastrointestinal complaints Genitourinary: Genitourinary: Reports no additional male genitourinary complaints Musculoskeletal: Musculoskeletal: Reports no additional musculoskeletal complaints Integumentary/Breasts: Skin/Breast: Reports system reviewed and no additional complaints, except as docu Neurologic: Reports system reviewed and no additional complaints, except as documented PMFSH Past Medical History Medical History Overactive bladder Bladder outlet obstruction Weak urinary stream Hypogonadism in male Hypertrophic cardiomyopathy Coarse tremor HTN (hypertension) [place] (nonalcoholic steatohepatitis) Burrows's neuroma of right foot PTSD (post-traumatic stress disorder) Peyronie's disease Atrial fibrillation Asthma PAYAL on CPAP Dyspnea Family History Family History Father Lung disease Substance use disorder Mother Type 2 diabetes mellitus Brother Substance use disorder Other Cancer Diabetes mellitus Mental health disorder Surgical History Surgical History History of colonoscopy History of neck surgery History of appendectomy Social History Social History Household Members: Spouse Housing: House Patient Tobacco Use Status: Never used Tobacco Smoked in Last 30 Days: No e-Cigarette/Vaping Use: Never Used Patient Interested in Nicotine Replacement: No Second Hand Smoke Exposure: Yes (Father was a heavy smoker) Use of substances other than those prescribed or required for medical reasons: No Currently Displaying Signs/Symptoms of Drug Intoxication Withdrawal: No Have you been hit, kicked, punched, or otherwise hurt by someone within the past year? If so, by whom?: No Do you feel safe in your current relationship?: Yes Is there a partner from a previous relationship who is making you feel unsafe now?: No Are you made to feel afraid or neglected: No Advance Directives: No Advance Directives Information Provided: No Do you have thoughts of harming others: None Do you have a plan to hurt others: No Plan Recently lost weight without trying: No Eating poorly because of decreased appetite: No Nutrition Risks: No Nutritional Risk Poor oral hygiene: No service: No Current occupational status: employed Current occupation: [employer] Current occupational exposures/hazards: Yes Sexual orientation: Straight/Heterosexual Cognitive needs: No Hearing needs: No Vision needs: No Meds Allergies Allergy/AdvReac Type Severity Reaction Status Date / Time aripiprazole [From Abilify] AdvReac Intermediate Increased Verified 10/13/24 13:28 agitation and depression Penicillins AdvReac Intermediate Nausea and Verified 10/13/24 13:28 Vomiting propranolol [Propranolol] AdvReac Intermediate Nausea and Verified 10/13/24 13:28 Vomiting shellfish derived AdvReac Intermediate Vomiting Verified 10/13/24 13:28 duloxetine [From CYMBALTA] AdvReac Mild Increased Verified 10/13/24 13:28 agitation mirtazapine [MIRTAZAPINE] AdvReac Mild Manic Verified 10/13/24 13:28 symptoms prednisone AdvReac Mild Anger Verified 10/13/24 13:28 issues risperidone [From RISPERDAL] AdvReac Mild Previous Verified 10/13/24 13:28 bad reaction and drug interaction with Wellbutrin Active Medications: Current Medications Acetaminophen (Acetaminophen 325 Mg Tablet) 650 mg PO Q6H PRN PRN Reason: Headache/Pain, Scale 1-10 Last Admin: 10/14/24 15:52 Dose: 650 mg Al Hydroxide/Mg Hydroxide (Magnesium Hydrox/Alum Hydrox 30 Ml Oral.Susp) 30 ml PO Q6H PRN PRN Reason: Heartburn/Nausea Aspirin (Aspirin Enteric Coated 81 Mg Tablet.Dr) 81 mg PO DAILY [facility] Last Admin: 10/15/24 09:16 Dose: 81 mg Atorvastatin Calcium (Atorvastatin Calcium 40 Mg Tablet) 40 mg PO DAILY [facility] Last Admin: 10/15/24 09:15 Dose: 40 mg Diphenhydramine HCl (Diphenhydramine Hcl 25 Mg Capsule) 25 mg PO BEDTIME PRN PRN Reason: unknown Last Admin: 10/13/24 22:29 Dose: 25 mg Doxazosin Mesylate (Doxazosin Mesylate 2 Mg Tablet) 5 mg PO BEDTIME [facility] Last Admin: 10/14/24 21:17 Dose: Not Given Gabapentin (Gabapentin 300 Mg Capsule) 300 mg PO TID [facility] Last Admin: 10/15/24 09:16 Dose: 300 mg Hydroxyzine HCl (Hydroxyzine Hcl 25 Mg Tablet) 25 mg PO Q6H PRN PRN Reason: mild anxiety Lorazepam (Lorazepam 0.5 Mg Tablet) 0.5 mg PO DAILY PRN PRN Reason: Anxiety Magnesium Hydroxide (Milk Of Magnesia 30 Ml Oral.Susp) 30 ml PO DAILY PRN PRN Reason: Constipation Metoprolol Tartrate (Metoprolol Tartrate 25 Mg Tablet) 25 mg PO BID [facility]; Protocol Last Admin: 10/15/24 09:16 Dose: 25 mg Multivitamins/Vitamin C (Multivitamin Tablet) 1 tab PO DAILY [facility] Last Admin: 10/15/24 09:16 Dose: 1 tab Nicotine Polacrilex (Nicotine Polacrilex 2 Mg Gum) 4 mg BUCCAL Q2H PRN PRN Reason: Nicotine Cravings Non-Formulary Medication (Vibegron [Gemtesa]) 75 mg PO DAILY [facility] Olanzapine (Olanzapine 2.5 Mg Tablet) 2.5 mg PO BID [facility] Last Admin: 10/15/24 09:15 Dose: 2.5 mg Primidone (Primidone 50 Mg Tablet) 250 mg PO TID [facility] Last Admin: 10/15/24 09:17 Dose: 250 mg Sertraline HCl (Sertraline Hcl 100 Mg Tablet) 100 mg PO DAILY [facility] Last Admin: 10/15/24 09:17 Dose: 100 mg Sertraline HCl (Sertraline Hcl 50 Mg Tablet) 50 mg PO BEDTIME [facility] Last Admin: 10/14/24 21:18 Dose: 50 mg Trazodone HCl (Trazodone Hcl 50 Mg Tablet) 50 mg PO BEDTIME MRX1 PRN PRN Reason: Insomnia Home Medications ?Medication ?Instructions ?Recorded ?Confirmed ?Last Taken ?Type aspirin 81 mg tablet,delayed 81 mg PO DAILY 02/28/20 10/13/24 Unknown History release cholecalciferol (vitamin D3) 50 50 mcg PO DAILY 07/04/20 10/13/24 Unknown History mcg (2,000 unit) capsule multivitamin 1 tab PO DAILY 07/04/20 10/13/24 Unknown History vitamin B complex 1 tab PO DAILY 07/04/20 10/13/24 Unknown History metoprolol tartrate 25 mg tablet 25 mg PO BID 02/21/21 10/13/24 Unknown History primidone 250 mg tablet 250 mg PO TID 08/01/22 10/13/24 Unknown History diphenhydramine HCl 25 mg capsule 25 mg PO BEDTIME PRN unknwon 11/27/23 10/13/24 Unknown History (Benadryl) Probiotic 1 cap PO DAILY 10/13/24 10/13/24 Unknown History lorazepam 0.5 mg tablet 0.5 - 1 mg PO DAILY PRN anxiety 10/13/24 10/13/24 Unknown History mirabegron 50 mg tablet,extended 50 mg PO DAILY 10/13/24 10/13/24 Unknown History release 24 hr sertraline 100 mg tablet 100 mg PO DAILY 10/13/24 10/13/24 Unknown History vibegron 75 mg tablet (Gemtesa) 75 mg PO DAILY 10/13/24 10/13/24 Unknown History Physical Exam 2 Vital Signs: Vital Signs: Last Vital Signs Temp 98.2 F 10/15/24 08:12 Pulse 68 10/15/24 09:16 Resp 16 10/14/24 20:00 BP 116/70 10/15/24 09:16 Pulse Ox 98 10/15/24 08:12 O2 Del Method Room Air 10/15/24 08:12 BMI result Body Mass Index 28.6 Const: General: cooperative, comfortable, no acute distress, alert, awake and Physically active Nutritional Appearance: overweight O rientation/consciousness: patient oriented x3 HEENT: Head: Yes normocephalic and Yes atraumatic Neck: Neck: Yes trachea midline, Yes supple and Yes no JVD Resp: Effort & Inspection: normal respiratory effort Auscultation: clear to auscultation bilaterally Cardio: Jugular venous distension: no JVD Palpation: normal PMI Rate: r egular rate Rhythm: regular rhythm Heart sounds: S1 normal heart sound present, S2 normal heart sound present, no click, no gallops and no murmurs GI: Auscultation: normal bowel sounds Skin: General skin exam: no rashes or lesions noted Neuro: General: patient oriented x3 and no focal motor deficits Extrem: General: Yes no clubbing, cyanosis or edema Objective Labs and Meds 10/13/24 14:34 10/13/24 14:49 Lab results: EKG shows AV dual paced rhythm Assessment and Plan (1) Pre-operative cardiovascular examination: Status: Acute Preoperative cardiovascular risk stratification this elderly gentleman with prior history of hypertrophic cardiomyopathy status post dual-chamber ICD placement for syncope and nonsustained ventricular tachycardia with no ICD events ever in his life as per him. He has no symptoms at high workload. No signs or symptoms of heart failure. He has currently underlying AV dual paced rhythm with normal function of the device on EKG. At this point time he is currently optimized to undergo ECT from cardiac perspective with low to intermediate risk. I would continue metoprolol therapy in the perioperative time. He would require deactivation office tachy therapy during the ECT to prevent inappropriate shocks. This can be accomplished by putting a magnet over the device. When the magnet is over the device he will need to be monitored closely with full disclosure cardiac monitoring to monitor for ventricular arrhythmias. Once the magnet is lifted, device will return back to its normal function. Please consult us during the periprocedural time if there are any issues. Will sign of the case. Thank you for allowing me to partake in his care Procedures Date of Service Date of Service: 10/15/24
[2024-10-15 20:00] VITALS: BP 100/64; PULSE 74; RESP 16; TEMP 36.6; O2SAT 97
[2024-10-15] MEDS: Sertraline HCL 50 MG TABLET PO (20:35)
[2024-10-15 20:36] VITALS: BP 100/64
[2024-10-15] MEDS: Doxazosin Mesylate 2 MG TABLET 5 MG PO (20:36)
[2024-10-15 20:39] VITALS: BP 100/64; PULSE 74
[2024-10-16 08:12] VITALS: BP 125/59; PULSE 61; TEMP 36.9; O2SAT 96
[2024-10-16] MEDS: Primidone 50 MG TABLET 250 MG PO ×3 (09:34→21:27)
[2024-10-16 09:35] VITALS: BP 128/64
[2024-10-16] MEDS: Aspirin Enteric Coated 81 MG TABLET.DR PO (09:35)
[2024-10-16] MEDS: Sertraline HCL 100 MG TABLET PO ×2 (09:35→21:30)
[2024-10-16] MEDS: Gabapentin 300 MG CAPSULE PO ×3 (09:35→21:30)
[2024-10-16] MEDS: Atorvastatin Calcium 40 MG TABLET PO (09:35)
[2024-10-16] MEDS: Multivitamin TABLET 1 TAB PO (09:35)
[2024-10-16] MEDS: Metoprolol Tartrate 25 MG TABLET PO ×2 (09:35→21:31)
[2024-10-16] MEDS: OLANZapine 2.5 MG TABLET PO ×2 (09:35→21:29)
[2024-10-16 19:40] VITALS: BP 110/64; PULSE 66; RESP 20; TEMP 36.6; O2SAT 98
[2024-10-16] MEDS: Doxazosin Mesylate 2 MG TABLET 5 MG PO (21:27)
--- NOTE | 2024-10-17 00:24 | HO.PSYCHPN ---
Subjective Subjective Date of Service: 10/16/24 Reason For Visit: Sec 12 Interim History: late entry note for pt seen on 10/16/24; family meeting w/ pt depressed but feeling a little better; discussed ECT and whether he needs a stress test. Discussed medications and pt agreed to increase zoloft to 200mg total daily dose, as he's been on 140mg for years; pt wondering if increase in meds could be helpful enough he would not need ECt. Also discussed [place] (risks/side-effects) and pt considering. No SI Mental Status Exam Mental Status Exam Narrative: Pt is alert and oriented; behavior is cooperative, friendly and calm; patient is not in distress; dressed in casual attire with adequate hygiene; mood is described as little better and affect congruent; eye contact appropriate; Speech is normal rate, volume and prosody and not pressured; no psychomotor agitation/retardation present; thought process is organized and goal directed; Thought content is on tx; otherwise pertinent to relevant topics and without any delusional content, paranoid ideations or grandiosity; denies any SI/HI. Denies AVH and there is no evidence of perceptual disturbance. Patients insight and judgment impaired but improving. Diagnostics Vital Signs (24Hr): Vital Signs - 24 hr 10/16/24 08:12 10/16/24 09:35 10/16/24 19:40 Temperature 98.5 F 97.8 F Pulse Rate 61 66 Respiratory Rate 20 Blood Pressure 125/59 L 128/64 110/64 Pulse Oximetry 96 98 Oxygen Delivery Method Room Air Room Air BMI result Body Mass Index 28.6 Labs 10/13/24 14:34 10/13/24 14:49 Medications Medications Current Medications Acetaminophen (Acetaminophen 325 Mg Tablet) 650 mg PO Q6H PRN PRN Reason: Headache/Pain, Scale 1-10 Last Admin: 10/14/24 15:52 Dose: 650 mg Al Hydroxide/Mg Hydroxide (Magnesium Hydrox/Alum Hydrox 30 Ml Oral.Susp) 30 ml PO Q6H PRN PRN Reason: Heartburn/Nausea Aspirin (Aspirin Enteric Coated 81 Mg Tablet.Dr) 81 mg PO DAILY [facility] Last Admin: 10/16/24 09:35 Dose: 81 mg Atorvastatin Calcium (Atorvastatin Calcium 40 Mg Tablet) 40 mg PO DAILY [facility] Last Admin: 10/16/24 09:35 Dose: 40 mg Diphenhydramine HCl (Diphenhydramine Hcl 25 Mg Capsule) 25 mg PO BEDTIME PRN PRN Reason: unknown Last Admin: 10/13/24 22:29 Dose: 25 mg Doxazosin Mesylate (Doxazosin Mesylate 2 Mg Tablet) 5 mg PO BEDTIME [facility] Last Admin: 10/16/24 21:27 Dose: 5 mg Gabapentin (Gabapentin 300 Mg Capsule) 300 mg PO TID [facility] Last Admin: 10/16/24 21:30 Dose: 300 mg Hydroxyzine HCl (Hydroxyzine Hcl 25 Mg Tablet) 25 mg PO Q6H PRN PRN Reason: mild anxiety Lorazepam (Lorazepam 0.5 Mg Tablet) 0.5 mg PO DAILY PRN PRN Reason: Anxiety Magnesium Hydroxide (Milk Of Magnesia 30 Ml Oral.Susp) 30 ml PO DAILY PRN PRN Reason: Constipation Metoprolol Tartrate (Metoprolol Tartrate 25 Mg Tablet) 25 mg PO BID [facility]; Protocol Last Admin: 10/16/24 21:31 Dose: 25 mg Multivitamins/Vitamin C (Multivitamin Tablet) 1 tab PO DAILY [facility] Last Admin: 10/16/24 09:35 Dose: 1 tab Nicotine Polacrilex (Nicotine Polacrilex 2 Mg Gum) 4 mg BUCCAL Q2H PRN PRN Reason: Nicotine Cravings Olanzapine (Olanzapine 2.5 Mg Tablet) 2.5 mg PO BID [facility] Last Admin: 10/16/24 21:29 Dose: 2.5 mg Primidone (Primidone 50 Mg Tablet) 250 mg PO TID [facility] Last Admin: 10/16/24 21:27 Dose: 250 mg Sertraline HCl (Sertraline Hcl 100 Mg Tablet) 100 mg PO DAILY [facility] Last Admin: 10/16/24 09:35 Dose: 100 mg Sertraline HCl (Sertraline Hcl 100 Mg Tablet) 100 mg PO BEDTIME [facility] Last Admin: 10/16/24 21:30 Dose: 100 mg Trazodone HCl (Trazodone Hcl 50 Mg Tablet) 50 mg PO BEDTIME MRX1 PRN PRN Reason: Insomnia Allergies Allergies Allergy/AdvReac Type Severity Reaction Status Date / Time aripiprazole [From [facility]] AdvReac Intermediate Increased Verified 10/13/24 13:28 agitation and depression Penicillins AdvReac Intermediate Nausea and Verified 10/13/24 13:28 Vomiting propranolol [Propranolol] AdvReac Intermediate Nausea and Verified 10/13/24 13:28 Vomiting shellfish derived AdvReac Intermediate Vomiting Verified 10/13/24 13:28 duloxetine [From CYMBALTA] AdvReac Mild Increased Verified 10/13/24 13:28 agitation mirtazapine [MIRTAZAPINE] AdvReac Mild Manic Verified 10/13/24 13:28 symptoms prednisone AdvReac Mild Anger Verified 10/13/24 13:28 issues risperidone [From RISPERDAL] AdvReac Mild Previous Verified 10/13/24 13:28 bad reaction and drug interaction with Wellbutrin Assessment & Plan Assessment & Plan (1) PTSD (post-traumatic stress disorder): Status: Acute Code(s): F43.10 - Post-traumatic stress disorder, unspecified (2) Suicidal ideation: Status: Acute Code(s): R45.851 - Suicidal ideations (3) Recurrent major depression: Status: Acute Code(s): F33.9 - Major depressive disorder, recurrent, unspecified (4) Generalized anxiety disorder with panic attacks: Status: Acute Code(s): F41.1 - Generalized anxiety disorder; F41.0 - Panic disorder [episodic paroxysmal anxiety] Plan 10/16 pt depressed but feeling a little better; discussed ECT and whether he needs a stress test. Discussed medications and pt agreed to increase zoloft to 200mg total daily dose, as he's been on 140mg for years; pt wondering if increase in meds could be helpful enough he would not need ECt. Also discussed [place] (risks/side-effects) and pt considering. No SI PLAN: Increase Zoloft to 100mg BID (pt has been taking in divided doses) Olanzapine 2.5 mg bid initiated Echo today to prepare for ECT clearance Pt attending milieu groups, interacting with his peers Continue tx. Patient educated on: diagnosis and medication risk/benefits Informed Consent: understands Reason for continued inpatient stay Substantial Risk for: rapid decompensation Time Spent With Patient Time: Total time managing care of this patient today ____ minutes.
--- NOTE | 2024-10-17 00:32 | HO.PSYCHPN ---
Subjective Subjective Date of Service: 10/17/24 Reason For Visit: Sec 12 Interim History: Met with patient; discussed with team Patient reports he remains feeling a little better; denies any SI and says not at all. Tolerates increased dose of Zoloft. Discussed tattoo identifier impression and ECT. At this time patient wants to hold off on ECT and see if medication management with Zoloft and perhaps lithium, could be sufficient. Diagnostics Vital Signs (24Hr): Vital Signs - 24 hr 10/16/24 08:12 10/16/24 09:35 10/16/24 19:40 Temperature 98.5 F 97.8 F Pulse Rate 61 66 Respiratory Rate 20 Blood Pressure 125/59 L 128/64 110/64 Pulse Oximetry 96 98 Oxygen Delivery Method Room Air Room Air BMI result Body Mass Index 28.6 Labs 10/13/24 14:34 10/13/24 14:49 Medications Medications Current Medications Acetaminophen (Acetaminophen 325 Mg Tablet) 650 mg PO Q6H PRN PRN Reason: Headache/Pain, Scale 1-10 Last Admin: 10/14/24 15:52 Dose: 650 mg Al Hydroxide/Mg Hydroxide (Magnesium Hydrox/Alum Hydrox 30 Ml Oral.Susp) 30 ml PO Q6H PRN PRN Reason: Heartburn/Nausea Aspirin (Aspirin Enteric Coated 81 Mg Tablet.Dr) 81 mg PO DAILY [facility] Last Admin: 10/16/24 09:35 Dose: 81 mg Atorvastatin Calcium (Atorvastatin Calcium 40 Mg Tablet) 40 mg PO DAILY [facility] Last Admin: 10/16/24 09:35 Dose: 40 mg Diphenhydramine HCl (Diphenhydramine Hcl 25 Mg Capsule) 25 mg PO BEDTIME PRN PRN Reason: unknown Last Admin: 10/13/24 22:29 Dose: 25 mg Doxazosin Mesylate (Doxazosin Mesylate 2 Mg Tablet) 5 mg PO BEDTIME [facility] Last Admin: 10/16/24 21:27 Dose: 5 mg Gabapentin (Gabapentin 300 Mg Capsule) 300 mg PO TID [facility] Last Admin: 10/16/24 21:30 Dose: 300 mg Hydroxyzine HCl (Hydroxyzine Hcl 25 Mg Tablet) 25 mg PO Q6H PRN PRN Reason: mild anxiety Lorazepam (Lorazepam 0.5 Mg Tablet) 0.5 mg PO DAILY PRN PRN Reason: Anxiety Magnesium Hydroxide (Milk Of Magnesia 30 Ml Oral.Susp) 30 ml PO DAILY PRN PRN Reason: Constipation Metoprolol Tartrate (Metoprolol Tartrate 25 Mg Tablet) 25 mg PO BID [facility]; Protocol Last Admin: 10/16/24 21:31 Dose: 25 mg Multivitamins/Vitamin C (Multivitamin Tablet) 1 tab PO DAILY [facility] Last Admin: 10/16/24 09:35 Dose: 1 tab Nicotine Polacrilex (Nicotine Polacrilex 2 Mg Gum) 4 mg BUCCAL Q2H PRN PRN Reason: Nicotine Cravings Olanzapine (Olanzapine 2.5 Mg Tablet) 2.5 mg PO BID [facility] Last Admin: 10/16/24 21:29 Dose: 2.5 mg Primidone (Primidone 50 Mg Tablet) 250 mg PO TID [facility] Last Admin: 10/16/24 21:27 Dose: 250 mg Sertraline HCl (Sertraline Hcl 100 Mg Tablet) 100 mg PO DAILY [facility] Last Admin: 10/16/24 09:35 Dose: 100 mg Sertraline HCl (Sertraline Hcl 100 Mg Tablet) 100 mg PO BEDTIME [facility] Last Admin: 10/16/24 21:30 Dose: 100 mg Trazodone HCl (Trazodone Hcl 50 Mg Tablet) 50 mg PO BEDTIME MRX1 PRN PRN Reason: Insomnia Allergies Allergies Allergy/AdvReac Type Severity Reaction Status Date / Time aripiprazole [From Abilify] AdvReac Intermediate Increased Verified 10/13/24 13:28 agitation and depression Penicillins AdvReac Intermediate Nausea and Verified 10/13/24 13:28 Vomiting propranolol [Propranolol] AdvReac Intermediate Nausea and Verified 10/13/24 13:28 Vomiting shellfish derived AdvReac Intermediate Vomiting Verified 10/13/24 13:28 duloxetine [From CYMBALTA] AdvReac Mild Increased Verified 10/13/24 13:28 agitation mirtazapine [MIRTAZAPINE] AdvReac Mild Manic Verified 10/13/24 13:28 symptoms prednisone AdvReac Mild Anger Verified 10/13/24 13:28 issues risperidone [From RISPERDAL] AdvReac Mild Previous Verified 10/13/24 13:28 bad reaction and drug interaction with Wellbutrin Assessment & Plan Assessment & Plan (1) PTSD (post-traumatic stress disorder): Status: Acute Code(s): F43.10 - Post-traumatic stress disorder, unspecified (2) Suicidal ideation: Status: Acute Code(s): R45.851 - Suicidal ideations (3) Recurrent major depression: Status: Acute Code(s): F33.9 - Major depressive disorder, recurrent, unspecified (4) Generalized anxiety disorder with panic attacks: Status: Acute Code(s): F41.1 - Generalized anxiety disorder; F41.0 - Panic disorder [episodic paroxysmal anxiety] Plan 10/16 pt depressed but feeling a little better; discussed ECT and whether he needs a stress test. Discussed medications and pt agreed to increase zoloft to 200mg total daily dose, as he's been on 140mg for years; pt wondering if increase in meds could be helpful enough he would not need ECt. Also discussed [place] (risks/side-effects) and pt considering. No SI Hospital course: 10/16; patient calm, cooperative, organized in speech and behavior; present. Interdisciplinary Professor reviewed history, medications; patient doing a little better. No SI. Agrees to increase Zoloft as he has been on only 150 mg for years. Considering lithium but wants to see how he does 1st with 1 medication change. Still considering ECT but patient also wants to see if mood continues to improve with increased SSRI. 10/17 Patient reports he remains feeling a little better; denies any SI and says not at all. Tolerates increased dose of Zoloft. Discussed tattoo identifier impression and ECT. At this time patient wants to hold off on ECT and see if medication management with Zoloft and perhaps lithium, could be sufficient. -Will hold off scheduling ECT for now; patient will continue to monitor mood and see if improves with medication management. (regarding ECT, no stress test needed: see cardiology consult below) PLAN: Increasef Zoloft to 100mg BID (pt has been taking in divided doses) Olanzapine 2.5 mg bid initiated Considered [place] but pt's mood improving with Zoloft Pt attending milieu groups, interacting with his peers Continue tx. Dr. Buchanan, cardiology See Cardiology consult Alexander below: Preoperative cardiovascular risk stratification this elderly gentleman with prior history of hypertrophic cardiomyopathy status post dual-chamber ICD placement for syncope and nonsustained ventricular tachycardia with no ICD events ever in his life as per him. He has no symptoms at high workload. No signs or symptoms of heart failure. He has currently underlying AV dual paced rhythm with normal function of the device on EKG. At this point time he is currently optimized to undergo ECT from cardiac perspective with low to intermediate risk. I would continue metoprolol therapy in the perioperative time. He would require deactivation office tachy therapy during the ECT to prevent inappropriate shocks. This can be accomplished by putting a magnet over the device. When the magnet is over the device he will need to be monitored closely with full disclosure cardiac monitoring to monitor for ventricular arrhythmias. Once the magnet is lifted, device will return back to its normal function. Please consult us during the periprocedural time if there are any issues. Patient educated on: diagnosis, medication risk/benefits and ECT Informed Consent: understands Reason for continued inpatient stay Substantial Risk for: stable for discharge, rapid decompensation and med/psych decompensation Time Spent With Patient Time: Total time managing care of this patient today ____ minutes.
[2024-10-17] MEDS: Primidone 50 MG TABLET 250 MG PO ×3 (08:43→20:29)
[2024-10-17 08:44] VITALS: BP 110/66; PULSE 62
[2024-10-17] MEDS: OLANZapine 2.5 MG TABLET PO ×2 (08:44→20:28)
[2024-10-17] MEDS: Metoprolol Tartrate 25 MG TABLET PO ×2 (08:44→20:29)
[2024-10-17] MEDS: Sertraline HCL 100 MG TABLET PO ×2 (08:44→20:29)
[2024-10-17] MEDS: Aspirin Enteric Coated 81 MG TABLET.DR PO (08:44)
[2024-10-17] MEDS: Atorvastatin Calcium 40 MG TABLET PO (08:44)
[2024-10-17] MEDS: Multivitamin TABLET 1 TAB PO (08:45)
[2024-10-17] MEDS: Gabapentin 300 MG CAPSULE PO ×3 (08:45→20:30)
[2024-10-17 09:18] VITALS: BP 110/66; PULSE 62; TEMP 36.8; O2SAT 98
[2024-10-17 20:00] VITALS: BP 109/69; PULSE 63; RESP 15; TEMP 36.6; O2SAT 98
[2024-10-17] MEDS: Doxazosin Mesylate 2 MG TABLET 5 MG PO (20:30)
[2024-10-18 08:00] VITALS: BP 112/71; PULSE 64; TEMP 36.5; O2SAT 97
[2024-10-18] MEDS: Primidone 50 MG TABLET 250 MG PO ×3 (08:53→20:42)
[2024-10-18] MEDS: OLANZapine 2.5 MG TABLET PO ×2 (08:54→20:42)
[2024-10-18 08:55] VITALS: BP 112/71
[2024-10-18] MEDS: Multivitamin TABLET 1 TAB PO (08:55)
[2024-10-18] MEDS: Atorvastatin Calcium 40 MG TABLET PO (08:55)
[2024-10-18] MEDS: Sertraline HCL 100 MG TABLET PO ×2 (08:55→20:44)
[2024-10-18] MEDS: Metoprolol Tartrate 25 MG TABLET PO ×2 (08:55→20:41)
[2024-10-18] MEDS: Aspirin Enteric Coated 81 MG TABLET.DR PO (08:55)
[2024-10-18] MEDS: Gabapentin 300 MG CAPSULE PO ×3 (08:55→20:44)
--- NOTE | 2024-10-18 10:22 | HO.PSYCHPN ---
Subjective Subjective Date of Service: 10/18/24 Reason For Visit: depression with si Subjective Notes: Conditional Voluntary Healthcare Proxy: No Guardianship: No Medical Problems Affecting Mental Status: No Interim History: Pt reports feeling improved. Believes he will hold on ECT as he is feeling improved on medications, Olanzapine and Sertraline increase. Discussed that he is now aware and feeling relief that he has more treatment options should current plan not work. He reviewed our meeting with his prior to admission, focusing on commenting that she had noticed pt declining since Fall 2023. We discussed the importance of the observations of family and how we should trust these and include their observations in treatment. Pt is talking about discharge. I will take all of your advice. Medication Compliance: Yes Side effects from medications: No Attending Groups: Yes Review of Systems Acute medical concerns: No Medical Review of Systems: unchanged Review of Systems Review of Systems No. Mental Status Exam Mental Status Exam Patient Appearance: Appropriate Patient Orientation: Person, Place, Time and Situation Level of Consciousness: Alert Patient Behavior: Appropriate, Talkative, Cooperative and Good Eye Contact Mood Description: Anxious Affect Description: Appropriate Patient Cognition Impaired: No Ability to Follow Directions: Good Speech Pattern: Spontaneous Speech Memory Description: Intact Hallucinations: None Delusions: Not Present Thought Process: Intact, Rumination and Goal Oriented Thought Content: positive for Intact, positive for Goal Oriented and positive for Suicidal Ideation (denies) Depressive Symptoms: Thoughts of /Suicide (denies) Judgement: Good Diagnostics Vital Signs (24Hr): Vital Signs - 24 hr 10/17/24 20:00 10/18/24 08:00 10/18/24 08:55 Temperature 98 F 97.7 F Pulse Rate 63 64 Respiratory Rate 15 Blood Pressure 109/69 112/71 112/71 Pulse Oximetry 98 97 Oxygen Delivery Method Room Air BMI result Body Mass Index 28.6 Labs 10/13/24 14:34 10/13/24 14:49 Medications Medications Current Medications Acetaminophen (Acetaminophen 325 Mg Tablet) 650 mg PO Q6H PRN PRN Reason: Headache/Pain, Scale 1-10 Last Admin: 10/14/24 15:52 Dose: 650 mg Al Hydroxide/Mg Hydroxide (Magnesium Hydrox/Alum Hydrox 30 Ml Oral.Susp) 30 ml PO Q6H PRN PRN Reason: Heartburn/Nausea Aspirin (Aspirin Enteric Coated 81 Mg Tablet.) 81 mg PO DAILY [facility] Last Admin: 10/18/24 08:55 Dose: 81 mg Atorvastatin Calcium (Atorvastatin Calcium 40 Mg Tablet) 40 mg PO DAILY [facility] Last Admin: 10/18/24 08:55 Dose: 40 mg Diphenhydramine HCl (Diphenhydramine Hcl 25 Mg Capsule) 25 mg PO BEDTIME PRN PRN Reason: unknown Last Admin: 10/13/24 22:29 Dose: 25 mg Doxazosin Mesylate (Doxazosin Mesylate 2 Mg Tablet) 5 mg PO BEDTIME [facility] Last Admin: 10/17/24 20:30 Dose: 5 mg Gabapentin (Gabapentin 300 Mg Capsule) 300 mg PO TID [facility] Last Admin: 10/18/24 08:55 Dose: 300 mg Hydroxyzine HCl (Hydroxyzine Hcl 25 Mg Tablet) 25 mg PO Q6H PRN PRN Reason: mild anxiety Lorazepam (Lorazepam 0.5 Mg Tablet) 0.5 mg PO DAILY PRN PRN Reason: Anxiety Magnesium Hydroxide (Milk Of Magnesia 30 Ml Oral.Susp) 30 ml PO DAILY PRN PRN Reason: Constipation Metoprolol Tartrate (Metoprolol Tartrate 25 Mg Tablet) 25 mg PO BID [facility]; Protocol Last Admin: 10/18/24 08:55 Dose: 25 mg Multivitamins/Vitamin C (Multivitamin Tablet) 1 tab PO DAILY [facility] Last Admin: 10/18/24 08:55 Dose: 1 tab Nicotine Polacrilex (Nicotine Polacrilex 2 Mg Gum) 4 mg BUCCAL Q2H PRN PRN Reason: Nicotine Cravings Olanzapine (Olanzapine 2.5 Mg Tablet) 2.5 mg PO BID [facility] Last Admin: 10/18/24 08:54 Dose: 2.5 mg Primidone (Primidone 50 Mg Tablet) 250 mg PO TID [facility] Last Admin: 10/18/24 08:53 Dose: 250 mg Sertraline HCl (Sertraline Hcl 100 Mg Tablet) 100 mg PO DAILY [facility] Last Admin: 10/18/24 08:55 Dose: 100 mg Sertraline HCl (Sertraline Hcl 100 Mg Tablet) 100 mg PO BEDTIME [facility] Last Admin: 10/17/24 20:29 Dose: 100 mg Trazodone HCl (Trazodone Hcl 50 Mg Tablet) 50 mg PO BEDTIME MRX1 PRN PRN Reason: Insomnia Allergies Allergies Allergy/AdvReac Type Severity Reaction Status Date / Time aripiprazole [From [facility]] AdvReac Intermediate Increased Verified 10/13/24 13:28 agitation and depression Penicillins AdvReac Intermediate Nausea and Verified 10/13/24 13:28 Vomiting propranolol [Propranolol] AdvReac Intermediate Nausea and Verified 10/13/24 13:28 Vomiting shellfish derived AdvReac Intermediate Vomiting Verified 10/13/24 13:28 duloxetine [From CYMBALTA] AdvReac Mild Increased Verified 10/13/24 13:28 agitation mirtazapine [MIRTAZAPINE] AdvReac Mild Manic Verified 10/13/24 13:28 symptoms prednisone AdvReac Mild Anger Verified 10/13/24 13:28 issues risperidone [From RISPERDAL] AdvReac Mild Previous Verified 10/13/24 13:28 bad reaction and drug interaction with Wellbutrin Assessment & Plan Assessment & Plan (1) PTSD (post-traumatic stress disorder): Status: Acute Code(s): F43.10 - Post-traumatic stress disorder, unspecified (2) Suicidal ideation: Status: Acute Code(s): R45.851 - Suicidal ideations (3) Recurrent major depression: Status: Acute Code(s): F33.9 - Major depressive disorder, recurrent, unspecified (4) Generalized anxiety disorder with panic attacks: Status: Acute Code(s): F41.1 - Generalized anxiety disorder; F41.0 - Panic disorder [episodic paroxysmal anxiety] Plan 10/16 pt depressed but feeling a little better; discussed ECT and whether he needs a stress test. Discussed medications and pt agreed to increase zoloft to 200mg total daily dose, as he's been on 140mg for years; pt wondering if increase in meds could be helpful enough he would not need ECt. Also discussed [place] (risks/side-effects) and pt considering. No SI Hospital course: 10/16; patient calm, cooperative, organized in speech and behavior; present. Crossbar Frame Wirer reviewed history, medications; patient doing a little better. No SI. Agrees to increase Zoloft as he has been on only 150 mg for years. Considering lithium but wants to see how he does 1st with 1 medication change. Still considering ECT but patient also wants to see if mood continues to improve with increased SSRI. 10/17 Patient reports he remains feeling a little better; denies any SI and says not at all. Tolerates increased dose of Zoloft. Discussed marine operations coordinator impression and ECT. At this time patient wants to hold off on ECT and see if medication management with Zoloft and perhaps lithium, could be sufficient. -Will hold off scheduling ECT for now; patient will continue to monitor mood and see if improves with medication management. (regarding ECT, no stress test needed: see cardiology consult below). 10/18: Continue tx PLAN: Increasef Zoloft to 100mg BID (pt has been taking in divided doses) Olanzapine 2.5 mg bid initiated Considered [place] but pt's mood improving with Zoloft Pt attending milieu groups, interacting with his peers Continue tx. Dr. Buchanan, cardiology See Cardiology consult Alexander below: Preoperative cardiovascular risk stratification this elderly gentleman with prior history of hypertrophic cardiomyopathy status post dual-chamber ICD placement for syncope and nonsustained ventricular tachycardia with no ICD events ever in his life as per him. He has no symptoms at high workload. No signs or symptoms of heart failure. He has currently underlying AV dual paced rhythm with normal function of the device on EKG. At this point time he is currently optimized to undergo ECT from cardiac perspective with low to intermediate risk. I would continue metoprolol therapy in the perioperative time. He would require deactivation office tachy therapy during the ECT to prevent inappropriate shocks. This can be accomplished by putting a magnet over the device. When the magnet is over the device he will need to be monitored closely with full disclosure cardiac monitoring to monitor for ventricular arrhythmias. Once the magnet is lifted, device will return back to its normal function. Please consult us during the periprocedural time if there are any issues. Reason for continued inpatient stay Substantial Risk for: rapid decompensation Time Spent With Patient Time: Total time managing care of this patient today ____ minutes.
[2024-10-18 20:00] VITALS: BP 111/61; PULSE 77; RESP 16; TEMP 36.4; O2SAT 100
[2024-10-18 20:39] VITALS: BP 111/61
[2024-10-18] MEDS: Doxazosin Mesylate 2 MG TABLET 5 MG PO (20:39)
[2024-10-18 20:41] VITALS: BP 111/61; PULSE 77
[2024-10-18] MEDS: traZODone HCL 50 MG TABLET PO (23:22)
[2024-10-19 08:10] VITALS: BP 119/62; PULSE 74; RESP 16; TEMP 36.3; O2SAT 97
[2024-10-19] MEDS: Multivitamin TABLET 1 TAB PO (08:28)
[2024-10-19] MEDS: Primidone 50 MG TABLET 250 MG PO ×3 (08:28→21:26)
[2024-10-19] MEDS: Metoprolol Tartrate 25 MG TABLET PO ×2 (08:28→21:25)
[2024-10-19] MEDS: Aspirin Enteric Coated 81 MG TABLET.DR PO (08:28)
[2024-10-19] MEDS: Sertraline HCL 100 MG TABLET PO ×2 (08:28→21:24)
[2024-10-19] MEDS: Gabapentin 300 MG CAPSULE PO ×3 (08:28→21:23)
[2024-10-19] MEDS: OLANZapine 2.5 MG TABLET PO ×2 (08:28→21:23)
[2024-10-19] MEDS: Atorvastatin Calcium 40 MG TABLET PO (08:28)
--- NOTE | 2024-10-19 09:47 | P.PNPSI_ITS ---
Subjective Subjective Date of Service: 10/19/24 Reason For Visit: depression with si Subjective Notes: Conditional Voluntary Healthcare Proxy: No Guardianship: No Medical Problems Affecting Mental Status: No Interim History: Pt reports some difficulty with peers-tried to begin conversation with a peer who would not talk with him. Incident in group caused a flashback of an incident he recalls in [place] regarding addiction. Reports sleep latency sx. At home uses prn diphenhydramine/lorazepam which we will add tonight. Discussed discharge. Tentative plan for 10/22 with return to work 11/01. He is pleased with this plan. Medication Compliance: Yes Side effects from medications: No Attending Groups: Yes Review of Systems Acute medical concerns: No Review of Systems Review of Systems insomnia Mental Status Exam Mental Status Exam Patient Appearance: Appropriate Patient Orientation: Person, Place, Time and Situation Level of Consciousness: Alert Patient Behavior: Appropriate, Talkative, Cooperative, Anxious and Good Eye Contact Mood Description: Anxious Affect Description: Appropriate Patient Cognition Impaired: No Ability to Follow Directions: Good Speech Pattern: Spontaneous Speech Memory Description: Intact Hallucinations: None Delusions: Not Present Thought Process: Intact, Rumination and Goal Oriented Thought Content: positive for Intact, positive for Goal Oriented and positive for Suicidal Ideation (denies) Depressive Symptoms: Thoughts of /Suicide (denies) Judgement: Good Diagnostics Vital Signs (24Hr): Vital Signs - 24 hr 10/18/24 20:00 10/18/24 20:39 10/18/24 20:41 Temperature 97.5 F Pulse Rate 77 77 Respiratory Rate 16 Blood Pressure 111/61 111/61 111/61 Pulse Oximetry 100 Oxygen Delivery Method Room Air 10/19/24 08:10 Temperature 97.4 F Pulse Rate 74 Respiratory Rate 16 Blood Pressure 119/62 Pulse Oximetry 97 Oxygen Delivery Method Room Air BMI result Body Mass Index 28.6 Labs 10/13/24 14:34 10/13/24 14:49 Medications Medications Current Medications Acetaminophen (Acetaminophen 325 Mg Tablet) 650 mg PO Q6H PRN PRN Reason: Headache/Pain, Scale 1-10 Last Admin: 10/14/24 15:52 Dose: 650 mg Al Hydroxide/Mg Hydroxide (Magnesium Hydrox/Alum Hydrox 30 Ml Oral.Susp) 30 ml PO Q6H PRN PRN Reason: Heartburn/Nausea Aspirin (Aspirin Enteric Coated 81 Mg Tablet.) 81 mg PO DAILY [facility], [facility] Last Admin: 10/19/24 08:28 Dose: 81 mg Atorvastatin Calcium (Atorvastatin Calcium 40 Mg Tablet) 40 mg PO DAILY [facility], [facility] Last Admin: 10/19/24 08:28 Dose: 40 mg Diphenhydramine HCl (Diphenhydramine Hcl 25 Mg Capsule) 25 mg PO BEDTIME PRN PRN Reason: unknown Last Admin: 10/13/24 22:29 Dose: 25 mg Doxazosin Mesylate (Doxazosin Mesylate 2 Mg Tablet) 5 mg PO BEDTIME [facility], [facility] Last Admin: 10/18/24 20:39 Dose: 5 mg Gabapentin (Gabapentin 300 Mg Capsule) 300 mg PO TID [facility], [facility] Last Admin: 10/19/24 08:28 Dose: 300 mg Hydroxyzine HCl (Hydroxyzine Hcl 25 Mg Tablet) 25 mg PO Q6H PRN PRN Reason: mild anxiety Lorazepam (Lorazepam 0.5 Mg Tablet) 0.5 mg PO DAILY PRN PRN Reason: Anxiety Magnesium Hydroxide (Milk Of Magnesia 30 Ml Oral.Susp) 30 ml PO DAILY PRN PRN Reason: Constipation Metoprolol Tartrate (Metoprolol Tartrate 25 Mg Tablet) 25 mg PO BID [facility]LY [facility], [facility]; Protocol Last Admin: 10/19/24 08:28 Dose: 25 mg Multivitamins/Vitamin C (Multivitamin Tablet) 1 tab PO DAILY [facility] Last Admin: 10/19/24 08:28 Dose: 1 tab Nicotine Polacrilex (Nicotine Polacrilex 2 Mg Gum) 4 mg BUCCAL Q2H PRN PRN Reason: Nicotine Cravings Olanzapine (Olanzapine 2.5 Mg Tablet) 2.5 mg PO BID [facility], [facility] Last Admin: 10/19/24 08:28 Dose: 2.5 mg Primidone (Primidone 50 Mg Tablet) 250 mg PO TID [facility] Last Admin: 10/19/24 08:28 Dose: 250 mg Sertraline HCl (Sertraline Hcl 100 Mg Tablet) 100 mg PO DAILY [facility], [facility] Last Admin: 10/19/24 08:28 Dose: 100 mg Sertraline HCl (Sertraline Hcl 100 Mg Tablet) 100 mg PO BEDTIME [facility], [facility] Last Admin: 10/18/24 20:44 Dose: 100 mg Trazodone HCl (Trazodone Hcl 50 Mg Tablet) 50 mg PO BEDTIME MRX1 PRN PRN Reason: Insomnia Last Admin: 10/18/24 23:22 Dose: 50 mg Allergies Allergies Allergy/AdvReac Type Severity Reaction Status Date / Time aripiprazole [From Abilify] AdvReac Intermediate Increased Verified 10/13/24 13:28 agitation and depression Penicillins AdvReac Intermediate Nausea and Verified 10/13/24 13:28 Vomiting propranolol [Propranolol] AdvReac Intermediate Nausea and Verified 10/13/24 13:28 Vomiting shellfish derived AdvReac Intermediate Vomiting Verified 10/13/24 13:28 duloxetine [From CYMBALTA] AdvReac Mild Increased Verified 10/13/24 13:28 agitation mirtazapine [MIRTAZAPINE] AdvReac Mild Manic Verified 10/13/24 13:28 symptoms prednisone AdvReac Mild Anger Verified 10/13/24 13:28 issues risperidone [From RISPERDAL] AdvReac Mild Previous Verified 10/13/24 13:28 bad reaction and drug interaction with Wellbutrin Assessment & Plan Assessment & Plan (1) PTSD (post-traumatic stress disorder): Status: Acute Code(s): F43.10 - Post-traumatic stress disorder, unspecified (2) Suicidal ideation: Status: Acute Code(s): R45.851 - Suicidal ideations (3) Recurrent major depression: Status: Acute Code(s): F33.9 - Major depressive disorder, recurrent, unspecified (4) Generalized anxiety disorder with panic attacks: Status: Acute Code(s): F41.1 - Generalized anxiety disorder; F41.0 - Panic disorder [episodic paroxysmal anxiety] Plan 10/16 pt depressed but feeling a little better; discussed ECT and whether he needs a stress test. Discussed medications and pt agreed to increase zoloft to 200mg total daily dose, as he's been on 140mg for years; pt wondering if increase in meds could be helpful enough he would not need ECt. Also discussed [place] (risks/side- effects) and pt considering. No SI Hospital course: 10/16; patient calm, cooperative, organized in speech and behavior; present. Rand Sewer reviewed history, medications; patient doing a little better. No SI. Agrees to increase Zoloft as he has been on only 150 mg for years. Considering lithium but wants to see how he does 1st with 1 medication change. Still considering ECT but patient also wants to see if mood continues to improve with increased SSRI. 10/17 Patient reports he remains feeling a little better; denies any SI and says not at all. Tolerates increased dose of Zoloft. 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 At this time patient wants to hold off on ECT and see if medication management with Zoloft and perhaps lithium, could be sufficient. -Will hold off scheduling ECT for now; patient will continue to monitor mood and see if improves with medication management. (regarding ECT, no stress test needed: see cardiology consult below). 10/18: Continue tx 10/19: Benadryl prn for sleep;Lorazepam prn for sleep as well (regime pt uses at home with CPAP-works nights) PLAN: Increasef Zoloft to 100mg BID (pt has been taking in divided doses) Olanzapine 2.5 mg bid initiated Considered [place] but pt's mood improving with Zoloft Pt attending milieu groups, interacting with his peers Continue tx. Dr. Buchanan, cardiology See Cardiology consult Alexander below: Preoperative cardiovascular risk stratification this elderly gentleman with prior history of hypertrophic cardiomyopathy status post dual-chamber ICD placement for syncope and nonsustained ventricular tachycardia with no ICD events ever in his life as per him. He has no symptoms at high workload. No signs or symptoms of heart failure. He has currently underlying AV dual paced rhythm with normal function of the device on EKG. At this point time he is currently optimized to undergo ECT from cardiac perspective with low to intermediate risk. I would continue metoprolol therapy in the perioperative time. He would require deactivation office tachy therapy during the ECT to prevent inappropriate shocks. This can be accomplished by putting a magnet over the device. When the magnet is over the device he will need to be monitored closely with full disclosure cardiac monitoring to monitor for ventricular arrhythmias. Once the magnet is lifted, device will return back to its normal function. Please consult us during the periprocedural time if there are any issues. Reason for continued inpatient stay Substantial Risk for: rapid decompensation Time Spent With Patient Time: Total time managing care of this patient today ____ minutes.
[2024-10-19 20:00] VITALS: BP 124/73; PULSE 74; TEMP 36.6; O2SAT 97
[2024-10-19] MEDS: traZODone HCL 50 MG TABLET PO (21:23)
[2024-10-19] MEDS: Doxazosin Mesylate 2 MG TABLET 5 MG PO (21:24)
[2024-10-19] MEDS: LORazepam 0.5 MG TABLET PO (21:30)
[2024-10-20 07:59] VITALS: BP 113/73; PULSE 76; TEMP 36.5; O2SAT 98
[2024-10-20] MEDS: Primidone 50 MG TABLET 250 MG PO ×3 (08:42→21:41)
[2024-10-20] MEDS: Sertraline HCL 100 MG TABLET PO ×2 (08:43→21:46)
[2024-10-20] MEDS: Gabapentin 300 MG CAPSULE PO ×3 (08:43→21:43)
[2024-10-20] MEDS: OLANZapine 2.5 MG TABLET PO ×2 (08:43→21:46)
[2024-10-20] MEDS: Metoprolol Tartrate 25 MG TABLET PO ×2 (08:43→21:43)
[2024-10-20] MEDS: Multivitamin TABLET 1 TAB PO (08:43)
[2024-10-20] MEDS: Aspirin Enteric Coated 81 MG TABLET.DR PO (08:43)
[2024-10-20] MEDS: Atorvastatin Calcium 40 MG TABLET PO (08:43)
--- NOTE | 2024-10-20 12:05 | P.PNPSI_ITS ---
Subjective Subjective Date of Service: 10/20/24 Reason For Visit: depression with si Subjective Notes: Conditional Voluntary Healthcare Proxy: No Guardianship: No Medical Problems Affecting Mental Status: No Interim History: Discussed discharge planning. Pt feeling prepared, improved and ready. Sleep is still an issue. 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 He will continue to utilize Benadryl/Lorazepam prn and if sx persist, will address with his OP provider. Denies SI,HI,AH,VH. Denies sx of concern. Engaging in milieu. Medication Compliance: Yes Side effects from medications: No Attending Groups: Yes Review of Systems Acute medical concerns: No Review of Systems Review of Systems I am feeling good. Mental Status Exam Mental Status Exam Patient Appearance: Appropriate Patient Orientation: Person, Place, Time and Situation Level of Consciousness: Alert Patient Behavior: Appropriate, Talkative, Cooperative, Anxious and Good Eye Contact Mood Description: Anxious Affect Description: Appropriate Patient Cognition Impaired: No Ability to Follow Directions: Good Speech Pattern: Spontaneous Speech Memory Description: Intact Hallucinations: None Delusions: Not Present Thought Process: Intact, Rumination and Goal Oriented Thought Content: positive for Intact, positive for Goal Oriented and positive for Suicidal Ideation (denies) Depressive Symptoms: Thoughts of /Suicide (denies) Judgement: Good Diagnostics Vital Signs (24Hr): Vital Signs - 24 hr 10/19/24 20:00 10/20/24 07:59 Temperature 97.8 F 97.7 F Pulse Rate 74 76 Blood Pressure 124/73 113/73 Pulse Oximetry 97 98 Oxygen Delivery Method Room Air Room Air BMI result Body Mass Index 28.6 Labs 10/13/24 14:34 10/13/24 14:49 Medications Medications Current Medications Acetaminophen (Acetaminophen 325 Mg Tablet) 650 mg PO Q6H PRN PRN Reason: Headache/Pain, Scale 1-10 Last Admin: 10/14/24 15:52 Dose: 650 mg Al Hydroxide/Mg Hydroxide (Magnesium Hydrox/Alum Hydrox 30 Ml Oral.Susp) 30 ml PO Q6H PRN PRN Reason: Heartburn/Nausea Aspirin (Aspirin Enteric Coated 81 Mg Tablet.) 81 mg PO DAILY [facility] Last Admin: 10/20/24 08:43 Dose: 81 mg Atorvastatin Calcium (Atorvastatin Calcium 40 Mg Tablet) 40 mg PO DAILY [facility] Last Admin: 10/20/24 08:43 Dose: 40 mg Diphenhydramine HCl (Diphenhydramine Hcl 25 Mg Capsule) 50 mg PO BEDTIME PRN PRN Reason: unknown Doxazosin Mesylate (Doxazosin Mesylate 2 Mg Tablet) 5 mg PO BEDTIME [facility] Last Admin: 10/19/24 21:24 Dose: 5 mg Gabapentin (Gabapentin 300 Mg Capsule) 300 mg PO TID [facility] Last Admin: 10/20/24 08:43 Dose: 300 mg Hydroxyzine HCl (Hydroxyzine Hcl 25 Mg Tablet) 25 mg PO Q6H PRN PRN Reason: mild anxiety Lorazepam (Lorazepam 0.5 Mg Tablet) 0.5 mg PO DAILY PRN PRN Reason: Anxiety Lorazepam (Lorazepam 0.5 Mg Tablet) 0.5 mg PO BEDTIME PRN PRN Reason: Insomnia Last Admin: 10/19/24 21:30 Dose: 0.5 mg Magnesium Hydroxide (Milk Of Magnesia 30 Ml Oral.Susp) 30 ml PO DAILY PRN PRN Reason: Constipation Metoprolol Tartrate (Metoprolol Tartrate 25 Mg Tablet) 25 mg PO BID [facility]; Protocol Last Admin: 10/20/24 08:43 Dose: 25 mg Multivitamins/Vitamin C (Multivitamin Tablet) 1 tab PO DAILY [facility] Last Admin: 10/20/24 08:43 Dose: 1 tab Nicotine Polacrilex (Nicotine Polacrilex 2 Mg Gum) 4 mg BUCCAL Q2H PRN PRN Reason: Nicotine Cravings Olanzapine (Olanzapine 2.5 Mg Tablet) 2.5 mg PO BID [facility] Last Admin: 10/20/24 08:43 Dose: 2.5 mg Primidone (Primidone 50 Mg Tablet) 250 mg PO TID [facility] Last Admin: 10/20/24 08:42 Dose: 250 mg Sertraline HCl (Sertraline Hcl 100 Mg Tablet) 100 mg PO DAILY [facility] Last Admin: 10/20/24 08:43 Dose: 100 mg Sertraline HCl (Sertraline Hcl 100 Mg Tablet) 100 mg PO BEDTIME [facility] Last Admin: 10/19/24 21:24 Dose: 100 mg Trazodone HCl (Trazodone Hcl 50 Mg Tablet) 50 mg PO BEDTIME MRX1 PRN PRN Reason: Insomnia Last Admin: 10/19/24 21:23 Dose: 50 mg Allergies Allergies Allergy/AdvReac Type Severity Reaction Status Date / Time aripiprazole (From Abilify) AdvReac Intermediate Increased Verified 10/13/24 13:28 agitation and depression Penicillins AdvReac Intermediate Nausea and Verified 10/13/24 13:28 Vomiting propranolol (Propranolol) AdvReac Intermediate Nausea and Verified 10/13/24 13:28 Vomiting shellfish derived AdvReac Intermediate Vomiting Verified 10/13/24 13:28 duloxetine (From CYMBALTA) AdvReac Mild Increased Verified 10/13/24 13:28 agitation mirtazapine (MIRTAZAPINE) AdvReac Mild Manic Verified 10/13/24 13:28 symptoms prednisone AdvReac Mild Anger Verified 10/13/24 13:28 issues risperidone (From RISPERDAL) AdvReac Mild Previous Verified 10/13/24 13:28 bad reaction and drug interaction with Wellbutrin Assessment & Plan Assessment & Plan (1) PTSD (post-traumatic stress disorder): Status: Acute Code(s): F43.10 - Post-traumatic stress disorder, unspecified (2) Suicidal ideation: Status: Acute Code(s): R45.851 - Suicidal ideations (3) Recurrent major depression: Status: Acute Code(s): F33.9 - Major depressive disorder, recurrent, unspecified (4) Generalized anxiety disorder with panic attacks: Status: Acute Code(s): F41.1 - Generalized anxiety disorder; F41.0 - Panic disorder [episodic paroxysmal anxiety] Plan 10/16 pt depressed but feeling a little better; discussed ECT and whether he needs a stress test. Discussed medications and pt agreed to increase zoloft to 200mg total daily dose, as he's been on 140mg for years; pt wondering if increase in meds could be helpful enough he would not need ECt. Also discussed [place] (risks/side- effects) and pt considering. No SI Hospital course: 10/16; patient calm, cooperative, organized in speech and behavior; present. [employer] reviewed history, medications; patient doing a little better. No SI. Agrees to increase Zoloft as he has been on only 150 mg for years. Considering lithium but wants to see how he does 1st with 1 medication change. Still considering ECT but patient also wants to see if mood continues to improve with increased SSRI. 10/17 Patient reports he remains feeling a little better; denies any SI and says not at all. Tolerates increased dose of Zoloft. 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 At this time patient wants to hold off on ECT and see if medication management with Zoloft and perhaps lithium, could be sufficient. -Will hold off scheduling ECT for now; patient will continue to monitor mood and see if improves with medication management. (regarding ECT, no stress test needed: see cardiology consult below). 10/18: Continue tx 10/20: Continue tx PLAN: Increasef Zoloft to 100mg BID (pt has been taking in divided doses) Olanzapine 2.5 mg bid initiated Considered [place] but pt's mood improving with Zoloft Pt attending milieu groups, interacting with his peers Continue tx. Dr. Buchanan, cardiology See Cardiology consult Alexander below: Preoperative cardiovascular risk stratification this elderly gentleman with prior history of hypertrophic cardiomyopathy status post dual-chamber ICD placement for syncope and nonsustained ventricular tachycardia with no ICD events ever in his life as per him. He has no symptoms at high workload. No signs or symptoms of heart failure. He has currently underlying AV dual paced rhythm with normal function of the device on EKG. At this point time he is currently optimized to undergo ECT from cardiac perspective with low to intermediate risk. I would continue metoprolol therapy in the perioperative time. He would require deactivation office tachy therapy during the ECT to prevent inappropriate shocks. This can be accomplished by putting a magnet over the device. When the magnet is over the device he will need to be monitored closely with full disclosure cardiac monitoring to monitor for ventricular arrhythmias. Once the magnet is lifted, device will return back to its normal function. Please consult us during the periprocedural time if there are any issues. Reason for continued inpatient stay Substantial Risk for: rapid decompensation Time Spent With Patient Time: Total time managing care of this patient today ____ minutes.
[2024-10-20 20:00] VITALS: BP 127/67; PULSE 83; TEMP 36.4; O2SAT 99
[2024-10-20] MEDS: traZODone HCL 50 MG TABLET PO (21:44)
[2024-10-20] MEDS: Doxazosin Mesylate 2 MG TABLET 5 MG PO (21:44)
[2024-10-21 07:00] VITALS: BMI 28.9
[2024-10-21 08:00] VITALS: BP 91/51; PULSE 65; TEMP 36.8; O2SAT 99
[2024-10-21] MEDS: Multivitamin TABLET 1 TAB PO (08:57)
[2024-10-21] MEDS: Gabapentin 300 MG CAPSULE PO (08:58)
[2024-10-21] MEDS: Primidone 50 MG TABLET 250 MG PO ×3 (08:58→19:44)
[2024-10-21] MEDS: Atorvastatin Calcium 40 MG TABLET PO (08:58)
[2024-10-21] MEDS: Aspirin Enteric Coated 81 MG TABLET.DR PO (08:58)
[2024-10-21] MEDS: OLANZapine 2.5 MG TABLET PO ×2 (08:58→19:45)
[2024-10-21 09:40] VITALS: BP 112/58; PULSE 72
[2024-10-21] MEDS: Sertraline HCL 100 MG TABLET PO ×2 (09:40→19:44)
[2024-10-21] MEDS: Metoprolol Tartrate 25 MG TABLET PO ×2 (09:40→19:44)
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
[2024-10-21] MEDS: Gabapentin 400 MG CAPSULE PO ×2 (14:46→19:46)
[2024-10-21 19:42] VITALS: BP 109/56; PULSE 69; TEMP 36.4; O2SAT 97
[2024-10-21] MEDS: Doxazosin Mesylate 2 MG TABLET 5 MG PO (19:45)
[2024-10-22 08:00] VITALS: BP 98/54; PULSE 77; TEMP 37.4; O2SAT 98
[2024-10-22] MEDS: Sertraline HCL 100 MG TABLET PO (08:15)
[2024-10-22] MEDS: Primidone 50 MG TABLET 250 MG PO (08:15)
[2024-10-22] MEDS: Metoprolol Tartrate 25 MG TABLET PO (08:15)
[2024-10-22] MEDS: Aspirin Enteric Coated 81 MG TABLET.DR PO (08:15)
[2024-10-22] MEDS: OLANZapine 2.5 MG TABLET PO (08:15)
[2024-10-22] MEDS: Gabapentin 400 MG CAPSULE PO (08:15)
[2024-10-22] MEDS: Atorvastatin Calcium 40 MG TABLET PO (08:16)
[2024-10-22] MEDS: Multivitamin TABLET 1 TAB PO (08:16)
--- NOTE | 2024-10-22 14:35 | PM.PSYDC ---
DS: Providers Provider Date of admission: 10/13/24 17:03 Primary care physician: NATI Hanna Consults: 10/13/24 19:19 ED CARE Team Crisis Consult Stat Comment: Reason for consultation: decompensated 10/14/24 16:40 Consult to Cardiology Routine Consulting Provider: [facility] Reason for consultation: pre ect evaluation see cardiac hx? echo?stress test Has provider been notified: No 10/14/24 16:41 Consult to Hospitalist Routine Comment: Consulting Provider: [facility] Hospital[facility] Reason For Exam: preop ect also cardiology consult DS: Diagnosis Discharge Diagnosis (1) PTSD (post-traumatic stress disorder): Status: Acute (2) Suicidal ideation: Status: Acute (3) Recurrent major depression: Status: Acute (4) Generalized anxiety disorder with panic attacks: Status: Acute DS: Medications Discharge Medications Home Medications: Home Medications ?Medication ?Instructions ?Recorded ?Confirmed aspirin 81 mg tablet,delayed 81 mg PO DAILY 02/28/20 10/13/24 release cholecalciferol (vitamin D3) 50 50 mcg PO DAILY 07/04/20 10/13/24 mcg (2,000 unit) capsule multivitamin 1 tab PO DAILY 07/04/20 10/13/24 vitamin B complex 1 tab PO DAILY 07/04/20 10/13/24 metoprolol tartrate 25 mg tablet 25 mg PO BID 02/21/21 10/13/24 primidone 250 mg tablet 250 mg PO TID 08/01/22 10/13/24 Probiotic 1 cap PO DAILY 10/13/24 10/13/24 mirabegron 50 mg tablet,extended 50 mg PO DAILY 10/13/24 10/13/24 release 24 hr vibegron 75 mg tablet (Gemtesa) 75 mg PO DAILY 10/13/24 10/13/24 Previous Rx's ?Medication ?Instructions ?Recorded atorvastatin 40 mg tablet 40 mg PO DAILY #90 tabs 08/09/24 terazosin 5 mg capsule 5 mg PO BEDTIME 90 days #90 caps 10/08/24 acetaminophen 325 mg tablet 650 mg (2 x 325 mg) PO Q6H PRN 10/22/24 Headache/Pain, Scale 1-10 #0 tabs diphenhydramine HCl 25 mg capsule 50 mg (2 x 25 mg) PO BEDTIME PRN 10/22/24 (Banophen) unknown #60 caps gabapentin 400 mg capsule 400 mg PO TID #90 caps 10/22/24 lorazepam 0.5 mg tablet 0.5 - 1 mg (1 - 2 x 0.5 mg) PO 10/22/24 DAILY PRN anxiety #60 tabs olanzapine 5 mg tablet 2.5 mg (1/2 x 5 mg) PO BID #30 tabs 10/22/24 sertraline 100 mg tablet 100 mg PO BID #180 tabs 10/22/24 trazodone 50 mg tablet 50 mg PO BEDTIME MRX1 PRN Insomnia 10/22/24 #60 tabs DS: Summary Time Spent with Patient Time attestation: Total time managing care of this patient today ____ minutes. Discharge Plan Discharge Anticipated Discharge Date/Time: 10/22/24 12:00 Patient Disposition: Home, Self-Care Discharge Diagnosis: PTSD Depression Anxiety Referrals: Psychiatry- Otilia Campbell [Other] - 11/18/24 9:00 am [facility]'s Partial Hospitalization Program [Other] - 1 Week Referral Note: Please call the provided number if you decide you would like to attend the Partial Hospitalization Program to continue Outpatient treatment Anuj Quinteros, FACULTY DEAN-[facility] [Primary Care Provider, Internal Medicine] - 1 Week Discharge Medications: New diphenhydramine HCl [Banophen] 25 mg Capsule 50 mg PO BEDTIME PRN (Reason: unknown) Qty: 60 0RF acetaminophen 325 mg Tablet 650 mg PO Q6H PRN (Reason: Headache/Pain, Scale 1-10) Qty: 0 0RF trazodone 50 mg Tablet 50 mg PO BEDTIME MRX1 PRN (Reason: Insomnia) Qty: 60 0RF gabapentin 400 mg Capsule 400 mg PO TID Qty: 90 0RF olanzapine 5 mg tablet 2.5 mg PO BID Qty: 30 0RF sertraline 100 mg tablet 100 mg PO BID Qty: 180 0RF Continued atorvastatin 40 mg tablet 40 mg PO DAILY Qty: 90 1RF Gemtesa 75 mg Tablet 75 mg PO DAILY Probiotic 1 cap PO DAILY mirabegron 50 mg tablet extended release 24 hr 50 mg PO DAILY lorazepam 0.5 mg tablet 0.5 - 1 mg PO DAILY PRN (Reason: anxiety) Qty: 60 0RF cholecalciferol (vitamin D3) 50 mcg (2,000 unit) capsule 50 mcg PO DAILY multivitamin Tablet 1 tab PO DAILY vitamin B complex Tablet 1 tab PO DAILY metoprolol tartrate 25 mg tablet 25 mg PO BID primidone 250 mg tablet 250 mg PO TID aspirin 81 mg tablet,delayed release (DR/EC) 81 mg PO DAILY terazosin 5 mg capsule 5 mg PO BEDTIME 90 Days Qty: 90 1RF Discontinued sertraline 100 mg tablet 100 mg PO DAILY diphenhydramine HCl [Benadryl] 25 mg capsule 25 mg PO BEDTIME PRN (Reason: unknwon) sertraline 50 mg tablet 50 mg PO QPM Qty: 90 2RF gabapentin 300 mg capsule 300 mg PO TID 90 Days Qty: 270 1RF Discharge Orders: Discharge Order (Routine); Ordered 10/22/24 Ordered By: Leela Lima Diet: Advance to usual diet Activity on Discharge: As tolerated Stand Alone Forms: Patient Portal Discharge page, Community Support Print Language: Kiswahili Care Plan Goals: Mood and Behavioral Stabilization Health Concerns: Mood and Behavioral Stabilization Plan of Treatment: Attend scheduled appointments Take medications as directed Call/Return as needed Assessment: Denies SI,HI,AH,VH No sx of acute psychosis or edward Agrees with plan of care and aftercare plan Discharge Date/Time: 10/22/24 11:20
== END 2024-10-22 11:20 | disposition home or self-care (01) | DRG 885 ==
LOC: HO.ED 14:21 → HO.PM5 17:09
PROVIDERS: Admitting Provider Psychiatry & Neurology Psychiatry; Emergency Provider Emergency Medicine Emergency Medical Services; PCP Nurse Practitioner Family; Visit Provider Clinical Nurse Specialist Psychiatric/Mental Health, Adult
DX: F33.9 Major depressive disorder, recurrent, unspecified (principal); R45.851 Suicidal ideations; I42.2 Other hypertrophic cardiomyopathy; F43.10 Post-traumatic stress disorder, unspecified; F41.1 Generalized anxiety disorder; Z95.810 Presence of automatic (implantable) cardiac defibrillator; Z79.82 Long term (current) use of aspirin; Z79.899 Other long term (current) drug therapy
CPT/HCPCS: 36415; 80048; 80061; 80143; 80179; 80307; 81001; 82607; 82746; 83036; 83735; 84439; 84443; 85025; 93005; 93306; 94660; 99212; 99285; Q9957; S9485

== ENCOUNTER 2024-10-13 17:03 | Outpatient (BNV) | payer OTHER, SELFPAY | END 2024-10-15 13:00 | PROVIDERS: Admitting Provider Psychiatry & Neurology Psychiatry; Emergency Provider Emergency Medicine Emergency Medical Services; PCP Nurse Practitioner Family; Visit Provider Internal Medicine Cardiovascular Disease | DX: I35.1 Nonrheumatic aortic (valve) insufficiency (principal); Z95.0 Presence of cardiac pacemaker | CPT/HCPCS: 93306 ==

== ENCOUNTER 2024-10-13 17:03 | Outpatient (BNV) | payer OTHER, SELFPAY | END 2024-10-13 20:54 | PROVIDERS: Admitting Provider Psychiatry & Neurology Psychiatry; Emergency Provider Emergency Medicine Emergency Medical Services; PCP Nurse Practitioner Family; Visit Provider Internal Medicine Cardiovascular Disease | DX: I49.3 Ventricular premature depolarization (principal); Z95.0 Presence of cardiac pacemaker | CPT/HCPCS: 93010 ==

== ENCOUNTER → 2024-10-13 17:03 | Outpatient (BNV) | payer OTHER, SELFPAY | PROVIDERS: Admitting Provider Psychiatry & Neurology Psychiatry; Emergency Provider Emergency Medicine Emergency Medical Services; PCP Nurse Practitioner Family; Visit Provider Internal Medicine Cardiovascular Disease | DX: Z01.810 Encounter for preprocedural cardiovascular examination (principal) | CPT/HCPCS: 99222 ==

== ENCOUNTER → 2024-10-13 17:03 | Outpatient (BNV) | payer OTHER, SELFPAY | PROVIDERS: Admitting Provider Psychiatry & Neurology Psychiatry; Emergency Provider Emergency Medicine Emergency Medical Services; PCP Nurse Practitioner Family; Visit Provider Nurse Practitioner Family | DX: Z95.810 Presence of automatic (implantable) cardiac defibrillator (principal); I48.91 Unspecified atrial fibrillation | CPT/HCPCS: 99222 ==

== ENCOUNTER → 2024-10-13 17:03 | Outpatient (BNV) | payer OTHER, SELFPAY | PROVIDERS: Admitting Provider Psychiatry & Neurology Psychiatry; Emergency Provider Emergency Medicine Emergency Medical Services; PCP Nurse Practitioner Family; Visit Provider Clinical Nurse Specialist Psychiatric/Mental Health, Adult | DX: F33.2 Major depressive disorder, recurrent severe without psychotic features (principal); F43.11 Post-traumatic stress disorder, acute; R45.851 Suicidal ideations; F41.1 Generalized anxiety disorder; F41.0 Panic disorder [episodic paroxysmal anxiety] | CPT/HCPCS: 99232 ==

== ENCOUNTER → 2024-10-13 17:03 | Outpatient (BNV) | payer OTHER, SELFPAY | PROVIDERS: Admitting Provider Psychiatry & Neurology Psychiatry; Emergency Provider Emergency Medicine Emergency Medical Services; PCP Nurse Practitioner Family; Visit Provider Psychiatry & Neurology Psychiatry | DX: F33.2 Major depressive disorder, recurrent severe without psychotic features (principal); F43.10 Post-traumatic stress disorder, unspecified; F41.1 Generalized anxiety disorder; F41.0 Panic disorder [episodic paroxysmal anxiety]; I10 Essential (primary) hypertension; Z95.810 Presence of automatic (implantable) cardiac defibrillator; Z95.0 Presence of cardiac pacemaker | CPT/HCPCS: 99499 ==

== ENCOUNTER 2024-11-18 09:03 | Outpatient (AMB) | payer OTHER, SELFPAY ==
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
--- OUTSIDE RECORDS SUMMARY | 2024-11-18 09:24 | XMS_ITS | Data Portability ---
Author Organization GARRETT Wright [address], [address] Address [address] [place] [address] Care Team Providers Care Reject Opener Name Role Phone [facility] Primary Care Provider Assessment No assessment recorded. Plan of Treatment Reminders Order Date Submit Date Provider Last Modified By Organization Details Last Modified Time Details Appointments None recorded. Lab None recorded. Referral None recorded. Procedures None recorded. Surgeries None recorded. Imaging XR, hand, 3 or more view 2022 023 [facility], [address] [place], [address], 09:47:52 Medication Orders cephalexin 500 mg capsule 2022 023 [email or web address] [facility]/Pharmacy #[id number], [address] [facility] , [place], [address], 19:44:33 Patient TargetsNo targets recorded. Patient Instructions Encounter Date Encounter Id Patient Instructions Last Modified By Organization Details Last Modified Time 07/18/2022 [id number] KEEP AREA CLEAN AND DRY. MAY APPLY [...] Abnormal Flag Note LastModifiedBy Organization Detail LastModifiedTime 07/19/1907/18/2022 XR, hand, 3 or more view No observ ation record ed. [email or web address] [facility] [address] [place], [address], 07/18/2022 10:40:43 07/19/19 23 XR, hand, 3 or more view No observ ation record ed. [email or web address] [facility] [address] [place], [address], 07/18/2022 11:04:17 07/19/19 23 imagi ng/di agnos tic resul t No observ ation record ed. [email or web address] Not Available 2022 14:30:58 Result Notes None recorded. Problems Name Problem SNOMED Code Status Onset Date Resolution Date Notes Provider Name and Address Organization Details Recorded Time Hypercholestero lemia 98249414 Active 2022 VINAY LUPICA null, PA - [facility] 3 08:23:04 Hypertensive disorder 06899676 Active 2022 VINAY LUPICA null, PA - [facility] 3 08:23:30 Heart disease 81336961 Active 2022 VINAY LUPICA null, PA - [facility] 3 08:23:48 Depressive disorder 65842242 Active 2022 VINAY LUPICA null, PA - [facility] 3 08:24:50 Anxiety 76605088 Active 2022 VINAY LUPICA null, PA - [...] - [facility] 07/18/2022 08:26:51 Imaging Results None recorded. Procedure Notes None recorded. Medical Equipment None Reported. Allergies Allergen ID Allergen Name Allergen Category Reaction Reaction Severity Criticality Documentation Date Start Date Code Code System Note Provider Name and Address Organization Details Recorded Time 632444 Product containin g penicilli n (product) medicatio n Not available Not available Not available 07/18/2022 05717 8001 SNOMED VINAY TRINH null, PA - [facility] 3 08:18:36 917098 Abilify medicatio n Not available Not available Not available 07/18/2022 74110 3 RxNorm VINAY TRINH null, PA - [facility] 3 08:18:56 548760 prednison e medicatio n Not available Not available Not available 07/18/2022 8640 RxNorm VINAY TRINH null, PA - [facility] 3 08:19:10 887167 Inderal medicatio n Not available Not available Not available 07/18/2022 41417 0 RxNorm VINAY TRINH null, PA - [facility] 3 08:20:28 Medications Name [...] Pulse oximetry Heart rate Respiratory rate Systolic And Diastolic Provider Name and Address Organization Details Last Updated DateTime 3 182.88 cm 29.7 kg/m2 13219.7 3 g 97 [degF] 96 % 96 % 61 /min 16 /min 113/66 mm[Hg] VINAY TRINH PA - [facility] 3 08:28:42 Social History Question Answer Notes LastModified by Organizat [employer] Details LastModified Time Tobacco Smoking Status Never Smoker GARRETT Banerjee - [facility] 07/18/2022 08:25:40 Have You Recently Traveled Abroad? No Information not available 07/18/2022 Sex: Unknown Functional Status Question Answer Note LastModified by Organizat ion Details LastModified Time Do you use any illicit or recreational drugs? No [email or web address] Information not available 07/18/2022 Do you or have you ever used any other forms of tobacco or nicotine? No [email or web address] Information not available 07/18/2022 What is your level of alcohol consumption? None Information not available 07/18/2022 Mental Status None recorded. Family History Relationship Description Onset Age of this Age Resolved Age Notes LastModified by Organization Details LastModified Time Father No current problems or disability [email or web address] Not available 07/18 08:25:25 Mother No current problems or disability [email or web address] Not available 07/18 08:25:25 Medical History No medical history recorded. Immunizations Vaccine Type Date Status Note Provider Nam e and Address Organization Details Recorded Time Tdap 07/18/2022 completed Jose aSenz NP [address] [place], [place] [address], [address], [place] - [facility] 07/18/2022 19:44:34 Past Encounters Encounter ID Performer Location Encounter Start Date Encounter Closed Date Diagnosis/Indication Diagnosis SNOMED-CT Code Diagnosis ICD10 Code Diagnosis Note [id number] [address] [facility] [place] [address] 05/19/2018 08:07:53 05/19/2018 08:38:27 [id number] [address] [facility] [place] [address] 04/20/2017 09:19:32 04/20/2017 10:26:52 [id number] [address] [place] [address] 03/20/2022 08:41:47 03/20/2022 11:05:46 [id number] [address] [place] [address] 03/14/2019 10:47:12 03/14/2019 12:05:09 [id number] [address] [place] [address] 07/12/2016 16:42:45 07/12/2016 17:07:10 [id number] [address] [place] [address] 05/12/2018 11:46:30 05/12/2018 12:29:09 [id number] [address] [place] [address] 07/27/2021 09:05:35 07/27/2021 10:42:59 [id number] [address] [place] [address] 06/27/2018 08:06:18 06/27/2018 08:44:07 [id number] [address] [place] [address] 03/22/2018 08:06:37 03/22/2018 08:34:58 [id number] [address] [place] [address] 09/21/2021 17:53:37 09/21/2021 18:07:14 [id number] [address] [place] [address] 07/05/2016 14:08:47 07/05/2016 14:42:37 [id number] [address] [place] [address] 07/09/2021 08:10:06 07/09/2021 09:16:33 [id number] Jose Saenz NP [address] [place] [address] 07/18/2022 08:02:48 07/18/2022 09:07:41 Laceration of palm of hand 122260097 S61.421A Administra tion of tetanus vaccine 687549992 Z23 Health Concerns Section Related Observation LastModified by Organization Detai ls LastModified Time None Recorded Concern Status LastModified by Organization Details LastModified Time None Recorded Advance Directives Directive None Recorded Payers Insurance Date Sequence Insurance Name Policy Number Policy Blanco Covered Member ID Blanco Member ID Guarantor Name 08/28/2022 1 [facility]) [id number] 1 Damian Aguilera [id number] Damian Aguilera Notes Date Note Type Note [...] Saenz NP [address] [place], [address], [place] - [facility] 07/18/2022 19:45:02
--- OUTSIDE RECORDS SUMMARY | 2024-11-18 09:24 | XMS_ITS | Patient Health Record ---
Author Organization [facility] Address [address] [place] [address] Care Team Providers Care Drilling Supervisor Name Role Phone Anuj Turner Primary Care Provider Unav Nika Thomas Unavailable [phone] Allergies Allergen (clinical drug ingredient) Drug/Non Drug [...] MO UT AT BEDTIME FOR 90 DAYS Oral; Duration: 90 Days Active Aspirin 81 MG 1 tablet Orally Once a day; Duration: 30 day(s) 11/21/2022 Active Atorvastatin Calcium 40 MG 1 tablet Oral ly Once a day; Duration: 30 day(s) 11/21/2022 Active Zoloft 50 MG 1 tablet Orally Once a day; Duration: 30 day(s) 11/21/2022 Active Multivitamin 11/21/2022 Active B Complex - as directed Orally 11/21/2022 Active Vitamin D 11/21/2022 Active Gabapentin 300 MG TAKE 1 CAPSULE BY MO UTH 3 TIMES A DAY Oral; Duration: 30 Days Active Primidone 250 MG TAKE 1 TABLET BY KP TH THREE TIMES A DAY Oral; Duration: 90 Days Active Metoprolol Tartrate 25 MG TAKE 1 TABLET BY MOUTH TWICE A DAY Oral; Duration: 90 Days Active Probiotic 11/21/2022 Active Myrbetriq 50 MG TAKE 1 TABLET BY KP TH EVERY DAY FOR 90 DAYS Oral; Duration: 90 Days Active Social History Tobacco Use: [...] Insured Coverage Start Date Coverage End Date [facility] [address] [place] [id number] Damian Aguilera Self - patient is the insured Medical (General) History Medical History History ICD Code Anxiety Arthritis Back,Hip,and Knee pain Broken bones CAD (Cholesterol) covid-19 Depression Gall bladder problems Heart disease Sciatica chronic sinusitis Joint implants/screws Hypertrophic Cardiomyopathy Surgical History Surgery Date(Month/Year) gall bladder appendectomy Defibrillator 2017 Broken [place]ck 1975
--- OUTSIDE RECORDS SUMMARY | 2024-11-18 09:24 | XMS_ITS | Patient Health Record ---
Author Organization [facility] Address [address] [place] [address] Care Team Providers Care Assessor Name Role Phone CHRISTINA WADE Primary Care Provider Roque Singh [phone] Allergies Allergen (clinical drug ingredient) Drug/Non Drug Allergy documented on EMR Reaction Allergy Type Onset Date Status propranolol Propranolol HCl Unknown Drug Allergy Active penicillin G Penicillin G Sodium Unknown Drug Allergy Active aripiprazole Abilify Unknown Drug Allergy Acti ve Shellfish (FN) shellfish (uncoded) Unknown Allergy Active Reason For Referral No Information Medications Medication SIG (Take, Route, Frequency, Duration) Notes Start Date End Date Status Gabapentin 200 1 capsule Orally bid Active Zoloft 12.5 1 tabs Oral bid Ac tive Aspir-81 81 MG 1 tablet Orally Once a day Active Atorvastatin Calcium 40 MG 1 tablet Oral ly Once a day for 30 day(s) Active Trospium Chloride ER 60 MG 1 capsule in the morning on an empty stomach or 1 hour before a meal Orally Once a day for 30 day(s) Active Myrbetriq 50 MG 1 tablet Orally Once a day for 30 day(s) Active Primidone 250 MG 1 tablet Orally Thre e times a day Active Multi Vitamin/Minerals Orally Active Metoprolol Succinate 25 MG 1 capsule Ora lly twice a day Active Benadryl 25 MG 1 capsule as needed Orally every 6 hrs Active LORazepam 0.5 MG 1 tablet as needed O rally Twice a day/prn Active Immunizations Vaccine Route Administration Date Status Comme nts Influenza Unknown 02/02/2019 Administered Problems Problem Type SNOMED Code ICD Code Onset Dates Problem Status W/U Status Risk Notes Problem 575414401 Encounter for screening for malignant neoplasm of colon (Z12.11) Active confirmed Problem 180563605 History of adenomatous polyp of colon (Z86.010) Active confirmed Problem 148607508 Elevated liver function tests (R79.89) Active confirmed Problem 220348031038639 Preprocedural examination (Z01.818) Active confirmed Problem 175703860 Fatty liver (K76.0) Active confirmed Plan Of Treatment Pending Test Test Name Order Date GI BIOPSY 12/10/2019 Future Test Test Name Order Date COLONOSCOPY 08/17/2014 COLONOSCOPY 11/16/2019 Insurance Providers Payer Name Payer Address Payer Phone Subscriber Number Group Number Insured Name Patient Relationship to Insured Coverage Start Date Coverage End Date [employer] [address] [place] [address] [id number] TEODORO REEVES Self - patient is the insured Medical (General) History Medical History History ICD Code Colonoscopy 04-18-2008--1 sm all tubular adenoma removed--int. hemorrhoids, dverticulosis Denies NC,DM,CVA,Lung disease,renal dise ase Depression Tremors--as a result of a broken neck as a teenager--sees Dr. Nazario Sleep apnea-uses a CPAP mask Hyperlipidemia Pacemaker/AICD--sees Dr. Reddy--he repor ts a neg. cardiac cath slight elevation of his LFTs and AST of 43 and ALT of 66 in August 2014; hepatitis C antibody was negative in 2007; his liver ultrasound was normal in 2007. Remainder of liver w/u was negative in 2014 Afib Colonoscopy 10/2014 with small tubular ad enomas removed Overactive bladder-Dr. Villareal Surgical History Surgery Date(Month/Year) Surgery for a broken neck-teenager Appendectomy Pacemaker/AICD Lap Cholecyst[place] [address] Luis pires
== END 2024-11-18 09:32 | disposition home or self-care (01) ==
LOC: HO.HOP 09:03
PROVIDERS: PCP Nurse Practitioner Family; Visit Provider Clinical Nurse Specialist Psychiatric/Mental Health
DX: F41.1 Generalized anxiety disorder (principal); F41.0 Panic disorder [episodic paroxysmal anxiety]; F43.10 Post-traumatic stress disorder, unspecified; F33.41 Major depressive disorder, recurrent, in partial remission
CPT/HCPCS: 99214

== ENCOUNTER → 2024-11-18 09:03 | Outpatient (BNVA) | payer OTHER, SELFPAY | PROVIDERS: PCP Nurse Practitioner Family; Visit Provider Clinical Nurse Specialist Psychiatric/Mental Health | DX: F41.1 Generalized anxiety disorder (principal); F41.0 Panic disorder [episodic paroxysmal anxiety]; F43.10 Post-traumatic stress disorder, unspecified; F33.41 Major depressive disorder, recurrent, in partial remission | CPT/HCPCS: 99212 ==

== ENCOUNTER 2024-12-16 09:24 | Outpatient (AMB) | payer OTHER, SELFPAY ==
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
== END 2024-12-16 09:25 | disposition home or self-care (01) ==
LOC: HO.HOP 09:24
PROVIDERS: PCP Nurse Practitioner Family; Visit Provider Clinical Nurse Specialist Psychiatric/Mental Health
DX: F41.1 Generalized anxiety disorder (principal); F41.0 Panic disorder [episodic paroxysmal anxiety]; F43.10 Post-traumatic stress disorder, unspecified; F33.41 Major depressive disorder, recurrent, in partial remission
CPT/HCPCS: 99214

== ENCOUNTER → 2024-12-16 09:24 | Outpatient (BNVA) | payer OTHER, SELFPAY | PROVIDERS: PCP Nurse Practitioner Family; Visit Provider Clinical Nurse Specialist Psychiatric/Mental Health | DX: F41.1 Generalized anxiety disorder (principal); F43.10 Post-traumatic stress disorder, unspecified; F33.41 Major depressive disorder, recurrent, in partial remission | CPT/HCPCS: 99212 ==

== ENCOUNTER 2025-02-15 08:43 | Outpatient (AMB) | payer OTHER, SELFPAY ==
--- OUTSIDE RECORDS SUMMARY | 2025-02-11 13:15 | XMS_ITS | Encounter Summary ---
Author Organization [facility] Address [address] [place] [address] Care Team Providers Care Cadd Operator Name Role Phone MikaylalaurieAnuj cherry COLD HEADER OPERATOR Primary Care Provider Encounter Details Date Type Department Care Team (Late st Contact Info) Description 02/11/2025 1:15 PM EDT Ancillary Procedure [facility] Card[facility] [address] [place] [address] Social History Tobacco Use Types Packs/Day Years [...] Care Team (Late st Contact Info) Description 05/24/2025 8:20 AM EST Office Visit [facility] [address] [facility] [address] [place] [phone] Germain Henriquez MD [address] [place] [address] [address] [place] [phone] 08/09/2025 8:30 AM EDT Ancillary Procedure [facility] [address] [place] [address] documented as of this encounter Procedures Procedure Name Priority Date/Time Associated Diagnosis Comments CARDIAC DEVICE CHECK- REMOTE- MURJ Routine 02/11/2025 1:14 PM EDT documented in this encounter Results * Cardiac device check - Remote- MURJ (02/11/2025 1:14 PM EDT) Date Time Interrogation Session [id number] CV DEVICE CHECK Type Interrogation Session Remote CV DEVICE CHECK Implantable Pulse Generator Street Supervisor MDT CV DEVICE CHECK Implantable Pulse Generator Type ICD CV DEVICE CHECK Implantable Pulse Generator Model [id number] CV DEVICE CHECK Implantable Pulse Generator Serial Number [id number] CV DEVICE CHECK Implantable Pulse Generator Implant Date 20230718 CV DEVICE CHECK Battery Remaining Longevity 21.0 CV DEVICE CHECK Battery Voltage 2.920 CV D EVICE CHECK Battery CAR MANAGER Trigger 2.800 CV DEVICE CHECK Capacitor Charge Time 3.800 CV DEVICE CHECK Zion Statistic RV Percent Paced 98.65 CV DEVICE CHECK Atrial Tachy Statistic AT/AF [place] Percent 0.01 CV DEVICE CHECK Lead Channel Sensing Intrinsic Amplitude 1.000 CV DEVICE CHECK Lead Channel Setting Sensing Sensitivity 0.60 CV DEVICE CHECK Lead Channel Impedance Value 361 CV DEVICE CHECK Lead Channel Pacing Threshold Amplitude 0.625 CV DEVICE CHECK Lead Channel Pacing Threshold Pulse Width 0.4 CV DEVICE CHECK Lead Channel RA Pacing Threshold Date 2025-02-01 CV DEVICE CHECK Lead Channel Setting Pacing [...] CHECK Lead Channel RV Pacing Threshold Date 2025-01-24 CV DEVICE CHECK Lead Channel Setting Pacing [...] 6 CV DEVICE CHECK Date of Service 2025-02-24 CV DEVICE CHECK Anatomical Region Laterality Modality Device Interroga tion 02/10/2025 2:32 PM EDT Impressions 02/11/2025 7:51 AM EDT Normal Remote: No Events * Normal Device Function * Alerts or events: None * Battery: , 1.75 yrs * Sensing, impedance and thresholds reviewed * Programmed parameters reviewed * Presenting rhythm reviewed * Heart Rate Histograms reviewed * No significant changes noted Narrative Procedure Note Anuj Morgan MD - 02/11/2025 IMPRESSION: Normal Remote: No Events * Normal Device Function * Alerts or events: None * Battery: , 1.75 yrs * Sensing, impedance and thresholds reviewed * Programmed parameters reviewed * Presenting rhythm reviewed * Heart Rate Histograms reviewed * No significant changes noted Anuj Morgan MD CV IMPLANTABLE CARDIAC DEVICE PROCEDURES Final Result documented in this encounter Visit Diagnoses Not on filedocumented in this encounter Care Teams Cadd Operator Relationship Specialty Start Date End Date Anuj Quinteros NP [address], [place] PCP - General 09/25/21 documented as of this encounter
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
--- OUTSIDE RECORDS SUMMARY | 2025-02-15 09:12 | XMS_ITS | Patient Health Record ---
Author Organization [facility] Address [address] [place] [address] Care Team Providers Care Gas Attendant Name Role Phone CHRISTINA WADE Primary Care Provider Roque Singh [phone] Allergies Allergen (clinical drug ingredient) Drug/Non Drug [...] ly Once a day; Duration: 30 day(s) Active Trospium Chloride ER 60 MG 1 capsule in the morning on an empty stomach or 1 hour before a meal Orally Once a day; Duration: 30 day(s) Active Myrbetriq 50 MG 1 tablet Orally Once a day; Duration: 30 day(s) Active Primidone 250 MG 1 [...] Problem Status W/U Status Risk Notes Problem Screening for malignant neoplasm of colon (405846666) Encounter for screening for malignant neoplasm of colon (Z12.11) Active confirmed Problem History of adenomatous polyp of colon (684809244) History of adenomatous polyp of colon (Z86.010) Active confirmed Problem Elevated liver enzymes level (128002946) Elevated liver function tests (R79.89) Active confirmed Problem Preprocedural examination (183942482728944) Preprocedural examination (Z01.818) Active confirmed Problem Fatty liver (914494538) Fatty liver (K76.0) Active confirmed Plan Of Treatment Pending Test Test Name Order Date GI BIOPSY 12/10/2019 Future Test Test Name Order Date COLONOSCOPY 08/17/2014 COLONOSCOPY 11/16/2019 Next Appt Details Provider Name:Roque Rider , 05/13/2025 01:20:00 PM, [address] [facility], [address], [place], [address], Insurance Providers Payer Name Payer Address Payer Phone Subscriber Number Group Number Insured Name Patient Relationship to Insured Coverage Start Date Coverage End Date [facility] [employer] ([employer]) [address] [place] [address] [phone] [id number] TEODORO REEVES Self - patient is the insured Medical (General) History Medical History History ICD Code Colonoscopy 04-18-2008--1 sm all tubular adenoma removed--int. hemorrhoids, dverticulosis Denies CA,DM,CVA,Lung disease,renal dise ase Depression Tremors--as a result [...]
--- OUTSIDE RECORDS SUMMARY | 2025-02-15 09:13 | XMS_ITS | Patient Health Record ---
[facility] Organization [facility] Address [address] [facility] [place] [address] Care Team Providers Care Cylinder Machine Operator Pulp Drier Name Role Phone Anuj Turner Primary Care Provider Unav Nika Thomas Unavailable [phone] Allergies Allergen (clinical drug ingredient) Drug/Non Drug [...] Insured Coverage Start Date Coverage End Date [facility] [address] [place] [address] [id number] Damian Aguilera Self - patient is the insured Medical (General) History Medical History History ICD Code Anxiety Arthritis Back,Hip,and Knee pain Broken bones CAD (Cholesterol) covid-19 Depression Gall bladder problems Heart disease Sciatica chronic sinusitis Joint implants/screws Hypertrophic Cardiomyopathy Surgical History Surgery Date(Month/Year) gall bladder appendectomy Defibrillator 2017 [place] 1975
--- OUTSIDE RECORDS SUMMARY | 2025-02-15 09:13 | XMS_ITS | Data Portability ---
Author Organization [facility] Address [address] [place] [address] Care Team Providers Care Prescription Clerk Name Role Phone CHRISTINA WADE Primary Care Provider Assessment Encounter Date Assessment Date Assessment LastModified by Organization Details LastModified Time 12/17/2024 12/17/2024 64yo male with vasomotor rhinitis presents for evaluation of the nose and medication refill. He reports nightly nasal congestion, only when laying flat. Anterior rhinoscopy is benign without mucosal edema or significant turbinate hypertrophy. Cerumen impaction removed from the left external auditory canal. TMs and EACs are normal to inspection. Will refill ipratropium bromide to use 3 times daily. Patient is interested in hearing aids, and will return for audiometric testing. [email or web address] Not available 12/17/2024 09:59:09 01/28/2025 01/28/2025 64yo male presents for evaluation of hearing loss. Otologic exam demonstrates TMs are intact with well-aerated middle ear spaces. Audiogram shows bilateral moderately severe neurosensory hearing loss, with mild age-related changes since prior testing in 2022. Patient is medically cleared for amplification. He is interested in formal hearing aid evaluation, and appropriate documentation was provided. Recommend annual follow up with repeat audiometric testing, or sooner with any concerns. [email or web address] Not available 01/28/2025 16:42:59 Plan of Treatment Reminders Order Date Submit Date Provider Last Modified By Organization Details Last Modified Time Details Appointments None recorded. Lab None recorded. Referral None recorded. Procedures None recorded. Surgeries None recorded. Imaging None recorded. Medication Orders ipratropium bromide 21 mcg (0.03 %) nasal spray 2024 025 [id number], [address] [facility] [place], [address], 5 09:20:08 Patient TargetsNo targets recorded. Patient InstructionsNo instructions recorded. Reason for Referral None Reported. Results Created Date Observation Date Name Description Value Unit Range Abnormal Flag Note LastModifiedBy Organization Detail LastModifiedTime 02/01/20 25 audio gram No observ ation record ed. BARCODE Not Available 2024 10:11:44 Result Notes None recorded. Problems Name Problem SNOMED Code Status Onset Date Resolution Date Notes Provider Name and Address Organization Details Recorded Time Hypertrop hic cardiomyo aletha 741052795 Active 2021 Other hypertrop hic cardiomyo aletha; Note: Date Diagnosed : 10/12/2021 10:08 AM (I42.2) Not Available [facility] 4 02:31:58 Chronic rhinitis 97537189 Active 2021 Chronic rhinitis; Note: Date Diagnosed : 10/12/2021 10:08 AM (J31.0) Not Available [facility] 4 02:31:41 Obstructi ve sleep apnea syndrome 22482521 Active 2021 Obstructi ve sleep apnea (adult) (pediatri c); Note: Date Diagnosed : 10/12/2021 10:08 AM (G47.33) Not Available [facility] 4 02:31:49 Hypertrop hy of nasal turbinate s 79503270 Active 2021 Hypertrop hy of nasal turbinate s; Note: Date Diagnosed : 10/12/2021 10:08 AM (J34.3) Not Available [facility] 4 02:31:49 Bilateral tinnitus 69004678420 02 Active 2021 Tinnitus, bilateral ; Note: Date Diagnosed : 12/10/2021 9:53 AM (H93.13) EDEN SALDIVAR PA-C [address] [place] [address], [facility] [place], [address] , [place] - [facility] 5 16:43:07 Sensorine ural hearing loss of bilateral ears 096538561 Active 08/08/ 2022 Sensorine ural hearing loss, bilateral ; Note: Date Diagnosed : 12/10/2021 9:53 AM (H90.3) MELIA DE LEON MA, CCC-A [address] [facility] [place],RAFA [facility], [place], [address] , [facility] - [facility] 5 16:05:56 Impacted cerumen of bilateral ears 18333586600 92415 Active 2022 Impacted cerumen, bilateral ; Note: Date Diagnosed : 3 9:34 AM (H61.23) Not Available [facility] 4 02:32:02 Vasomotor rhinitis 6402745 Active 2024 EDEN SALDIVAR PA-C [address] [facility] [place] [address], [place], [address] , [facility] - [facility] 5 09:19:39 Impacted cerumen in left ear 34612008205 09729 Active 2024 EDEN SALDIVAR PA-C [address] [facility] [place] [address], [place], [address] , [facility] [place] 5 09:58:07 Problem Notes None recorded. Procedures Surgical History Date Name Laterality Status Provider Name and Address Organization Details Recorded Time 5 Comp Audio with Tymps - 99152 & 47840 completed MELIA DE LEON MA, CCC-A [address] [place] [address], [place], [address], [facility] 01/28/2025 16:04:16 5 Cerumen removal without microscope left completed EDEN SALDIVAR PA-C [address] [facility] [place], [place], [address], [facility] - [facility] 12/17/2024 09:19:27 Imaging Results None recorded. Procedure Notes None recorded. Medical Equipment None Reported. Allergies Allergen ID Allergen Name Allergen Category Reaction Reaction Severity Criticality Documentation Date Start Date Code Code System Note Provider Name and Address Organization Details Recorded Time 19507 Abilify medicatio n other Not available Not available 09/16/2023 32486 3 RxNorm React ion: other react ion, Unkno wn; Not Available [facility] 4 00:56:29 82280 propranol ol medicatio n other Not available Not available 09/16/2023 8787 RxNorm React ion: other react ion, Unkno wn; Not Available [facility] 4 00:56:30 36873 prednison e medicatio n other Not available Not available 09/16/2023 8640 RxNorm React ion: other react ion, Unkno wn; Not Available [facility] 4 00:56:30 07868 Product containin g penicilli n (product) medicatio n other Not available Not available 09/16/2023 36943 8001 SNOMED React ion: other react ion, Unkno wn; Not Available [facility] 4 00:56:33 Medications Name Sig Start Date Stop Date Status Note LastModified by Organization Details LastModified Time Prescript ion - Prior Authoriza tion Request active Script Copy/Selam or Auth^Scr ipt Copy/Selam or Auth_ 14958 Not Available Not Available Not Available terazosin 5 mg capsule TAKE 1 CAPSULE BY MOUTH AT BEDTIME FOR 90 DAYS active Not Available Not Available No t Available atorvasta tin 40 mg tablet TAKE 1 TABLET BY MOUTH EVERY DAY active Not Available Not Available No t Available doxycycli ne hyclate 100 mg capsule TAKE 1 CAPSULE BY MOUTH TWICE A DAY FOR 7 DAYS 12/16 completed Not Available Not Available Not Available gabapenti n 400 mg capsule TAKE 1 CAPSULE BY MOUTH 3 TIMES A DAY. active Not Available Not Available No t Available sertralin e 100 mg tablet TAKE 1 TABLET BY MOUTH EVERY DAY active Not Available Not Available No t Available olanzapin e 5 mg tablet 2.5 MG (1/2 X 5 MG) ORALLY 2 TIMES A DAY TAKE 1/2 TABLET TWICE A DAY active Not Available Not Available No t Available primidone 250 mg tablet PLEASE SEE ATTACHED FOR DETAILED DIRECTIO NS active Not Available Not Available No t Available lorazepam 0.5 mg tablet TAKE 1 TO 2 TABLETS DAILY NEEDED FOR ANXIETY active Not Available Not Available No t Available doxycycli ne monohydra te 100 mg capsule 12/16 completed Medicati on ID: [id number] B rand Name: doxycycl ine monohydr ate Send Method: E-Prescr ibed Sub s Allowed: subs OK Medic ationGen ericName : doxycycl ine monohydr ate Not Available Not Available Not Available gabapenti n 300 mg capsule TAKE 1 CAPSULE BY MOUTH THREE TIMES A DAY 10/17 completed Not Available Not Available Not Available sertralin e 50 mg tablet TAKE 1 TABLET BY MOUTH EVERY DAY IN THE EVENING 10/17 completed Not Available Not Available Not Available ipratropi um bromide 21 mcg (0.03 %) nasal spray PLEASE SEE ATTACHED FOR DETAILED DIRECTIO NS active Not Available Not Available No t Available metoprolo l tartrate 25 mg tablet TAKE 1 TABLET BY MOUTH TWICE A DAY active Not Available Not Available No t Available nitrofura ntoin monohydra te/macroc rystals 100 mg capsule 12/16 completed Medicati on ID: [id number] B rand Name: nitrofur antoin monohyd/ m-cryst Send Method: E-Prescr ibed Sub s Allowed: subs OK Medic ationGen ericName : nitrofur antoin monohyd/ m-cryst Not Available Not Available Not Available trospium ER 60 mg capsule,e xtended release 24 hr 12/16 completed Medicati on ID: [id number] B rand Name: trospium Send Method: E-Prescr ibed Sub s Allowed: subs OK Medic ationGen ericName : trospium Not Available Not Available Not Available mirabegro n ER 50 mg tablet,ex tended release 24 hr TAKE 1 TABLET BY MOUTH EVERY DAY FOR 90 DAYS active Not Available Not Available No t Available Gemtesa 75 mg tablet TAKE 1 TABLET ORALLY DAILY FOR 90 DAYS 12/03 completed Not Available Not Available Not Available Vitals Date Recorded Body height Body mass index (BMI) Body weight Provider Name and Address Organization Details Last Updated DateTime 12/17/2024 182.88 cm 29.4 kg/m2 76142.54 g Thuy Hernandez [place] - [facility] 12/17/2024 09:05:43 Social History Question Answer Notes LastModified by Organizat ion Details LastModified Time Tobacco Smoking Status Never Smoker Thuy myrick [place] - [facility] 12/17/2024 09:05:58 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 None Information not available 12/17/2024 Do You Have Any Pets? No Information not available 12/17/2024 Are You Passively Exposed To Smoke? No Information not available 12/17/2024 Are There Any Smokers In Your House? No Information not available 12/17/2024 Sex: Unknown Functional Status Question Answer Note LastModified by Organization Details LastModified Time Do you use any illicit or recreational drugs? No Information not available 12/17/2024 Do you or have you ever used any other forms of tobacco or nicotine? No Information not available 12/17/2024 What is your level of alcohol consumption? None Information not available 12/17/2024 What type of noise exposure are you exposed to? noExposureToExcessiveNoise Infor mation not available 12/17/2024 Mental Status None recorded. Family History Nothing Reported. Medical History Condition Response Allergies/Hayfever Y Heart Problems Y Anxiety Y Tonsil Infections N Emphysema N Migraines N Thyroid Problems N Glaucoma N Depression Y COPD N Developmental Delay N Nasal or Sinus Problems Y Anemia N Immune System Disorder N Anesthesia Complications N Heart Attack ([place]) N Other Skin Condition N Diabetes N Rhinitis N Bleeding Disorder N Food Allergy Y Arthritis Y Hearing Loss Y Hyperlipidemia N Cancer N Stroke N Dementia N Nasal polyps N Asthma N High Cholesterol Y Sleep Disorder Y GERD/Reflux N Liver Disease N Headaches Y Fibromyalgia N Hypertension N Speech Delay N Kidney Disease N Past Encounters Encounter ID Performer Location Encounter Start Date Encounter Closed Date Diagnosis/Indication Diagnosis SNOMED-CT Code Diagnosis ICD10 Code Diagnosis IMO Codes Diagnosis Note [id number] EDEN SALDIVAR PA-C [facility] [address] [place] [address] 12/17/2024 08:43:15 12/17/2024 09:22:17 Vasomotor rhinitis 2974749 J30.0 00089 Impacted c erumen in left ear 1525687321 439112 H61.22 [id number] EDEN SALDIVAR PA-C [facility] [address] [place] [address] 01/28/2025 15:24:52 01/28/2025 16:39:22 Sensorineural hearing loss of bilateral ears 379886178 H90.3 Audiologic al evaluation results: Right ear: Normal Hearing thru 1000Hz sloping to a mild to severe SNHL with excellent word recognitio n. Left ear: Normal/bor derline normal hearing thru 2000Hz sloping to a mild to moderately severe SNHL with good word recognitio n. Tympanomet ry: Right Ear:Type A Left Ear:Type A Bilateral tinnitus 51857 54649 102 H93.13 Health Concerns Section Related Observation LastModified by Organization Detai ls LastModified Time None Recorded Concern Status LastModified by Organization Details LastModified Time None Recorded Advance Directives Directive None Recorded Payers Insurance Date Sequence Insurance Name Policy Number Policy Blanco Covered Member ID Blanco Member ID Guarantor Name 01/31/2025 1 [facility] IN[facility] (PPO) [id number] Damian Aguilera [id number] Damian Aguilera Notes Date Note Type Note Provider Name and Address Organization Details Recorded Time 12/17/2024 text/html ROS as noted in the [facility] 64yo male with sensorineural hearing loss and PAYAL presents evaluation of vasomotor rhinitis. His nasal congestion is only when laying flat. He requests Atrovent renewal, which he uses three times daily. Denies nasal congestion during the day, nasal pain, or changes to smell. He is interested in hearing aids. MARCIAL ALFORD MD [address] [place] [address], [phone], [facility] 12/17/2024 11:01:41 01/28/2025 text/html ROS as noted in the [facility] 64yo male with sensorineural hearing loss, vasomotor rhinitis, and PAYAL presents for hearing evaluation. No acute concerns today. He is interested in hearing aids. MISSAEL MCADAMS MD [address] [place] [address], [phone], [facility] 01/28/2025 16:52:05
== END 2025-02-15 09:22 | disposition home or self-care (01) ==
LOC: HO.HOP 08:43
PROVIDERS: PCP Nurse Practitioner Family; Visit Provider Clinical Nurse Specialist Psychiatric/Mental Health
DX: F41.1 Generalized anxiety disorder (principal); F41.0 Panic disorder [episodic paroxysmal anxiety]; F43.10 Post-traumatic stress disorder, unspecified; F33.41 Major depressive disorder, recurrent, in partial remission
CPT/HCPCS: 99214

== ENCOUNTER → 2025-02-15 08:43 | Outpatient (BNVA) | payer OTHER, SELFPAY | PROVIDERS: PCP Nurse Practitioner Family; Visit Provider Clinical Nurse Specialist Psychiatric/Mental Health | DX: F41.0 Panic disorder [episodic paroxysmal anxiety] (principal); F43.10 Post-traumatic stress disorder, unspecified; F33.41 Major depressive disorder, recurrent, in partial remission | CPT/HCPCS: 99212 ==

== ENCOUNTER 2025-03-03 07:37 | Outpatient (AMB) | payer OTHER, SELFPAY ==
--- OUTSIDE RECORDS SUMMARY | 2025-03-03 07:41 | XMS_ITS | Patient Health Record ---
Author Organization [facility] Address [address] [place] [address] Care Team Providers Care Court Liaison Name Role Phone CHRISTINA WADE Primary Care Provider Roque Singh [phone] Allergies Allergen (clinical drug ingredient) Drug/Non Drug [...] Problem Screening for malignant neoplasm of colon (377656824) Encounter for screening for malignant neoplasm of colon (Z12.11) Active confirmed Problem History of adenomatous polyp of colon (394251821) History of adenomatous polyp of colon (Z86.010) Active confirmed Problem Elevated liver enzymes level (584406369) Elevated liver function tests (R79.89) Active confirmed Problem Preprocedural examination (837856007378394) Preprocedural examination (Z01.818) Active confirmed Problem Fatty liver (034631225) Fatty liver (K76.0) Active confirmed Plan Of Treatment Pending Test Test Name Order Date GI BIOPSY 12/10/2019 Future Test Test Name Order Date COLONOSCOPY 08/17/2014 COLONOSCOPY 11/16/2019 Next Appt Details Provider Name:Roque Rider , 05/13/2025 01:20:00 PM, [address] [facility], [address], [place], [address], Insurance Providers Payer Name Payer Address Payer Phone Subscriber Number Group Number Insured Name Patient Relationship to Insured Coverage Start Date Coverage End Date [facility] [address] [place] [address] [id number] TEODORO REEVES Self - patient is the insured Medical (General) History Medical History History ICD Code Colonoscopy 04-18-2008--1 sm all tubular adenoma removed--int. hemorrhoids, dverticulosis Denies [place],DM,CVA,Lung disease,renal dise ase Depression Tremors--as a result [...]
--- OUTSIDE RECORDS SUMMARY | 2025-03-03 07:42 | XMS_ITS | Patient Health Record ---
Author Organization [facility] Address [address] [facility] [place] [address] Care Team Providers Care Pediatric Neurologist Name Role Phone Anuj Turner Primary Care Provider Unav Nika Thomas Unavailable [phone] Allergies Allergen (clinical drug ingredient) Drug/Non Drug [...] Insured Coverage Start Date Coverage End Date [facility] [address] [place] [address] [id number] Damian Aguilera Self - patient is the insured Medical (General) History Medical History History ICD Code Anxiety Arthritis Back,Hip,and Knee pain Broken bones CAD (Cholesterol) covid-19 Depression Gall bladder problems Heart disease Sciatica chronic sinusitis Joint implants/screws Hypertrophic Cardiomyopathy Surgical History Surgery Date(Month/Year) gall bladder appendectomy Defibrillator 2017 [place] 1975
--- OUTSIDE RECORDS SUMMARY | 2025-03-03 07:42 | XMS_ITS | Data Portability ---
Author Organization [place] - [facility], Allergy Address [address] [place] [address] Care Team Providers Care Minute Clerk Name Role Phone CHRISTINA WADE Primary [...] spray 2024 025 [id number], [address] [place] [place], [address], 5 09:20:08 Patient TargetsNo targets recorded. Patient [...] Details Recorded Time Hypertrop hic cardiomyo aletha 286175493 Active 2021 Other hypertrop hic cardiomyo aletha; Note: Date Diagnosed : 10/12/2021 10:08 AM (I42.2) Not Available [facility] 4 02:31:58 Chronic rhinitis 33332117 Active 2021 Chronic rhinitis; Note: Date Diagnosed : 10/12/2021 10:08 AM (J31.0) Not Available [facility] 4 02:31:41 Obstructi ve sleep apnea syndrome 86893392 Active 2021 Obstructi ve sleep apnea (adult) (pediatri c); Note: Date Diagnosed : 10/12/2021 10:08 AM (G47.33) Not Available [facility] 4 02:31:49 Hypertrop hy of nasal turbinate s 60526060 Active 2021 Hypertrop hy of nasal turbinate s; Note: Date Diagnosed : 10/12/2021 10:08 AM (J34.3) Not Available [facility] 4 02:31:49 Bilateral tinnitus 48295330532 02 Active 2021 Tinnitus, bilateral ; Note: Date Diagnosed : 12/10/2021 9:53 AM (H93.13) EDEN SALDIVAR PA-C [address] [place] [address], [facility] ELIU mendez, [address] , [place] - [facility] 5 16:43:07 Sensorine ural hearing loss of bilateral ears 297145678 Active 08/08/ 2022 Sensorine ural hearing loss, bilateral ; Note: Date Diagnosed : 12/10/2021 9:53 AM (H90.3) MELIA DE LEON MA, CCC-A [address] [facility] [address],RA[place] [facility], [place], [address] , [facility] - [facility] 5 16:05:56 Impacted cerumen of bilateral ears 75583547670 50586 Active 2022 Impacted cerumen, bilateral ; Note: Date Diagnosed : 3 9:34 AM (H61.23) Not Available [facility] 4 02:32:02 Vasomotor rhinitis 8542066 Active 2024 EDEN SALDIVAR PA-C [address] [facility] [address],[place] [address], [place], [address] , [facility] - [facility] 5 09:19:39 Impacted cerumen in left ear 74460281829 63620 Active 2024 EDEN SALDIVAR PA-C [address] [facility] [place] [address], [place], [address] , [facility] 5 09:58:07 Problem Notes None recorded. Procedures Surgical History Date Name Laterality Status Provider Name and Address Organization Details Recorded Time 5 Comp Audio with Tymps - 13809 & 87916 completed MELIA DE LEON MA, CCC-A [address],[place] [address], [place], [address], [facility] 01/28/2025 16:04:16 5 Cerumen removal without microscope left completed EDEN SALDIVAR PA-C [address] [facility] [facility], [place], [address], [facility] - [facility] 12/17/2024 09:19:27 Imaging Results None recorded. Procedure Notes None recorded. Medical Equipment None Reported. Allergies Allergen ID Allergen Name Allergen Category Reaction Reaction Severity Criticality Documentation Date Start Date Code Code System Note Provider Name and Address Organization Details Recorded Time 57482 Abilify medicatio n other Not available Not available 09/16/2023 14180 3 RxNorm React ion: other react ion, Unkno wn; Not Available [facility] 4 00:56:29 76007 propranol ol medicatio n other Not available Not available 09/16/2023 8787 RxNorm React ion: other react ion, Unkno wn; Not Available [facility] 4 00:56:30 07797 prednison e medicatio n other Not available Not available 09/16/2023 8640 RxNorm React ion: other react ion, Unkno wn; Not Available [facility] 4 00:56:30 78576 Product containin g penicilli n (product) medicatio n other Not available Not available 09/16/2023 88286 8001 SNOMED React ion: other react ion, Unkno wn; Not Available [facility] 4 00:56:33 Medications Name Sig Start Date Stop Date Status Note LastModified by Organization Details LastModified Time Prescript ion - Prior Authoriza tion Request active Script Copy/Selam or Auth^Scr ipt Copy/Selam or Auth_ [id number] Not Available Not Available Not Available terazosin [...] mg capsule 12/16 completed Medicati on ID: [id number] B rand Name: doxycycl ine monohydr ate [...] mg capsule 12/16 completed Medicati on ID: [id number] B rand Name: nitrofur antoin monohyd/ m-cryst Send Method: E-Prescr ibed Sub s Allowed: subs OK Medic ationGen ericName : nitrofur antoin monohyd/ m-cryst Not Available Not Available Not Available trospium ER 60 mg capsule,e xtended release 24 hr 12/16 completed Medicati on ID: [id number] B rand Name: trospium Send Method: E-Prescr [...] Updated DateTime 12/17/2024 182.88 cm 29.4 kg/m2 06296.54 g Thuy Hernandez [place] - [facility] 12/17/2024 09:05:43 Social History Question Answer Notes LastModified by Organizat ion Details LastModified Time Tobacco Smoking Status Never Smoker Thuy myrick [place] - [facility] 12/17/2024 09:05:58 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 None Information not available [...] Disorder N Anesthesia Complications N Heart Attack (WA) N Other Skin Condition N Diabetes N Rhinitis N Bleeding Disorder N Food Allergy Y Arthritis Y Hearing Loss Y Hyperlipidemia N Cancer N Stroke N Dementia N Nasal polyps N Asthma N Sleep Disorder Y GERD/Reflux N High Cholesterol Y Liver Disease N Headaches Y Fibromyalgia N Hypertension N Speech Delay N Kidney Disease N Past Encounters Encounter ID Performer Location Encounter Start Date Encounter Closed Date Diagnosis/Indication Diagnosis SNOMED-CT Code Diagnosis ICD10 Code Diagnosis IMO Codes Diagnosis Note [id number] EDEN SALDIVAR PA-C [facility] [address] [place] [address] 12/17/2024 08:43:15 12/17/2024 09:22:17 Vasomotor rhinitis 5551674 J30.0 48783 Impacted c erumen in left ear 1438763586 032487 H61.22 1564824 [id number] EDEN SALDIVAR PA-C [facility] [address] [place] [address] 01/28/2025 15:24:52 01/28/2025 16:39:22 Sensorineural hearing loss of bilateral ears 327905616 H90.3 Audiologic al evaluation results: Right ear: Normal Hearing thru 1000Hz sloping to a mild to severe SNHL with excellent word recognitio n. Left ear: Normal/bor derline normal hearing thru 2000Hz sloping to a mild to moderately severe SNHL with good word recognitio n. Tympanomet ry: Right Ear:Type A Left Ear:Type A Bilateral tinnitus 05362 19240 102 H93.13 Health Concerns Section Related Observation LastModified by Organization Detai ls LastModified Time None Recorded Concern Status LastModified by Organization Details LastModified Time None Recorded Advance Directives Directive None Recorded Payers Insurance Date Sequence Insurance Name Policy Number Policy Blanco Covered Member ID Blanco Member ID Guarantor Name 01/31/2025 1 [employer] [facility] IN[facility] (PPO) [id number] 1 Damian Aguilera [id number] Damian Aguilera Notes Date Note Type Note Provider Name and Address Organization Details Recorded Time 12/17/2024 text/html ROS as noted in the [facility] 64yo male with sensorineural hearing loss and PAYAL presents evaluation of vasomotor rhinitis. His nasal congestion is only when laying flat. He requests Atrovent renewal, which he uses three times daily. Denies nasal congestion during the day, nasal pain, or changes to smell. He is interested in hearing aids. MARCIAL ALFORD MD [address] [place] [address], [phone], [facility] 12/17/2024 11:01:41 01/28/2025 text/html ROS as noted in the [facility] 64yo male with sensorineural hearing loss, vasomotor rhinitis, and PAYLA presents for hearing evaluation. No acute concerns today. He is interested in hearing aids. MISSAEL MCADAMS MD [address] [place] [address], [phone], [facility] 01/28/2025 16:52:05
--- OUTSIDE RECORDS SUMMARY | 2025-03-03 07:42 | XMS_ITS | Clinical Summary ---
Author Organization [address] [place] [address] [place] [phone] Phone Care Team Providers Care Wound Care Physician Name Role Phone Anuj Quinteros NP Primary [...] (two) times a day. 180 tablet 1 01/28/2025 Active apixaban (ELIQUIS) 5 mg tablet Take 1 tablet (5 mg total) by mouth 2 (two) times a day. 180 tablet 1 01/28/2025 Active Active Problems Problem Noted Date Diagnosed [...] cardiomyopathy meets criteria for anticoagulation regardless of JKH3HG5-UUZv score. Patient will start on Eliquis 5 mg twice daily. Assessment & Plan (12/31/2024 10:39 AM EDT): Patient has had short paroxysmal's of atrial fibrillation captured on his device monitoring. His XUH5LQ6-HYGh s 1 for hypertension. He does have [...] a specialty center for hypertrophic cardiomyopathy in [place]. At this time the patient declines since [...] of hypertrophic cardiomyopathy. Last echocardiogram completed at [facility] showing an LVEF 50 to 55%. Patient [...] Description 02/11/2025 1:15 PM EDT Ancillary Procedure [facility] [address] [place] [address] 01/28/2025 8:40 AM EDT Office Visit [facility] [address] [facility] [address] [place] [address] Tari Engel NP Hypertrophic cardiomyopathy (CMS/HCC V24, CMS/HCC V28) (Primary Dx); Paroxysmal atrial fibrillation (CMS/HCC V24, CMS/HCC V28); Cardiac pacemaker; Primary hypertension 01/21/2025 12:30 PM EDT Ancillary Procedure [facility] [address] [place] [address] Hypertrophic cardiomyopathy (CMS/HCC V24, CMS/HCC V28) 12/31/2024 8:10 AM EDT Office Visit [facility] [address] [facility] [address] [place] [address] Tari Engel NP Hypertrophic cardiomyopathy (CMS/HCC V24, CMS/HCC V28) (Primary Dx); Paroxysmal atrial fibrillation (CMS/HCC V24, CMS/HCC V28) from Last 3 Months Surgical History Surgery [...] Description 05/24/2025 8:20 AM EST Office Visit [facility] [address] [place] [address] Germain Henriquez MD [address] [place] [address] [address] [place] [address] 08/09/2025 8:30 AM EDT Ancillary Procedure [facility] [address] [place] [address] Health Maintenance Due Date Last [...] this topic Medical Devices Implanted Type Area Hydro Operator Device Identifier Shelf Expiration Date Model / Serial / Lot Medt-Card [id number] Implanted:07/03 (Quantity not on file) Cardiac ICD [employer] - CARDIAC RHYTH-CRDM [id number] / [id number] / Medt-Card [place] Xt [id number] Implanted:07/03 (Quantity not on file) Cardiac ICD MEDTRONIC - CARDIAC RHYTH-CRDM [place] XT [id number] / [id number] / Procedures Procedure Name Priority Date/Time Associated Diagnosis Comments CARDIAC DEVICE CHECK- REMOTE- MURJ Routine 02/11/2025 1:14 PM EDT STRESS ECHOCARDIOGRAM EXERCISE WITH CONTRAST Routine 01/21/2025 1:28 PM EDT Hypertrophic cardiomyopathy (CMS/HCC V24, CMS/HCC V28) ECG 12-LEAD Routine 12/31/2024 8:23 AM EDT Hypertrophic cardiomyopathy (CMS/HCC V24, CMS/HCC V28) from Last 3 Months Results * Cardiac device check - Remote- MURJ (02/11/2025 1:14 PM EDT) Date Time Interrogation Session [id number] CV DEVICE CHECK Type Interrogation Session Remote CV DEVICE CHECK Implantable Pulse Generator Hydro Operator MDT CV DEVICE CHECK Implantable Pulse Generator Type ICD CV DEVICE CHECK Implantable Pulse Generator Model [id number] CV DEVICE CHECK Implantable Pulse Generator Serial Number [id number] CV DEVICE CHECK Implantable Pulse Generator Implant Date [id number] CV DEVICE CHECK Battery Remaining Longevity 21.0 CV DEVICE CHECK Battery Voltage 2.920 CV D EVICE CHECK Battery WOOD STOCK BLANK HANDLER Trigger 2.800 CV DEVICE CHECK Capacitor Charge Time 3.800 CV DEVICE CHECK [place] Statistic RV Percent Paced 98.65 CV DEVICE CHECK Atrial Tachy Statistic AT/AF [place] Percent 0.01 CV DEVICE CHECK Lead Channel [...] Narrative Procedure Note Anuj Morgan MD - 02/24/2025 IMPRESSION: Normal Remote: No Events * Normal [...] Morgan MD CV IMPLANTABLE CARDIAC DEVICE PROCEDURES Edited Result - Final * STRESS ECHOCARDIOGRAM EXERCISE WITH CONTRAST (01/21/2025 [...] cardiomyopathy. Diminishedworkload with exercise-induced fatigue no angina us Tari Engel NP CV ECHO PROCEDURES Final Res ult * ECG 12 lead (12/31/2024 8:23 AM EDT) Ventricular Rate ECG 67 BPM GEMUSE Atrial Rate 67 BPM GEMUSE P-R Interval 146 ms GEMUSE QRS Duration 184 ms GEMUSE Q-T Interval 466 ms GEMUSE QTc 492 ms GEMUSE P Wave [place] 90 degrees GEMUSE R [place] -86 degrees GEMUSE T [place] 95 degrees GEMUSE ECG Interpretation AV dual-paced rhythm Abnormal ECG No previous ECGs available Confirmed by KALI DELACRUZ ([id number]) on 12/31/2024 9:41:24 AM GEMUSE 12/31/2024 8:23 AM EDT 12/31/2024 9:41 AM EDT us Tari Engel WHALE FISHERMAN ECG ORDERABLES Final Result GEMUSE from Last 3 Months Insurance ELIU COLLADO [id number] MEDICARE [facility] Care Teams Wound Care Physician Relationship Specialty Start Date End Date Anuj Quinteros NP [address] [facility] ELIU Collado PCP - General 09/25/21
[2025-03-03 07:58] VITALS: BP 118/64; PULSE 64; RESP 16; O2SAT 96; BMI 31.2
--- NOTE | 2025-03-03 07:58 | A.OFFPC_ITS ---
Vital Signs 03/03/25 07:58 Height 6 ft Weight 230 lb BMI 31.2 BP 118/64 Blood Pressure Location Lt brachial Position Sitting Respiration 16 Pulse 64 Pulse Source Pulse Oximeter Pulse Oximetry (%) 96 Oxygen Delivery Method Room Air Intake Visit Reasons: Annual PE Aniline Press Worker Required: No Accompanied by: Self / Same As Patient Allergies aripiprazole (From Abilify) Adverse Reaction (Intermediate, Verified 03/03/25 07:59) Increased agitation and depression Penicillins Adverse Reaction (Intermediate, Verified 03/03/25 07:59) Nausea and Vomiting propranolol (Propranolol) Adverse Reaction (Intermediate, Verified 03/03/25 07:59) Nausea and Vomiting shellfish derived Adverse Reaction (Intermediate, Verified 03/03/25 07:59) Vomiting duloxetine (From CYMBALTA) Adverse Reaction (Mild, Verified 03/03/25 07:59) Increased agitation mirtazapine (MIRTAZAPINE) Adverse Reaction (Mild, Verified 03/03/25 07:59) Manic symptoms prednisone Adverse Reaction (Mild, Verified 03/03/25 07:59) Anger issues risperidone (From RISPERDAL) Adverse Reaction (Mild, Verified 03/03/25 07:59) Previous bad reaction and drug interaction with Wellbutrin Medication List - Last Reconciled 03/03/25 by REEMA Ly-FABRICIO acetaminophen 650 mg (2 x 325 mg) PO Q6H PRN apixaban (Eliquis) 5 mg PO BID atorvastatin 40 mg PO DAILY cholecalciferol (vitamin D3) 50 mcg PO DAILY diphenhydramine HCl (Banophen) 50 mg (2 x 25 mg) PO BEDTIME PRN gabapentin 400 mg PO TID lorazepam 0.5 - 1 mg (1 - 2 x 0.5 mg) PO DAILY PRN metoprolol tartrate 50 mg PO BID mirabegron ER 50 mg PO DAILY multivitamin 1 tab PO DAILY olanzapine 2.5 mg (1/2 x 5 mg) PO BID primidone 250 mg PO TID [Probiotic 1 cap PO DAILY] sertraline 100 mg PO BID vitamin B complex 1 tab PO DAILY Tobacco use date assessed: 03/03/25 Fall risk assessment: No Falls in past year Last assessed Fall Risk: 03/03/25 Dental Screening Dental Screen Date: 03/03/25 Did you have a dental visit in the last 12 months?: Yes Did you have a dental problem in the last 6 months where you did not have access to dental care?: No Was dental information given to patient?: Patient has dentist HPI Annual PE HPI Details History of Present Illness The patient is a 64-year-old male presenting for a physical exam. He sees a supervisor wire rope fabrication, a neurologist, and a urologist on a regular basis for ongoing care. The patient reports doing quite well overall. He denies chest pain, shortness of breath, abdominal pain, blood in stool, constipation, and diarrhea. He denies any suicidal or homicidal ideation. Health Maintenance - The patient is under the regular care of a supervisor wire rope fabrication, a neurologist, and a urologist. - A colon screening is scheduled for May. - Vaccinations were reviewed. Social History - Employment: The patient plans to retir e in September. Review of Systems - Constitutional: Reports doing well. - Cardiovascular: Denies chest pain. - Respiratory: Denies shortness of breat h. - Gastrointestinal: Denies abdominal silverio n, blood in stool, constipation, or diarrhea. - Psychiatric: Denies suicidal or homici alfredo ideation. Physical Exam General: Cooperative, healthy appearing, comfortable, no acute distress and well developed Orientation: Patient oriented x3 Limitations: No limitations Head: Normal to inspection Ears: Hearing grossly normal bilaterally Nose: Normal external nose present Face and sinus: Normal facial exam Eyes: Appearance normal, both eyes and all related structures Neck: Normal visual inspection and Yes full ROM Respiratory: Normal respiratory effort and able to speak in complete sentences. Clear to auscultation bilaterally Cardiovascular: Regular rate and rhythm. Normal S1 and S2 GI: Normal to inspection. Soft to palpation and nontender : Testicles without masses/lesions and no hernias appreciated Skin: No rashes or lesions noted Neuro: Patient oriented x3. Slight tremor noted at baseline. Upper extremities slight upper torso twitch is well noted Extremities: Normal to inspection Results Plan lab orders entered 1. Annual Physical Examination The patient is doing well and is here for a routine physical exam. The plan is for him to continue regular follow-up with his specialists, including his supervisor wire rope fabrication, neurologist, and urologist. His preventative care includes a scheduled eye screening in May and a review of his vaccinations. 2. Tremor And Twitch A slight baseline tremor of the upper extremities and a slight upper torso twitch were noted on examination. As he is already under the care of a neurologist for these issues, the plan is to continue regular neurologic follow- up. Discussion Notes I discussed the patient's ongoing specialist care with a supervisor wire rope fabrication, neurolo gist, and urologist, and recommended he continue these regular visits. We also reviewed his preventative health measures, noting his scheduled eye exam in May and discussing his vaccination status. Patient Instructions - Continue to see your heart doctor (car diologist), nerve doctor (neurologist), and urologist for your regular check-ups. - Please go to your scheduled colon scre ening in May. - Make sure your vaccinations are up to date as we discussed. [facility] Medical History Overactive bladder Bladder outlet obstruction Weak urinary stream Hypogonadism in male Hypertrophic cardiomyopathy Coarse tremor HTN (hypertension) OH (nonalcoholic steatohepatitis) Burrows's neuroma of right foot PTSD (post-traumatic stress disorder) Peyronie's disease Atrial fibrillation Asthma PAYAL on CPAP Dyspnea Surgical History History of colonoscopy History of neck surgery History of appendectomy Family History Father Lung disease Substance use disorder Mother Type 2 diabetes mellitus Brother Substance use disorder Other Cancer Diabetes mellitus Mental health disorder Social History Household Members: Spouse Housing: House Patient Tobacco Use Status: Never used Tobacco e-Cigarette/Vaping Use: Never Used Second Hand Smoke Exposure: Yes (Father was a heavy smoker) service: No Current occupational status: employed Current occupation: [employer] Current occupational exposures/hazards: Yes Sexual orientation: Straight/Heterosexual Cognitive needs: No Hearing needs: No Vision needs: No Questionnaire Thrive Questionnaire Date Thrive assessed: 10/14/24 I am a: Patient What is your living situation today?: I have a steady place to live Within the past 12 months, did the food you bought not last and you didn't have the money to get more?: Never true Within the past 12 months, did you worry whether your food would run out before you got money to buy more?: Never true Do you have trouble paying for medicines?: No Do you have trouble getting transportation to medical appointments?: No Do you have trouble paying your heating and electricity bill?: No Do you have trouble taking care of your child, family member or friend?: No Do you have trouble with day-to-day activities such as bathing, preparing meals, shopping, managing finances, etc.?: No Are you currently unemployed and looking for a job?: No Are you interested in more education?: No Please select the resources that you would like help with: None Currently or been in a relationship where the following occur: No concerns reported THRIVE Score: 0 AUDIT C Alcohol Use Questionnaire (AUDIT-C) 1. How often do you have a drink containing alcohol?: Never Total Score: 0 STU-7 AMB Questionnaire STU-7 Date STU - 7 assessed: 02/18/24 Source: Developed by Drs. Roque Schroeder, Rose Mary Hess, Nikolas Dale and colleagues, with an educational mohit from [employer]. Physical exam (Primary Care) Vital Signs: Last Vital Signs Pulse 64 03/03/25 07:58 Resp 16 03/03/25 07:58 BP 118/64 03/03/25 07:58 Pulse Ox 96 03/03/25 07:58 Oxygen Delivery Method Room Air 03/03/25 07:58 BMI result Body Mass Index 31.2 Tobacco/Smoking Status: Tobacco use Status Tobacco use date assessed 03/03/25 03/03/25 08:05 Patient Tobacco Use Status Never used Tobacco 03/03/25 08:05 e-Cigarette/Vaping Use Never Used 03/03/25 08:05 Thrive Assessment: Date of Thrive Assessment Date Thrive assessed 10/14/24 03/03/25 08:05 Currently or been in a relationship where the following occur: No concerns reported Coding Level of Care Code Est Pt Prev Care >65y(27196) Diagnoses Physical exam Z00.00 Screening for prostate cancer Z12.5 Vitamin D deficiency E55.9 Assessment & Plan Assessment & Plan (1) Physical exam: Code(s): Z00.00 - Encounter for general adult medical examination without abnormal findings Category: Medical (2) Screening for prostate cancer: Code(s): Z12.5 - Encounter for screening for malignant neoplasm of prostate Category: Medical (3) Vitamin D deficiency: Code(s): E55.9 - Vitamin D deficiency, unspecified Category: Medical Plan . Orders: Orders Complete Blood Count Auto Diff Today Z00.00 - Encounter for general adult medical examination without abnormal findings TSH reflex Free T4 Today Z00.00 - Encounter for general adult medical examination without abnormal findings Prostate Specific Antigen Scr Today Z12.5 - Encounter for screening for malignant neoplasm of prostate Comprehensive [place]. Panel Fast Today Z00.00 - Encounter for general adult medical examination without abnormal findings UA CC w/rflx Micro + Cult Today Z00.00 - Encounter for general adult medical examination without abnormal findings Lipid Panel Today Z00.00 - Encounter for general adult medical examination without abnormal findings Vitamin D 25-OH Total Today E55.9 - Vitamin D deficiency, unspecified AMB EKG-In Office Today Z00.00 - Encounter for general adult medical examination without abnormal findings
== END 2025-03-03 08:50 | disposition home or self-care (01) ==
LOC: HO.HMCC 07:38
PROVIDERS: PCP Nurse Practitioner Family; Visit Provider Nurse Practitioner Family
DX: Z00.00 Encounter for general adult medical examination without abnormal findings (principal); Z12.5 Encounter for screening for malignant neoplasm of prostate; E55.9 Vitamin D deficiency, unspecified

== ENCOUNTER 2025-03-05 06:32 | Outpatient (REF) | payer OTHER, SELFPAY ==
--- OUTSIDE RECORDS SUMMARY | 2025-03-05 06:36 | XMS_ITS | Patient Health Record ---
Author Organization [facility] Address [address] [place] [address] Care Team Providers Care Quilting Machine Operator Name Role Phone CHRISTINA WADE Primary Care Provider Roque Singh [phone] Allergies Allergen (clinical drug ingredient) Drug/Non Drug [...] Problem Screening for malignant neoplasm of colon (366040067) Encounter for screening for malignant neoplasm of colon (Z12.11) Active confirmed Problem History of adenomatous polyp of colon (913125157) History of adenomatous polyp of colon (Z86.010) Active confirmed Problem Elevated liver enzymes level (492533192) Elevated liver function tests (R79.89) Active confirmed Problem Preprocedural examination (607186656852782) Preprocedural examination (Z01.818) Active confirmed Problem Fatty liver (066254869) Fatty liver (K76.0) Active confirmed Plan Of Treatment Pending Test Test Name Order Date GI BIOPSY 12/10/2019 Future Test Test Name Order Date COLONOSCOPY 08/17/2014 COLONOSCOPY 11/16/2019 Next Appt Details Provider Name:Roque Rider , 05/13/2025 01:20:00 PM, [address] [facility], [address], [place], [address], Insurance Providers Payer Name Payer Address Payer Phone Subscriber Number Group Number Insured Name Patient Relationship to Insured Coverage Start Date Coverage End Date [facility] [address] [place] [address] [id number] TEODORO REEVES Self - patient is the insured Medical (General) History Medical History History ICD Code Colonoscopy 04-18-2008--1 sm all tubular adenoma removed--int. hemorrhoids, dverticulosis Denies PA,DM,CVA,Lung disease,renal dise ase Depression Tremors--as a result [...]
--- OUTSIDE RECORDS SUMMARY | 2025-03-05 06:36 | XMS_ITS | Clinical Summary ---
Author Organization [address] [place] [address] [place] [phone] Phone Care Team Providers Care County Superintendent Of Schools Name Role Phone Anuj Quinteros NP Primary [...] cardiomyopathy meets criteria for anticoagulation regardless of [id number] score. Patient will start on Eliquis 5 mg twice daily. Assessment & Plan (12/31/2024 10:39 AM EDT): Patient has had short paroxysmal's of atrial fibrillation captured on his device monitoring. His [id number] s 1 for hypertension. He does have [...] a specialty center for hypertrophic cardiomyopathy in [place]. At this time the patient declines since [...] of hypertrophic cardiomyopathy. Last echocardiogram completed at [facility] showing an LVEF 50 to 55%. [...] Description 02/11/2025 1:15 PM EDT Ancillary Procedure [facility] [address] [place] [address] 01/28/2025 8:40 AM EDT Office Visit [facility] [address] [facility] [address] [place] [address] Tari Engel NP Hypertrophic cardiomyopathy (CMS/HCC V24, CMS/HCC V28) (Primary Dx); Paroxysmal atrial fibrillation (CMS/HCC V24, CMS/HCC V28); Cardiac pacemaker; Primary hypertension 01/21/2025 12:30 PM EDT Ancillary Procedure [facility] [address] [place] [address] Hypertrophic cardiomyopathy (CMS/HCC V24, CMS/HCC V28) 12/31/2024 8:10 AM EDT Office Visit [facility] [address] [facility] [address] [place] [address] Tari Enegl NP Hypertrophic cardiomyopathy (CMS/HCC V24, CMS/HCC V28) [...] Description 05/24/2025 8:20 AM EST Office Visit [facility] [address] [place] [address] Germain Henriquez MD [address] [place] [address] [address] [place] [address] 08/09/2025 8:30 AM EDT Ancillary Procedure [facility] [address] [place] [address] Health Maintenance Due Date Last [...] this topic Medical Devices Implanted Type Area Physician Extender Device Identifier Shelf Expiration Date Model / Serial / Lot Medt-Card [id number] Implanted:07/03 (Quantity not on file) Cardiac ICD MED[employer]ONIC - CARDIAC RHYTH-CRDM [id number] / [id number] / Medt-Card [place] Xt [id number] Implanted:07/03 (Quantity not on file) Cardiac ICD MEDTRONIC - CARDIAC RHYTH-CRDM [place] XT [id number] / [id number] / Procedures Procedure Name Priority Date/Time Associated [...] 1:14 PM EDT) Date Time Interrogation Session [id number] CV DEVICE CHECK Type Interrogation Session Remote CV DEVICE CHECK Implantable Pulse Generator Physician Extender MDT CV DEVICE CHECK Implantable Pulse Generator Type ICD CV DEVICE CHECK Implantable Pulse Generator Model [id number] CV DEVICE CHECK Implantable Pulse Generator Serial Number [id number] CV DEVICE CHECK Implantable Pulse Generator Implant Date 20230718 CV DEVICE CHECK Battery Remaining Longevity 21.0 CV DEVICE CHECK Battery Voltage 2.920 CV D EVICE CHECK Battery SHEET ROCK SANDER Trigger 2.800 CV DEVICE CHECK Capacitor Charge Time 3.800 CV DEVICE CHECK Zion Statistic RV Percent Paced 98.65 CV DEVICE CHECK Atrial Tachy Statistic AT/AF [place] Percent 0.01 CV DEVICE CHECK Lead Channel [...] GEMUSE QTc 492 ms GEMUSE P Wave [place] 90 degrees GEMUSE R [place] -86 degrees GEMUSE T [place] 95 degrees GEMUSE ECG Interpretation AV dual-paced rhythm Abnormal ECG No previous ECGs available Confirmed by KALI DELACRUZ ([id number]) on 12/31/2024 9:41:24 AM GEMUSE 12/31/2024 8:23 AM EDT 12/31/2024 9:41 AM EDT us Tari Engel WAREHOUSE ORDER SELECTOR ECG ORDERABLES Final Result GEMUSE from Last 3 Months Insurance ELIU COLLADO [id number] MEDICARE [facility] Care Teams County Superintendent Of Schools Relationship Specialty Start Date End Date Anuj Quinteros NP [address] [facility] ELIU Collado PCP - General 09/25/21
--- OUTSIDE RECORDS SUMMARY | 2025-03-05 06:36 | XMS_ITS | Data Portability ---
Author Organization [address], [address] Address [address] [place] [address] Care Team Providers Care Technical Support Agent Name Role Phone [facility] Primary Care Provider [phone] Assessment No assessment recorded. Plan of Treatment Reminders Order Date Submit Date Provider Last Modified By Organization Details Last Modified Time Details Appointments None recorded. Lab None recorded. Referral None recorded. Procedures None recorded. Surgeries None recorded. Imaging XR, hand, 3 or more view 2022 023 [facility], [address] [place], [address], 09:47:52 Medication Orders cephalexin 500 mg capsule [email or web address] [facility][id number], [address] [facility] , [place], [address], 19:44:33 Patient TargetsNo targets recorded. Patient Instructions Encounter Date Encounter Id Patient Instructions Last Modified By Organization Details Last Modified Time 07/18/2022 [id number] KEEP AREA CLEAN AND DRY. MAY APPLY [...] ed. [email or web address] [facility] [address] [place], [address], 07/18/2022 10:40:43 07/19/19 23 XR, hand, 3 or more view No observ ation record ed. [email or web address] [facility] [address] [place], [address], 07/18/2022 11:04:17 07/19/19 23 imagi ng/di agnos tic resul t No observ ation record ed. [email or web address] Not Available 2022 14:30:58 Result Notes None recorded. Problems Name Problem SNOMED Code Status Onset Date Resolution Date Notes Provider Name and Address Organization Details Recorded Time Hypercholestero lemia 82563200 Active 2022 VINAY LUPICA null, [place] - [facility] 3 08:23:04 Hypertensive disorder 20624876 Active 2022 VINAY LUPICA null, PA - [facility] 3 08:23:30 Heart disease 98053446 Active 2022 VINAY LUPICA null, PA - [facility] 3 08:23:48 Depressive disorder 40920658 Active 2022 VINAY LUPICA null, PA - [facility] 3 08:24:50 Anxiety 06101648 Active 2022 VINAY LUPICA null, PA - [...] Name and Address Organization Details Recorded Time 995648 Product containin g penicilli n (product) medicatio n Not available Not available Not available 07/18/2022 30468 8001 SNOMED VINAY TRINH null, PA - [facility] 3 08:18:36 223248 Abilify medicatio n Not available Not available Not available 07/18/2022 23896 3 RxNorm VINAY TRINH null, PA - [facility] 3 08:18:56 981152 prednison e medicatio n Not available Not available Not available 07/18/2022 8640 RxNorm VINAY TRINH null, PA - [facility] 3 08:19:10 520370 Inderal medicatio n Not available Not available Not available 07/18/2022 99767 0 RxNorm VINAY TRINH null, PA - [...] Updated DateTime 3 182.88 cm 29.7 kg/m2 55477.7 3 g 97 [degF] 96 % 96 % 61 /min 16 /min 113/66 mm[Hg] VINAY TRINH PA - [facility] 3 08:28:42 Social History Question Answer Notes LastModified by Organizat Style [employer]uke[employer] Details LastModified Time Tobacco Smoking Status Never Smoker GARRETT Banerjee - [facility] 07/18/2022 08:25:40 Have You Recently Traveled Abroad? No [email or web address] Information not available 07/18/2022 Sex: Unknown Functional Status Question Answer Note LastModified by Organizat ion Details LastModified Time Do you use any illicit or recreational drugs? No [email or web address] Information not available 07/18/2022 Do you or have you ever used any other forms of tobacco or nicotine? No Information not available 07/18/2022 What is your level of alcohol consumption? None Information not available 07/18/2022 Mental Status None recorded. Family History Relationship Description Onset Age of this Age Resolved Age Notes LastModified by Organization Details LastModified Time Father No current problems or disability [email or web address] Not available 07/18 08:25:25 Mother No current problems or disability [email or web address] Not available 07/18 08:25:25 Medical History No medical history recorded. Immunizations Vaccine Type Date Status Note Provider Nam e and Address Organization Details Recorded Time Tdap 07/18/2022 completed Jose Saenz NP [facility] [place], [address], [place] - [facility] 07/18/2022 19:44:34 Past Encounters Encounter ID Performer Location Encounter Start Date Encounter Closed Date Diagnosis/Indication Diagnosis SNOMED-CT Code Diagnosis ICD10 Code Diagnosis IMO Codes Diagnosis Note [id number] [address] [facility] [address] [place] [address] 05/19/2018 08:07:53 05/19/2018 08:38:27 [id number] [address] [facility] [address] [place] [address] 04/20/2017 09:19:32 04/20/2017 10:26:52 [id number] [address] [facility] [place] [address] 03/20/2022 08:41:47 03/20/2022 11:05:46 [id number] [address] [facility] [place] [address] 03/14/2019 10:47:12 03/14/2019 12:05:09 [id number] [address] [facility] [place] [address] 07/12/2016 16:42:45 07/12/2016 17:07:10 [id number] [address] [facility] [place] [address] 05/12/2018 11:46:30 05/12/2018 12:29:09 [id number] [address] [facility] [place] [address] 07/27/2021 09:05:35 07/27/2021 10:42:59 [id number] [address] [facility] [place] [address] 06/27/2018 08:06:18 06/27/2018 08:44:07 [id number] [address] [facility] [place] [address] 03/22/2018 08:06:37 03/22/2018 08:34:58 [id number] [address] [facility] [place] [address] 09/21/2021 17:53:37 09/21/2021 18:07:14 [id number] [address] [facility] [place] [address] 07/05/2016 14:08:47 07/05/2016 14:42:37 [id number] [address] [place] [address] 07/09/2021 08:10:06 07/09/2021 09:16:33 [id number] Jose Saenz NP [address] [place] [address] 07/18/2022 08:02:48 07/18/2022 09:07:41 Laceration of palm of hand 827330879 S61.421A Administra tion of tetanus vaccine 828796662 Z23 Health Concerns Section Related Observation LastModified by Organization Detai ls LastModified Time None Recorded Concern Status LastModified by Organization Details LastModified Time None Recorded Advance Directives Directive None Recorded Payers Insurance Date Sequence Insurance Name Policy Number Policy Blanco Covered Member ID Blanco Member ID Guarantor Name 08/28/2022 1 [facility] [id number] 1 Damian Aguilera [id number] Damian Aguilera Notes Date Note Type Note Provider Name and Address Organization Details Recorded Time 07/18/2022 text/html Wrist/Hand Injur y UCReported by PatientHPIFor associated symptoms, patient reportspain,swelling, redness, andwarmthbut reportsno ecchymosisandno fever. For source of patient information, patient reportspatient arrived at urgent care ambulatory. For location, patient reportsleftandhand. For severity, patient reportsmild. For duration, patient xeyetyk2307/16/2022 days. For context, patient reportslaceration. For hand dominance, patient reportsleft. For aggravating factors, patient reportsgripping. For previous injury, patient reportsno prior injury to affected body part. For previous treatment, patient reportsnone. For prior imaging, patient reportsnone. Jose Saenz NP [address] [place], [address], [place] - [facility] 07/18/2022 19:45:02
--- OUTSIDE RECORDS SUMMARY | 2025-03-05 06:37 | XMS_ITS | Data Portability ---
Author Organization [place] - [facility], [facility] Address [address] [place] [address] Care Team Providers Care Bowstring Maker Name Role Phone CHRISTINA WADE Primary Care [...] spray 2024 025 [id number], [address] [place], [address], 5 09:20:08 Patient TargetsNo targets recorded. Patient [...] Details Recorded Time Hypertrop hic cardiomyo aletha 448472986 Active 2021 Other hypertrop hic cardiomyo aletha; Note: Date Diagnosed : 10/12/2021 10:08 AM (I42.2) Not Available [facility] 4 02:31:58 Chronic rhinitis 05607566 Active 2021 Chronic rhinitis; Note: Date Diagnosed : 10/12/2021 10:08 AM (J31.0) Not Available [facility] 4 02:31:41 Obstructi ve sleep apnea syndrome 89743051 Active 2021 Obstructi ve sleep apnea (adult) (pediatri c); Note: Date Diagnosed : 10/12/2021 10:08 AM (G47.33) Not Available [facility] 4 02:31:49 Hypertrop hy of nasal turbinate s 71775290 Active 2021 Hypertrop hy of nasal turbinate s; Note: Date Diagnosed : 10/12/2021 10:08 AM (J34.3) Not Available [facility] 4 02:31:49 Bilateral tinnitus 25491517576 02 Active 2021 Tinnitus, bilateral ; Note: Date Diagnosed : 12/10/2021 9:53 AM (H93.13) EDEN SALDIVAR PA-C [address] [place] [address], [facility] [place], [address] , [place] - [facility] 5 16:43:07 Sensorine ural hearing loss of bilateral ears 939816017 Active 08/08/ 2022 Sensorine ural hearing loss, bilateral ; Note: Date Diagnosed : 12/10/2021 9:53 AM (H90.3) MELIA DE LEON MA, CCC-A [address] [facility] [place],RAFA [facility], [place], [address] , [facility] - [facility] 5 16:05:56 Impacted cerumen of bilateral ears 83055478126 76555 Active 2022 Impacted cerumen, bilateral ; Note: Date Diagnosed : 3 9:34 AM (H61.23) Not Available [facility] 4 02:32:02 Vasomotor rhinitis 0913279 Active 2024 EDEN SALDIVAR PA-C [address] [facility] [place] [address], [place], [address] , [facility] - [facility] 5 09:19:39 Impacted cerumen in left ear 23115571091 67845 Active 2024 EDEN SALDIVAR PA-C [address] [facility] [place] [address], [place], [address] , [facility] 5 09:58:07 Problem Notes None recorded. Procedures Surgical History Date Name Laterality Status Provider Name and Address Organization Details Recorded Time 5 Comp Audio with Tymps - 88442 & 71013 completed MELIA DE LEON MA, CCC-A [address] [place] [address], [place], [address], [facility] 01/28/2025 16:04:16 5 Cerumen removal without microscope left completed EDEN SALDIVAR PA-C [address] [facility] [place] [facility], [place], [address], [facility] - [facility] 12/17/2024 09:19:27 Imaging Results None recorded. Procedure Notes None recorded. Medical Equipment None Reported. Allergies Allergen ID Allergen Name Allergen Category Reaction Reaction Severity Criticality Documentation Date Start Date Code Code System Note Provider Name and Address Organization Details Recorded Time 70113 Abilify medicatio n other Not available Not available 09/16/2023 81581 3 RxNorm React ion: other react ion, Unkno wn; Not Available [facility] 4 00:56:29 76496 propranol ol medicatio n other Not available Not available 09/16/2023 8787 RxNorm React ion: other react ion, Unkno wn; Not Available [facility] 4 00:56:30 51736 prednison e medicatio n other Not available Not available 09/16/2023 8640 RxNorm React ion: other react ion, Unkno wn; Not Available [facility] 4 00:56:30 69362 Product containin g penicilli n (product) medicatio n other Not available Not available 09/16/2023 30541 8001 SNOMED React ion: other react ion, Unkno wn; Not Available [facility] 4 00:56:33 Medications Name Sig Start Date Stop Date Status Note LastModified by Organization Details LastModified Time Prescript ion - Prior Authoriza tion Request active Script Copy/Selam or Auth^Scr ipt Copy/Selam or Auth_ 24842 Not Available Not Available Not Available terazosin [...] mg capsule 12/16 completed Medicati on ID: [id number] B rand Name: doxycycl ine monohydr ate [...] mg capsule 12/16 completed Medicati on ID: [id number] B rand Name: nitrofur antoin monohyd/ m-cryst Send Method: E-Prescr ibed Sub s Allowed: subs OK Medic ationGen ericName : nitrofur antoin monohyd/ m-cryst Not Available Not Available Not Available trospium ER 60 mg capsule,e xtended release 24 hr 12/16 completed Medicati on ID: [id number] B rand Name: trospium Send Method: E-Prescr [...] Updated DateTime 12/17/2024 182.88 cm 29.4 kg/m2 32115.54 g Thuy Hernandez [place] - [facility] 12/17/2024 09:05:43 Social History Question Answer Notes LastModified by Organizat ion Details LastModified Time Tobacco Smoking Status Never Smoker Thuy myrick [place] - [facility] 12/17/2024 09:05:58 What Type Of Refrigeration System Installer Do You Use? None Information not available [...] Disorder N Anesthesia Complications N Heart Attack ([place]) N Other Skin Condition N Diabetes N [...] ICD10 Code Diagnosis IMO Codes Diagnosis Note [id number] EDEN SALDIVAR PA-C [facility] [address] [place] [address] 12/17/2024 08:43:15 12/17/2024 09:22:17 Vasomotor rhinitis 1294544 J30.0 77504 Impacted c erumen in left ear 7640941317 495726 H61.22 6702189 54704 EDEN SALDIVAR PA-C [facility] [address] [place] [address] 01/28/2025 15:24:52 01/28/2025 16:39:22 Sensorineural hearing loss of bilateral ears 454189133 H90.3 Audiologic al evaluation results: Right ear: Normal Hearing thru 1000Hz sloping to a mild to severe SNHL with excellent word recognitio n. Left ear: Normal/bor derline normal hearing thru 2000Hz sloping to a mild to moderately severe SNHL with good word recognitio n. Tympanomet ry: Right Ear:Type A Left Ear:Type A Bilateral tinnitus 41892 53049 102 H93.13 Health Concerns Section Related Observation LastModified by Organization Detai ls LastModified Time None Recorded Concern Status LastModified by Organization Details LastModified Time None Recorded Advance Directives Directive None Recorded Payers Insurance Date Sequence Insurance Name Policy Number Policy Blanco Covered Member ID Blanco Member ID Guarantor Name 01/31/2025 1 [employer] [facility] IN[facility] (PPO) [id number] 1 Damian Aguilera [id number] Damian Aguilera Notes Date Note Type Note Provider Name and Address Organization Details Recorded Time 12/17/2024 text/html ROS as noted in the [facility] 64yo male with sensorineural hearing loss and PAYAL presents evaluation of vasomotor rhinitis. His nasal congestion is only when laying flat. He requests Atrovent renewal, which he uses three times daily. Denies nasal congestion during the day, nasal pain, or changes to smell. He is interested in hearing aids. MARCIAL ALFORD MD [address] [place] [address], [address], [facility] 12/17/2024 11:01:41 01/28/2025 text/html ROS as noted in the [facility] 64yo male with sensorineural hearing loss, vasomotor rhinitis, and PAYAL presents for hearing evaluation. No acute concerns today. He is interested in hearing aids. MISSAEL MCADAMS MD [address] [place] [address], [phone], [facility] 01/28/2025 16:52:05
--- OUTSIDE RECORDS SUMMARY | 2025-03-05 06:37 | XMS_ITS | Patient Health Record ---
Author [facility] Address [address] [facility] [place] [address] Care Team Providers Care Patient'S Librarian Name Role Phone Anuj Turner Primary Care Provider Unav Nika Thomas Unavailable [phone] Allergies Allergen (clinical drug ingredient) Drug/Non Drug [...] Insured Coverage Start Date Coverage End Date [facility] [address] [place] [address] [id number] Damian Aguilera Self - patient is the insured Medical (General) History Medical History History ICD Code Anxiety Arthritis Back,Hip,and Knee pain Broken bones CAD (Cholesterol) covid-19 Depression Gall bladder problems Heart disease Sciatica chronic sinusitis Joint implants/screws Hypertrophic Cardiomyopathy Surgical History Surgery Date(Month/Year) gall bladder appendectomy Defibrillator 2017 [place] 1975
[2025-03-05 11:31] LABS: MANUAL DIFF FLAG NO
[2025-03-05 11:34] LABS: Hematocrit 41.0 % (42.0-52.0); Hemoglobin 13.8 g/dl (14.0-18.0); Imm Gran Abs Auto 0.00 X10*3/uL (0.00-0.03); Imm Gran Pct Auto 0.0 % (0.0-0.4); Lymphocytes Absolute Auto 1.3 X10*3/uL (1.2-4.9); Mean Corpuscular HGB Conc 33.7 g/dl (31.0-36.0); Mean Corpuscular Hemoglobin 31.3 pg (27.0-33.0); Mean Corpuscular Volume 93.0 fL (80.0-98.0); NRBC Abs Auto 0.000 X10*3/uL (0.0-0.012); NRBC Pct Auto 0.0 /100WBC (0.0-0.2); Platelet Count 176 X10*3/uL (160-400); Red Blood Count 4.41 X10*6/uL (4.60-5.80); White Blood Count 3.3 X10*3/uL (4.8-10.8)
[2025-03-05 11:39] LABS: Appearance Urine Clear; Glucose Urine UA Negative (Negative); PH 6.0 (5.0-9.0); Specific Gravity - Urine 1.025 (1.005-1.025); UMIC TRIGGER UACC YES
[2025-03-05 11:50] LABS: UACC Culture Trigger YES
[2025-03-05 12:01] LABS: Alanine Aminotransferase 87 U/L (0-40); Albumin Level 4.2 g/dL (3.5-5.0); Alkaline Phosphatase 109 U/L (39-117); Anion Gap 8 (12-20); Aspartate Amino Transferase 57 U/L (5-37); Blood Urea Nitrogen 21 mg/dL (9-16); Calcium 8.7 mg/dL (8.4-10.2); Carbon Dioxide 26 mmol/L (22-29); Chloride 111 mmol/L (96-108); Cholesterol 163 mg/dL (<200); Estimated Glomerular Filt Rate > 60; HDL Cholesterol 55 mg/dL (>40); Potassium 4.2 mmol/L (3.3-5.1); Sodium 141 mmol/L (135-145); Total Protein 6.7 g/dL (6.5-8.0); Triglycerides 60 mg/dL (<150)
== END 2025-03-05 06:33 | disposition home or self-care (01) ==
LOC: HO.HMGCLDS 06:32
PROVIDERS: PCP Nurse Practitioner Family; Visit Provider Nurse Practitioner Family
DX: Z00.00 Encounter for general adult medical examination without abnormal findings (principal); Z12.5 Encounter for screening for malignant neoplasm of prostate; E55.9 Vitamin D deficiency, unspecified; Z13.6 Encounter for screening for cardiovascular disorders; Z13.29 Encounter for screening for other suspected endocrine disorder
CPT/HCPCS: 36415; 80053; 80061; 81001; 82306; 84153; 84443; 85025; 87086

== ENCOUNTER 2025-04-12 09:36 | Outpatient (AMB) | payer OTHER, SELFPAY ==
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
== END 2025-04-12 09:37 | disposition home or self-care (01) ==
LOC: HO.HOP 09:36
PROVIDERS: PCP Nurse Practitioner Family; Visit Provider Clinical Nurse Specialist Psychiatric/Mental Health
DX: F41.1 Generalized anxiety disorder (principal); F41.0 Panic disorder [episodic paroxysmal anxiety]; F43.10 Post-traumatic stress disorder, unspecified; F33.41 Major depressive disorder, recurrent, in partial remission
CPT/HCPCS: 99214

== ENCOUNTER → 2025-04-12 09:36 | Outpatient (BNVA) | payer OTHER, SELFPAY | PROVIDERS: PCP Nurse Practitioner Family; Visit Provider Clinical Nurse Specialist Psychiatric/Mental Health | DX: F41.0 Panic disorder [episodic paroxysmal anxiety] (principal); F41.1 Generalized anxiety disorder; F43.10 Post-traumatic stress disorder, unspecified; F33.41 Major depressive disorder, recurrent, in partial remission | CPT/HCPCS: 99212 ==

== ENCOUNTER 2025-04-14 08:40 | Outpatient (AMB) | payer OTHER, SELFPAY ==
--- NOTE | 2025-04-14 08:43 | A.OFFVIS_ITS ---
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 Required: No Accompanied by: Self / Same As Patient Allergies aripiprazole (From Abilify) Adverse Reaction (Intermediate, Verified 04/14/25 08:44) Increased agitation and depression Penicillins Adverse Reaction (Intermediate, Verified 04/14/25 08:44) Nausea and Vomiting propranolol (Propranolol) Adverse Reaction (Intermediate, Verified 04/14/25 08:44) Nausea and Vomiting shellfish derived Adverse Reaction (Intermediate, Verified 04/14/25 08:44) Vomiting duloxetine (From CYMBALTA) Adverse Reaction (Mild, Verified 04/14/25 08:44) Increased agitation mirtazapine (MIRTAZAPINE) Adverse Reaction (Mild, Verified 04/14/25 08:44) Manic symptoms prednisone Adverse Reaction (Mild, Verified 04/14/25 08:44) Anger issues risperidone (From RISPERDAL) Adverse Reaction (Mild, Verified 04/14/25 08:44) Previous bad reaction and drug interaction with Wellbutrin HPI Comments Details: Damian is a pleasant male. He is a patient Dr. Krueger. He is seen for the following urologic conditions - lower urinary tract symptoms - urgency and weak stream - Peyronie's disease Six-month follow-up PSA stable 4.4 PVR 150 cc Urge control during the day remains stable - Myrbetriq stable Completed reading bladder matters. Understands bladder triggers. Much of this occurs secondary to his TBI Nocturia x1 Primary issue with nocturia is inability to fall back to sleep - works third shift PAYAL with CPAP - Nocturnal urinary frequency - Positive response to Mirabegron (Mirbetric) for bladder management - unable to tolerate terazosin secondary to blood pressure issues - Stable urinary symptoms since COVID-19 pandemic adjustments - Lifestyle modifications to avoid bladder irritants such as coffee, chocolate, spicy foods, and soda - Adequate hydration noted with alternating Propel and water intake Lower Urinary Tract Symptoms: Continued good response to urge frequency with combination Gemtessa and terazosin Current visit is for further evaluation of, lower urinary tract symptoms, predominate irritative symptoms. Current treatment includes medication, alpha rajni - terazosin 5mg, Myrbetriq Prior treatments include 08/20 terazosin 5mg 02/20 oxybutynin with dry mouth - has memory issues baseline. Prostate Symptom Score 02/18 Moderate (9-19), Bother 3 4./ , Moderate (9-), Bother 3. Symptoms include 02/18 incomplete emptying, urgency, weak stream 08/20 , intermittency, urgency, weak stream, nocturia (>2), and are progressing. Results from testing include cystoscopy no abnormality seen 09/19, 03/23 - filled 300cc mild trabeculation Prior Prostate Score mild. PSA 08/20 3.5 - 01/22 6.1 - 09/22 3.9, 09/23 3.7, 08/25 5.1, 08/27 5.1, 03/29 4.4 Testing at next visit will include bladder scan. Treatment plan combination therapy. Peyronie's Disease: The patient presents for followup up evaluation for penile disorder. Primary complaint is penile curvature, Peyronie's disease. At this time he experiences partial erections sufficient for penetrative intercourse. [place] has is unaffected. Prior management includes 03/22 oral medication, vacuum protocol. Associated conditions history of penile trauma No CAD No diabetes No erectile dysfunction No hypertension No peripheral vascular disease No Natural history of Peyronie's [facility] Medical History Overactive bladder Bladder outlet obstruction Weak urinary stream Hypogonadism in male Hypertrophic cardiomyopathy Coarse tremor HTN (hypertension) [place] (nonalcoholic steatohepatitis) Burrows's neuroma of right foot PTSD (post-traumatic stress disorder) Peyronie's disease Atrial fibrillation Asthma PAYAL on CPAP Dyspnea Surgical History History of colonoscopy History of neck surgery History of appendectomy Family History Father Lung disease Substance use disorder Mother Type 2 diabetes mellitus Brother Substance use disorder Other Cancer Diabetes mellitus Mental health disorder Social History Household Members: Spouse Housing: House Patient Tobacco Use Status: Never used Tobacco e-Cigarette/Vaping Use: Never Used Second Hand Smoke Exposure: Yes (Father was a heavy smoker) service: No Current occupational status: employed Current occupation: [employer] Current occupational exposures/hazards: Yes Sexual orientation: Straight/Heterosexual Cognitive needs: No Hearing needs: No Vision needs: No Review of Systems Const Denies chills and Denies fever(s) Card Reports no additional complaints and Denies syncope Resp Denies cough GI Denies abdominal pain and Denies heartburn Reports as per HPI and Denies change in libido Neuro Denies syncope Psych Denies change in libido Endo Denies change in libido Physical Exam Const General: cooperative, healthy appearing, comfortable and no acute distress Orientation/consciousness: patient oriented x3 HEENT Face and sinus: Yes normal facial exam Mouth: moist mucous membranes Neck Neck: Yes normal visual inspection, Yes full ROM and Yes trachea midline Chest Chest palpation & inspection: normal inspection of the chest Resp Effort & Inspection: normal respiratory effort, able to speak in complete sentences and no respiratory distress GI Inspection: Yes normal to inspection Back/Spine/Pelvis Cervical Spine: normal cervical lordosis Thoracic/Lumbar Spine: thoracic and lumbar spine normal to inspection Skin General skin exam: no rashes or lesions noted Neuro General: patient oriented x3, gait normal, tone normal and moves all extremities Extrem General: Yes normal to inspection and Yes capillary refill normal Office Procedures Post Void Residual Post Residual Void Post Void Residual (PVR): [id number] Void Residual by ultrasound Results AMB Urinalysis, Automated UA Leukoctes 0 Litzy/uL Last Edit by MANISHA Gonzalez on 04/14/25 08:58 UA Nitrite Negative Last Edit by MANISHA Gonzalez on 04/14/25 08:58 UA Urobilinogen 0.2 mg/dL Last Edit by Teresa Leiva CCM on 04/14/25 08:58 UA Protein 0 mg/dL Last Edit by MANISHA Gonzalez on 04/14/25 08:58 UA pH 6.0 Last Edit by MANISHA Gonzalez on 04/14/25 08:58 UA Blood 0 Jeremi/uL Last Edit by Teresa Leiva CCM on 04/14/25 08:58 UA Specific Superior 1.010 Last Edit by MANISHA Gonzalez on 04/14/25 08:5 8 UA Ketone Negative Last Edit by Teresaree Leiva CCMA on 04/14/25 08:58 UA Bilirubin 0 mg/dL Last Edit by Teresacatarina Leiva CCMA on 04/14/25 08:58 UA Glucose 0 mg/dL Last Edit by Teresacatarina Leiva CCMA on 04/14/25 08:58 Results Reviewed Results Reviewed: Laboratory Last Values Urine pH (Auto) 6.0 04/14/25 08:45 Specific Superior (Auto) 1.010 04/14/25 08:45 Urine Protein (Auto) 0 mg/dL 04/14/25 08:45 Glucose (UA)(Auto) 0 mg/dL 04/14/25 08:45 Urine Ketones (Auto) Negative 04/14/25 08:45 Urine Blood (Auto) 0 Jeremi/uL 04/14/25 08:45 Urine Nitrite (Auto) Negative 04/14/25 08:45 Urine Bilirubin (Auto) 0 mg/dL 04/14/25 08:45 Urine Urobilinogen (Auto) 0.2 mg/dL 04/14/25 08:45 Leukocyte Esterase (Auto) 0 Litzy/uL 04/14/25 08:45 Assessment & Plan Assessment & Plan (1) Weak urinary stream: Code(s): R39.12 - Poor urinary stream Category: Medical (2) Nocturia more than twice per night: Code(s): R35.1 - Nocturia Category: Medical (3) Overactive bladder: Comment: Marcial Code(s): N32.81 - Overactive bladder Category: Medical Plan Six-month follow-up PVR Orders: Orders AMB Urinalysis Automated Today N13.8 - Other obstructive and reflux uropathy, N40.1 - Benign prostatic hyperplasia with lower urinary tract symptoms AMB Post Void Residual by ultrasound Today N40.1 - Benign prostatic hyperplasia with lower urinary tract symptoms Medications: Changed From mirabegron ER 50 mg PO DAILY N32.81 - Overactive bladder To mirabegron ER 50 mg PO DAILY 90 tabs 1RF 90 days N32.81 - Overactive bladder Patient Instructions: This note is constructed using voice recognition software. While every effort has been made to ensure accuracy wig dresser errors may have been included. Imaging studies, laboratory and physical exam results were discussed and reviewed in detail. No major barriers to patient understanding were identified. An opportunity to ask questions regarding the treatment plan was provided. All questions were answered. The patient expressed understanding and agreement with the above treatment plan. The patient is aware they should contact our office by phone for worsening of their current condition or the appearance of new urologic symptoms. Compliance is encouraged with any medications and followup testing that is ordered. It is a privilege to participate in the urologic care of your patient. If you have any questions or concerns regarding treatment for the above conditions, or other urologic issues, please do not hesitate to contact me. The office telephone contact is [phone]. Sincerely, Dr Anil Villareal MD, [facility] - Urology Compassionate Specialist Care for the Genitourinary System Coding Level of Care Code Est Pt Level 3 (40337) Add On Problem Visit Only Diagnoses Weak urinary stream R39.12 Nocturia more than twice per night R35.1 Overactive bladder N32.81 CPT Codes Post Residual Void - PVR CPT Code: 00008-Cieo Void Residual by ultrasound ([id number])
== END 2025-04-14 09:18 | disposition home or self-care (01) ==
LOC: HO.HUSH 08:41
PROVIDERS: PCP Nurse Practitioner Family; Visit Provider Urology
DX: R39.12 Poor urinary stream (principal); R35.1 Nocturia; N32.81 Overactive bladder; N40.1 Benign prostatic hyperplasia with lower urinary tract symptoms; N13.8 Other obstructive and reflux uropathy
CPT/HCPCS: 99213

== ENCOUNTER → 2025-04-14 08:40 | Outpatient (BNVA) | payer OTHER, SELFPAY | PROVIDERS: PCP Nurse Practitioner Family; Visit Provider Urology | DX: N40.1 Benign prostatic hyperplasia with lower urinary tract symptoms (principal); N32.81 Overactive bladder; R39.12 Poor urinary stream; R35.1 Nocturia; Z79.899 Other long term (current) drug therapy | CPT/HCPCS: 51798; 81003 ==

== ENCOUNTER 2025-05-04 10:06 | Outpatient (REF) | payer OTHER, SELFPAY ==
--- OUTSIDE RECORDS SUMMARY | 2025-05-02 09:00 | XMS_ITS | Encounter Summary ---
Author Organization Dawn Alfonso [facility] Address [address] [place] [address] Care Team Providers Care Child Psychologist Name Role Phone Anuj Quinteros NP Primary Care Provider + Reason for Referral * ADVANCED IMAGING (Routine) - New Request Specialty Diagnoses / Procedures Referred By Contac t Referred To Contact Diagnoses Spasm of abdominal muscles of left side Procedures CT Tspine Post Myelogram Raj Corrales PA [address] [place] [address] Phone: tel: fax: Referral ID Status Reason Start Date Expiration Date V isits Requested Visits Authorized [id number] New Request 05/02/2025 07/26/2026 1 1 * ADVANCED IMAGING (Routine) - New Request Specialty Diagnoses / Procedures Referred By Contac t Referred To Contact Diagnoses Spasm of abdominal muscles of left side Procedures MRI Thoracic Spine W WO Contrast Raj Corrales PA [address] [place] [address] Phone: tel: fax: Referral ID Status Reason Start Date Expiration Date V isits Requested Visits Authorized [id number] New Request 05/02/2025 07/26/2026 1 1 Encounter Details Date Type Department Care Team (Late st Contact Info) Description 05/02/2025 9:00 AM EST Office Visit [facility] [address] [facility] [address] [address] Raj Corrales PA [address] [place] [address] Segmental myoclonus (Primary Dx); Essential tremor; Spasm of abdominal muscles of left side Social History Tobacco Use Types Packs/Day Years Used Date Smoking Tobacco: Never Smokeless Tobacco: Never Alcohol Use Standard Drinks/Week Comments Not Currently 0 (1 standard drink = 0.6 oz pur e alcohol) Sex and Gender Information Value Date Recorded Sex Assigned at Male 11/04/2019 10:53 AM EDT Legal Sex Male 10:51 AM EDT Gender Identity Male 11/04/2019 10:53 AM EDT Sexual Orientation Not on file documented as of this encounter Last Filed Vital Signs Vital Sign Reading Time Taken Comments Blood Pressure 118/75 05/02/2025 8:47 AM EST Pulse 76 05/02/2025 8:47 AM EST Temperature - - Respiratory Rate - - Oxygen Saturation - - Inhaled Oxygen Concentration - - Weight - - Height - - Body Mass Index - - documented in this encounter Patient Instructions * Patient Instructions* GARRETT Hinson - 05/02/2025 9:00 AM EST Recommendations as follows: - I have placed orders for several blood tests, which you can have done closer to home. I will print off the orders for you to take to the lab - I would also like you to have an EMG done to evaluate for any nerve/muscle disorders that may cause the spasming of the left side of your abdomen - Consider CT scan abdomen/pelvis documented in this encounter Progress Notes * GARRETT Hinson - 05/02/2025 9:00 AM EST Name: Damian Aguilera Date of : 1960 Date of Visit: 05/02/2025 Reason for Visit:No chief complaint on file. HPI:Damian Aguilera is a 64 y.o.male presenting today for follow-up of essential tremor. Interim 01/07/24: Patient presents to today's appointment accompanied by his spouse who is able to provide collateralhistory. He reports no significant changes to his hand tremors. He is right hand dominant. Tremor is relatively symmetrical. He states that he does not let the tremors get in the way of him doing anything. He is patient with fine motor skills. He states that some days can be better than others. He denies rest component or spread of tremor. He is tolerating primidone and gabapentin well. He has nosignificant imbalance. He notes that he becomes easily fatigued in the afternoons, but he does workthird shift and on Fridays he is up for 23-24 straight hours. Interim 05/02/25: Patient presents to today's appointment accompanied by his spouse who is able to provide collateralhistory. He reports relative stability of his hand tremors. His main concern today is a rhythmic spasming/jerking motion on the left side of his abdomen. He reports having this symptom for 2-3 years,but has worsened over the last 4-6 months. He was hospitalized for depression at that time and started on olanzapine. The spasming happens daily and every few seconds. He denies myoclonic movements elsewhere. He notices the movements more when sitting. Symptoms continue while he is sleeping. He denies headaches, vision or hearing changes, swallowing or speech changes, balance issues, falls, lightheadedness, pain, weakness, shortness of breath, nausea, vomiting. Ultrasound in the past reportedlynormal and he will have an updated scan in the spring. ET medication regimen: Gabapentin 400 mg TID Primidone 250 mg TID ROS: Gen: The patient reports that weight has been stable. HEENT: No headache, lightheadedness Eyes: No change in vision Ears: No difficulties with hearing, no tinnitus Mouth: No difficulties chewing or swallowing Resp: Negative shortness of breath Cardiac: Negative chest pain GI: Negative nausea/vomiting/ constipation : Negative dysuria Neuro:negative weakness, negative facial droop PMH: Past Medical History[1] PSH: Past Surgical History[2] SOCH : Social History[3] FAMHX: Family History[4] ALLERGY: Allergies[5] ENCMED: Encounter Medications[6] VITALS: Vitals: 05/02/25 0847 BP: 118/75 Pulse: 76 PHYSICAL EXAMINATION: On physical examination the patient is a pleasant man in no acute distress. He is normocephalic, atraumatic. Extraocular eye movements are intact, no nystagmus noted. Oral mucosa is pink, tongue midline, palate elevates symmetrically. On motor exam no tremors noted at rest he does have postural tremor is 2 in the upper extremities bilaterally as well as tremor noted at the endpoint on [id number] testing. No bradykinesia is noted. He has persistent, rhythmic myoclonic movements in the abdomen on the left side, occurring every3-5 seconds. No results found for this or any previous visit. Assessment/Plan: Damian Aguilera is a 64 y.o.male who follows up today for essential tremor. He continues to do well on his current medication schedule. His main concern today are myoclonic movements located on the left side of the trunk, which he has had for multiple years, but has worsened in the last 4-6 monthsafter a hospitalization for depression. 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 Bloodwork ordered to rule out reversible causes and CT thoracic spine myelogram to evaluate for spinal cord lesion. He is unable to have MRI due to incompatible pacemaker/defibrillator. Can consider clonazepam at follow-up. Follow up via telehealth at completion of testing. GAR[facility] 45 minutes in total spent preparing for this visit by reviewing primary care and/ or referring provider notes, prior diagnostic tests, pertinent imaging and medical records, in direct patient interaction including detailed history taking, examination, counseling and then documenting and managing correspondence with the referring provider(s). [1] No past medical history on file. [2] No past surgical history on file. [3] Social History Socioeconomic History Marital status: Tobacco Use Smoking status: Never Smokeless tobacco: Never Substance and Sexual Activity Alcohol use: Not Currently Drug use: Never [4] No family history on file. [5] Allergies Allergen Reactions Shellfish Containing Products Anaphylaxis Abilify [Aripiprazole] Other (See Comments) Mood change / Dark thoughts Penicillins Diarrhea Propranolol Unknown [6] Outpatient Encounter Medications as of 05/02/2025 Medication Sig Dispense Refill atorvaSTATin (LIPITOR) 40 MG tablet TAKE 1 TABLET BY MOUTH EVERY DAY B complex vitamins tablet Take 1 tablet by mouth daily. Cannabidiol N/A Crea oil .25 ml TID cholecalciferol, vitamin D3, 5,000 unit capsule Take 1 capsule (5,000 Units total) by mouth daily. diphenhydrAMINE (BENADRYL) 25 mg capsule Take 1 capsule (25 mg total) by mouth at bedtime. ELIQUIS 5 mg Tab Take 1 tablet (5 mg total) by mouth in the morning and 1 tablet (5 mg total) before bedtime. gabapentin (NEURONTIN) 300 MG capsule TAKE 1 CAPSULE BY MOUTH THREE TIMES A DAY (Patient taking differently: Take 400 mg by mouth in the morning and 400 mg in the evening and 400 mg before bedtime. TAKE 1 CAPSULE BY MOUTH THREE TIMES A DAY.) 270 capsule 0 ipratropium (ATROVENT) 21 mcg (0.03 %) nasal spray 2 sprays into each nostril in the morning and 2 sprays in the evening. LORazepam (ATIVAN) 0.5 MG tablet TAKE 1/2 TABLET BY MOUTH UP TO TWICE A DAY NEEDED metoprolol tartrate (LOPRESSOR) 25 MG tablet Take 1 tablet (25 mg total) by mouth every morning & every evening. (Patient taking differently: Take 2 tablets (50 mg total) by mouth in the morning and 2 tablets (50 mg total) before bedtime.) multivitamin per tablet Take 1 tablet by mouth daily. OLANZapine (ZyPREXA) 2.5 MG tablet Take 1 tablet (2.5 mg total) by mouth at bedtime. primidone (MYSOLINE) 250 MG tablet Take 1 tablet (250 mg total) by mouth 3 times a day. 270 tablet 0 sertraline (ZOLOFT) 25 MG tablet Take 0.5 tablets (12.5 mg total) by mouth daily 50mg mornings and 25mg evenings. (Patient taking differently: Take 4 tablets (100 mg total) by mouth in the morning and 4 tablets (100 mg total) before bedtime. 50mg mornings and 25mg evenings.) aspirin 81 MG EC tablet Take 1 tablet (81 mg total) by mouth daily. MYRBETRIQ 50 mg Tb24 24 hr tablet TAKE 1 TABLET BY MOUTH EVERY DAY terazosin (HYTRIN) 5 MG capsule Take 1 capsule (5 mg total) by mouth at bedtime. trospium 60 mg Cp24 TAKE 1 CAPSULE BY MOUTH EVERY MORNING ON AN EMPTY STOMACH OR 1 HOUR BEFORE A MEAL No facility-administered encounter medications on file as of 05/02/2025. documented in this encounter Plan of Treatment Scheduled Orders Name Type Priority Associated Diagnoses Orde r Schedule FABRIZIO Screen,IFA, with Reflex to Titer and Pattern Lab Routine Spasm of abdominal muscles of left side Expected: 05/02/2025 (Approximate), Expires: 05/02/2026 Potassium Lab Routine Spasm of abdominal muscles of left side Expected: 05/02/2025 (Approximate), Expires: 05/02/2026 CK (Creatine Kinase) Lab Routine Spasm of abdominal muscles of left side Expected: 05/02/2025 (Approximate), Expires: 05/02/2026 Aldolase Lab Routine Spasm of abdominal muscles of left side Expected: 05/02/2025 (Approximate), Expires: 05/02/2026 Magnesium Lab Routine Spasm of abdominal muscles of left side Expected: 05/02/2025 (Approximate), Expires: 05/02/2026 C-Reactive Protein Lab Routine Spasm of abdominal muscles of left side Expected: 05/02/2025 (Approximate), Expires: 05/02/2026 Extended Myositis Panel Lab Routine Spasm of abdominal muscles of left side Expected: 05/02/2025 (Approximate), Expires: 05/02/2026 TSH with Rflex to Free T4 and T3 Lab Routine Spasm of abdominal muscles of left side Expected: 05/02/2025 (Approximate), Expires: 05/02/2026 documented as of this encounter Visit Diagnoses Diagnosis Segmental myoclonus- Primary Myoclonus Essential tremor Spasm of abdominal muscles of left side documented in this encounter Care Teams Child Psychologist Relationship Specialty Start Date End Date Anuj Quinteros NP PCP - General Nurse Practitioner 11/04/19 documented as of this encounter
--- OUTSIDE RECORDS SUMMARY | 2025-05-04 11:13 | XMS_ITS | Clinical Summary ---
Author Organization [address] [place] [address] [place] [phone] Phone Care Team Providers Care Oil Well Pumper Name Role Phone Anuj Quinteros NP Primary Care Provider [phone] Allergies Active Allergy Reactions Criticality Noted Date [...] due to his pacing. Atrial fibrillation 11/20/2021 Assessment & Plan (01/28/2025 8:56 AM EDT): Patient's device has captured episodes of paroxysmal atrial fibrillation in the past. Paroxysmal atrial fibrillation in the setting of hypertrophic obstructive cardiomyopathy meets criteria for anticoagulation regardless of [id number] score. Patient will start on Eliquis 5 mg twice daily. Assessment & Plan (12/31/2024 10:39 AM EDT): Patient has had short paroxysmal's of atrial fibrillation captured on his device monitoring. His [id number] s 1 for hypertension. He does have [...] denies any lightheadedness or dizziness. Hypertrophic cardiomyopathy 11/20/2021 Assessment & Plan (01/28/2025 8:56 AM [...] a specialty center for hypertrophic cardiomyopathy in [place]. At this time the patient declines since [...] of hypertrophic cardiomyopathy. Last echocardiogram completed at [facility] showing an LVEF 50 to 55%. Patient [...] Encounters Date Type Department Care Team Description 04/25/[address] [facility] [address] [place] [address] Anuj Morgan MD 04/15/2025 10:20 AM EST Ancillary Procedure [facility] [address] [place] [address] 03/29/2025 8:10 AM EST Ancillary Procedure [facility] [address] [place] [address] 03/29/[address] [facility] [address] [place] [address] Wen Flores PA 03/25/2025 3:25 PM EST Ancillary Procedure [facility] [address] [place] [address] 02/11/2025 1:15 PM EDT Ancillary Procedure [facility] [address] [place] [phone] from Last 3 Months Surgical History Surgery Date Site/Laterality Comments APPENDECTOMY PROCEDURE: HISTORICAL APPENDECTOMY COLONOSCOPY PROCEDURE: HISTORICAL COLONOSCOPY NECK SURGERY PROCEDURE: HISTORICAL NECK SURGERY Medical History Medical History Date Comments Asthma DX:Asthma Bladder outlet obstruction DX:Bl adder outlet obstruction Coarse tremor DX:Coarse tremor Dyspnea DX:Dyspnea Hypogonadism in male DX:Hypogona dism in male Burrwos's neuroma of right foot D X:Burrows's neuroma [...] on file Sexual Orientation Not on file Last Filed Vital Signs Vital Sign Reading [...] Description 05/24/2025 8:20 AM EST Office Visit [facility] [address] [place] [address] Germain Henriquez MD [address] [place] [address] [place] [address] 08/09/2025 8:30 AM EDT Ancillary Procedure [facility] [address] [place] [address] Health Maintenance Due Date Last Done Comments Colorectal Cancer Screening: Colonoscopy 1960 Drug Screen 1960 Non-Opioid Controlled Substance Agreement 1960 Hepatitis A Vaccines (1 of 2 - Risk 2-dose series) 1977 Hepatitis B Vaccines (1 of 3 - Risk 3-dose series) 2018 Cholesterol Screening (Lipid Panel) 04/14/2022 Hepatitis C Screening 04/14/2022 Hypertension/CHF/CAD Annual BMP Blood Test 04/14/2022 Social Influencers of Health Screening 04/14/2022 Falls Risk Assessment 2023 Depression Screening 05/05/2024 Zoster Vaccines (2 of 2) 04/30/2025 03/05/2025 COVID-19 Vaccine ( season) 2025 01/29/2025, 01/16/2024, 01/24/2023, Additional history exists DTaP,Tdap,and Td Vaccines (3 - Td or Tdap) 07/18/2032 07/18/2022, 03/30/2014 Pneumococcal Vaccine: 50+ Years Completed 01/29/2022, 03/29/2019 [...] this topic Medical Devices Implanted Type 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 [employer] Parts Former Device Identifier Shelf Expiration Date Model / Serial / Lot Medt-Card [id number] Implanted:07/03 (Quantity not on file) Cardiac ICD [employer] - CARDIAC RHYTH-CRDM [id number] / [id number] / Medt-Card Hendrum Xt [id number] Implanted:07/03 (Quantity not on file) Cardiac ICD [employer] - CARDIAC RHYTH-CRDM COBALT XT [id number] / [id number] / Procedures Procedure Name Priority Date/Time Associated Diagnosis Comments CARDIAC DEVICE CHECK- REMOTE- MURJ Routine 04/15/2025 10:15 AM EST CARDIAC DEVICE CHECK- REMOTE- MURJ Routine 03/29/2025 8:07 AM EST CARDIAC DEVICE CHECK- REMOTE- MURJ Routine 03/25/2025 3:23 PM EST CARDIAC DEVICE CHECK- REMOTE- MURJ Routine 02/11/2025 1:14 PM EDT from Last 3 Months Results * Cardiac device check - Remote- MURJ (04/15/2025 10:15 AM EST) Only the most recent of4 resultswithin the time period is included. Date Time Interrogation Session [id number] CV DEVICE CHECK Type Interrogation Session Remote CV DEVICE CHECK Implantable Pulse Generator [employer] Former MDT CV DEVICE CHECK Implantable Pulse Generator Type ICD CV DEVICE CHECK Implantable Pulse Generator Model [id number] CV DEVICE CHECK Implantable Pulse Generator Serial Number [id number] CV DEVICE CHECK Implantable Pulse Generator Implant Date [id number] CV DEVICE CHECK Battery Remaining Longevity 19.0 CV DEVICE CHECK Battery Voltage 2.920 CV D EVICE CHECK Battery TRUCK ENGINE TECHNICIAN Trigger 2.800 CV DEVICE CHECK Capacitor Charge Time 3.900 CV DEVICE CHECK Zion Statistic RV Percent Paced 96.77 CV DEVICE CHECK Atrial Tachy Statistic AT/AF Oolitic Percent 3.02 CV DEVICE CHECK Lead Channel Sensing Intrinsic Amplitude 0.600 CV DEVICE CHECK Lead Channel Setting Sensing Sensitivity 0.60 CV DEVICE CHECK Lead Channel Impedance Value 361 CV DEVICE CHECK Lead Channel Pacing Threshold Amplitude 0.750 CV DEVICE CHECK Lead Channel Pacing Threshold Pulse Width 0.4 CV DEVICE CHECK Lead Channel RA Pacing Threshold Date 2025-04-08 CV DEVICE CHECK Lead Channel Setting Pacing Amplitude 1.500 CV DEVICE CHECK Lead Channel Setting Pacing Pulse Width 0.4 CV DEVICE CHECK Lead Channel Sensing Intrinsic Amplitude 8.000 CV DEVICE CHECK Lead Channel Setting Sensing Sensitivity 0.60 CV DEVICE CHECK Lead Channel Impedance Value 494 CV DEVICE CHECK Lead Channel Pacing Threshold Amplitude 2.375 CV DEVICE CHECK Lead Channel Pacing Threshold Pulse Width 0.4 CV DEVICE CHECK Lead Channel RV Pacing Threshold Date 2025-04-05 CV DEVICE CHECK Lead Channel Setting Pacing [...] 6 CV DEVICE CHECK Date of Service 2025-05-26 CV DEVICE CHECK Anatomical Region Laterality Modality Device Interroga tion 04/14/2025 8:14 AM EST Impressions 04/15/2025 10:10 AM EST Atrial Fibrillation w/Controlled V Response * Stored EGMs are consistent with or suggestive of Atrial Fibrillation with Controlled Ventricular Response * AT/AF Oolitic: 3.02% * Ongoing since 04/12/25 Heart Failure Diagnostic: Stable * Heart failure diagnostics assessed through the device * Status: Stable * No overt HF present Narrative Procedure Note Jessica Carmona NP - 04/15/2025 IMPRESSION: Atrial Fibrillation w/Controlled V Response * Stored EGMs are consistent with or suggestive of Atrial Fibrillationwith Controlled Ventricular Response * AT/AF Oolitic: 3.02% * Ongoing since 04/12/25 Heart Failure Diagnostic: Stable * Heart failure diagnostics assessed through the device * Status: Stable * No overt HF present Jessica Carmona NP CV IMPLANTABLE CARDIAC DEVICE PROCEDURES Final Result from Last 3 Months Insurance MEDICARE [facility] Care Teams Oil Well Pumper Relationship Specialty Start Date End Date Anuj Quinteros NP [address] [facility] ELIU Collado PCP - General 09/25/21
--- OUTSIDE RECORDS SUMMARY | 2025-05-04 11:13 | XMS_ITS | Data Portability ---
Author Organization [facility]TT [facility] [employer], [address] Address [address] [place] [address] Care Team Providers Care Used Car Renovator Name Role Phone [facility] Primary Care Provider [phone] Assessment No assessment recorded. Plan of Treatment Reminders Order Date Submit Date Provider Last Modified By Organization Details Last Modified Time Details Appointments None recorded. Lab None recorded. Referral None recorded. Procedures None recorded. Surgeries None recorded. Imaging XR, hand, 3 or more view 2022 023 [facility], [address] [place], [address], 09:47:52 Medication Orders cephalexin 500 mg capsule 2022 023 [email or web address] [facility][id number], [address] [facility] , [place], [address], 19:44:33 Patient TargetsNo targets recorded. Patient Instructions Encounter Date Encounter Id Patient Instructions Last Modified By Organization Details Last Modified Time 07/18/2022 [id number] KEEP AREA CLEAN AND DRY. MAY APPLY [...] ed. [email or web address] [facility] [address] [place], [address], 07/18/2022 10:40:43 07/19/19 23 XR, hand, 3 or more view No observ ation record ed. [email or web address] [facility] [address] [place], [address], 07/18/2022 11:04:17 07/19/19 23 imagi ng/di agnos tic resul t No observ ation record ed. [email or web address] Not Available 2022 14:30:58 Result Notes None recorded. Problems Name Problem SNOMED Code Status Onset Date Resolution Date Notes Provider Name and Address Organization Details Recorded Time Hypercholestero lemia 94435963 Active 2022 VINAY LUPICA null, [place] - [facility] 3 08:23:04 Hypertensive disorder 12490694 Active 2022 VINAY LUPICA null, PA - [facility] 3 08:23:30 Heart disease 31561050 Active 2022 VINAY LUPICA null, PA - [facility] 3 08:23:48 Depressive disorder 95691740 Active 2022 VINAY LUPICA null, PA - [facility] 3 08:24:50 Anxiety 22507572 Active 2022 VINAY LUPICA null, PA - [...] Name and Address Organization Details Recorded Time 642283 Product containin g penicilli n (product) medicatio n Not available Not available Not available 07/18/2022 76788 8001 SNOMED VINAY TRINH null, PA - [facility] 3 08:18:36 956656 Abilify medicatio n Not available Not available Not available 07/18/2022 27049 3 RxNorm VINAY TRINH null, PA - [facility] 3 08:18:56 745898 prednison e medicatio n Not available Not available Not available 07/18/2022 8640 RxNorm VINAY TRINH null, PA - [facility] 3 08:19:10 344770 Inderal medicatio n Not available Not available Not available 07/18/2022 79166 0 RxNorm VINAY TRINH null, PA - [...] (BMI) Body weight Body temperature Oxygen saturation Heart rate Respiratory rate Systolic And Diastolic Provider Name and Address Organization Details Last Updated DateTime 3 182.88 cm 29.7 kg/m2 62192.7 3 g 97 [degF] 96 % 61 /min 16 /min 113/66 mm[Hg] VINAY TRINH PA - [facility] 3 08:28:42 Social History Question Answer Notes LastModified by Organizat ion Details LastModified Time Tobacco Smoking Status Never Smoker GARRETT Banerjee - [facility] 07/18/2022 08:25:40 Have You Recently Traveled Abroad? No [email or web address] Information not available 07/18/2022 Sex: Unknown Functional Status Question Answer Note LastModified by Organizat ion Details LastModified Time Do you use any illicit or recreational drugs? No [email or web address] Information not available 07/18/2022 Do you or have you ever used any other forms of tobacco or nicotine? No [email or web address] Information not available 07/18/2022 What is your level of alcohol consumption? None [email or web address] Information not available 07/18/2022 Mental Status None recorded. Family History Relationship Description Onset Age of this Age Resolved Age Notes LastModified by Organization Details LastModified Time Father No current problems or disability [email or web address] Not available 07/18 08:25:25 Mother No current problems or disability [email or web address] Not available 07/18 08:25:25 Medical History No medical history recorded. Immunizations Vaccine Type Date Status Note Provider Nam e and Address Organization Details Recorded Time Tdap 07/18/2022 completed Jose Saenz NP [address] [place], [place] [address], [address], [place] - [facility] 07/18/2022 19:44:34 Past Encounters Encounter ID Performer Location Encounter Start Date Encounter Closed Date Diagnosis/Indication Diagnosis SNOMED-CT Code Diagnosis ICD10 Code Diagnosis IMO Codes Diagnosis Note [id number] [address] [address] [place] [address] 05/19/2018 08:07:53 05/19/2018 08:38:27 [id number] [address] [place] [address] 04/20/2017 09:19:32 04/20/2017 10:26:52 [id number] [address] [place] [address] 03/20/2022 08:41:47 03/20/2022 11:05:46 [id number] [address] [place] [address] 03/14/2019 10:47:12 03/14/2019 12:05:09 [id number] [address] [place] [address] 07/12/2016 16:42:45 07/12/2016 17:07:10 [id number] [address] [place] [address] 05/12/2018 11:46:30 05/12/2018 12:29:09 [id number] [address] [place] [address] 07/27/2021 09:05:35 07/27/2021 10:42:59 [id number] [address] [place] [address] 06/27/2018 08:06:18 06/27/2018 08:44:07 [id number] [address] [place] [address] 03/22/2018 08:06:37 03/22/2018 08:34:58 [id number] [address] [place] [address] 09/21/2021 17:53:37 09/21/2021 18:07:14 [id number] [address] [place] [address] 07/05/2016 14:08:47 07/05/2016 14:42:37 [id number] [address] [place] [address] 07/09/2021 08:10:06 07/09/2021 09:16:33 [id number] Jose [facility] [address] [facility] [address] [place] [address] 07/18/2022 08:02:48 07/18/2022 09:07:41 Laceration of palm of hand 543105458 S61.421A Administra tion of tetanus vaccine 037805113 Z23 Health Concerns Section Related Observation LastModified by Organization Detai ls LastModified Time None Recorded Concern Status LastModified by Organization Details LastModified Time None Recorded Advance Directives Directive None Recorded Payers Insurance Date Sequence Insurance Name Policy Number Policy Blanco Covered Member ID Blanco Member ID Guarantor Name 08/28/2022 1 [employer] [facility] (PPO) [id number] 1 Damian Aguilera [id number] Damian Aguilera Notes Date Note Type Note Provider Name and Address Organization Details Recorded Time 07/18/2022 text/html Wrist/Hand Injur y UCReported by PatientHPIFor associated symptoms, patient reportspain,swelling, redness, andwarmthbut reportsno ecchymosisandno fever. For source of patient information, patient reportspatient arrived at urgent care ambulatory. For location, patient reportsleftandhand. For severity, patient reportsmild. For duration, patient ewmnkzy8707/16/2022 days. For context, patient reportslaceration. For hand dominance, patient reportsleft. For aggravating factors, patient reportsgripping. For previous injury, patient reportsno prior injury to affected body part. For previous treatment, patient reportsnone. For prior imaging, patient reportsnone. Jose Saenz NP [address] [place], [address], [place] - [facility] 07/18/2022 19:45:02
--- OUTSIDE RECORDS SUMMARY | 2025-05-04 11:13 | XMS_ITS | Data Portability ---
Author Organization [place] - [facility], Allergy Address [address] [place] [address] Care Team Providers Care General Farm Hand Name Role Phone CHRISTINA WADE Primary Care [...] spray 2024 025 [id number], [address] [facility] [place], [address], 5 09:20:08 Patient TargetsNo targets recorded. Patient [...] Details Recorded Time Hypertrop hic cardiomyo aletha 501949633 Active 2021 Other hypertrop hic cardiomyo aletha; Note: Date Diagnosed : 10/12/2021 10:08 AM (I42.2) Not Available [facility] 4 02:31:58 Chronic rhinitis 42275169 Active 2021 Chronic rhinitis; Note: Date Diagnosed : 10/12/2021 10:08 AM (J31.0) Not Available [facility] 4 02:31:41 Obstructi ve sleep apnea syndrome 84820850 Active 2021 Obstructi ve sleep apnea (adult) (pediatri c); Note: Date Diagnosed : 10/12/2021 10:08 AM (G47.33) Not Available [facility] 4 02:31:49 Hypertrop hy of nasal turbinate s 79153366 Active 2021 Hypertrop hy of nasal turbinate s; Note: Date Diagnosed : 10/12/2021 10:08 AM (J34.3) Not Available [facility] 4 02:31:49 Bilateral tinnitus 28547633875 02 Active 2021 Tinnitus, bilateral ; Note: Date Diagnosed : 12/10/2021 9:53 AM (H93.13) EDEN SALDIVAR PA-C [address] [place] [address], [facility] [place], [address] , [place] - [facility] 5 16:43:07 Sensorine ural hearing loss of bilateral ears 729230053 Active 08/08/ 2022 Sensorine ural hearing loss, bilateral ; Note: Date Diagnosed : 12/10/2021 9:53 AM (H90.3) MELIA DE LEON MA, CCC-A [address] [facility] [place] [facility], [place], [address] , [facility] - [facility] 5 16:05:56 Impacted cerumen of bilateral ears 55711352296 92155 Active 2022 Impacted cerumen, bilateral ; Note: Date Diagnosed : 3 9:34 AM (H61.23) Not Available [facility] 4 02:32:02 Vasomotor rhinitis 7798466 Active 2024 EDEN SALDIVAR PA-C [address] [facility] [place] [address], [place], [address] , [facility] - [facility] 5 09:19:39 Impacted cerumen in left ear 82637905633 19620 Active 2024 EDEN SALDIVAR PA-C [address] [facility] [place] [address], [place], [address] , [facility] 5 09:58:07 Problem Notes None recorded. Procedures Surgical History Date Name Laterality Status Provider Name and Address Organization Details Recorded Time 5 Comp Audio with Tymps - 99369 & 59697 completed MELIA DE LEON MA, CCC-A [address] [place] [address], [place], [address], [facility] 01/28/2025 16:04:16 5 Cerumen removal without microscope left completed EDEN SALDIVAR PA-C [address] [facility] [place] [facility], [place], [address], [facility] - [facility] 12/17/2024 09:19:27 Imaging Results None recorded. Procedure Notes None recorded. Medical Equipment None Reported. Allergies Allergen ID Allergen Name Allergen Category Reaction Reaction Severity Criticality Documentation Date Start Date Code Code System Note Provider Name and Address Organization Details Recorded Time 99198 Abilify medicatio n other Not available Not available 09/16/2023 04985 3 RxNorm React ion: other react ion, Unkno wn; Not Available [facility] 4 00:56:29 55881 propranol ol medicatio n other Not available Not available 09/16/2023 8787 RxNorm React ion: other react ion, Unkno wn; Not Available [facility] 4 00:56:30 24107 prednison e medicatio n other Not available Not available 09/16/2023 8640 RxNorm React ion: other react ion, Unkno wn; Not Available [facility] 4 00:56:30 98838 Product containin g penicilli n (product) medicatio n other Not available Not available 09/16/2023 02479 8001 SNOMED React ion: other react ion, Unkno wn; Not Available [facility] 4 00:56:33 Medications Name Sig Start Date Stop Date Status Note LastModified by Organization Details LastModified Time Prescript ion - Prior Authoriza tion Request active Script Copy/Selam or Auth^Scr ipt Copy/Selam or Auth_ [id number] Not Available Not Available Not Available terazosin [...] mg capsule 12/16 completed Medicati on ID: [id number] B rand Name: doxycycl ine monohydr ate [...] mg capsule 12/16 completed Medicati on ID: [id number] B rand Name: nitrofur antoin monohyd/ m-cryst Send Method: E-Prescr ibed Sub s Allowed: subs OK Medic ationGen ericName : nitrofur antoin monohyd/ m-cryst Not Available Not Available Not Available trospium ER 60 mg capsule,e xtended release 24 hr 12/16 completed Medicati on ID: [id number] B rand Name: trospium Send Method: E-Prescr [...] Updated DateTime 12/17/2024 182.88 cm 29.4 kg/m2 51618.54 g Thuy Hernandez [place] - [facility] 12/17/2024 09:05:43 Social History Question Answer Notes LastModified by Organizat ion Details LastModified Time Tobacco Smoking Status Never Smoker Thuy myrick [place] - [facility] 12/17/2024 09:05:58 What Type Of Pin Or Clip Fastener Do You Use? None Information not available [...] Disorder N Anesthesia Complications N Heart Attack ([place]) N Other Skin Condition N Diabetes N [...] ICD10 Code Diagnosis IMO Codes Diagnosis Note [id number] EDEN SALDIVAR PA-C [facility] [address] [place] [address] 12/17/2024 08:43:15 12/17/2024 09:22:17 Vasomotor rhinitis 5201104 J30.0 25782 Impacted c erumen in left ear 7634124548 281732 H61.22 3122009 74589 EDEN SALDIVAR PA-C [facility] [address] [place] [address] 01/28/2025 15:24:52 01/28/2025 16:39:22 Sensorineural hearing loss of bilateral ears 237768306 H90.3 Audiologic al evaluation results: Right ear: Normal Hearing thru 1000Hz sloping to a mild to severe SNHL with excellent word recognitio n. Left ear: Normal/bor derline normal hearing thru 2000Hz sloping to a mild to moderately severe SNHL with good word recognitio n. Tympanomet ry: Right Ear:Type A Left Ear:Type A Bilateral tinnitus 06575 53868 102 H93.13 Health Concerns Section Related Observation LastModified by Organization Detai ls LastModified Time None Recorded Concern Status LastModified by Organization Details LastModified Time None Recorded Advance Directives Directive None Recorded Payers Insurance Date Sequence Insurance Name Policy Number Policy Blanco Covered Member ID Blanco Member ID Guarantor Name 01/31/2025 1 [employer] [facility] (PPO) [id number] 1 Damian Aguilera [id number] Damian Aguilera Notes Date Note Type Note Provider Name and Address Organization Details Recorded Time 12/17/2024 text/html ROS as noted in the [facility] 64yo male with sensorineural hearing loss and PAYAL presents evaluation of vasomotor rhinitis. His nasal congestion is only when laying flat. He requests Atrovent renewal, which he uses three times daily. Denies nasal congestion during the day, nasal pain, or changes to smell. He is interested in hearing aids. MARCIAL ALFORD MD [address] [place] [address], [address], [facility] 12/17/2024 11:01:41 01/28/2025 text/html ROS as noted in the [facility] 64yo male with sensorineural hearing loss, vasomotor rhinitis, and PAYAL presents for hearing evaluation. No acute concerns today. He is interested in hearing aids. MISSAEL MCADAMS MD [address] [place] [address], [address], [facility] 01/28/2025 16:52:05
--- OUTSIDE RECORDS SUMMARY | 2025-05-04 11:13 | XMS_ITS | Patient Health Record ---
Author Organization [facility] Address [address] [place] [address] Care Team Providers Care Cath Lab Manager Name Role Phone CHRISTINA WADE Primary Care Provider Roque Singh [phone] Allergies Allergen (clinical drug ingredient) Drug/Non Drug Allergy documented on EMR Reaction Allergy Type Onset Date Status Shellfish shellfish (uncoded) Unknown Allergy Active aripiprazole Abilify Unknown Drug Allergy Acti ve penicillin G Penicillin G Sodium Unknown Drug Allergy Active propranolol Propranolol HCl Unknown Drug Allergy Active Reason For Referral No Information Medications Medication SIG (Take, Route, Frequency, Duration) Notes Start Date End Date Status Gabapentin 200 mg 1 capsule Orally bid Active Zoloft 12.5 1 tabs Oral bid Ac tive Aspir-81 81 MG Tablet Delayed Release 1 tablet Orally Once a day Active Atorvastatin Calcium 40 MG Tablet 1 tablet Orally Once a day; Duration: 30 day(s) Active Trospium Chloride ER 60 MG Capsule Extended Release 24 Hour 1 capsule in the morning on an empty stomach or 1 hour before a meal Orally Once a day; Duration: 30 day(s) Active Myrbetriq 50 MG Tablet Extended Release 24 Hour 1 tablet Orally Once a day; Duration: 30 day(s) Active Primidone 250 MG Tablet 1 tablet Orally Three times a day Active Multi Vitamin/Minerals Tablet Orally Active Metoprolol Succinate 25 MG Capsule ER 24 Hour Sprinkle 1 capsule Orally twice a day Active Benadryl 25 MG Capsule 1 capsule as need ed Orally every 6 hrs Active LORazepam 0.5 MG Tablet 1 tablet as need ed Orally Twice a day/prn Active Immunizations Vaccine Route Administration Date Status Comme nts Influenza Unknown 02/02/2019 Administered Social History Social History Additional Details Category Social Info Options Details Miscellaneous: Marital status: 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 [employer] Section Notes: Nonsmoker; no alcohol Nonsmoker; no alcohol; uses CBD oil to help with tremors Problems Problem Type SNOMED Code ICD Code Onset Dates Problem Status W/U Status Risk Notes Problem Screening for malignant neoplasm of colon (757894955) Encounter for screening for malignant neoplasm of colon (Z12.11) Active confirmed Problem History of adenomatous polyp of colon (523434622) History of adenomatous polyp of colon (Z86.010) Active confirmed Problem Elevated liver enzymes level (430840645) Elevated liver function tests (R79.89) Active confirmed Problem Preprocedural examination (740320687055850) Preprocedural examination (Z01.818) Active confirmed Problem Fatty liver (169123275) Fatty liver (K76.0) Active confirmed Plan Of Treatment Pending Test Test Name Order Date GI BIOPSY 12/10/2019 Future Test Test Name Order Date COLONOSCOPY 08/17/2014 COLONOSCOPY 11/16/2019 Next Appt Details Provider Name:Roque Rider , 05/13/2025 01:20:00 PM, [address] [place] [address], [address], [place], [address], Insurance Providers Payer Name Payer Address Payer Phone Subscriber Number Group Number Insured Name Patient Relationship to Insured Coverage Start Date Coverage End Date [facility] (afterBOT) [address] [place] [address] [id number] TEODORO REEVES Self - patient is the insured Medical (General) History Medical History History ICD Code Colonoscopy 04-18-2008--1 sm all tubular adenoma removed--int. hemorrhoids, dverticulosis Denies MD,DM,CVA,Lung disease,renal dise ase Depression Tremors--as a result [...] broken neck-teenager Appendectomy Pacemaker/AICD Lap Cholecyst[place] [address] Luis pires
--- OUTSIDE RECORDS SUMMARY | 2025-05-04 11:13 | XMS_ITS | Patient Health Record ---
Author Organization [facility] Address [address] [facility] [place] [address] Care Team Providers Care Sporting Goods Sales Associate Name Role Phone Anuj Turner Primary Care Provider Unav Nika Thomas Unavailable [phone] Allergies Allergen (clinical drug ingredient) Drug/Non Drug [...] Insured Coverage Start Date Coverage End Date [facility] [address] [place] [address] [id number] Damian Aguilera Self - patient is the insured Medical (General) History Medical History History ICD Code Anxiety Arthritis Back,Hip,and Knee pain Broken bones CAD (Cholesterol) covid-19 Depression Gall bladder problems Heart disease Sciatica chronic sinusitis Joint implants/screws Hypertrophic Cardiomyopathy Surgical History Surgery Date(Month/Year) gall bladder appendectomy Defibrillator 2017 [place] 1975
--- OUTSIDE RECORDS SUMMARY | 2025-05-04 11:13 | XMS_ITS | Clinical Summary ---
Author Organization Dawn Alfonso [facility] Address [address] [place] [id number] Care Team Providers Care Wirer Helper Name Role Phone Anuj Quinteros PURCHASING ASSISTANT Primary Care Provider + Allergies Active Allergy Reactions Criticality Noted Date Comments Aripiprazole Other (See Comments) 11/30/2019 Mood change / Dark thoughts Penicillins Diarrhea 11/30/2019 Propranolol Unknown 11/30/2019 Shellfish Containing Products Anaphylaxis High 11/30/2019 Medications metoprolol tartrate (LOPRESSOR) 25 MG tablet Take 1 tablet (25 mg total) by mouth every morning & every evening. Active MYRBETRIQ 50 mg Tb24 24 hr tablet TAKE 1 TABLET BY MOUTH EVERY DAY 0 Active LORazepam (ATIVAN) 0.5 MG tablet TAKE 1/2 TABLET BY MOUTH UP TO TWICE A DAY NEEDED 0 Active sertraline (ZOLOFT) 25 MG tablet Take 0.5 tablets (12.5 mg total) by mouth daily 50mg mornings and 25mg evenings. 0 Active cholecalciferol , vitamin D3, 5,000 unit capsule Take 1 capsule (5,000 Units total) by mouth daily. Active diphenhydrAMINE (BENADRYL) 25 mg capsule Take 1 capsule (25 mg total) by mouth at bedtime. Active multivitamin per tablet Take 1 tablet by mouth daily. Active Cannabidiol N/A Crea oil .25 ml TID Active B complex vitamins tablet Take 1 tablet by mouth daily. Active atorvaSTATin (LIPITOR) 40 MG tablet TAKE 1 TABLET BY MOUTH EVERY DAY 0 Active gabapentin (NEURONTIN) 300 MG capsule TAKE 1 CAPSULE BY MOUTH THREE TIMES A DAY 270 capsule 4 Active Additional Information Patient taking differently: 400 mg Oral 3 times daily, Morning, Evening, Bedtime, TAKE 1 CAPSULE BY MOUTH THREE TIMES A DAY, Reported on 05/02/2025 primidone (MYSOLINE) 250 MG tablet Take 1 tablet (250 mg total) by mouth 3 times a day. 270 tablet Active ipratropium (ATROVENT) 21 mcg (0.03 %) nasal spray 2 sprays into each nostril in the morning and 2 sprays in the evening. Active OLANZapine (ZyPREXA) 2.5 MG tablet Take 1 tablet (2.5 mg total) by mouth at bedtime. Active ELIQUIS 5 mg Tab Take 1 tablet (5 mg total) by mouth in the morning and 1 tablet (5 mg total) before bedtime. Active Active Problems Problem Noted Date Diagnosed Date Essential tremor 04/08/2023 Encounters Date Type Department Care Team Description 05/02/2025 9:00 AM EST Office Visit [facility] [address] Neurology at [address] [address] Raj Corrales PA Segmental myoclonus (Primary Dx); Essential tremor; Spasm of abdominal muscles of left side 02/14/2025 Refill [facility] [address] [address] Sanjay Jaimes Jr. 02/14/2025 Telephone [facility] [address] [address] Raj Corrales PA Medication Refill from Last 3 Months Immunizations Immunization Administration Dates Next Due COVID-19 Vaccine (MODERNA) Bivalent Formulation (as of January 2022) 02/22/2022 COVID-19 Vaccine (MODERNA) 03/09/2021,08/02/2020,07/05/2020 Covid-19 vaccine (SPIKEVAX) (Moderna) 12 yrs+ 01/24/2023 Social History Tobacco Use Types Packs/Day Years Used Date Smoking Tobacco: Never Smokeless Tobacco: Never Tobacco Cessation:Counseling Given: Not Answered Alcohol Use Standard Drinks/Week Comments Not Currently 0 (1 standard drink = 0.6 oz pur e alcohol) Sex and Gender Information Value Date Recorded Sex Assigned at Male 11/04/2019 10:53 AM EDT Legal Sex Male 10:51 AM EDT Gender Identity Male 11/04/2019 10:53 AM EDT Sexual Orientation Not on file Last Filed Vital Signs Vital Sign Reading Time Taken Comments Blood Pressure 118/75 05/02/2025 8:47 AM EST Pulse 76 05/02/2025 8:47 AM EST Temperature - - Respiratory Rate - - Oxygen Saturation - - Inhaled Oxygen Concentration - - Weight 99.8 kg (220 lb) 10/10/2020 8:57 AM EDT Height - - Body Mass Index - - Plan of Treatment Health Maintenance Due Date Last Done Comments Lipid Panel 1958 PSA 1958 Prostate Cancer Screening 1958 SDM 1958 Depression Screening 1970 Hepatitis C Screening 1976 CT Colonography 2003 Colonoscopy 2003 Colorectal Cancer Screening 2003 FIT 2003 FOBT 2003 Multitarget Stool DNA (Cologuard) 2003 Sigmoidoscopy 2003 Zoster Vaccine (2 of 2) 04/30/2025 03/05/2025 COVID-19 Vaccine ( season) 2025 01/29/2025, 01/16/2024, 01/24/2023, Additional history exists Blood Pressure 05/02/2026 05/02/2025 DTaP,Tdap,and Td Vaccines (3 - Td or Tdap) 07/18/2032 07/18/2022, 03/30/2014 Pneumococcal Vaccine: 50+ Years Completed 01/29/2022, 03/29/2019 Influenza Vaccine Completed 01/29/2025, , 01/24/2023, Additional history exists Meningococcal B Vaccines Aged Out No longer eligible based on patient's age to complete this topic Meningococcal Vaccines Aged Out No lo nger eligible based on patient's age to complete this topic Insurance [facility] Care Teams Wirer Helper Relationship Specialty Start Date End Date Anuj Quinteros NP PCP - General Nurse Practitioner 11/04/19
--- OUTSIDE RECORDS SUMMARY | 2025-05-04 11:13 | XMS_ITS | Encounter Summary ---
Author Organization [facility] Address [address] [place] [address] Care Team Providers Care Hospital Chief Executive Officer Name Role Phone Anuj Quinteros PAINTING MANAGER Primary Care Provider [phone] Encounter Details Date Type Department Care Team (Late st Contact Info) Description 03/29/[address] [facility] [address] [facility] [address] [place] [address] Wen Flores PA [address] [place] [address] [place] [address] Social History Tobacco Use Types Packs/Day Years [...] on file documented as of this encounter Progress Notes * GARRETT Galeano - 03/29/2025 8:01 AM EST See MURJ encounter titled Ancillary Procedure, report may be found under media, dated: Afib burden 5.2 % rate controlled on AC-is there any plan for rhythm control if not we will report A-fib with RVR only her burden greater than 10% documented in this encounter Plan of Treatment Upcoming Encounters Date Type Department Care Team (Late st Contact Info) Description 05/24/2025 8:20 AM EST Office Visit [facility] [address] [place] [address] [place] [address] Germain Henriquez MD [address] [place] [address] [address] [place] [address] 08/09/2025 8:30 AM EDT Ancillary Procedure [facility] - [address] [place] [address] documented as of this encounter Visit Diagnoses Not on filedocumented in this encounter Care Teams Hospital Chief Executive Officer Relationship Specialty Start Date End Date Anuj Quinteros NP [address], [place] PCP - General 09/25/21 documented as of this encounter
[2025-05-04 14:55] LABS: Magnesium 2.1 mg/dL (1.6-2.6); Potassium 4.1 mmol/L (3.3-5.1)
[2025-05-06 13:40] LABS: Anti Nuclear Antibody Screen NEGATIVE (NEGATIVE)
== END 2025-05-04 10:07 | disposition home or self-care (01) ==
LOC: HO.HMGCLDS 10:06
PROVIDERS: PCP Nurse Practitioner Family
DX: Z01.84 Encounter for antibody response examination (principal); M62.838 Other muscle spasm; Z13.29 Encounter for screening for other suspected endocrine disorder
CPT/HCPCS: 36415; 82085; 82550; 83516; 83520; 83735; 84132; 84182; 84443; 84481; 86038; 86140; 86235